=== PATIENT | male | born 1955 | race Caucasian/White ===

== ENCOUNTER 2022-04-24 18:12 | Inpatient (IN) ==
[2022-04-24] MEDS ORDERED: SODIUM CHLORIDE 0.9% 1000ML 500 ML IV ONE (18:25)
--- NOTE | 2022-04-24 18:27 | Emergency Department Note ---
Impression & Plan Fall, Contusion of knee, Rhabdomyolysis, Elevated troponin, Alcohol intoxication ED Provider Note Provider: Antoni Moss MD DATE OF SERVICE: 04/24/2022 CHIEF COMPLAINT: Fall HISTORY OF PRESENT ILLNESS: Patient is a 67-year-old gentleman history of GERD, Hodgkin's disease, IBS, and tremor presenting here today via ambulance from his home. Patient states he had a bit of alcohol including tequila earlier and then lost his balance and fell to the ground landing on his knees and then going to the floor. He was stuck on the floor for about 2 hours by his estimation. Family came home and found him and called 911. States he has some swelling in slight erythema to his knees but denies significant head pain or dizziness. Patient denies chest pain. He denies palpitations or abdominal discomfort. Patient states he felt a little bit unsettled earlier right before he fell but denies feeling short of breath or having palpitations with this. Patient states he feels like he may have been of the effect of the alcohol. Patient denies significant pain with movement of his arms or legs at this time. Patient denies use of anticoagulants or antiplatelet agents. REVIEW OF SYSTEMS: A total of 10 review of systems was obtained and negative except as stated above in the HPI. PAST MEDICAL HISTORY: As noted above MEDICATIONS: No medications SOCIAL HISTORY: Lives at home with family PHYSICAL EXAM: GENERAL: alert and oriented in no acute distress on stretcher Head: normocephalic and atraumatic EYES: No injection, discharge or icterus. PERRL, EOMI. NECK: Trachea midline. Supple without posterior midline tenderness ENT: Mucous membranes pink and moist. LUNGS: Airway patent. No retractions. Breath sounds clear HEART: Regular rate and rhythm. No chest wall tenderness ABDOMEN: Soft and non-tender, without guarding or rebound. SKIN: Acyanotic, warm, dry, without rashes EXTREMITIES: Without swelling, tenderness or deformity except for some bilateral contusion and erythema just below the knees with some slight ablation below the right knee. Able to range the upper and lower extremities well without significant focal bony tenderness. NEUROLOGICAL: No focal deficits with resting tremor of the hands bilaterally. No aphasia. No facial droop or slurred speech. Normal strength and tone in the extremities. Sensation to gross touch normal. EK bpm normal sinus rhythm. No PVC or PAC. No acute ST segment elevation or depression. QTc 459 CONTINUOUS CARDIAC MONITORING: was ordered and showed a heart rate of 70s-90s bpm in sinus rhythm GCS 15. Patient's laboratory studies and imaging reviewed. Differential includes Fracture, dislocation, contusion, intra-abdominal, pneumothorax, intrathoracic, intracranial, neurologic, compartment syndrome, rhabdomyolysis, as well as other pathologies. IMPRESSION/MEDICAL DECISION MAKING: Given the fact he was on the floor for several hours basic labs were checked including CK. CT of the head obtained but not having significant new neurological symptoms or his report. Nexus negative and doubt cervical spine injury. X-ray of the knees obtained but able to range them well and doubt a significant fracture here. Some contusion and slight abrasion to the right greater than left knee but no lacerations and no concern for dislocation or open joint. Given some IVF. Mild rhabdo elevation. Imaging reports per radiology without significant traumatic injury noted. Mild troponin elevation. Doubt this represents true ACS. Still with a bit of alcohol on board. Given his time in the floor with the CK elevation feel that continued IV fluid and monitoring here in the hospital is indicated. Patient sister later arrives and is in agreement. DIAGNOSIS: Fall, bilateral knee contusions, rhabdomyolysis, mild troponin elevation alcohol intoxication DISPOSITION: Hospitalist will evaluate Patient was agreeable with this plan. Past Med/Surg History Medical History Anxiety and depression GERD (gastroesophageal reflux disease) History of kidney stones Hodgkins disease (05/10/10) "Classic Hodgkin's disease, nodular sclerosing type II Status post bronchoscopy and mediastinal endoscopy with biopsy status post completion of 4 cycles of ABVD Status post completion of radiation therapy 07/05/2010 received 3600 cGy " IBS (irritable bowel syndrome) OCD (obsessive compulsive disorder) Osteoarthritis Tardive dyskinesia Surgical History History of cholecystectomy History of colonoscopy History of hernia repair History of left knee surgery History of vascular access device hx port for chemo. has been removed History of wisdom tooth extraction Social History Smoking Status: Never smoker Second Hand Exposure: No; Hx Alcohol Use: No Hx Substance Use: No Preferred Language: Thai Communication Ability: Effective Air Hammer Stripper Required: No Beliefs That Will Affect Care: None Current Living Situation: Family Feels Safe at Home: Yes Assistive Devices: Denture - Upper and Denture - Lower Allergies Allergies Allergy/AdvReac Type Severity Reaction Status Date / Time oxycodone AdvReac Intermediate cold Verified 04/24/22 20:31 sweats,nausea sertraline AdvReac Unknown NAUSEA, Verified 04/24/22 20:31 HEAD S/S Home Meds Home Medications Medication Instructions Recorded Confirmed aripiprazole 30 mg tablet (Abilify) 30 mg PO QAM 07/01/21 04/24/22 buspirone 30 mg tablet 30 mg PO BID 07/01/21 04/24/22 carbidopa 25 mg-levodopa 100 mg 2 tab PO TID 07/01/21 04/24/22 tablet fluoxetine 40 mg capsule (Prozac) 80 mg PO PM 07/01/21 04/24/22 hydroxyzine HCl 50 mg tablet 50 mg PO BID 07/01/21 04/24/22 fluoxetine 20 mg capsule 20 mg PO QPM 04/24/22 04/24/22 fluticasone propionate 50 2 spray intranasal DAILY 04/24/22 04/24/22 mcg/actuation nasal spray,suspension ipratropium bromide 21 mcg (0.03 2 spray intranasal DAILY PRN Nasal 04/24/22 04/24/22 %) nasal spray Congestion trazodone 100 mg tablet 300 mg PO HS 04/24/22 04/24/22 Results & Data (ED) Vital Signs Vital Signs - 24 hr 04/24/22 18:21 04/24/22 18:21 04/24/22 18:53 Temperature 36.5 C 36.8 C Temperature Source Oral Oral Pulse Rate 94 H 94 H Pulse Rate [Apical] 94 H Pulse Rhythm Regular Pulse Rhythm [Apical] Pulse Strength [Apical] Respiratory Rate 18 18 18 Respiratory Effort / Characteristics Respiratory Depth Respiratory Pattern Blood Pressure 99/59 L Blood Pressure [Left Arm] 99/59 L Blood Pressure Mean 72 Blood Pressure Mean [Left Arm] 72 Blood Pressure Position [Left Arm] Pulse Oximetry 96 100 99 Oxygen Delivery Method Room Air Room Air Room Air Sepsis Recent Fever Within 48 Hours No Sepsis New/Unexplained Change in Mental Status No Sepsis Action Taken by Nursing No Action Required 04/24/22 20:06 04/24/22 22:27 Temperature 36.9 C Temperature Source Oral Pulse Rate Pulse Rate [Apical] 74 99 H Pulse Rhythm Pulse Rhythm [Apical] Regular Pulse Strength [Apical] Normal Respiratory Rate 18 20 Respiratory Effort / Characteristics Non-Labored Spontaneous Respiratory Depth Normal Respiratory Pattern Regular Blood Pressure Blood Pressure [Left Arm] 113/67 120/67 Blood Pressure Mean Blood Pressure Mean [Left Arm] 82 84 Blood Pressure Position [Left Arm] Lying Pulse Oximetry 99 94 Oxygen Delivery Method Room Air Room Air Sepsis Recent Fever Within 48 Hours Sepsis New/Unexplained Change in Mental Status Sepsis Action Taken by Nursing Laboratory Data Result diagrams: 04/24/22 18:46 04/24/22 18:46 Lab Results 04/24/22 04/24/22 04/24/22 Range/Units 18:46 18:46 18:46 WBC 14.03 H (4.8-10.8) K/ul RBC 5.00 (4.63-6.08) M/uL Hgb 14.4 (14.0-18.0) g/dl Hct 42.2 (40.1-51.0) % MCV 84.4 (80.0-100.0) fL MCH 28.8 (25.0-34.0) pg MCHC 34.1 (32.0-36.0) g/dL RDW Std Deviation 45.3 (36.4-46.3) fL RDW Coeff of Elizabeth 14.8 H (11.5-14.5) % Plt Count 194 (130-400) K/uL MPV 11.3 (9.4-12.4) fL Immature Gran % (Auto) 1.0 % Neut % (Auto) 87.7 % Lymph % (Auto) 4.3 % [place] % (Auto) 6.7 % Eos % (Auto) 0.1 % Baso % (Auto) 0.2 % Neut # (Auto) 12.30 H (1.4-6.5) K/uL Lymph # (Auto) 0.60 L (1.2-3.4) K/uL [place] # (Auto) 0.94 H (0.24-0.82) K/uL Eos # (Auto) 0.02 (0-0.50) K/uL Baso # (Auto) 0.03 (0-0.2) K/uL Immature Gran # (Auto) 0.14 H (0.00-0.02) K/uL Sodium 140 (136-145) mmol/L Potassium 3.8 (3.5-5.1) mmol/L Chloride 109 H (98-107) mmol/L Carbon Dioxide 13 L (21-32) mmol/L Anion Gap 18 H (3-11) BUN 14 (6-23) mg/dl Creatinine 1.38 (0.6-1.4) mg/dl Est Cr Clr Drug Dosing 58.8 ml/min Est GFR ( Amer) 60.9 ml/min Est GFR (Non-Af Amer) 52.5 ml/min BUN/Creatinine Ratio 10.1 (10-20) Glucose 96 (70-99(Fasting)) mg/dl Calcium 9.1 (8.5-10.1) mg/dl Magnesium (1.7-2.4) mg/dl Total Bilirubin 0.8 (0.2-1.0) mg/dl AST 36 (13-39) U/L ALT 24 (7-52) U/L Alkaline Phosphatase 51 (34-104) U/L Total Creatine Kinase 512 H (30-223) U/L Troponin I High Sens 41.1 H (0-20) pg/ml Total Protein 6.9 (6.0-8.3) gm/dl Albumin 4.2 (3.4-5.0) gm/dl Globulin 2.7 (2.5-4.0) gm/dl Albumin/Globulin Ratio 1.6 (0.9-2) Urine Color Urine Appearance (Clear) Urine pH (4.5-7.5) Ur Specific Col[place] (1.000-1.030) Urine Protein (Negative) Urine Glucose (UA) (Negative) Urine Ketones (Negative) Urine Blood (Negative) Urine Nitrite (Negative) Urine Bilirubin (Negative) Urine Urobilinogen (Negative) Ur Leukocyte Esterase (Negative) Urine WBC (Auto) (0-5) /hpf Urine RBC (Auto) (0-4) /hpf U Hyaline Cast (Auto) (0-5) /lpf U Epithel Cells (Auto) (0-5) /lpf Urine Bacteria (Auto) (Negative) Ethyl Alcohol mg/dL 148.4 H (<10.0) mg/dl SARS-CoV-2, RNA, NAAT (NEGATIVE) 04/24/22 04/24/22 04/24/22 Range/Units 18:46 19:45 21:10 WBC (4.8-10.8) K/ul RBC (4.63-6.08) M/uL Hgb (14.0-18.0) g/dl Hct (40.1-51.0) % MCV (80.0-100.0) fL MCH (25.0-34.0) pg MCHC (32.0-36.0) g/dL RDW Std Deviation (36.4-46.3) fL RDW Coeff of Elizabeth (11.5-14.5) % Plt Count (130-400) K/uL MPV (9.4-12.4) fL Immature Gran % (Auto) % Neut % (Auto) % Lymph % (Auto) % [place] % (Auto) % Eos % (Auto) % Baso % (Auto) % Neut # (Auto) (1.4-6.5) K/uL Lymph # (Auto) (1.2-3.4) K/uL [place] # (Auto) (0.24-0.82) K/uL Eos # (Auto) (0-0.50) K/uL Baso # (Auto) (0-0.2) K/uL Immature Gran # (Auto) (0.00-0.02) K/uL Sodium (136-145) mmol/L Potassium (3.5-5.1) mmol/L Chloride (98-107) mmol/L Carbon Dioxide (21-32) mmol/L Anion Gap (3-11) BUN (6-23) mg/dl Creatinine (0.6-1.4) mg/dl Est Cr Clr Drug Dosing ml/min Est GFR ( Amer) ml/min Est GFR (Non-Af Amer) ml/min BUN/Creatinine Ratio (10-20) Glucose (70-99(Fasting)) mg/dl Calcium (8.5-10.1) mg/dl Magnesium 2.1 (1.7-2.4) mg/dl Total Bilirubin (0.2-1.0) mg/dl AST (13-39) U/L ALT (7-52) U/L Alkaline Phosphatase (34-104) U/L Total Creatine Kinase (30-223) U/L Troponin I High Sens (0-20) pg/ml Total Protein (6.0-8.3) gm/dl Albumin (3.4-5.0) gm/dl Globulin (2.5-4.0) gm/dl Albumin/Globulin Ratio (0.9-2) Urine Color Yellow Urine Appearance Clear (Clear) Urine pH 6.5 (4.5-7.5) Ur Specific [place] 1.003 (1.000-1.030) Urine Protein Negative (Negative) Urine Glucose (UA) Negative (Negative) Urine Ketones Negative (Negative) Urine Blood 1+ H (Negative) Urine Nitrite Negative (Negative) Urine Bilirubin Negative (Negative) Urine Urobilinogen Negative (Negative) Ur Leukocyte Esterase Negative (Negative) Urine WBC (Auto) 1-5 (0-5) /hpf Urine RBC (Auto) 0-4 (0-4) /hpf U Hyaline Cast (Auto) 0 (0-5) /lpf U Epithel Cells (Auto) 0-5 (0-5) /lpf Urine Bacteria (Auto) Negative (Negative) Ethyl Alcohol mg/dL (<10.0) mg/dl SARS-CoV-2, RNA, NAAT NEGATIVE (NEGATIVE) Administered Medications Lactated Ringer's (Lr) 1,000 mls @ 80 mls/hr IV .[id number] JEVON Stop: 05/24/22 19:59 Last Admin: 04/24/22 21:07 Dose: 80 mls/hr Documented By: KT Discontinued Medications Buspirone HCl (Buspirone 15 Mg Tab) 30 mg PO NOW STA Stop: 04/24/22 21:09 Last Admin: 04/24/22 22:24 Dose: 30 mg Documented By: VANE Carbidopa/Levodopa (Carbidopa/Levodopa 25/100mg Tab Odt) 2 tab PO NOW STA Stop: 04/24/22 21:09 Last Admin: 04/24/22 22:19 Dose: 2 tab Documented By: VANE Fluoxetine HCl (Fluoxetine Hcl 20 Mg Cap) 100 mg PO NOW STA Stop: 04/24/22 21:07 Last Admin: 04/24/22 22:18 Dose: 100 mg Documented By: VANE Sodium Chloride (Nss 1000ml) 500 mls @ 999 mls/hr IV .Q31M ONE Stop: 04/24/22 18:55 Last Infusion: 04/24/22 19:33 Dose: 0 mls/hr Documented By: Admin: 04/24/22 18:35 Dose: 999 mls/hr Documented By: SAMANTHA Thiamine HCl 100 mg/ Syringe 10 mls @ 2 mls/min IV TODAY@2044 ONE Stop: 04/24/22 20:49 Last Admin: 04/24/22 21:08 Dose: 2 mls/min Documented By: SAMANTHA Trazodone HCl (Trazodone Hcl 100 Mg Tab) 300 mg PO NOW STA Stop: 04/24/22 21:08 Last Admin: 04/24/22 22:18 Dose: 300 mg Documented By: VANE Imaging Data Radiologist's Impression: Chest X-Ray 04/24/22 18:25 SINGLE VIEW CHEST CLINICAL HISTORY: Fall. FINDINGS: 2 AP, portable, upright chest radiographs are compared to chest x-ray and chest CT dated 04/09/2022. The examination is degraded by portable technique and apical lordotic positioning. Prominence of the right mediastinal contour is unchanged and consistent with the known mediastinal mass lesion. The heart is top normal for projection. Findings of chronic interstitial lung disease are similar to previous. There is mild volume loss in the right lung with elevation of the right hemidiaphragm. There are scattered calcified granulomas. No superimposed airspace consolidation or large pleural effusion is identified. No pneumothorax is seen. The skeletal structures are osteopenic. There are chronic right-sided rib fractures. Arthritic change is seen in the shoulders. IMPRESSION: Chronic findings as above with no acute cardiopulmonary abnormality identified. ACT 112: Negative or not required by law. Electronically signed by: Kumar Burt M.D. 04/24/2022 7:[address] 04/24/22 18:25 CT SCAN OF THE BRAIN WITHOUT IV CONTRAST CLINICAL HISTORY: Trauma. Fall with head injury. COMPARISON STUDY: CT of the brain dated 02/08/2020. TECHNIQUE: Unenhanced axial CT scan of the brain is performed from the vertex to the skull base. A dose lowering technique was utilized adhering to the principles of ALARA. CT DOSE: 1048.27 mGy.cm FINDINGS: Brain parenchyma: There is age-related involutional change noting minimal subcortical and periventricular microangiopathic disease. There is no hemorrhage, mass effect, or evidence of acute territorial ischemia by CT criteria. Hong-white matter differentiation is preserved. No extra-axial fluid collection is seen. Ventricles, sulci, cisterns: Prominent secondary to involutional change. Intracranial vasculature: There is atherosclerotic calcification of the cavernous carotid and vertebral arteries. Calvarium: No depressed calvarial fracture is identified. Sinuses and mastoids: The visualized paranasal sinuses are clear. The mastoid air cells are well pneumatized. Cerumen is noted in the left external auditory canal. Orbits: The bony orbits are grossly intact. IMPRESSION: There is no hemorrhage, mass effect, or evidence of acute territorial ischemia by CT criteria. ACT 112: Negative or not required by law. Electronically signed by: Kumar Burt M.D. 04/24/2022 7:03 PM Knee X-Ray 04/24/22 18:25 LEFT KNEE 3 VIEWS CLINICAL HISTORY: Fall with left knee contusion. FINDINGS: AP, crosstable lateral, and sunrise views of the left knee are obtained. No prior studies are available for comparison at the time of dictation. The skeletal structures are osteopenic. No acute fracture is seen. There is chronic posttraumatic deformity of the proximal tibia with [address]. There is advanced degenerative change at the proximal tibiofibular articulation with bony overgrowth. There is moderate to advanced tricompartmental degenerative joint space narrowing of the knee, greatest in the lateral and patellofemoral components. There is degenerative beaking of the tibial spine, large marginal osteophytes, and patellar enthesophytes. There is a large joint effusion. Prepatellar soft tissue swelling is noted. IMPRESSION: 1. Soft tissue swelling and joint effusion with no fracture identified. 3. Osteopenia with chronic postoperative, posttraumatic, and degenerative changes as above. Electronically signed by: Kumar Burt M.D. 04/24/2022 7:32 PM Knee X-Ray 04/24/22 18:25 RIGHT KNEE 3 VIEWS CLINICAL HISTORY: Fall. Right knee injury. FINDINGS: AP, crosstable lateral, and sunrise views of the right knee are obtained. No prior studies are available for comparison at the time of dictation. The skeletal structures are osteopenic. No fracture is seen. The joint spaces of the knee are maintained. There is degenerative peaking of the tibial spine. No joint effusion is identified. There is mild prepatellar soft tissue swelling. IMPRESSION: No acute bony abnormality is identified. Electronically signed by: Kumar Burt M.D. 04/24/2022 7:30 PM Discharge Plan Visit Data Chief Complaint: Fall ED Provider: Antoni Moss Discharge Problem: Fall, Contusion of knee, Rhabdomyolysis, Elevated troponin, Alcohol intoxication Patient Disposition: Being Evaluated by Hospitalist Forms Stand Alone Forms: My [facility] Prescriptions Prescriptions: No Action fluoxetine [Prozac] 40 mg Capsule 80 mg PO PM Rx Instructions: take with 20 mg = 100mg, per patient hydroxyzine HCl 50 mg Tablet 50 mg PO BID Rx Instructions: Takes 1 tab in AM and 1 tab in mid afternoon. buspirone 30 mg Tablet 30 mg PO BID carbidopa-levodopa 25-100 mg Tablet 2 tab PO TID aripiprazole [Abilify] 30 mg Tablet 30 mg PO QAM trazodone 100 mg tablet 300 mg PO HS fluticasone propionate 50 mcg/actuation spray,suspension 2 spray INTRANASAL DAILY ipratropium bromide 21 mcg (0.03 %) spray,non-aerosol 2 spray INTRANASAL DAILY PRN (Reason: Nasal Congestion) fluoxetine 20 mg capsule 20 mg PO QPM Rx Instructions: Per pt , take with 2, 40 mg tabs to = 100mg Referrals Referrals: Nikhil Persaud DO [Primary Care Provider] -
--- NOTE | 2022-04-24 19:06 | CT Scan Report ---
CT SCAN OF THE BRAIN WITHOUT IV CONTRAST CLINICAL HISTORY: Trauma. Fall with head injury. COMPARISON STUDY: CT of the brain dated 02/08/2020. TECHNIQUE: Unenhanced axial CT scan of the brain is performed from the vertex to the skull base. A do se lowering technique was utilized adhering to the principles of ALARA. CT DOSE: 1048.27 mGy.cm FINDINGS: Brain parenchyma: There is age-related involutional change noting minimal subcortical and periventric ular microangiopathic disease. There is no hemorrhage, mass effect, or evidence of acute territorial ischemia by CT criteria. Hong-white matter differentiation is preserved. No extra-axial fluid collect ion is seen. Ventricles, sulci, cisterns: Prominent secondary to involutional change. Intracranial vasculature: There is atherosclerotic calcification of the cavernous carotid and vertebr al arteries. Calvarium: No depressed calvarial fracture is identified. Sinuses and mastoids: The visualized paranasal sinuses are clear. The mastoid air cells are well pneu matized. Cerumen is noted in the left external auditory canal. Orbits: The bony orbits are grossly intact. IMPRESSION: There is no hemorrhage, mass effect, or evidence of acute territorial ischemia by CT tio peterson. ACT 112: Negative or not required by law. Electronically signed by: Kumar Burt M.D. 04/24/2022 7:03 PM
[2022-04-24 19:09] LABS: Basophils # (auto) 0.03 K/uL (0-0.2); Basophils % (auto) 0.2 %; Eosinophils # (auto) 0.02 K/uL (0-0.50); Eosinophils % (auto) 0.1 %; Hematocrit (blood only) 42.2 % (40.1-51.0); Hemoglobin 14.4 g/dl (14.0-18.0); Immature Granulocytes # (auto) 0.14 K/uL (0.00-0.02); Lymphocytes % (auto) 4.3 %; Mean Corpuscular Hemoglobin 28.8 pg (25.0-34.0); Mean Corpuscular Hgb Conc 34.1 g/dL (32.0-36.0); Mean Corpuscular Volume 84.4 fL (80.0-100.0); Mean Platelet Volume 11.3 fL (9.4-12.4); Monocytes # (auto) 0.94 K/uL (0.24-0.82); Monocytes % (auto) 6.7 %; Neutrophils % (auto) 87.7 %; Platelet Count 194 K/uL (130-400); RDW Coefficient of Variation 14.8 % (11.5-14.5); RDW Standard Deviation 45.3 fL (36.4-46.3); White Blood Count 14.03 K/ul (4.8-10.8)
[2022-04-24 19:26] LABS: Albumin Globulin Ratio 1.6 (0.9-2); Albumin Level 4.2 gm/dl (3.4-5.0); BUN Creatinine Ratio 10.1 (10-20); Bilirubin,Total 0.8 mg/dl (0.2-1.0); Calcium 9.1 mg/dl (8.5-10.1); Creatinine Clr Calc Pharmacy 58.8 ml/min; Est GFR (African American) 60.9 ml/min; Est GFR (Non-African American) 52.5 ml/min; Globulin 2.7 gm/dl (2.5-4.0); Potassium 3.8 mmol/L (3.5-5.1); Total Protein 6.9 gm/dl (6.0-8.3)
--- NOTE | 2022-04-24 19:30 | XRay Report ---
SINGLE VIEW CHEST CLINICAL HISTORY: Fall. FINDINGS: 2 AP, portable, upright chest radiographs are compared to chest x-ray and chest CT dated 05/2022. The examination is degraded by portable technique and apical lordotic positioning. Prominenc e of the right mediastinal contour is unchanged and consistent with the known mediastinal mass lesion . The heart is top normal for projection. Findings of chronic interstitial lung disease are similar t o previous. There is mild volume loss in the right lung with elevation of the right hemidiaphragm. Th ere are scattered calcified granulomas. No superimposed airspace consolidation or large pleural effus ion is identified. No pneumothorax is seen. The skeletal structures are osteopenic. There are chronic right-sided rib fractures. Arthritic change is seen in the shoulders. IMPRESSION: Chronic findings as above with no acute cardiopulmonary abnormality identified. ACT 112: Negative or not required by law. Electronically signed by: Kumar Burt M.D. 04/24/2022 7:29 PM
--- NOTE | 2022-04-24 19:31 | XRay Report ---
RIGHT KNEE 3 VIEWS CLINICAL HISTORY: Fall. Right knee injury. FINDINGS: AP, crosstable lateral, and sunrise views of the right knee are obtained. No prior studies are available for comparison at the time of dictation. The skeletal structures are osteopenic. No fra cture is seen. The joint spaces of the knee are maintained. There is degenerative peaking of the tibi al spine. No joint effusion is identified. There is mild prepatellar soft tissue swelling. IMPRESSION: No acute bony abnormality is identified. Electronically signed by: Kumar Burt M.D. 04/24/2022 7:30 PM
[2022-04-24 19:33] LABS: Troponin I High Sensitivity 41.1 pg/ml (0-20)
--- NOTE | 2022-04-24 19:34 | XRay Report ---
LEFT KNEE 3 VIEWS CLINICAL HISTORY: Fall with left knee contusion. FINDINGS: AP, crosstable lateral, and sunrise views of the left knee are obtained. No prior studies a re available for comparison at the time of dictation. The skeletal structures are osteopenic. No acut e fracture is seen. There is chronic posttraumatic deformity of the proximal tibia with 3 cortical la g screws in place. There is advanced degenerative change at the proximal tibiofibular articulation wi th bony overgrowth. There is moderate to advanced tricompartmental degenerative joint space narrowing of the knee, greatest in the lateral and patellofemoral components. There is degenerative beaking of the tibial spine, large marginal osteophytes, and patellar enthesophytes. There is a large joint eff usion. Prepatellar soft tissue swelling is noted. IMPRESSION: 1. Soft tissue swelling and joint effusion with no fracture identified. 3. Osteopenia with chronic postoperative, posttraumatic, and degenerative changes as above. Electronically signed by: Kumar Burt M.D. 04/24/2022 7:32 PM
[2022-04-24 20:42] LABS: Appearance Urine Clear (Clear); Bacteria Urine Automated Negative (Negative); Bilirubin Urine Negative (Negative); Blood Urine 1+ (Negative); Cast Urine Automated 0 /lpf (0-5); Color Urine Yellow; Epithelial Cell Urine Auto 0-5 /lpf (0-5); Glucose Urine UA Negative (Negative); Ketones Urine Negative (Negative); Leukocyte Esterase Urine Negative (Negative); Nitrite Urine Negative (Negative); Protein Urine Negative (Negative); RBC Urine Automated 0-4 /hpf (0-4); Specific Gravity Urine 1.003 (1.000-1.030); Urobilinogen Urine Negative (Negative); pH Urine 6.5 (4.5-7.5)
[2022-04-24] MEDS ORDERED: THIAMINE HCL 100 MG in SYRINGE 9 ML IV ONE (20:45)
--- NOTE | 2022-04-24 20:59 | History & Physical Report ---
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 Lovenox subcu Full code Patient sister requesting updates from providers. Ms. Dejah Magana, contact #[phone]. Text document was generated using [employer] voice recognition software. It may contain grammatical or spelling errors. Kindly contact undersigned for clarification of any documentation item in question. History of Present Illness Chief Complaint: Fall Primary Care Provider: Nikhil Persaud, History obtained from patient, family, and records. Medical history significant for alcohol dependence as per records, Hodgkin's lymphoma status post chemoradiation, Parkinson's disease, OCD, anxiety/mood disorder. Last confinement 2011 at the behavioral health unit under Psychiatry service for anxiety, increased alcohol intake and Klonopin misuse. Patient lost his balance at home today subsequently falling to the ground. Patient sustained wounds on both knees. No head trauma, no syncope, no chest pain, no SOB. Patient had started drinking tequila because of stress over the TV service shima not showing up for his appointment today. Patient was on the ground for about a couple of hours, unable to get up. Patient found by sister and father. Patient sister not aware of patient drinking again but was surprised that the old bottle of Tequila at their home was almost empty. Patient very secretive as per sister. Medical History as above Surgical History : Mediastinostomy, cholecystectomy, inguinal hernia repair, tibia fracture surgery, wrist bone surgery, vascular device placement Family History : Stomach cancer, lymphoma, DM, heart disease, stroke Personal/Social history : Non-smoker, alcohol abuse as per records, partially disabled Allergies Allergy/AdvReac Type Severity Reaction Status Date / Time oxycodone AdvReac Intermediate cold Verified 04/24/22 20:31 sweats,nausea sertraline AdvReac Unknown NAUSEA, Verified 04/24/22 20:31 HEAD S/S Home Medications Medication Instructions Recorded Confirmed Type aripiprazole 30 mg tablet (Abilify) 30 mg PO QAM 07/01/21 04/24/22 History buspirone 30 mg tablet 30 mg PO BID 07/01/21 04/24/22 History carbidopa 25 mg-levodopa 100 mg 2 tab PO TID 07/01/21 04/24/22 History tablet fluoxetine 40 mg capsule (Prozac) 80 mg PO PM 07/01/21 04/24/22 History hydroxyzine HCl 50 mg tablet 50 mg PO BID 07/01/21 04/24/22 History fluoxetine 20 mg capsule 20 mg PO QPM 04/24/22 04/24/22 History fluticasone propionate 50 2 spray intranasal DAILY 04/24/22 04/24/22 History mcg/actuation nasal spray,suspension ipratropium bromide 21 mcg (0.03 2 spray intranasal DAILY PRN Nasal 04/24/22 04/24/22 History %) nasal spray Congestion trazodone 100 mg tablet 300 mg PO HS 04/24/22 04/24/22 History Past Med/Surg History Medical History Anxiety and depression GERD (gastroesophageal reflux disease) History of kidney stones Hodgkins disease (05/10/10) "Classic Hodgkin's disease, nodular sclerosing type II Status post bronchoscopy and mediastinal endoscopy with biopsy status post completion of 4 cycles of ABVD Status post completion of radiation therapy 07/05/2010 received 3600 cGy " IBS (irritable bowel syndrome) OCD (obsessive compulsive disorder) Osteoarthritis Tardive dyskinesia Surgical History History of cholecystectomy History of colonoscopy History of hernia repair History of left knee surgery History of vascular access device hx port for chemo. has been removed History of wisdom tooth extraction Social History Smoking Status: Never smoker Second Hand Exposure: No; Hx Alcohol Use: Yes Alcohol type: hard liquor Hx Substance Use: No Preferred Language: Icelandic Communication Ability: Effective Steam Room Attendant Required: No Beliefs That Will Affect Care: None Current Living Situation: Family Current Living Situation Comment: lives with dad and sister Other Information That Helps Us Care for You: No Feels Safe at Home: Yes Safety Concerns: Feels Safe At This Time Assistive Devices: Denture - Upper and Denture - Lower Review of Systems Review of Systems: As per HPI, all other systems reviewed and negative Physical Exam Physical Exam: GENERAL: Comfortable, obese, tremulous, unkempt, no respiratory distress SKIN: Normal color, warm HEENT: Partial alopecia, [place] palpebral conjunctivae, no ptosis, dry buccal mucosa NECK : Supple, short neck, no tenderness CHEST : CTA, no tenderness HEART : RRR, no obvious murmurs ABDOMEN: Some distention, nontender EXTREMITIES : bilateral contusions swellings on both knees with minimal tenderness, minimal LE swelling NEUROLOGIC : Coherent, no facial asymmetry, rest tremors, gait and stance not assessed Results & Data Results & Data ([facility]) Vital Signs (Past 12 Hours) Vital Signs Temp Pulse Pulse Resp BP BP Pulse Ox 04/24/22 18:53 94 H 18 99 04/24/22 18:21 36.8 C 94 H 18 99/59 L 100 04/24/22 18:21 36.5 C 94 H 18 99/59 L 96 O2 Del Method 04/24/22 18:53 Room Air 04/24/22 18:21 Room Air 04/24/22 18:21 Room Air Laboratory Results Laboratory Results WBC 14.03 K/ul (4.8-10.8) H 04/24/22 18:46 RBC 5.00 M/uL (4.63-6.08) 04/24/22 18:46 Hgb 14.4 g/dl (14.0-18.0) 04/24/22 18:46 Hct 42.2 % (40.1-51.0) 04/24/22 18:46 MCV 84.4 fL (80.0-100.0) 04/24/22 18:46 MCH 28.8 pg (25.0-34.0) 04/24/22 18:46 MCHC 34.1 g/dL (32.0-36.0) 04/24/22 18:46 RDW Std Deviation 45.3 fL (36.4-46.3) 04/24/22 18:46 RDW Coeff of [place] 14.8 % (11.5-14.5) H 04/24/22 18:46 Plt Count 194 K/uL (130-400) 04/24/22 18:46 MPV 11.3 fL (9.4-12.4) 04/24/22 18:46 Immature Gran % (Auto) 1.0 % 04/24/22 18:46 Neut % (Auto) 87.7 % 04/24/22 18:46 Lymph % (Auto) 4.3 % 04/24/22 18:46 [place] % (Auto) 6.7 % 04/24/22 18:46 Eos % (Auto) 0.1 % 04/24/22 18:46 Baso % (Auto) 0.2 % 04/24/22 18:46 Neut # (Auto) 12.30 K/uL (1.4-6.5) H 04/24/22 18:46 Lymph # (Auto) 0.60 K/uL (1.2-3.4) L 04/24/22 18:46 [place] # (Auto) 0.94 K/uL (0.24-0.82) H 04/24/22 18:46 Eos # (Auto) 0.02 K/uL (0-0.50) 04/24/22 18:46 Baso # (Auto) 0.03 K/uL (0-0.2) 04/24/22 18:46 Immature Gran # (Auto) 0.14 K/uL (0.00-0.02) H 04/24/22 18:46 Sodium 140 mmol/L (136-145) 04/24/22 18:46 Potassium 3.8 mmol/L (3.5-5.1) 04/24/22 18:46 Chloride 109 mmol/L (98-107) H 04/24/22 18:46 Carbon Dioxide 13 mmol/L (21-32) L 04/24/22 18:46 Anion Gap 18 (3-11) H 04/24/22 18:46 BUN 14 mg/dl (6-23) 04/24/22 18:46 Creatinine 1.38 mg/dl (0.6-1.4) 04/24/22 18:46 Est Cr Clr Drug Dosing 58.8 ml/min 04/24/22 18:46 Est GFR ( Amer) 60.9 ml/min 04/24/22 18:46 Est GFR (Non-Af Amer) 52.5 ml/min 04/24/22 18:46 BUN/Creatinine Ratio 10.1 (10-20) 04/24/22 18:46 Glucose 96 mg/dl (70-99(Fasting)) 04/24/22 18:46 Calcium 9.1 mg/dl (8.5-10.1) 04/24/22 18:46 Magnesium 2.1 mg/dl (1.7-2.4) 04/24/22 18:46 Total Bilirubin 0.8 mg/dl (0.2-1.0) 04/24/22 18:46 AST 36 U/L (13-39) 04/24/22 18:46 ALT 24 U/L (7-52) 04/24/22 18:46 Alkaline Phosphatase 51 U/L (34-104) 04/24/22 18:46 Total Creatine Kinase 512 U/L (30-223) H 04/24/22 18:46 Troponin I High Sens 41.1 pg/ml (0-20) H 04/24/22 18:46 Total Protein 6.9 gm/dl (6.0-8.3) 04/24/22 18:46 Albumin 4.2 gm/dl (3.4-5.0) 04/24/22 18:46 Globulin 2.7 gm/dl (2.5-4.0) 04/24/22 18:46 Albumin/Globulin Ratio 1.6 (0.9-2) 04/24/22 18:46 Ethyl Alcohol mg/dL 148.4 mg/dl (<10.0) H 04/24/22 18:46 Impressions Chest X-Ray 04/24/22 18:25 SINGLE VIEW CHEST CLINICAL HISTORY: Fall. FINDINGS: 2 AP, portable, upright chest radiographs are compared to chest x-ray and chest CT dated 04/09/2022. The examination is degraded by portable technique and apical lordotic positioning. Prominence of the right mediastinal contour is unchanged and consistent with the known mediastinal mass lesion. The heart is top normal for projection. Findings of chronic interstitial lung disease are similar to previous. There is mild volume loss in the right lung with elevation of the right hemidiaphragm. There are scattered calcified granulomas. No superimposed airspace consolidation or large pleural effusion is identified. No pneumothorax is seen. The skeletal structures are osteopenic. There are chronic right-sided rib fractures. Arthritic change is seen in the shoulders. IMPRESSION: Chronic findings as above with no acute cardiopulmonary abnormality identified. ACT 112: Negative or not required by law. Electronically signed by: Kumar Burt M.D. 04/24/2022 7:[address] 04/24/22 18:25 CT SCAN OF THE BRAIN WITHOUT IV CONTRAST CLINICAL HISTORY: Trauma. Fall with head injury. COMPARISON STUDY: CT of the brain dated 02/08/2020. TECHNIQUE: Unenhanced axial CT scan of the brain is performed from the vertex to the skull base. A dose lowering technique was utilized adhering to the principles of ALARA. CT DOSE: 1048.27 mGy.cm FINDINGS: Brain parenchyma: There is age-related involutional change noting minimal subcortical and periventricular microangiopathic disease. There is no hemorrhage, mass effect, or evidence of acute territorial ischemia by CT criteria. [place]-white matter differentiation is preserved. No extra-axial fluid collection is seen. Ventricles, sulci, cisterns: Prominent secondary to involutional change. Intracranial vasculature: There is atherosclerotic calcification of the cavernous carotid and vertebral arteries. Calvarium: No depressed calvarial fracture is identified. Sinuses and mastoids: The visualized paranasal sinuses are clear. The mastoid air cells are well pneumatized. Cerumen is noted in the left external auditory canal. Orbits: The bony orbits are grossly intact. IMPRESSION: There is no hemorrhage, mass effect, or evidence of acute territorial ischemia by CT criteria. ACT 112: Negative or not required by law. Electronically signed by: Kumar Burt M.D. 04/24/2022 7:03 PM Knee X-Ray 04/24/22 18:25 LEFT KNEE 3 VIEWS CLINICAL HISTORY: Fall with left knee contusion. FINDINGS: AP, crosstable lateral, and sunrise views of the left knee are obtained. No prior studies are available for comparison at the time of dictation. The skeletal structures are osteopenic. No acute fracture is seen. There is chronic posttraumatic deformity of the proximal tibia with [address] There is advanced degenerative change at the proximal tibiofibular articulation with bony overgrowth. There is moderate to advanced tricompartmental degenerative joint space narrowing of the knee, greatest in the lateral and patellofemoral components. There is degenerative beaking of the tibial spine, large marginal osteophytes, and patellar enthesophytes. There is a large joint effusion. Prepatellar soft tissue swelling is noted. IMPRESSION: 1. Soft tissue swelling and joint effusion with no fracture identified. 3. Osteopenia with chronic postoperative, posttraumatic, and degenerative changes as above. Electronically signed by: Kumar Burt M.D. 04/24/2022 7:32 PM Diagnostic Findings EKG as per my interpretation : Rate 90, NSR, normal axis, no ischemia (1) Rhabdomyolysis Encounter type: initial encounter Rhabdomyolysis type: traumatic Qualified Code(s): T79.6XXA - Traumatic ischemia of muscle, initial encounter
[2022-04-24] MEDS ORDERED: FLUoxetine HCL 20 MG CAP PO STA (21:06)
[2022-04-24] MEDS: LACTATED RINGER'S 1,000 ML IV SCH (21:07)
[2022-04-24] MEDS ORDERED: traZODone HCL 100 MG TAB PO STA (21:07)
[2022-04-24] MEDS ORDERED: CARBIDOPA/LEVODOPA 25/100MG TAB ODT PO STA (21:08)
[2022-04-24] MEDS: busPIRone 15 MG TAB PO STA ×2 (22:22→22:24)
[2022-04-24] MEDS ORDERED: ACETAMINOPHEN 325 MG TAB ONE (23:05)
[2022-04-24] MEDS ORDERED: Ativan IV Alcohol Withdrawal--Active Protocol IV PRN (23:07)
[2022-04-24] MEDS ORDERED: LORazepam 3 MG in SYRINGE 1.5 ML IV PRN (23:07)
[2022-04-24] MEDS ORDERED: LORazepam 2 MG in SYRINGE 1 ML IV PRN (23:07)
[2022-04-24] MEDS ORDERED: LORazepam 1 MG in SYRINGE 0.5 ML IV PRN (23:07)
[2022-04-25 01:11] LABS: Base Excess VBG -6.1 mEq/L; HCO3 VBG 17 mmol/L; Oxygen Saturation VBG 93.1 %; PCO2 VBG 28 mmHg (38-50); PO2 VBG 65 mmHg
[2022-04-25 01:36] LABS: BUN Creatinine Ratio 11.8 (10-20); Calcium 8.6 mg/dl (8.5-10.1); Creatinine Clr Calc Pharmacy 73.8 ml/min; Est GFR (African American) 80.1 ml/min; Est GFR (Non-African American) 69.1 ml/min; Potassium 3.7 mmol/L (3.5-5.1)
[2022-04-25] MEDS ORDERED: ACETAMINOPHEN 325 MG TAB PO PRN (01:42)
[2022-04-25] MEDS ORDERED: hydrOXYzine HCl 25 MG TAB PO PRN (01:42)
[2022-04-25] MEDS ORDERED: PROMETHAZINE HCL 12.5 MG in SODIUM CHLORIDE 0.9% 50 ML IV PRN (01:42)
[2022-04-25] MEDS ORDERED: KETOROLAC TROMETHAMINE 15 MG/ML VIAL IV PRN (01:42)
[2022-04-25] MEDS ORDERED: IPRATROPIUM BROMIDE NASAL SPRAY 0.06% 15ML NAE PRN (01:48)
[2022-04-25 02:43] LABS: Troponin I High Sensitivity 147.2 pg/ml (0-20)
[2022-04-25] MEDS ORDERED: DOXYCYCLINE HYCLATE 100 MG in DEXTROSE 5% 100 ML IV STA (02:56)
[2022-04-25] MEDS ORDERED: ACETAMINOPHEN 325 MG TAB PO STA (02:58)
[2022-04-25 05:43] LABS: Basophils # (auto) 0.03 K/uL (0-0.2); Basophils % (auto) 0.3 %; Eosinophils # (auto) 0.06 K/uL (0-0.50); Eosinophils % (auto) 0.6 %; Hematocrit (blood only) 38.5 % (40.1-51.0); Hemoglobin 12.9 g/dl (14.0-18.0); Immature Granulocytes # (auto) 0.05 K/uL (0.00-0.02); Immature Granulocytes % (auto) 0.5 %; Lymphocytes # (auto) 1.48 K/uL (1.2-3.4); Lymphocytes % (auto) 15.6 %; Mean Corpuscular Hemoglobin 28.4 pg (25.0-34.0); Mean Corpuscular Hgb Conc 33.5 g/dL (32.0-36.0); Mean Corpuscular Volume 84.8 fL (80.0-100.0); Mean Platelet Volume 11.4 fL (9.4-12.4); Monocytes % (auto) 11.6 %; Neutrophils # (auto) 6.78 K/uL (1.4-6.5); Neutrophils % (auto) 71.4 %; Platelet Count 170 K/uL (130-400); RDW Coefficient of Variation 15.1 % (11.5-14.5); RDW Standard Deviation 45.8 fL (36.4-46.3); Red Blood Count 4.54 M/uL (4.63-6.08)
[2022-04-25 06:04] LABS: BUN Creatinine Ratio 16.2 (10-20); Calcium 8.2 mg/dl (8.5-10.1); Creatinine Clr Calc Pharmacy 85.4 ml/min; Est GFR (Non-African American) 78.5 ml/min; Potassium 3.8 mmol/L (3.5-5.1)
[2022-04-25 06:09] LABS: Troponin I High Sensitivity 120.1 pg/ml (0-20)
--- NOTE | 2022-04-25 08:12 | Electrocardiogram Report ---
Test Reason : Blood Pressure : / mmHG Vent. Rate : 089 BPM Atrial Rate : 089 BPM P-R Int : 162 ms QRS Dur : 080 ms QT Int : 378 ms P-R-T Axes : 076 046 057 degrees QTc Int : 459 ms Poor data quality, interpretation may be adversely affected Normal sinus rhythm Nondiagnostic lateral Q waves Abnormal ECG When compared with ECG of 17-FEB-2012 18:13, No significant change was found Confirmed by Ld Zimmerman ([id number]) on 04/25/2022 8:12:15 AM Referred By: REFERRED SELF Confirmed By:Ld Zimmerman
[2022-04-25] MEDS: THIAMINE HCL 100 MG TAB PO SCH (08:19)
[2022-04-25] MEDS: MULTIVITAMIN TAB PO SCH (08:19)
[2022-04-25] MEDS: FLUTICASONE PROPIONATE NA SPR 16 GM BTL SCH (08:19)
[2022-04-25] MEDS: FOLIC ACID 1 MG TAB PO SCH (08:19)
[2022-04-25] MEDS: ENOXAPARIN INJ 40 MG/0.4 ML SYR SQ SCH (08:19)
[2022-04-25] MEDS: busPIRone 15 MG TAB PO SCH ×2 (08:20→21:44)
[2022-04-25] MEDS: CARBIDOPA/LEVODOPA 25/100MG TAB PO SCH ×3 (08:20→21:45)
[2022-04-25] MEDS: ARIPiprazole 15 MG TAB PO SCH (08:20)
[2022-04-25] MEDS ORDERED: PNEUMOCOCCAL Polysaccharide Vaccine 25mcg/0.5mL vial/Syr IM ONE (09:00)
--- NOTE | 2022-04-25 11:16 | Electrocardiogram Report ---
Test Reason : Blood Pressure : / mmHG Vent. Rate : 091 BPM Atrial Rate : 091 BPM P-R Int : 160 ms QRS Dur : 090 ms QT Int : 380 ms P-R-T Axes : 068 075 065 degrees QTc Int : 467 ms Normal sinus rhythm Normal ECG When compared with ECG of 24-APR-2022 18:36, No significant change was found Confirmed by Ld Zimmerman ([id number]) on 04/25/2022 11:15:54 AM Referred By: REFERRED SELF Confirmed By:Ld Zimmerman
[2022-04-25] MEDS: LACTATED RINGER'S 1,000 ML IV SCH (11:41)
[2022-04-25] MEDS: SODIUM CHLORIDE 0.45 % 1,000 ML IV SCH (13:18)
--- NOTE | 2022-04-25 13:18 | Hospitalist Progress Note ---
Date of Service April 25, 2022 Assessment & Plan (1) Fall: Plan 67-year-old male with PMH of alcohol dependence per records, Hodgkin's lymphoma status post chemoradiation, Parkinson's disease, OCD, anxiety/mood disorder presented to our ED 04/24 with complaint of fall. Fall Rhabdomyolysis Elevated troponin Concern for alcohol abuse Bilateral knee wounds with secondary infection: Continue with doxycycline 04/25 Patient reported drinking on the day of fall and also reports no dizziness/loss of consciousness/chest pain/palpitation prior to fall. Patient fell on his both knees and belly, does not remember hitting head. Patient was lying on the floor for couple of hours per him. Patient reports drinking 1 glass of wine every couple of weeks but empty bottle of tequila was found at their home on the day of his fall. Patient noted to be very secretive per family member. Admitting CXR/head CT/right knee x-ray with no acute findings. Admitting left knee x-ray with soft tissue swelling and joint effusion with no fracture. On exam, knee minimal tender. CPK at presentation 512, uptrending. Troponin elevated and plateaued, likely secondary to rhabdomyolysis, patient with no chest pain, EKG without acute changes. Continue with IV fluid, trend CPK in a.m., PT/OT, continue with AWSS protocol. Other chronic medical conditions: Hodgkin lymphoma status post chemoradiation/still with mediastinal mass/symptomatic, Parkinson disease, obesity, anxiety/mood disorder --->> continue with home meds as and when able. DVT prophylaxis. Lovenox subcu Full code Patient sister Ms. Dejah Magana, contact #[phone]. Admission and Anticipated Discharge Date Admission Date: April 24, 2022 Subjective Patient seen and examined at bedside as a follow-up of traumatic rhabdomyolysis secondary to fall and troponin elevation likely secondary to aforementioned. Patient was lying in bed, on room air, NAD, denies any new acute events overnight. Patient reports eating okay and also reports not moving bowels in the last 2 days. Patient denies any chest pain but reports mild pain at bilateral lower ribs where he landed when he fell at home. Patient denies any headache or dizziness or sore throat or cough or fever or chills or acute changes in his bowel or bladder habits. Patient reports having a glass of wine once every couple of weeks and denies drinking anything heavier than that. Of note, Last confinement 2011 at the behavioral health unit under Psychiatry service for anxiety, increased alcohol intake and Klonopin misuse. Physical Exam Physical Exam: GENERAL: Alert and oriented x3. NAD, on RA. resting tremors noted. HEENT: No pallor, no icterus. Pupils equal, round and reactive to light. Oral mucosa moist. NECK: No JVD, no neck masses. HEART: S1 and S2 heard. Regular rate and rhythm. No murmur, no gallop. RESPIRATORY SYSTEM: Normal AP diameter. No accessory muscle use. No wheezing, no crackles. ABDOMEN: Soft, bowel sounds present, nontender, no distention. CENTRAL NERVOUS SYSTEM: No facial droop. Speech is clear. Obeys simple commands. Moves extremities. EXTREMITIES: No edema, no erythema seen. b/l knee contusions, minimal tender. Results & Data Results & Data ([facility]) Vital Signs (Past 12 Hours) Vital Signs Temp Pulse Pulse Resp BP BP Pulse Ox 04/25/22 12:26 37.0 C 77 18 132/75 96 04/25/22 08:20 37.3 C 85 20 123/76 94 04/25/22 04:24 94 H 04/25/22 04:00 36.9 C 95 H 18 114/66 95 04/25/22 01:20 37.7 C H 90 18 117/67 93 O2 Del Method 04/25/22 12:26 Room Air 04/25/22 08:20 Room Air 04/25/22 04:24 04/25/22 04:00 Room Air 04/25/22 01:20 Room Air (1) Fall Encounter type: initial encounter Qualified Code(s): W19.XXXA - Unspecified fall, initial encounter
[2022-04-25] MEDS ORDERED: traZODone HCL 100 MG TAB PO SCH (21:00)
[2022-04-25] MEDS ORDERED: FLUoxetine HCL 20 MG CAP PO SCH (21:00)
[2022-04-25] MEDS: DOXYCYCLINE HYCLATE 100 MG CAP PO SCH (21:45)
[2022-04-26] MEDS: SODIUM CHLORIDE 0.45 % 1,000 ML IV SCH ×2 (01:52→13:25)
[2022-04-26 08:23] LABS: Hematocrit (blood only) 38.4 % (40.1-51.0); Mean Corpuscular Hemoglobin 28.6 pg (25.0-34.0); Mean Corpuscular Hgb Conc 33.9 g/dL (32.0-36.0); Mean Corpuscular Volume 84.4 fL (80.0-100.0); Mean Platelet Volume 10.9 fL (9.4-12.4); Platelet Count 143 K/uL (130-400); RDW Coefficient of Variation 14.8 % (11.5-14.5); RDW Standard Deviation 45.8 fL (36.4-46.3); Red Blood Count 4.55 M/uL (4.63-6.08); White Blood Count 6.62 K/ul (4.8-10.8)
[2022-04-26 09:03] LABS: BUN Creatinine Ratio 13.3 (10-20); Calcium 8.4 mg/dl (8.5-10.1); Creatinine Clr Calc Pharmacy 93.8 ml/min; Est GFR (African American) 102.1 ml/min; Est GFR (Non-African American) 88.1 ml/min; Potassium 3.6 mmol/L (3.5-5.1)
[2022-04-26 09:10] LABS: Magnesium 1.8 mg/dl (1.7-2.4)
[2022-04-26] MEDS: FLUTICASONE PROPIONATE NA SPR 16 GM BTL SCH (09:27)
[2022-04-26] MEDS: THIAMINE HCL 100 MG TAB PO SCH (09:27)
[2022-04-26] MEDS: ENOXAPARIN INJ 40 MG/0.4 ML SYR SQ SCH (09:27)
[2022-04-26] MEDS: CARBIDOPA/LEVODOPA 25/100MG TAB PO SCH ×2 (09:27→13:20)
[2022-04-26] MEDS: ARIPiprazole 15 MG TAB PO SCH (09:27)
[2022-04-26] MEDS: MULTIVITAMIN TAB PO SCH (09:27)
[2022-04-26] MEDS: busPIRone 15 MG TAB PO SCH (09:27)
[2022-04-26] MEDS: DOXYCYCLINE HYCLATE 100 MG CAP PO SCH (09:27)
[2022-04-26] MEDS: FOLIC ACID 1 MG TAB PO SCH (09:27)
[2022-04-26] MEDS ORDERED: POLYETHYLENE (MIRALAX) 17 GM PACK PO PRN (10:24)
--- NOTE | 2022-04-26 13:40 | Discharge Summary ---
Date of Service April 26, 2022 Admission HPI Per Admitting Provider History obtained from patient, family, and records. Medical history significant for alcohol dependence as per records, Hodgkin's lymphoma status post chemoradiation, Parkinson's disease, OCD, anxiety/mood disorder. Last confinement 2011 at the behavioral health unit under Psychiatry service for anxiety, increased alcohol intake and Klonopin misuse. Patient lost his balance at home today subsequently falling to the ground. Patient sustained wounds on both knees. No head trauma, no syncope, no chest pain, no SOB. Patient had started drinking tequila because of stress over the TV service shima not showing up for his appointment today. Patient was on the ground for about a couple of hours, unable to get up. Patient found by sister and father. Patient sister not aware of patient drinking again but was surprised that the old bottle of Tequila at their home was almost empty. Patient very secretive as per sister. Medical History as above Surgical History : Mediastinostomy, cholecystectomy, inguinal hernia repair, tibia fracture surgery, wrist bone surgery, vascular device placement Family History : Stomach cancer, lymphoma, DM, heart disease, stroke Personal/Social history : Non-smoker, alcohol abuse as per records, partially disabled Admission Exam Per Admitting Provider GENERAL: Comfortable, obese, tremulous, unkempt, no respiratory distress SKIN: Normal color, warm HEENT: Partial alopecia, Carmet palpebral conjunctivae, no ptosis, dry buccal mucosa NECK : Supple, short neck, no tenderness CHEST : CTA, no tenderness HEART : RRR, no obvious murmurs ABDOMEN: Some distention, nontender EXTREMITIES : bilateral contusions swellings on both knees with minimal tenderness, minimal LE swelling NEUROLOGIC : Coherent, no facial asymmetry, rest tremors, gait and stance not assessed Principal Diagnosis Fall Rhabdomyolysis Elevated troponin Concern for alcohol abuse Bilateral knee wounds with secondary infection Discharge Exam GENERAL: Alert and oriented x3. NAD, on RA. resting tremors noted. HEENT: No pallor, no icterus. Pupils equal, round and reactive to light. Oral mucosa moist. NECK: No JVD, no neck masses. HEART: S1 and S2 heard. Regular rate and rhythm. No murmur, no gallop. RESPIRATORY SYSTEM: Normal AP diameter. No accessory muscle use. No wheezing, no crackles. ABDOMEN: Soft, bowel sounds present, nontender, no distention. CENTRAL NERVOUS SYSTEM: No facial droop. Speech is clear. Obeys simple commands. Moves extremities. EXTREMITIES: No edema, no erythema seen. b/l knee contusions, minimal tender. clean dressing, no soakage. Discharge Data Allergies Allergy/AdvReac Type Severity Reaction Status Date / Time oxycodone AdvReac Intermediate cold Verified 04/24/22 20:31 sweats,nausea sertraline AdvReac Unknown NAUSEA, Verified 04/24/22 20:31 HEAD S/S Consultations 04/24/22 20:06 ED Decision to Admit Stat Ordered Studies 04/24/22 18:25 CT head/brain wo con Stat Hospital Course (1) Fall: Plan 67-year-old male with PMH of alcohol dependence per records, Hodgkin's lymphoma status post chemoradiation, Parkinson's disease, OCD, anxiety/mood disorder presented to our ED 04/24 with complaint of fall. He was managed for the following: Fall Rhabdomyolysis Elevated troponin Concern for alcohol abuse Bilateral knee wounds with secondary infection: Continue with doxycycline 04/25. Daily dressings. Patient reported drinking on the day of fall and also reports no dizziness/loss of consciousness/chest pain/palpitation prior to fall. Patient fell on his both knees and belly, does not remember hitting head. Patient was lying on the floor for couple of hours per him. Patient reports drinking 1 glass of wine every couple of weeks but empty bottle of tequila was found at their home on the day of his fall. Patient noted to be very secretive per family member. Admitting CXR/head CT/right knee x-ray with no acute findings. Admitting left knee x-ray with soft tissue swelling and joint effusion with no fracture. On exam, knee minimal tender. CPK at presentation 512, peaked and started to downtrend. Patient to continue with increased fluid intake upon discharge as advised. Patient to get blood test CBC, CMP and CPK at 5 days upon discharge via his PCP office. Troponin elevated and plateaued, likely secondary to rhabdomyolysis, patient with no chest pain, EKG without acute changes. Continue with IV fluid until 6 PM and then discharge. Other chronic medical conditions: Hodgkin lymphoma status post chemoradiation/still with mediastinal mass/symptomatic, Parkinson disease, obesity, anxiety/mood disorder --->> continue with home meds as and when able. DVT prophylaxis. Lovenox subcu Full code Patient sister Ms. Dejah Magana, contact #[phone]. Following instructions were communicated to patient and also to his father and primary contact [Mr. Coreas, via phone]. Patient being discharged with following instructions at the point of discharge: Follow-up with your primary care physician within a week time. Continue to drink adequate water [3 L/day] for next 3 to 5 days. Then you can go back to standard fluid requirement of 2 L/day. Continue with home health physical therapy to improve your gait/balance issues. You will need to get blood test CBC, CMP and CPK done in 5 days upon discharge. You will have to call PCP office to set up the test. You are being discharged on oral antibiotics for your bilateral skin infection over the knees, complete the course, do dressing changes daily. Take your medications as prescribed. Total Time Total Time Spent Total Time Spent (In Minutes): 35 Discharge Plan Discharge Items Patient Disposition: Home - Home Health Services Reason For Visit: LOW BP, RHABDOMYOLYSIS Discharge Diagnosis: Fall Rhabdomyolysis Elevated troponin Concern for alcohol abuse Bilateral knee wounds with secondary infection Activity: Resume your previous activity Non-emergency contact: Primary Care Provider Call non-emergency contact if: you have any medication questions, your symptoms worsen and your temperature is above 101 Follow-up/Referrals: Nikhil Persaud, [Primary Care Provider] - Diet: Regular Addtl Attending Provider Instructions: Follow-up with your primary care physician within a week time. Continue to drink adequate water [3 L/day] for next 3 to 5 days. Then you can go back to standard fluid requirement of 2 L/day. Continue with home health physical therapy to improve your gait/balance issues. You will need to get blood test CBC, CMP and CPK done in 5 days upon discharge. You will have to call PCP office to set up the test. You are being discharged on oral antibiotics for your bilateral skin infection over the knees, complete the course, do dressing changes daily. Take your medications as prescribed. Pending Studies at Discharge: No Stand-Alone Forms: My [employer], Smoking Cessation Medications and DC Order Prescriptions: New doxycycline hyclate 100 mg Capsule 100 mg PO BID 8 Days Qty: 16 0RF folic acid 1 mg Tablet 1 mg PO QAM 30 Days Qty: 30 0RF multivitamin with folic acid [Daily-Mack (with folic acid)] 400 mcg Tablet 1 tab PO QAM Qty: 30 0RF thiamine HCl (vitamin B1) 100 mg Tablet 100 mg PO QAM 30 Days Qty: 30 0RF Probiotic 3 billion cell capsule 3,000 mmu cells PO DAILY 10 Days Qty: 10 0RF Rx Instructions: administer with a meal Continued fluoxetine [Prozac] 40 mg Capsule 80 mg PO PM Rx Instructions: take with 20 mg = 100mg, per patient hydroxyzine HCl 50 mg Tablet 50 mg PO BID Rx Instructions: Takes 1 tab in AM and 1 tab in mid afternoon. buspirone 30 mg Tablet 30 mg PO BID carbidopa-levodopa 25-100 mg Tablet 2 tab PO TID aripiprazole [Abilify] 30 mg Tablet 30 mg PO QAM trazodone 100 mg tablet 300 mg PO HS fluticasone propionate 50 mcg/actuation spray,suspension 2 spray INTRANASAL DAILY ipratropium bromide 21 mcg (0.03 %) spray,non-aerosol 2 spray INTRANASAL DAILY PRN (Reason: Nasal Congestion) fluoxetine 20 mg capsule 20 mg PO QPM Rx Instructions: Per pt , take with 2, 40 mg tabs to = 100mg Discharge Orders: Discharge Order (Routine); Ordered 04/26/22 Ordered By: Roni Duarte Admission Data Admit Date/Time: 04/24/22 21:12 Attending Provider: Roni Duarte Admit Provider: Reuben Galindo Primary Care Provider: Nikhil Persaud Other Providers: Reuben Galindo ; [facility]
== END 2022-04-26 19:49 | disposition home health service (06) | DRG 565 ==
LOC: ED 18:12 → 2N 21:12

== ENCOUNTER 2022-12-13 17:11 | Inpatient (IN) ==
--- NOTE | 2022-12-13 17:33 | Emergency Department Note ---
Impression & Plan Rhabdomyolysis, Overdose, Dizziness, Abrasion of knee, bilateral ED Provider Note Provider: Antoni Moss MD DATE OF SERVICE: 12/13/2022 CHIEF COMPLAINT: Dizziness weakness, overdose HISTORY OF PRESENT ILLNESS: Patient is a 67-year-old gentleman history of schizophrenia and Parkinson's coming in after according EMS sisters report some cognitive decline over the some time with weakness and multiple falls over the last several weeks. Seen here previously for falls. Evidently reported them as worsening dizziness with ambulation. Patient reports he is taken an extra dose of aripiprazole several times over the past week. To me he says he took an extra dose after lunch taking 2 of his 15mg aripiprazole tablets. Denies taking anything else. Denies dizziness to me. Denies pain complaint beyond some knee pain. Did fall and skinned his knees and has slight bruise on his face at the previous evaluation here. Denies new falls or trauma. Denies wanting to harm himself. PAST MEDICAL HISTORY: As noted above MEDICATIONS: Reviewed home medication list present with him SOCIAL HISTORY: Lives with father and sister according to him PHYSICAL EXAM: GENERAL: alert and oriented in no acute distress on stretcher Head: normocephalic and atraumatic EYES: No injection, discharge or icterus. PERRL NECK: Trachea midline. Supple without midline tenderness ENT: Mucous membranes pink and moist. LUNGS: Airway patent. No retractions. Breath sounds clear with good air entry bilaterally. HEART: Regular rate and rhythm. No chest wall tenderness ABDOMEN: Soft and non-tender, without guarding or rebound. SKIN: Acyanotic, warm, dry, without rashes EXTREMITIES: Without healed left knee surgical scar with some healing abrasions on the bilateral knees. No significant bony tenderness noted. NEUROLOGICAL: No focal deficits. No aphasia. No facial droop or slurred speech. Normal strength and tone in the extremities. Sensation to gross touch normal. No clonus appreciated. EK bpm normal sinus rhythm. No PVC or PAC. No acute ST segment elevation or depression with a QTc of 445. No significant QRS prolongation. CONTINUOUS CARDIAC MONITORING: was ordered and showed a heart rate of 60s bpm in normal sinus rhythm Patient's laboratory studies and imaging reviewed. Differential includes Infection, dehydration, metabolic abnormality, hypo/hyperglycemia, electrolyte disturbance, anemia, hypoxia, cardiac sources, toxicologic, neurologic, as well as other pathologies. IMPRESSION/MEDICAL DECISION MAKING: CT head completed given reports of maybe some dizziness and weakness with falls. No significant tenderness of the knees and appears well-healed and have amatory I doubt a significant fracture in the lower extremities. Basic blood work obtained. EKG obtained given report of possible overdose and his dizziness. Not having significant arrhythmia. Sounds like the overdose may be an extra tablet of his Abilify here there. Did send toxicology labs however. Doubt any significant injury from taking just an extra Abilify here there. The extra sedation may contribute somewhat to his dizziness and falls and fatigue. Reviewed prior medical records and last evaluation here in October after a fall. Documented to have Parkinson's disease at that time with worsening tremors. No infectious symptomatology is reported. Afebrile here. No significant focal deficit doubt meningitis or CVA. Blood work here slight anemia but no leukocytosis. No significant t hrombocytopenia. No severe electrolyte abnormalities. Normal troponin and renal function. CK is elevated. Question of this is from his recurrent falls. Started on some maintenance IV fluids to maintain good hydration with possibly some mild rhabdomyolysis. No Tylenol, ethanol, or salicylate blood work elevations which is reassuring. CT of the head per radiology without acute findings. DIAGNOSIS: Dizziness, overdose, Parkinson disease, knee abrasions, rhabdomyolysis DISPOSITION: Hospitalist will evaluate Patient was agreeable with this plan. Past Med/Surg History Medical History (Updated 12/13/22 @ 19:09 by Antoni Msos M.D.) Anxiety and depression GERD (gastroesophageal reflux disease) History of kidney stones Hodgkins disease (05/10/10) "Classic Hodgkin's disease, nodular sclerosing type II Status post bronchoscopy and mediastinal endoscopy with biopsy status post completion of 4 cycles of ABVD Status post completion of radiation therapy 07/05/2010 received 3600 cGy " IBS (irritable bowel syndrome) Mood disorder OCD (obsessive compulsive disorder) Osteoarthritis Tardive dyskinesia Surgical History History of cholecystectomy History of colonoscopy History of hernia repair History of left knee surgery History of vascular access device hx port for chemo. has been removed History of wisdom tooth extraction Family History Other Cancer Heart disease Stroke Social History Smoking Status: Former smoker Smoking End Date: 1978; Second Hand Exposure: No; Hx Alcohol Use: Yes (in remission) Alcohol type: hard liquor Hx Substance Use: No Preferred Language: Icelandic Communication Ability: Effective Residential Treatment Staff Required: No Beliefs That Will Affect Care: None marital status: Single Current Living Situation: Family Current Living Situation Comment: lives with dad and sister Feels Safe at Home: Yes Assistive Devices: None Allergies Allergies Allergy/AdvReac Type Severity Reaction Status Date / Time pollen extracts Allergy Intermediate SNEEZING/CO Verified 12/13/22 18:06 NGESTION ragweed pollen Allergy Mild Sneezing Verified 12/13/22 18:06 oxycodone AdvReac Intermediate COLD Verified 12/13/22 18:06 SWEATS/NAUSEA/VOMITING sertraline AdvReac Intermediate NAUSEA/VOMI Verified 12/13/22 18:06 TING Home Meds Home Medications Medication Instructions Recorded Confirmed buspirone 30 mg tablet 30 mg PO BID 07/01/21 12/13/22 carbidopa 25 mg-levodopa 100 mg 2 tab PO TID 07/01/21 12/13/22 tablet fluoxetine 40 mg capsule (Prozac) 40 mg PO QAM 07/01/21 12/13/22 fluticasone propionate 50 2 spray intranasal DAILY PRN Nasal 04/24/22 12/13/22 mcg/actuation nasal Congestion spray,suspension ipratropium bromide 21 mcg (0.03 2 spray intranasal DAILY PRN Nasal 04/24/22 12/13/22 %) nasal spray Congestion trazodone 100 mg tablet 300 mg PO HS 04/24/22 12/13/22 clonazepam 1 mg tablet 1 mg PO BID 10/14/22 12/13/22 aripiprazole 15 mg tablet 15 mg PO QAM 12/13/22 12/13/22 benztropine 0.5 mg tablet 0.5 mg PO BID 12/13/22 12/13/22 polyethylene glycol 3350 17 17 g PO DAILY PRN Constipation 12/13/22 12/13/22 gram/dose oral powder (Miralax) Results & Data (ED) Vital Signs Vital Signs - 24 hr 12/13/22 17:22 12/13/22 18:29 Temperature 36.9 C Temperature Source Oral Pulse Rate 66 64 Respiratory Rate 16 Respiratory Effort / Characteristics Non-Labored Spontaneous Respiratory Depth Normal Respiratory Pattern Regular Blood Pressure 128/66 Blood Pressure Mean 86 Pulse Oximetry 97 Oxygen Delivery Method Room Air Sepsis Recent Fever Within 48 Hours No Sepsis New/Unexplained Change in Mental Status N/A Sepsis Action Taken by Nursing No Action Required Laboratory Data 12/13/22 17:19 12/13/22 17:19 Lab Results 12/13/22 12/13/22 12/13/22 Range/Units 17:19 17:19 17:19 WBC 5.45 (4.8-10.8) K/ul RBC 4.57 L (4.70-6.10) M/uL Hgb 13.4 L (14.0-18.0) g/dl Hct 40.1 L (42.0-52.0) % MCV 87.7 (80.0-100.0) fL MCH 29.3 (25.0-34.0) pg MCHC 33.4 (32.0-36.0) g/dL RDW Std Deviation 49.3 H (36.4-46.3) fL RDW Coeff of Elizabeth 15.3 H (11.5-14.5) % Plt Count 183 (130-400) K/uL MPV 10.9 (9.4-12.4) fL Immature Gran % (Auto) 0.4 % Neut % (Auto) 63.3 % Lymph % (Auto) 22.6 % Powell % (Auto) 10.3 % Eos % (Auto) 2.8 % Baso % (Auto) 0.6 % Neut # (Auto) 3.46 (1.40-6.50) K/uL Lymph # (Auto) 1.23 (1.2-3.4) K/uL Powell # (Auto) 0.56 (0.11-0.59) K/uL Eos # (Auto) 0.15 (0-0.50) K/uL Baso # (Auto) 0.03 (0-0.2) K/uL Immature Gran # (Auto) 0.02 (0.01-0.20) K/uL PT 11.4 (9.0-12.0) Seconds INR 1.1 (0.9-1.1) APTT 25.9 (21.0-31.0) Seconds PTT Ratio 0.9 Sodium 137 (136-145) mmol/L Potassium 3.9 (3.5-5.1) mmol/L Chloride 108 H (98-107) mmol/L Carbon Dioxide 22 (21-32) mmol/L Anion Gap 7 (3-11) BUN 21 (6-23) mg/dl Creatinine 1.07 (0.6-1.4) mg/dl Est Cr Clr Drug Dosing 84.0 ml/min Est GFR ( Amer) 82.8 ml/min Est GFR (Non-Af Amer) 71.5 ml/min BUN/Creatinine Ratio 19.6 (10-20) Glucose 91 (70-99(Fasting)) mg/dl Calcium 9.0 (8.6-10.3) mg/dl Total Bilirubin 0.9 (0.2-1.0) mg/dl AST 45 H (13-39) U/L ALT 25 (7-52) U/L Alkaline Phosphatase 97 (34-104) U/L Total Creatine Kinase 1039 H (30-223) U/L Troponin I High Sens 6.8 (0-20) pg/ml Total Protein 7.1 (6.0-8.3) gm/dl Albumin 4.0 (3.4-5.0) gm/dl Globulin 3.1 (2.5-4.0) gm/dl Albumin/Globulin Ratio 1.3 (0.9-2) Salicylates (3.0-30) mg/dl Acetaminophen (10-30) ug/ml Ethyl Alcohol mg/dL (<10.0) mg/dl SARS-CoV-2, RNA, NAAT (NEGATIVE) 12/13/22 12/13/22 12/13/22 Range/Units 17:19 17:19 18:18 WBC (4.8-10.8) K/ul RBC (4.70-6.10) M/uL Hgb (14.0-18.0) g/dl Hct (42.0-52.0) % MCV (80.0-100.0) fL MCH (25.0-34.0) pg MCHC (32.0-36.0) g/dL RDW Std Deviation (36.4-46.3) fL RDW Coeff of Elizabeth (11.5-14.5) % Plt Count (130-400) K/uL MPV (9.4-12.4) fL Immature Gran % (Auto) % Neut % (Auto) % Lymph % (Auto) % Powell % (Auto) % Eos % (Auto) % Baso % (Auto) % Neut # (Auto) (1.40-6.50) K/uL Lymph # (Auto) (1.2-3.4) K/uL Powell # (Auto) (0.11-0.59) K/uL Eos # (Auto) (0-0.50) K/uL Baso # (Auto) (0-0.2) K/uL Immature Gran # (Auto) (0.01-0.20) K/uL PT (9.0-12.0) Seconds INR (0.9-1.1) APTT (21.0-31.0) Seconds PTT Ratio Sodium (136-145) mmol/L Potassium (3.5-5.1) mmol/L Chloride (98-107) mmol/L Carbon Dioxide (21-32) mmol/L Anion Gap (3-11) BUN (6-23) mg/dl Creatinine (0.6-1.4) mg/dl Est Cr Clr Drug Dosing ml/min Est GFR ( Amer) ml/min Est GFR (Non-Af Amer) ml/min BUN/Creatinine Ratio (10-20) Glucose (70-99(Fasting)) mg/dl Calcium (8.6-10.3) mg/dl Total Bilirubin (0.2-1.0) mg/dl AST (13-39) U/L ALT (7-52) U/L Alkaline Phosphatase (34-104) U/L Total Creatine Kinase (30-223) U/L Troponin I High Sens (0-20) pg/ml Total Protein (6.0-8.3) gm/dl Albumin (3.4-5.0) gm/dl Globulin (2.5-4.0) gm/dl Albumin/Globulin Ratio (0.9-2) Salicylates < 3.0 L (3.0-30) mg/dl Acetaminophen < 3 L (10-30) ug/ml Ethyl Alcohol mg/dL < 10.0 (<10.0) mg/dl SARS-CoV-2, RNA, NAAT NEGATIVE (NEGATIVE) Administered Medications Lactated Ringer's (Lr) 1,000 mls @ 125 mls/hr IV .Q8H JEVON Stop: 01/12/23 17:59 Last Admin: 12/13/22 18:15 Dose: 125 mls/hr Documented By: STEVE Imaging Data Radiologist's Impression: Head CT 12/13/22 17:28 CT SCAN OF THE BRAIN WITHOUT IV CONTRAST CLINICAL HISTORY: Generalized weakness. COMPARISON STUDY: CT of the brain dated 04/24/2022. TECHNIQUE: Unenhanced axial CT scan of the brain is performed from the vertex to the skull base. A dose lowering technique was utilized adhering to the princi ples of MYRA. The examination is degraded by motion artifact. The patient was scanned twice in an effort to improve image quality. CT DOSE: 1795.61 mGy.cm FINDINGS: Brain parenchyma: There is age-related involutional change noting mild subcortical and periventricular microangiopathic disease. There is no hemorrhage, mass effect, or evidence of acute territorial ischemia by CT criteria. Hong-white matter differentiation is preserved. No extra-axial fluid collection is seen. Ventricles, sulci, cisterns: Prominent secondary to involutional change. Intracranial vasculature: There is atherosclerotic calcification of the cavernous carotid arteries. Calvarium: Unremarkable. Sinuses and mastoids: There is trace mucosal thickening in the right maxillary antrum and the ethmoid sinuses. The mastoid air cells are well pneumatized. Cerumen is seen within the left external auditory canal. Orbits: The bony orbits are grossly intact. IMPRESSION: There is no hemorrhage, mass effect, or evidence of acute territorial ischemia by CT criteria. ACT 112: Negative or not required by law. Electronically signed by: Kumar Burt M.D. 12/13/2022 6:06 PM Discharge Plan Visit Data Chief Complaint: Dizziness Stated Complaint: DIZZINESS, OVERDOSE, MENTAL STATUS CHANGE ED Provider: Antoni Moss Discharge Problem: Rhabdomyolysis, Overdose, Dizziness, Abrasion of knee, bilateral Patient Disposition: Being Evaluated by Hospitalist Forms Stand Alone Forms: My [facility] Prescriptions Prescriptions: No Action fluoxetine [Prozac] 40 mg Capsule 40 mg PO QAM Rx Instructions: PER GMG--40 MG DAILY, PER PT'S LIST 2 TABS DAILY. buspirone 30 mg Tablet 30 mg PO BID carbidopa-levodopa 25-100 mg Tablet 2 tab PO TID trazodone 100 mg tablet 300 mg PO HS Rx Instructions: PER GMG--300 MG HS, PER PT'S LIST 100-300 MG HS. fluticasone propionate 50 mcg/actuation spray,suspension 2 spray INTRANASAL DAILY PRN (Reason: Nasal Congestion) ipratropium bromide 21 mcg (0.03 %) spray,non-aerosol 2 spray INTRANASAL DAILY PRN (Reason: Nasal Congestion) clonazepam 1 mg tablet 1 mg PO BID benztropine 0.5 mg tablet 0.5 mg PO BID polyethylene glycol 3350 [Miralax] 17 gram/dose Powder 17 g PO DAILY PRN (Reason: Constipation) aripiprazole 15 mg tablet 15 mg PO QAM Referrals Referrals: Nikhil Persaud DO [Primary Care Provider] -
[2022-12-13 17:44] LABS: Bilirubin,Total 0.9 mg/dl (0.2-1.0); Potassium 3.9 mmol/L (3.5-5.1)
[2022-12-13 17:47] LABS: Basophils # (auto) 0.03 K/uL (0-0.2); Basophils % (auto) 0.6 %; Eosinophils # (auto) 0.15 K/uL (0-0.50); Eosinophils % (auto) 2.8 %; Hematocrit (blood only) 40.1 % (42.0-52.0); Hemoglobin 13.4 g/dl (14.0-18.0); Immature Granulocytes # (auto) 0.02 K/uL (0.01-0.20); Immature Granulocytes % (auto) 0.4 %; Lymphocytes # (auto) 1.23 K/uL (1.2-3.4); Lymphocytes % (auto) 22.6 %; Mean Corpuscular Hemoglobin 29.3 pg (25.0-34.0); Mean Corpuscular Hgb Conc 33.4 g/dL (32.0-36.0); Mean Corpuscular Volume 87.7 fL (80.0-100.0); Mean Platelet Volume 10.9 fL (9.4-12.4); Monocytes # (auto) 0.56 K/uL (0.11-0.59); Monocytes % (auto) 10.3 %; Neutrophils # (auto) 3.46 K/uL (1.40-6.50); Neutrophils % (auto) 63.3 %; Platelet Count 183 K/uL (130-400); RDW Coefficient of Variation 15.3 % (11.5-14.5); RDW Standard Deviation 49.3 fL (36.4-46.3); Red Blood Count 4.57 M/uL (4.70-6.10); White Blood Count 5.45 K/ul (4.8-10.8)
[2022-12-13 17:50] LABS: Albumin Globulin Ratio 1.3 (0.9-2); BUN Creatinine Ratio 19.6 (10-20); Est GFR (African American) 82.8 ml/min; Est GFR (Non-African American) 71.5 ml/min; Globulin 3.1 gm/dl (2.5-4.0); Total Protein 7.1 gm/dl (6.0-8.3)
[2022-12-13 17:55] LABS: Troponin I High Sensitivity 6.8 pg/ml (0-20)
[2022-12-13 18:06] LABS: Acetaminophen < 3 ug/ml (10-30); Salicylate < 3.0 mg/dl (3.0-30)
--- NOTE | 2022-12-13 18:08 | CT Scan Report ---
CT SCAN OF THE BRAIN WITHOUT IV CONTRAST CLINICAL HISTORY: Generalized weakness. COMPARISON STUDY: CT of the brain dated 04/24/2022. TECHNIQUE: Unenhanced axial CT scan of the brain is performed from the vertex to the skull base. A do se lowering technique was utilized adhering to the principles of ALARA. The examination is degraded b y motion artifact. The patient was scanned twice in an effort to improve image quality. CT DOSE: 1795.61 mGy.cm FINDINGS: Brain parenchyma: There is age-related involutional change noting mild subcortical and periventricula r microangiopathic disease. There is no hemorrhage, mass effect, or evidence of acute territorial isc hemia by CT criteria. Hong-white matter differentiation is preserved. No extra-axial fluid collection is seen. Ventricles, sulci, cisterns: Prominent secondary to involutional change. Intracranial vasculature: There is atherosclerotic calcification of the cavernous carotid arteries. Calvarium: Unremarkable. Sinuses and mastoids: There is trace mucosal thickening in the right maxillary antrum and the ethmoid sinuses. The mastoid air cells are well pneumatized. Cerumen is seen within the left external audito ry canal. Orbits: The bony orbits are grossly intact. IMPRESSION: There is no hemorrhage, mass effect, or evidence of acute territorial ischemia by CT tio peterson. ACT 112: Negative or not required by law. Electronically signed by: Kumar Burt M.D. 12/13/2022 6:06 PM
[2022-12-13] MEDS: LACTATED RINGER'S 1,000 ML IV SCH (18:15)
[2022-12-13 18:19] LABS: INR 1.1 (0.9-1.1); Partial Thromboplastin Ratio 0.9; Partial Thromboplastin Time 25.9 Seconds (21.0-31.0); Prothrombin Time 11.4 Seconds (9.0-12.0)
--- NOTE | 2022-12-13 18:41 | History & Physical Report ---
Date of Service December 13, 2022 Assessment & Plan (1) Dizziness: (2) Fall: (3) Rhabdomyolysis: (4) Overdose: (5) Mood disorder: Plan This is a 67-year-old male with PMH of mood disorder, Parkinson's disease, history of Hodgkin's lymphoma, alcohol dependence in remission who presents with dizziness and frequent falls at home was found to have unintentional medication overdose and rhabdomyolysis. Frequent falls Dizziness Unintentional medication overdose Complaining of dizziness over the past few weeks, more frequent falls and acute mentation decline over the past few days per discussion with Sister Concern that patient was unintentionally taking double his prescribed Sinemet dose due to having a duplicate bottle Vital signs stable, patient alert and oriented x3 with limited insight on health (baseline, per sister) EKG without QTc prolongation, CT head without acute intracranial abnormality, negative salicylates, acetaminophen and ethyl alcohol levels Discussing medication recommendations with Dr. Christy of psychiatry - hold Sinemet, benztropine, Abilify, Buspar until dizziness improves and can resume, cont. half dose of Klonopin and trazodone until dizziness improves, continue Prozac as is Consider reducing or changing Klonopin to PRN as it can be contributing to dizziness Routine neuro consult Fall precautions, PT/OT evaluations when able Continue discussion with sister about additional help, potential placement for patient Rhabdomyolysis In the setting of frequent falls CK 1,039. HS troponin WNL, renal function at baseline Continue IV fluids, trend CK Mood disorder Follows with Dr. Mayo for psych per sister. See above for med recommendations DVT Ppx: SQ Lovenox Code status: FULL PCP: Hung Dispo: Admitted to med/tele Patient seen in collaboration with Dr. Joy. Please see addendum. Sister requesting update tomorrow if possible. Dejah Magana: [phone] I spent a total of 80 minutes coordinating, documenting, and providing care for this patient excluding time spent in the performance of separately billed services. History of Present Illness Chief Complaint: Fall, dizziness Primary Care Provider: Nikhil Persaud, This is a 67-year-old male with PMH of mood disorder, Parkinson's disease, history of Hodgkin's lymphoma, alcohol dependence in remission who presents with dizziness and frequent falls at home. History primarily obtained from sister over the phone who reports some cognitive decline over the past few weeks with increased weakness and multiple falls. Patient lives with his sister and he is able to mostly care for himself at home -get dressed, walk the dog, etc. Current ly manages his own medications. Sister has never heard a previous diagnosis of schizophrenia and thought it was severe anxiety/depression. Follows with psychiatrist Dr. Mayo but sister does not know many details. Has noticed more frequent falls, worsening confusion, putting his clothing on backwards up until a few days ago and has become more concerned. Per discussion with sister, she reviewed his medication when he started to act strangely over the past few days and noticed he has to bottles of carbidopa levodopa of the same dose and became concerned that he was taking twice as much as prescribed on accident. Patient is alert and oriented to person and place but limited insight as far as medical history. States he was not intentionally overdosing on any medications. Has some discomfort of knees that appear bruised from falls and has felt dizzy with ambulation at home. Denies any fever, chills, dizziness at rest, chest pain, shortness of breath, nausea, vomiting, abdominal pain, dysuria, diarrhea or constipation. Allergies Allergy/AdvReac Type Severity Reaction Status Date / Time pollen extracts Allergy Intermediate SNEEZING/CO Verified 12/13/22 18:06 NGESTION ragweed pollen Allergy Mild Sneezing Verified 12/13/22 18:06 oxycodone AdvReac Intermediate COLD Verified 12/13/22 18:06 SWEATS/NAUSEA/VOMITING sertraline AdvReac Intermediate NAUSEA/VOMI Verified 12/13/22 18:06 TING Home Medications Medication Instructions Recorded Confirmed Type buspirone 30 mg tablet 30 mg PO BID 07/01/21 12/13/22 History carbidopa 25 mg-levodopa 100 mg 2 tab PO TID 07/01/21 12/13/22 History tablet fluoxetine 40 mg capsule (Prozac) 40 mg PO QAM 07/01/21 12/13/22 History fluticasone propionate 50 2 spray intranasal DAILY PRN Nasal 04/24/22 12/13/22 History mcg/actuation nasal Congestion spray,suspension ipratropium bromide 21 mcg (0.03 2 spray intranasal DAILY PRN Nasal 04/24/22 12/13/22 History %) nasal spray Congestion trazodone 100 mg tablet 300 mg PO HS 04/24/22 12/13/22 History clonazepam 1 mg tablet 1 mg PO BID 10/14/22 12/13/22 History aripiprazole 15 mg tablet 15 mg PO QAM 12/13/22 12/13/22 History benztropine 0.5 mg tablet 0.5 mg PO BID 12/13/22 12/13/22 History polyethylene glycol 3350 17 17 g PO DAILY PRN Constipation 12/13/22 12/13/22 History gram/dose oral powder (Miralax) Past Med/Surg History Medical History (Updated 12/16/22 @ 09:24 by Angus Stevens MD) Anxiety and depression Encounter for pre-operative examination GERD (gastroesophageal reflux disease) History of kidney stones Hodgkins disease (05/10/10) "Classic Hodgkin's disease, nodular sclerosing type II Status post bronchoscopy and mediastinal endoscopy with biopsy status post completion of 4 cycles of ABVD Status post completion of radiation therapy 07/05/2010 received 3600 cGy " IBS (irritable bowel syndrome) Mood disorder OCD (obsessive compulsive disorder) Osteoarthritis Parkinson's disease Tardive dyskinesia Surgical History History of cholecystectomy History of colonoscopy History of hernia repair History of left knee surgery History of vascular access device hx port for chemo. has been removed History of wisdom tooth extraction Family History Other Cancer Heart disease Stroke Social History Smoking Status: Never smoker Smoking End Date: 1978; Second Hand Exposure: No; Hx Alcohol Use: Yes Alcohol type: hard liquor Hx Substance Use: No Preferred Language: Lithuanian Communication Ability: Impaired Television Journalist Required: No Beliefs That Will Affect Care: None marital status: Single Current Living Situation: Family Current Living Situation Comment: Lives with sister and father Other Information That Helps Us Care for You: No Feels Safe at Home: Yes Safety Concerns: Feels Safe At This Time Assistive Devices: Glasses and Walker Assistive Devices Comment: Dentures not present Review of Systems Review of Systems: At least ten systems reviewed and negative except as noted in the HPI. Physical Exam Physical Exam: General Appearance: WD/WN, vitals as above, NAD, sitting up in bed, pleasant, parkinsonian tremors Head: normocephalic Eyes: normal inspection, PERRL, conjunctivae normal, anicteric sclerae. + bruising to infraorbital area from fall ENT: external ear and nose normal, oropharynx normal Neck: normal visual inspection, trachea midline, no thyromegaly Respiratory: normal respiratory effort, lungs clear to auscultation, no wheeze, rales, rhonchi. No accessory muscle use Cardiovascular: regular rate, rhythm, no murmur, normal peripheral pulses, no BLE edema. Vessels: no JVD Chest: normal inspection of chest Abdomen/GI: normal bowel sounds, soft, nontender, no hepatosplenomegaly Extremities/Musculoskeletal: no cyanosis or clubbing, extremities motor strength 5/5. +skin tears and bruising over bilateral knees Neurologic: PERRL, EOMI, accommodation nl, no face palsy, no dysarthria, CN's II-XI intact bilaterally and moves all extremities Psychiatric: A+Ox3, euthymic affect Skin: no rashes, normal color, warm/dry Results & Data Results & Data Vital Signs (Past 12 Hours) Vital Signs Temp Pulse Resp BP Pulse Ox O2 Del Method 12/13/22 18:29 64 12/13/22 17:22 36.9 C 66 16 128/66 97 Room Air Laboratory Results Short CBC 12/13/22 Range/Units 17:19 WBC 5.45 (4.8-10.8) K/ul Hgb 13.4 L (14.0-18.0) g/dl Hct 40.1 L (42.0-52.0) % Plt Count 183 (130-400) K/uL BMP 12/13/22 17:19 Sodium 137 Potassium 3.9 Chloride 108 H Carbon Dioxide 22 BUN 21 Creatinine 1.07 Glucose 91 Calcium 9.0 Cardiac Enzymes 12/13/22 Range/Units 17:19 Total Creatine Kinase 1039 H (30-223) U/L Liver Function 12/13/22 Range/Units 17:19 Total Bilirubin 0.9 (0.2-1.0) mg/dl AST 45 H (13-39) U/L ALT 25 (7-52) U/L Alkaline Phosphatase 97 (34-104) U/L Albumin 4.0 (3.4-5.0) gm/dl Diagnostic Findings Head CT 12/13/22 17:28 CT SCAN OF THE BRAIN WITHOUT IV CONTRAST CLINICAL HISTORY: Generalized weakness. COMPARISON STUDY: CT of the brain dated 04/24/2022. TECHNIQUE: Unenhanced axial CT scan of the brain is performed from the vertex to the skull base. A dose lowering technique was utilized adhering to the principles of ALARA. The examination is degraded by motion artifact. The patient was scanned twice in an effort to improve image quality. CT DOSE: 1795.61 mGy.cm FINDINGS: Brain parenchyma: There is age-related involutional change noting mild subcortical and periventricular microangiopathic disease. There is no hemorrhage, mass effect, or evidence of acute territorial ischemia by CT criteria. Hong-white matter differentiation is preserved. No extra-axial fluid collection is seen. Ventricles, sulci, cisterns: Prominent secondary to involutional change. Intracranial vasculature: There is atherosclerotic calcification of the cavernous carotid arteries. Calvarium: Unremarkable. Sinuses and mastoids: There is trace mucosal thickening in the right maxillary antrum and the ethmoid sinuses. The mastoid air cells are well pneumatized. Cerumen is seen within the left external auditory canal. Orbits: The bony orbits are grossly intact. IMPRESSION: There is no hemorrhage, mass effect, or evidence of acute territorial ischemia by CT criteria. ACT 112: Negative or not required by law. Electronically signed by: Kumar Burt M.D. 12/13/2022 6:06 PM ECG Additional Comments: EKG reviewied: NSR at [address] elevation or depression with a QTc of 445. Code Status & VTE Plan VTE Prophylaxis Plan VTE Prophylaxis will be ordered: Yes Supervising Physician Co-Signing Physician Notes Patient was seen and examined independently. Chart reviewed. Case discussed with THEODORE (2) Fall Encounter type: initial encounter Qualified Code(s): W19.XXXA - Unspecified fall, initial encounter (3) Rhabdomyolysis Encounter type: initial encounter Rhabdomyolysis type: traumatic Qualified Code(s): T79.6XXA - Traumatic ischemia of muscle, initial encounter (4) Overdose Encounter type: initial encounter Injury intent: accidental or unintentional Qualified Code(s): T50.901A - Poisoning by unspecified drugs, medicaments and biological substances, accidental (unintentional), initial encounter
[2022-12-13] MEDS ORDERED: ONDANSETRON INJ 2 MG/ML 2 ML VIAL IV PRN (20:56)
[2022-12-13] MEDS ORDERED: FLUTICASONE PROPIONATE NA SPR 16 GM BTL PRN (20:56)
[2022-12-13] MEDS ORDERED: ACETAMINOPHEN 325 MG TAB PO PRN (20:56)
[2022-12-13] MEDS ORDERED: POLYETHYLENE (MIRALAX) 17 GM PACK PO PRN (20:56)
[2022-12-13] MEDS ORDERED: IPRATROPIUM BROMIDE NASAL SPRAY 0.06% 15ML NAE PRN (21:12)
[2022-12-13] MEDS: clonazePAM 0.5 MG TAB PO SCH (22:30)
[2022-12-13] MEDS: traZODone HCL 50 MG TAB PO SCH (22:30)
[2022-12-13] MEDS: ENOXAPARIN INJ 40 MG/0.4 ML SYR SQ SCH (22:30)
[2022-12-14 01:24] LABS: Appearance Urine Clear (Clear); Bilirubin Urine Negative (Negative); Blood Urine Negative (Negative); Color Urine Yellow; Glucose Urine UA Negative (Negative); Ketones Urine 1+ (Negative); Leukocyte Esterase Urine Negative (Negative); Nitrite Urine Negative (Negative); Protein Urine Negative (Negative); Specific Gravity Urine 1.021 (1.000-1.030); Urobilinogen Urine Positive (Negative); pH Urine 6.5 (4.5-7.5)
[2022-12-14 01:43] LABS: Amphetamines+Metham, Urine Neg (Neg); Barbiturates, Urine Neg (Neg); Benzodiazepine, Urine Neg (Neg); Cocaine, Urine Neg (Neg); MDMA (Ecstacy), Urine Pos (Neg); Methadone, Urine Neg (Neg); Opiate, Urine Neg (Neg); Phencyclidine, Urine Neg (Neg)
[2022-12-14] MEDS: LACTATED RINGER'S 1,000 ML IV SCH ×3 (05:30→23:38)
[2022-12-14 06:47] LABS: Hematocrit (blood only) 38.6 % (42.0-52.0); Hemoglobin 12.9 g/dl (14.0-18.0); Mean Corpuscular Hgb Conc 33.4 g/dL (32.0-36.0); Mean Corpuscular Volume 86.7 fL (80.0-100.0); Mean Platelet Volume 11.4 fL (9.4-12.4); Platelet Count 173 K/uL (130-400); RDW Coefficient of Variation 15.1 % (11.5-14.5); RDW Standard Deviation 47.8 fL (36.4-46.3); Red Blood Count 4.45 M/uL (4.70-6.10); White Blood Count 5.25 K/ul (4.8-10.8)
[2022-12-14 07:15] LABS: BUN Creatinine Ratio 18.4 (10-20); Calcium 8.5 mg/dl (8.6-10.3); Creatinine Clr Calc Pharmacy 100.8 ml/min; Est GFR (African American) 103.5 ml/min; Est GFR (Non-African American) 89.3 ml/min; Potassium 3.8 mmol/L (3.5-5.1)
--- NOTE | 2022-12-14 07:15 | Electrocardiogram Report ---
Test Reason : Blood Pressure : / mmHG Vent. Rate : 064 BPM Atrial Rate : 064 BPM P-R Int : 164 ms QRS Dur : 088 ms QT Int : 432 ms P-R-T Axes : 061 052 055 degrees QTc Int : 445 ms Poor data quality, interpretation may be adversely affected Normal sinus rhythm Possible Lateral infarct , age undetermined Abnormal ECG When compared with ECG of 25-APR-2022 05:49, No significant change was found Confirmed by Gold Elias ([id number]) on 12/14/2022 7:15:27 AM Referred By: REFERRED SELF Confirmed By:Dru Elias
--- NOTE | 2022-12-14 07:48 | Hospitalist Progress Note ---
Date of Service December 14, 2022 Assessment & Plan (1) Dizziness: (2) Fall: (3) Rhabdomyolysis: (4) Overdose: (5) Mood disorder: Plan 67 yo male with mood disorder, Parkinson's disease, history of Hodgkin's lymphoma, alcohol dependence in remission who presents with dizziness and frequent falls at home was found to have unintentional medication overdose and rhabdomyolysis. Frequent falls Dizziness Unintentional medication overdose Complaining of dizziness over the past few weeks, more frequent falls and acute mentation decline over the past few days per discussion with Sister Concern that patient was unintentionally taking double his prescribed Sinemet dose due to having a duplicate bottle (or other meds?) Vital signs stable, patient alert and oriented x3 with limited insight on health (baseline, per sister) EKG without QTc prolongation, CT head without acute intracranial abnormality, negative salicylates, acetaminophen and ethyl alcohol levels Admitting team Discussed medication recommendations with Dr. Christy of psychiatry - held Sinemet, benztropine, Abilify, Buspar until dizziness improves and can resume, cont. half dose of Klonopin and trazodone until dizziness improves, continue Prozac as is Consider reducing or changing Klonopin to PRN as it can be contributing to dizziness Neurology consulted - can resume Sinemet - he is on low dose, and should not cause any issue. Concern about psych med overdose. Will further discuss w. psychiatry Fall precautions, PT/OT evaluations when able Continue discussion with sister about additional help, potential placement for patient Fall in the hospital - today 12/14 - head CT negative - also ordered XR thoracic and lumbar spine - pending - Patient denies any pain - Sister at the bedside and updated - pt will need 1:1 sitter to prevent any falls Rhabdomyolysis In the setting of frequent falls CK 1,039. HS troponin WNL, renal function at baseline Continue IV fluids for now CK trended down, cont. to monitor Mood disorder Follows with Dr. Mayo for psych per sister psychiatry consulted DVT Ppx: SQ Lovenox Code status: FULL PCP: dr. Persaud Dispo: Admitted to med/tele Sister - Dejah Magana: [phone] Admission and Anticipated Discharge Date Admission Date: December 13, 2022 Subjective Pt seen in follow up of dizziness, frequent falls, ? unintentional medication overdose, rhabdo hx of Parkinson's and neurology consulted Patient fell today in his room, reports hitting his back and also back of his head. He denies any pain. Says that he knows that he is in the hospital., Has tremor. Patient's sister is now at the bedside, and updated. Patient denies any fevers chills chest pain shortness of breath, denies abdominal pain. Sister says that he has been more confused and falling more often recently. Seen by neurology, Sinemet to be resumed. Psychiatry also consulted for medication management. Review of Systems Review of Systems: All systems reviewed & are unremarkable except as noted in Subjective Physical Exam Physical Exam: General Appearance:WD/WN, in NAD, + parkinsonian tremors Head: normocephalic Eyes:normal inspection, PERRL, conjunctivae normal, anicteric sclerae. + bruising to infraorbital area from fall ENT: external ear and nose normal, oropharynx normal Neck: normal visual inspection Respiratory:normal respiratory effort, lungs clear to auscultation, no wheeze, rales, rhonchi. No accessory muscle use Cardiovascular: regular rate, rhythm, no murmur, normal peripheral pulses, no BLE edema. Vessels: no JVD Chest: normal inspection of chest Back: scratched from fall b/l Abdomen/GI: normal bowel sounds, soft, nontender Extremities/Musculoskeletal: moves extremities. +skin tears and bruising over bilateral knees Neurologic: PERRL, EOMI, no face palsy, moves all extremities Psychiatric:A+Ox3, euthymic affect Skin: no rashes, normal color, warm/dry Results & Data Results & Data Vital Signs (Past 12 Hours) Vital Signs Temp Pulse Pulse Resp BP BP Pulse Ox 12/13/22 22:01 64 12/13/22 20:58 82 12/13/22 20:56 12/13/22 20:56 36.4 C L 69 20 111/66 92 12/13/22 23:54 36.7 C 60 20 132/76 97 12/13/22 20:56 36.4 C L 20 111/66 92 O2 Del Method 12/13/22 22:01 12/13/22 20:58 12/13/22 20:56 Room Air 12/13/22 20:56 Room Air 12/13/22 23:54 Room Air 12/13/22 20:56 Room Air Laboratory Results 12/14/22 12/14/22 12/14/22 Range/Units 06:00 06:00 01:08 WBC 5.25 (4.8-10.8) K/ul RBC 4.45 L (4.70-6.10) M/uL Hgb 12.9 L (14.0-18.0) g/dl Hct 38.6 L (42.0-52.0) % MCV 86.7 (80.0-100.0) fL MCH 29.0 (25.0-34.0) pg MCHC 33.4 (32.0-36.0) g/dL RDW Std Deviation 47.8 H (36.4-46.3) fL RDW Coeff of Elizabeth 15.1 H (11.5-14.5) % Plt Count 173 (130-400) K/uL MPV 11.4 (9.4-12.4) fL Immature Gran % (Auto) % Neut % (Auto) % Lymph % (Auto) % Hendry % (Auto) % Eos % (Auto) % Baso % (Auto) % Neut # (Auto) (1.40-6.50) K/uL Lymph # (Auto) (1.2-3.4) K/uL Hendry # (Auto) (0.11-0.59) K/uL Eos # (Auto) (0-0.50) K/uL Baso # (Auto) (0-0.2) K/uL Immature Gran # (Auto) (0.01-0.20) K/uL PT (9.0-12.0) Seconds INR (0.9-1.1) APTT (21.0-31.0) Seconds PTT Ratio Sodium 138 (136-145) mmol/L Potassium 3.8 (3.5-5.1) mmol/L Chloride 109 H (98-107) mmol/L Carbon Dioxide 23 (21-32) mmol/L Anion Gap 6 (3-11) BUN 16 (6-23) mg/dl Creatinine 0.87 (0.6-1.4) mg/dl Est Cr Clr Drug Dosing 100.8 ml/min Est GFR ( Amer) 103.5 ml/min Est GFR (Non-Af Amer) 89.3 ml/min BUN/Creatinine Ratio 18.4 (10-20) Glucose 118 H (70-99(Fasting)) mg/dl Calcium 8.5 L (8.6-10.3) mg/dl Total Bilirubin (0.2-1.0) mg/dl AST (13-39) U/L ALT (7-52) U/L Alkaline Phosphatase (34-104) U/L Total Creatine Kinase 712 H (30-223) U/L Troponin I High Sens (0-20) pg/ml Total Protein (6.0-8.3) gm/dl Albumin (3.4-5.0) gm/dl Globulin (2.5-4.0) gm/dl Albumin/Globulin Ratio (0.9-2) Urine Color Urine Appearance (Clear) Urine pH (4.5-7.5) Ur Specific [place] (1.000-1.030) Urine Protein (Negative) Urine Glucose (UA) (Negative) Urine Ketones (Negative) Urine Blood (Negative) Urine Nitrite (Negative) Urine Bilirubin (Negative) Urine Urobilinogen (Negative) Ur Leukocyte Esterase (Negative) Salicylates (3.0-30) mg/dl Urine Opiates Screen (Neg) Ur Methadone, Qual (Neg) Acetaminophen (10-30) ug/ml Urine Barbiturates (Neg) Ur Phencyclidine (PCP) (Neg) U Amphetamin/Meth Scrn (Neg) Urine MDEA Pending MDMA (Ecstasy) Screen (Neg) MDMA Pending Urine MDMA Pending U Benzodiazepines Scrn (Neg) Ur Cocaine Metabolite (Neg) U Marijuana (THC) Screen (Neg) Ethyl Alcohol mg/dL (<10.0) mg/dl SARS-CoV-2, RNA, NAAT (NEGATIVE) 12/14/22 12/14/22 12/13/22 Range/Units 01:08 01:08 18:18 WBC (4.8-10.8) K/ul RBC (4.70-6.10) M/uL Hgb (14.0-18.0) g/dl Hct (42.0-52.0) % MCV (80.0-100.0) fL MCH (25.0-34.0) pg MCHC (32.0-36.0) g/dL RDW Std Deviation (36.4-46.3) fL RDW Coeff of Elizabeth (11.5-14.5) % Plt Count (130-400) K/uL MPV (9.4-12.4) fL Immature Gran % (Auto) % Neut % (Auto) % Lymph % (Auto) % Hendry % (Auto) % Eos % (Auto) % Baso % (Auto) % Neut # (Auto) (1.40-6.50) K/uL Lymph # (Auto) (1.2-3.4) K/uL Hendry # (Auto) (0.11-0.59) K/uL Eos # (Auto) (0-0.50) K/uL Baso # (Auto) (0-0.2) K/uL Immature Gran # (Auto) (0.01-0.20) K/uL PT (9.0-12.0) Seconds INR (0.9-1.1) APTT (21.0-31.0) Seconds PTT Ratio Sodium (136-145) mmol/L Potassium (3.5-5.1) mmol/L Chloride (98-107) mmol/L Carbon Dioxide (21-32) mmol/L Anion Gap (3-11) BUN (6-23) mg/dl Creatinine (0.6-1.4) mg/dl Est Cr Clr Drug Dosing ml/min Est GFR ( Amer) ml/min Est GFR (Non-Af Amer) ml/min BUN/Creatinine Ratio (10-20) Glucose (70-99(Fasting)) mg/dl Calcium (8.6-10.3) mg/dl Total Bilirubin (0.2-1.0) mg/dl AST (13-39) U/L ALT (7-52) U/L Alkaline Phosphatase (34-104) U/L Total Creatine Kinase (30-223) U/L Troponin I High Sens (0-20) pg/ml Total Protein (6.0-8.3) gm/dl Albumin (3.4-5.0) gm/dl Globulin (2.5-4.0) gm/dl Albumin/Globulin Ratio (0.9-2) Urine Color Yellow Urine Appearance Clear (Clear) Urine pH 6.5 (4.5-7.5) Ur Specific [place] 1.021 (1.000-1.030) Urine Protein Negative (Negative) Urine Glucose (UA) Negative (Negative) Urine Ketones 1+ H (Negative) Urine Blood Negative (Negative) Urine Nitrite Negative (Negative) Urine Bilirubin Negative (Negative) Urine Urobilinogen Positive H (Negative) Ur Leukocyte Esterase Negative (Negative) Salicylates (3.0-30) mg/dl Urine Opiates Screen Neg (Neg) Ur Methadone, Qual Neg (Neg) Acetaminophen (10-30) ug/ml Urine Barbiturates Neg (Neg) Ur Phencyclidine (PCP) Neg (Neg) U Amphetamin/Meth Scrn Neg (Neg) Urine MDEA MDMA (Ecstasy) Screen Pos H (Neg) MDMA Urine MDMA U Benzodiazepines Scrn Neg (Neg) Ur Cocaine Metabolite Neg (Neg) U Marijuana (THC) Screen Neg (Neg) Ethyl Alcohol mg/dL (<10.0) mg/dl SARS-CoV-2, RNA, NAAT NEGATIVE (NEGATIVE) 12/13/22 12/13/22 12/13/22 Range/Units 17:19 17:19 17:19 WBC (4.8-10.8) K/ul RBC (4.70-6.10) M/uL Hgb (14.0-18.0) g/dl Hct (42.0-52.0) % MCV (80.0-100.0) fL MCH (25.0-34.0) pg MCHC (32.0-36.0) g/dL RDW Std Deviation (36.4-46.3) fL RDW Coeff of Elizabeth (11.5-14.5) % Plt Count (130-400) K/uL MPV (9.4-12.4) fL Immature Gran % (Auto) % Neut % (Auto) % Lymph % (Auto) % Hendry % (Auto) % Eos % (Auto) % Baso % (Auto) % Neut # (Auto) (1.40-6.50) K/uL Lymph # (Auto) (1.2-3.4) K/uL Hendry # (Auto) (0.11-0.59) K/uL Eos # (Auto) (0-0.50) K/uL Baso # (Auto) (0-0.2) K/uL Immature Gran # (Auto) (0.01-0.20) K/uL PT (9.0-12.0) Seconds INR (0.9-1.1) APTT (21.0-31.0) Seconds PTT Ratio Sodium 137 (136-145) mmol/L Potassium 3.9 (3.5-5.1) mmol/L Chloride 108 H (98-107) mmol/L Carbon Dioxide 22 (21-32) mmol/L Anion Gap 7 (3-11) BUN 21 (6-23) mg/dl Creatinine 1.07 (0.6-1.4) mg/dl Est Cr Clr Drug Dosing 84.0 ml/min Est GFR ( Amer) 82.8 ml/min Est GFR (Non-Af Amer) 71.5 ml/min BUN/Creatinine Ratio 19.6 (10-20) Glucose 91 (70-99(Fasting)) mg/dl Calcium 9.0 (8.6-10.3) mg/dl Total Bilirubin 0.9 (0.2-1.0) mg/dl AST 45 H (13-39) U/L ALT 25 (7-52) U/L Alkaline Phosphatase 97 (34-104) U/L Total Creatine Kinase 1039 H (30-223) U/L Troponin I High Sens 6.8 (0-20) pg/ml Total Protein 7.1 (6.0-8.3) gm/dl Albumin 4.0 (3.4-5.0) gm/dl Globulin 3.1 (2.5-4.0) gm/dl Albumin/Globulin Ratio 1.3 (0.9-2) Urine Color Urine Appearance (Clear) Urine pH (4.5-7.5) Ur Specific [place] (1.000-1.030) Urine Protein (Negative) Urine Glucose (UA) (Negative) Urine Ketones (Negative) Urine Blood (Negative) Urine Nitrite (Negative) Urine Bilirubin (Negative) Urine Urobilinogen (Negative) Ur Leukocyte Esterase (Negative) Salicylates < 3.0 L (3.0-30) mg/dl Urine Opiates Screen (Neg) Ur Methadone, Qual (Neg) Acetaminophen < 3 L (10-30) ug/ml Urine Barbiturates (Neg) Ur Phencyclidine (PCP) (Neg) U Amphetamin/Meth Scrn (Neg) Urine MDEA MDMA (Ecstasy) Screen (Neg) MDMA Urine MDMA U Benzodiazepines Scrn (Neg) Ur Cocaine Metabolite (Neg) U Marijuana (THC) Screen (Neg) Ethyl Alcohol mg/dL < 10.0 (<10.0) mg/dl SARS-CoV-2, RNA, NAAT (NEGATIVE) 12/13/22 12/13/22 Range/Units 17:19 17:19 WBC 5.45 (4.8-10.8) K/ul RBC 4.57 L (4.70-6.10) M/uL Hgb 13.4 L (14.0-18.0) g/dl Hct 40.1 L (42.0-52.0) % MCV 87.7 (80.0-100.0) fL MCH 29.3 (25.0-34.0) pg MCHC 33.4 (32.0-36.0) g/dL RDW Std Deviation 49.3 H (36.4-46.3) fL RDW Coeff of Elizabeth 15.3 H (11.5-14.5) % Plt Count 183 (130-400) K/uL MPV 10.9 (9.4-12.4) fL Immature Gran % (Auto) 0.4 % Neut % (Auto) 63.3 % Lymph % (Auto) 22.6 % Hendry % (Auto) 10.3 % Eos % (Auto) 2.8 % Baso % (Auto) 0.6 % Neut # (Auto) 3.46 (1.40-6.50) K/uL Lymph # (Auto) 1.23 (1.2-3.4) K/uL Hendry # (Auto) 0.56 (0.11-0.59) K/uL Eos # (Auto) 0.15 (0-0.50) K/uL Baso # (Auto) 0.03 (0-0.2) K/uL Immature Gran # (Auto) 0.02 (0.01-0.20) K/uL PT 11.4 (9.0-12.0) Seconds INR 1.1 (0.9-1.1) APTT 25.9 (21.0-31.0) Seconds PTT Ratio 0.9 Sodium (136-145) mmol/L Potassium (3.5-5.1) mmol/L Chloride (98-107) mmol/L Carbon Dioxide (21-32) mmol/L Anion Gap (3-11) BUN (6-23) mg/dl Creatinine (0.6-1.4) mg/dl Est Cr Clr Drug Dosing ml/min Est GFR ( Amer) ml/min Est GFR (Non-Af Amer) ml/min BUN/Creatinine Ratio (10-20) Glucose (70-99(Fasting)) mg/dl Calcium (8.6-10.3) mg/dl Total Bilirubin (0.2-1.0) mg/dl AST (13-39) U/L ALT (7-52) U/L Alkaline Phosphatase (34-104) U/L Total Creatine Kinase (30-223) U/L Troponin I High Sens (0-20) pg/ml Total Protein (6.0-8.3) gm/dl Albumin (3.4-5.0) gm/dl Globulin (2.5-4.0) gm/dl Albumin/Globulin Ratio (0.9-2) Urine Color Urine Appearance (Clear) Urine pH (4.5-7.5) Ur Specific [place] (1.000-1.030) Urine Protein (Negative) Urine Glucose (UA) (Negative) Urine Ketones (Negative) Urine Blood (Negative) Urine Nitrite (Negative) Urine Bilirubin (Negative) Urine Urobilinogen (Negative) Ur Leukocyte Esterase (Negative) Salicylates (3.0-30) mg/dl Urine Opiates Screen (Neg) Ur Methadone, Qual (Neg) Acetaminophen (10-30) ug/ml Urine Barbiturates (Neg) Ur Phencyclidine (PCP) (Neg) U Amphetamin/Meth Scrn (Neg) Urine MDEA MDMA (Ecstasy) Screen (Neg) MDMA Urine MDMA U Benzodiazepines Scrn (Neg) Ur Cocaine Metabolite (Neg) U Marijuana (THC) Screen (Neg) Ethyl Alcohol mg/dL (<10.0) mg/dl SARS-CoV-2, RNA, NAAT (NEGATIVE) Medications Administered Current Inpatient Medications Acetaminophen (Acetaminophen 325 Mg Tab) 650 mg PO Q4H PRN PRN Reason: Pain or Fever Stop: 01/12/23 20:55 Clonazepam (Clonazepam 0.5 Mg Tab) 0.5 mg PO BID JEVON Stop: 01/12/23 20:59 Last Admin: 12/13/22 22:30 Dose: 0.5 mg Enoxaparin Sodium (Enoxaparin Inj 40 Mg/0.4 Ml Syr) 40 mg SQ Q24H JEVON Stop: 01/12/23 21:59 Last Admin: 12/13/22 22:30 Dose: 40 mg Fluoxetine HCl (Fluoxetine Hcl 20 Mg Cap) 40 mg PO QAM [facility] Stop: 01/13/23 08:59 Fluticasone Propionate (Fluticasone Propionate Na Spr 16 Gm Btl) 2 sprays NA DAILY PRN PRN Reason: Nasal Congestion Stop: 01/12/23 20:55 Lactated Ringer's (Lr) 1,000 mls @ 125 mls/hr IV .Q8H JEVON Stop: 01/12/23 17:59 Last Admin: 12/14/22 05:30 Dose: 125 mls/hr Ipratropium Mcdermott (Ipratropium Mcdermott Nasal [place] 0.06% 15ml) 1 sprays KADEN DAILY PRN PRN Reason: Nasal Congestion Stop: 01/12/23 21:11 Ondansetron HCl (Ondansetron Inj 2 Mg/Ml 2 Ml Vial) 4 mg IV Q6H PRN PRN Reason: Nausea Stop: 01/12/23 20:55 Polyethylene Glycol (Polyethylene (Miralax) 17 Gm Pack) 17 gm PO DAILY PRN PRN Reason: Constipation Stop: 01/12/23 20:55 Trazodone HCl (Trazodone Hcl 50 Mg Tab) 150 mg PO HS JEVON Stop: 01/12/23 20:59 Last Admin: 12/13/22 22:30 Dose: 150 mg (2) Fall Encounter type: initial encounter Qualified Code(s): W19.XXXA - Unspecified fall, initial encounter (3) Rhabdomyolysis Encounter type: initial encounter Rhabdomyolysis type: traumatic Qualified Code(s): T79.6XXA - Traumatic ischemia of muscle, initial encounter (4) Overdose Encounter type: initial encounter Injury intent: accidental or unintentional Qualified Code(s): T50.901A - Poisoning by unspecified drugs, medicaments and biological substances, accidental (unintentional), initial encounter
[2022-12-14] MEDS: FLUoxetine HCL 20 MG CAP PO SCH (09:48)
[2022-12-14] MEDS: clonazePAM 0.5 MG TAB PO SCH ×2 (09:48→22:27)
--- NOTE | 2022-12-14 11:15 | Neurology Consultation ---
Date of Consultation December 14, 2022 Assessment & Plan (1) Overdose: Plan NEUROLOGY CONSULTATION Assessment & Plan: Impression: pt with likely overdose of his psychiatric meds related side effects along with drug use (Ecstasy) related symptoms. pt denies taking overdsoe of sinemet and I do not feelt sinemet is the issue. he is on low dose and should not cause his current symptoms. Recommendations: -ok to restart his outpt sinemet dose -psychiatry consult to manage his meds and Ecstasy use. not much to add from neurology call again if new question. Dr. Luther Martin MD [facility] Neurology Chief Complaint: dizzy History of Present Illness: pt with polypharmacy and likely overdose of his psychiatric med. hx of parkinson and on sinemet. pt also noted for UDX positive for Ecstasy. this morning pt feeling little better. talking and following command well. not much dizzy. chart reviewed. Admission/Initial HPI documentation: Complaining of dizziness over the past few weeks, more frequent falls and acute mentation decline over the past few days per discussion with Sister Concern that patient was unintentionally taking double his prescribed Sinemet dose due to having a duplicate bottle Vital signs stable, patient alert and oriented x3 with limited insight on health (baseline, per sister) EKG without QTc prolongation, CT head without acute intracranial abnormality, negative salicylates, acetaminophen and ethyl alcohol levels Discussing medication recommendations with Dr. Christy of psychiatry - hold Sinemet, benztropine, Abilify, Buspar until dizziness improves and can resume, cont. half dose of Klonopin and trazodone until dizziness improves, continue Prozac as is Consider reducing or changing Klonopin to PRN as it can be contributing to dizziness Routine neuro consult Fall precautions, PT/OT evaluations when able Continue discussion with sister about additional help, potential placement for patient Past Medical History: See chart Meds: See chart I personally reviewed all of the medications Social & Family History: See chart Review of Systems: Per initial HPI on admission. Physical Exam: GEN: NAD HEENT: Normocephalic Neuro: Mental status:A & O x 3.No dysarthria or aphasia.No neglect. Fluent speech. No apraxia Cranial Nerves:II-XII intact Motor:mild increase tone upper limbs. mild b/l hand resting tremors. 5/5 strength x 4 extremities Coordination:Intact Reflexes:+2 throughout, down going toes humera Sensation: Intact x 4 extremities to touch Chart reviewed I have spent more than 50% educating patient about potential diagnosis and neurological evaluation and coordinating care with patient's treatment team. Total time spent (including chart review and coordination of care): 80 min (this includes chart review). History of Present Illness Attending Physician: Eb Cottrell MD Allergies Allergy/AdvReac Type Severity Reaction Status Date / Time pollen extracts Allergy Intermediate SNEEZING/CO Verified 12/13/22 18:06 NGESTION ragweed pollen Allergy Mild Sneezing Verified 12/13/22 18:06 oxycodone AdvReac Intermediate COLD Verified 12/13/22 18:06 SWEATS/NAUSEA/VOMITING sertraline AdvReac Intermediate NAUSEA/VOMI Verified 12/13/22 18:06 TING Home Medications Medication Instructions Recorded Confirmed Type buspirone 30 mg tablet 30 mg PO BID 07/01/21 12/13/22 History carbidopa 25 mg-levodopa 100 mg 2 tab PO TID 07/01/21 12/13/22 History tablet fluoxetine 40 mg capsule (Prozac) 40 mg PO QAM 07/01/21 12/13/22 History fluticasone propionate 50 2 spray intranasal DAILY PRN Nasal 04/24/22 12/13/22 History mcg/actuation nasal Congestion spray,suspension ipratropium bromide 21 mcg (0.03 2 spray intranasal DAILY PRN Nasal 04/24/22 12/13/22 History %) nasal spray Congestion trazodone 100 mg tablet 300 mg PO HS 04/24/22 12/13/22 History clonazepam 1 mg tablet 1 mg PO BID 10/14/22 12/13/22 History aripiprazole 15 mg tablet 15 mg PO QAM 12/13/22 12/13/22 History benztropine 0.5 mg tablet 0.5 mg PO BID 12/13/22 12/13/22 History polyethylene glycol 3350 17 17 g PO DAILY PRN Constipation 12/13/22 12/13/22 History gram/dose oral powder (Miralax) Patient History Medical History Anxiety and depression GERD (gastroesophageal reflux disease) History of kidney stones Hodgkins disease (05/10/10) "Classic Hodgkin's disease, nodular sclerosing type II Status post bronchoscopy and mediastinal endoscopy with biopsy status post completion of 4 cycles of ABVD Status post completion of radiation therapy 07/05/2010 received 3600 cGy " IBS (irritable bowel syndrome) Mood disorder OCD (obsessive compulsive disorder) Osteoarthritis Tardive dyskinesia Surgical History History of cholecystectomy History of colonoscopy History of hernia repair History of left knee surgery History of vascular access device hx port for chemo. has been removed History of wisdom tooth extraction Family History Other Cancer Heart disease Stroke Social History Smoking Status: Never smoker Smoking End Date: 1978; Second Hand Exposure: No; Hx Alcohol Use: Yes Alcohol type: hard liquor Hx Substance Use: No Preferred Language: Beninese Communication Ability: Effective Supervisor Sewing Room Required: No Beliefs That Will Affect Care: None marital status: Single Current Living Situation: Family Current Living Situation Comment: Lives with sister and father Other Information That Helps Us Care for You: No Feels Safe at Home: Yes Safety Concerns: Feels Safe At This Time Assistive Devices: Denture - Upper, Denture - Lower and Walker Assistive Devices Comment: Dentures not present Results & Data Vital Signs (Past 12 Hours) Vital Signs Temp Pulse Resp BP Pulse Ox O2 Del Method 12/14/22 08:19 36.5 C 82 18 127/74 95 Room Air 12/13/22 23:54 36.7 C 60 20 132/76 97 Room Air (1) Overdose Encounter type: initial encounter Injury intent: accidental or unintentional Qualified Code(s): T50.901A - Poisoning by unspecified drugs, medicaments and biological substances, accidental (unintentional), initial encounter
--- NOTE | 2022-12-14 14:43 | CT Scan Report ---
CT SCAN OF THE BRAIN WITHOUT IV CONTRAST CLINICAL HISTORY: Fall. COMPARISON STUDY: CT of the brain dated 12/13/2022. TECHNIQUE: Unenhanced axial CT scan of the brain is performed from the vertex to the skull base. A do se lowering technique was utilized adhering to the principles of ALARA. The skull base was scanned tw ice due to motion artifact. CT DOSE: 945.97 mGy.cm FINDINGS: Brain parenchyma: There is age-related involutional change noting mild subcortical and periventricula r microangiopathic disease. There is no hemorrhage, mass effect, or evidence of acute territorial isc hemia by CT criteria. Hong-white matter differentiation is preserved. No extra-axial fluid collection is seen. Ventricles, sulci, cisterns: Prominent secondary to involutional change. Intracranial vasculature: There is atherosclerotic calcification of the cavernous carotid arteries. Calvarium: The skeletal structures are osteopenic. No depressed calvarial fracture is seen. Soft tissues: There is a small posterior scalp contusion. Sinuses and mastoids: The visualized paranasal sinuses are clear. The mastoid air cells are well pneu matized. Cerumen is noted in the left external auditory canal. Orbits: The bony orbits are grossly intact. IMPRESSION: There is no hemorrhage, mass effect, or evidence of acute territorial ischemia by CT crit nicholas.. No significant change from yesterday. ACT 112: Negative or not required by law. Electronically signed by: Kumar Burt M.D. 12/14/2022 2:41 PM
[2022-12-14] MEDS: CARBIDOPA/LEVODOPA 25/100MG TAB PO SCH ×2 (14:57→20:06)
--- NOTE | 2022-12-14 17:04 | XRay Report ---
THORACIC SPINE 3 VIEWS CLINICAL HISTORY: Fall. Thoracic back pain. FINDINGS: AP, lateral, and swimmer's views of the thoracic spine are correlated with chest CT dated . The skeletal structures are osteopenic. There is no radiographic evidence of acute fracture or malalignment involving the thoracic spine. Vertebral body height and alignment are maintained. An terior and lateral marginal osteophytes are seen throughout. The transverse processes and pedicles ar e grossly intact as seen on the frontal view. There is mild multilevel degenerative disc space narrow ing. Spondylotic change is noted in the lower cervical spine on the swimmer's view. The lung parenchy ma is clear as visualized. IMPRESSION: No acute bony abnormality is seen involving the thoracic spine. Electronically signed by: Kumar Burt M.D. 12/14/2022 5:03 PM
--- NOTE | 2022-12-14 17:07 | XRay Report ---
LUMBAR SPINE 3 VIEWS CLINICAL HISTORY: Fall. Low back pain. FINDINGS: 3 views of the lumbar spine are correlated with abdominal CT dated 09/06/2010. The skeletal structures are osteopenic. There is no radiographic evidence of fracture or malalignment. Vertebral b ahmet height and alignment are maintained. Anterior and lateral marginal osteophytes are seen throughou t. The transverse and spinous processes are intact. There is moderate multilevel degenerative disc sp devyn narrowing, greatest at L4-L5. Posterior disc osteophyte complexes are seen at most lumbar levels. Facet arthropathy is noted in the lower lumbar region. The visualized bony pelvis appears intact. De generative sclerosis is seen in the sacroiliac joints. There is a nonobstructed abdominal bowel gas p attern. There is mild to moderate colonic fecal retention. Phleboliths are seen in the pelvis. Cholec ystectomy clips are noted in the right upper quadrant. IMPRESSION: 1. There is no radiographic evidence of acute fracture or malalignment involving the lumbar spine. 2. Osteopenia and spondylotic change as above. ACT 112: Negative or not required by law. Electronically signed by: Kumar Burt M.D. 12/14/2022 5:06 PM
[2022-12-14] MEDS: traZODone HCL 50 MG TAB PO SCH (20:06)
[2022-12-14] MEDS ORDERED: LORazepam 2 MG/1 ML VIAL IV STA (22:36)
[2022-12-14] MEDS: ENOXAPARIN INJ 40 MG/0.4 ML SYR SQ SCH (23:37)
[2022-12-15] MEDS: LACTATED RINGER'S 1,000 ML IV SCH ×2 (04:01→16:14)
[2022-12-15] MEDS ORDERED: Nursing to Pharmacy Communication SCH (05:00)
[2022-12-15 06:53] LABS: Hematocrit (blood only) 40.1 % (42.0-52.0); Hemoglobin 13.6 g/dl (14.0-18.0); Mean Corpuscular Hemoglobin 29.4 pg (25.0-34.0); Mean Corpuscular Hgb Conc 33.9 g/dL (32.0-36.0); Mean Corpuscular Volume 86.8 fL (80.0-100.0); Mean Platelet Volume 11.4 fL (9.4-12.4); Platelet Count 173 K/uL (130-400); RDW Coefficient of Variation 14.7 % (11.5-14.5); RDW Standard Deviation 46.6 fL (36.4-46.3); Red Blood Count 4.62 M/uL (4.70-6.10); White Blood Count 6.29 K/ul (4.8-10.8)
--- NOTE | 2022-12-15 08:33 | Hospitalist Progress Note ---
Date of Service December 15, 2022 Assessment & Plan (1) Dizziness: (2) Fall: (3) Rhabdomyolysis: (4) Overdose: (5) Mood disorder: Plan 67 yo male with mood disorder, Parkinson's disease, history of Hodgkin's lymphoma, alcohol dependence in remission who presents with dizziness and frequent falls at home was found to have unintentional medication overdose and rhabdomyolysis. Frequent falls Dizziness Unintentional medication overdose Complaining of dizziness over the past few weeks, more frequent falls and acute mentation decline over the past few days per discussion with Sister Concern that patient was unintentionally taking double his prescribed Sinemet dose due to having a duplicate bottle (or other meds?) Vital signs stable, patient alert and oriented x3 with limited insight on health (baseline, per sister) EKG without QTc prolongation, CT head without acute intracranial abnormality, negative salicylates, acetaminophen and ethyl alcohol levels Admitting team Discussed medication recommendations with Dr. Christy of psychiatry - held Sinemet, benztropine, Abilify, Buspar until dizziness improves and can resume, cont. half dose of Klonopin and trazodone until dizziness improves, continue Prozac as is Consider reducing or changing Klonopin to PRN as it can be contributing to dizziness Neurology consulted - resumed Sinemet - he is on low dose, and should not cause any issue. Concern about psych med overdose. Discussed further w/psychiatry -Psych liaison to get further collateral from his sister -restart prior to admission benztropine 0.5mg BID, will restart abilify at 10mg HS -Continue with half dose of clonazepam 0.5mg BID -Continue trazodone to 150mg HS -Continue fluoxetine 40mg daily -Continue to hold buspirone -Hold Seroquel 50mg HS as recently started and possibly contributed to recently worsening dizziness Fall precautions, PT/OT evaluations Continue discussion with sister about additional help, potential placement for patient Fall in the hospital - yesterday 12/14 - head CT negative - also ordered XR thoracic and lumbar spine - no fractures/ acute findings - Patient denies any pain - Sister at the bedside yesterday and updated - pt will need 1:1 sitter to prevent any falls Rhabdomyolysis In the setting of frequent falls CK 1,039. HS troponin WNL, renal function at baseline Continue IV fluids for now CK trended down, cont. to monitor Mood disorder Follows with Dr. Mayo for psych per sister psychiatry consulted, as above DVT Ppx: SQ Lovenox Code status: FULL PCP: Dr. Persaud Dispo: Admitted to med/tele Sister - Dejah Magana: [phone] Admission and Anticipated Discharge Date Admission Date: December 13, 2022 Subjective Pt seen in follow up of dizziness, frequent falls, ? unintentional medication overdose, rhabdo hx of Parkinson's and neurology consulted Patient fell yesterday in his room Overnight pt was agitated, required restraints This AM sitting up in bed, calm, and cooperative Patient denies any fevers chills chest pain shortness of breath, denies abdominal pain. Seen by neurology, Sinemet was resumed. Psychiatry also consulted for medication management, appreciate their input Review of Systems Review of Systems: All systems reviewed & are unremarkable except as noted in Subjective Physical Exam Physical Exam: General Appearance:WD/WN, in NAD, + parkinsonian tremors Head: normocephalic Eyes:normal inspection, PERRL, conjunctivae normal, anicteric sclerae. + bruising to infraorbital area from fall ENT: external ear and nose normal, oropharynx normal Neck: normal visual inspection Respiratory:normal respiratory effort, lungs clear to auscultation, no wheeze, rales, rhonchi. No accessory muscle use Cardiovascular: regular rate, rhythm, no murmur, normal peripheral pulses, no BLE edema. Vessels: no JVD Chest: normal inspection of chest Back: scratched from fall b/l Abdomen/GI: normal bowel sounds, soft, nontender Extremities/Musculoskeletal: moves extremities. +skin tears and bruising over bilateral knees Neurologic: PERRL, EOMI, no face palsy, moves all extremities Psychiatric:A+Ox3, euthymic affect Skin: no rashes, normal color, warm/dry Results & Data Results & Data Vital Signs (Past 12 Hours) Vital Signs Temp Pulse Pulse Resp BP BP Pulse Ox 12/15/22 07:22 37.0 C 69 20 139/73 97 12/14/22 22:01 58 L 12/14/22 23:46 37.1 C 61 20 129/70 97 O2 Del Method 12/15/22 07:22 Room Air 12/14/22 22:01 12/14/22 23:46 Room Air Laboratory Results 12/15/22 12/15/22 Range/Units 06:07 06:07 WBC 6.29 (4.8-10.8) K/ul RBC 4.62 L (4.70-6.10) M/uL Hgb 13.6 L (14.0-18.0) g/dl Hct 40.1 L (42.0-52.0) % MCV 86.8 (80.0-100.0) fL MCH 29.4 (25.0-34.0) pg MCHC 33.9 (32.0-36.0) g/dL RDW Std Deviation 46.6 H (36.4-46.3) fL RDW Coeff of Elizabeth 14.7 H (11.5-14.5) % Plt Count 173 (130-400) K/uL MPV 11.4 (9.4-12.4) fL Sodium 139 (136-145) mmol/L Potassium 3.8 (3.5-5.1) mmol/L Chloride 110 H (98-107) mmol/L Carbon Dioxide 18 L (21-32) mmol/L Anion Gap 11 (3-11) BUN 12 (6-23) mg/dl Creatinine 0.90 (0.6-1.4) mg/dl Est Cr Clr Drug Dosing 90.0 ml/min Est GFR ( Amer) 102.1 ml/min Est GFR (Non-Af Amer) 88.1 ml/min BUN/Creatinine Ratio 13.3 (10-20) Glucose 93 (70-99(Fasting)) mg/dl Calcium 8.7 (8.6-10.3) mg/dl Phosphorus 2.4 L (2.5-4.9) mg/dl Magnesium 1.7 (1.7-2.4) mg/dl Medications Administered Current Inpatient Medications Acetaminophen (Acetaminophen 325 Mg Tab) 650 mg PO Q4H PRN PRN Reason: Pain or Fever Stop: 01/12/23 20:55 Last Admin: 12/14/22 20:04 Dose: 650 mg Carbidopa/Levodopa (Carbidopa/Levodopa 25/100mg Tab) 2 tab PO TID JEVON Stop: 01/13/23 13:59 Last Admin: 12/14/22 20:06 Dose: 2 tab Clonazepam (Clonazepam 0.5 Mg Tab) 0.5 mg PO BID JEVON Stop: 01/12/23 20:59 Last Admin: 12/14/22 22:27 Dose: 0.5 mg Enoxaparin Sodium (Enoxaparin Inj 40 Mg/0.4 Ml Syr) 40 mg SQ Q24H [facility] Stop: 01/12/23 21:59 Last Admin: 12/14/22 23:37 Dose: 40 mg Fluoxetine HCl (Fluoxetine Hcl 20 Mg Cap) 40 mg PO QAM [facility] Stop: 01/13/23 08:59 Last Admin: 12/14/22 09:48 Dose: 40 mg Fluticasone Propionate (Fluticasone Propionate Na Spr 16 Gm Btl) 2 sprays NA DAILY PRN PRN Reason: Nasal Congestion Stop: 01/12/23 20:55 Lactated Ringer's (Lr) 1,000 mls @ 80 mls/hr IV .[id number] [facility] Stop: 01/12/23 17:59 Last Admin: 12/15/22 04:01 Dose: 125 mls/hr Ipratropium [place] (Ipratropium [place] Nasal [place] 0.06% 15ml) 1 sprays KADEN DAILY PRN PRN Reason: Nasal Congestion Stop: 01/12/23 21:11 Ondansetron HCl (Ondansetron Inj 2 Mg/Ml 2 Ml Vial) 4 mg IV Q6H PRN PRN Reason: Nausea Stop: 01/12/23 20:55 Polyethylene Glycol (Polyethylene (Miralax) 17 Gm Pack) 17 gm PO DAILY PRN PRN Reason: Constipation Stop: 01/12/23 20:55 Trazodone HCl (Trazodone Hcl 50 Mg Tab) 150 mg PO HS [facility] Stop: 01/12/23 20:59 Last Admin: 12/14/22 20:06 Dose: 150 mg (2) Fall Encounter type: initial encounter Qualified Code(s): W19.XXXA - Unspecified fall, initial encounter (3) Rhabdomyolysis Encounter type: initial encounter Rhabdomyolysis type: traumatic Qualified Code(s): T79.6XXA - Traumatic ischemia of muscle, initial encounter (4) Overdose Encounter type: initial encounter Injury intent: accidental or unintentional Qualified Code(s): T50.901A - Poisoning by unspecified drugs, medicaments and biological substances, accidental (unintentional), initial encounter
[2022-12-15] MEDS: FLUoxetine HCL 20 MG CAP PO SCH (09:08)
[2022-12-15] MEDS: clonazePAM 0.5 MG TAB PO SCH ×2 (09:08→20:05)
[2022-12-15] MEDS: CARBIDOPA/LEVODOPA 25/100MG TAB PO SCH ×3 (09:08→20:05)
[2022-12-15 09:47] LABS: Calcium 8.7 mg/dl (8.6-10.3); Magnesium 1.7 mg/dl (1.7-2.4); Potassium 3.8 mmol/L (3.5-5.1)
[2022-12-15 09:52] LABS: BUN Creatinine Ratio 13.3 (10-20); Est GFR (African American) 102.1 ml/min; Est GFR (Non-African American) 88.1 ml/min; Phosphorus 2.4 mg/dl (2.5-4.9)
--- NOTE | 2022-12-15 12:02 | Psychiatric Consultation ---
Date of Consultation December 15, 2022 Impression / Recommendations Impression 67 yo man with history of depression, anxiety, tardive dyskinesia, Parkinson's disease admitted medically for worsening dizziness and falls over the last few weeks. Unclear if his presentation represents progression of his Parkinson's disease with increased gait instability and dizziness versus medication side effect versus possible mistaken use of prescribed medications at home (inadvertently taking double his Sinemet dose) versus recent addition of Seroquel with possible orthostatic hypotension/dizziness side effects. While it is challenging to get a clear sense of any recent substance use he is has no known history of illicit substance use and I feel it is HIGHLY UNLIKELY that he has been using an MDMA product. Rather it is VERY COMMON for many prescribed medications such as trazodone to cause false positive results on initial UDS screening for MDMA, anticipate confirmatory testing will be negative. Overnight events may represent sundowning related to cognitive changes with Parkinson's disease versus delirium. Will start to restart some of his psychiatric medications which may help if paranoia/psychosis (which can be caused from Sinemet use) is at all contributing to this. For now agree with PT involvement for assessment of his gait and certainly would be beneficial to compare his current neurologic findings with his most recent outpatient neurologic assessments through his Parkinson's disease provider including last walk test results. (1) Anxiety: (2) Dizziness: (3) Fall: Encounter type: initial encounter Qualified Code(s): W19.XXXA - Unspecified fall, initial encounter (4) Rhabdomyolysis: Encounter type: initial encounter Rhabdomyolysis type: traumatic Qualified Code(s): T79.6XXA - Traumatic ischemia of muscle, initial encounter (5) Parkinson's disease: Plan -Psych liaison to get further collateral from his sister -Agree with use of 1-on-1 prn at discretion of hospitalist given his impulsivity at times -Agree with PT involvement -Would restart prior to admission benztropine 0.5mg BID, will restart abilify at 10mg HS -Continue with half dose of clonazepam 0.5mg BID -Continue trazodone to 150mg HS -Continue fluoxetine 40mg daily -Continue to hold buspirone -Hold Seroquel 50mg HS as recently started and possibly contributed to recently worsening dizziness -Consider melatonin 3mg qhs -Continue medical workup to rule out and treat any underlying causes contributing to potential delirium, avoid or limit use of deliriogenic medications (benzodiazepines, opioids, anticholinergics) -Continue with delirium prevention measures: raising blinds during the day, closing at night, frequent re-orientation, contact with family/friends, explaining procedures/nursing care measures prior to physical contact, correct any hearing and visual impairments -For behavioral emergency: olanzapine 2.5 mg IM x 1 (DO NOT exceed 10mg per 24 hours, check EKG if IM dose required, NEVER co-administer with IM or IV benzodiazepines). Psych History Identifying Data 67 yo man with a history of depression, anxiety, tardive dyskinesia, Parkinson's disease admitted medically for worsening dizziness and falls over the last few weeks. Psychiatry consulted for medication recommendations. Chief Complaint "Now I think I know you from a magazine article I read". History of Present Illness Junior was brought to the hospital by his sister and father, with whom he lives, for worsening dizziness and falls over the last few weeks. His sister told the admitted providers that she recently discovered he had two prescription bottles of his Sinemet and wondered if he had accidentally been taking double his intended dose. He follows with outpatient [facility] neurology for his Parkinson's disease and with Lian GUILLORY at the [facility] for psychiatric services. I reviewed his case on the night of his admission and gave recommendations for holding some of his psychiatric medications until his dizziness improved. Yesterday he was seen by neurology who questioned whether or not he has been using ecstasy (due to positive MDMA on initial UDS screen) and who felt his presentation was due to psychiatric medication side effects. Neurology assessment did not evaluate his gait nor offered comparison to current neurologic exam findings with recent outpatient evaluations so unclear how his Parkinson's disease has been progressing and whether or not his current presentation could represent an advancement of his PD. He also experienced a fall yesterday morning after admission. Overnight he became very confused and yelled at RN when he was told he couldn't get out of bed and leave the hospital. Presents as very impulsive with significant periods of confusion. Per admitting notes sounds like he does have some baseline confusion/difficulty with insight into his medical condition at baseline per report from his sister. Today he doesn't know where he is (thinks we are in the [facility]) but agrees we could be in a hospital when re-oriented. Knows the city, month and year. Very pleasant but confused throughout the conversation. States he's felt increased dizziness since May. Accurately tells me his dose of Klonopin so appears he's been taking that correctly. Agrees he had a history of benzo and alcohol misuse in the past but doesn't think he's had any alcohol recently telling me "that's hard to answer because do you know about the [employer]". Agrees he fell recently while walking the dog at home and has large healing bruises on both his knees and bruise under his eye his attributes to this fall. States he "might" use a cane or walker at home. Denies any recent side effects from his psychiatric medications or making any recent dose changes. Psychiatric history of [facility] admission to [facility] in 2011 for depression. Outpatient psychiatric records reviewed from [facility] and medication dosages confirmed. Notably Seroquel was recently added to his medications, unclear if timing of this addition coincided with increase in dizziness. Allergies Allergy/AdvReac Type Severity Reaction Status Date / Time pollen extracts Allergy Intermediate SNEEZING/CO Verified 12/13/22 18:06 NGESTION ragweed pollen Allergy Mild Sneezing Verified 12/13/22 18:06 oxycodone AdvReac Intermediate COLD Verified 12/13/22 18:06 SWEATS/NAUSEA/VOMITING sertraline AdvReac Intermediate NAUSEA/VOMI Verified 12/13/22 18:06 TING Home Medications Medication Instructions Recorded Confirmed Type buspirone 30 mg tablet 30 mg PO BID 07/01/21 12/13/22 History carbidopa 25 mg-levodopa 100 mg 2 tab PO TID 07/01/21 12/13/22 History tablet fluoxetine 40 mg capsule (Prozac) 40 mg PO QAM 07/01/21 12/13/22 History fluticasone propionate 50 2 spray intranasal DAILY PRN Nasal 04/24/22 12/13/22 History mcg/actuation nasal Congestion spray,suspension ipratropium bromide 21 mcg (0.03 2 spray intranasal DAILY PRN Nasal 04/24/22 History %) nasal spray Congestion trazodone 100 mg tablet 300 mg PO HS 04/24/22 12/13/22 History clonazepam 1 mg tablet 1 mg PO BID 10/14/22 12/13/22 History aripiprazole 15 mg tablet 15 mg PO QAM 12/13/22 12/13/22 History benztropine 0.5 mg tablet 0.5 mg PO BID 12/13/22 12/13/22 History polyethylene glycol 3350 17 17 g PO DAILY PRN Constipation 12/13/22 12/13/22 History gram/dose oral powder (Miralax) Patient History Medical History Anxiety and depression GERD (gastroesophageal reflux disease) History of kidney stones Hodgkins disease (05/10/10) "Classic Hodgkin's disease, nodular sclerosing type II Status post bronchoscopy and mediastinal endoscopy with biopsy status post completion of 4 cycles of ABVD Status post completion of radiation therapy 07/05/2010 received 3600 cGy " IBS (irritable bowel syndrome) Mood disorder OCD (obsessive compulsive disorder) Osteoarthritis Tardive dyskinesia Surgical History History of cholecystectomy History of colonoscopy History of hernia repair History of left knee surgery History of vascular access device hx port for chemo. has been removed History of wisdom tooth extraction Family History Other Cancer Heart disease Stroke Social History Smoking Status: Never smoker Smoking End Date: 1978; Second Hand Exposure: No; Hx Alcohol Use: Yes Alcohol type: hard liquor Hx Substance Use: No Preferred Language: Thai Communication Ability: Impaired Transportation Consultant Required: No Beliefs That Will Affect Care: None marital status: Single Current Living Situation: Family Current Living Situation Comment: Lives with sister and father Other Information That Helps Us Care for You: No Feels Safe at Home: Yes Safety Concerns: Feels Safe At This Time Assistive Devices: Glasses and Walker Assistive Devices Comment: Dentures not present Physical Exam Psychiatric: Orientation: alert, oriented to person, oriented to time and cooperative; + not oriented to place Apperance: appropriately dressed and + disheveled Eye Contact: good eye contact Motor Behavior: + EPS and + tremor Speech: normal rate/rhythm/volume of speech Affect: + labile affect Mood: no depressed mood and no anxious mood Thought Process: + looseness of associations Thought Content: reality based without delusions Suicidal Thoughts: denies suicidal thoughts Homicidal Thoughts: denies homicidal thoughts Hallucinations: no auditory hallucinations and no visual hallucinations Cognition: language grossly intact; + recent memory not intact and + attention not intact Insight: + severely impaired insight Judgment: + severely impaired judgement Vital Signs (Past 24 Hours): Last Vital Signs Temp 37.0 C 12/15/22 11:27 Pulse 57 L 12/15/22 11:27 Resp 20 12/15/22 11:27 BP 131/69 12/15/22 11:27 Pulse Ox 96 12/15/22 11:27 O2 Del Method Room Air 12/15/22 11:27 Review of Systems Unobtainable due to cognitive status Results & Data (PSY) Medications Administered Acetaminophen (Acetaminophen 325 Mg Tab) 650 mg PO Q4H PRN PRN Reason: Pain or Fever Stop: 01/12/23 20:55 Last Admin: 12/14/22 20:04 Dose: 650 mg Documented By: DIANA Carbidopa/Levodopa (Carbidopa/Levodopa 25/100mg Tab) 2 tab PO TID JEVON Stop: 01/13/23 13:59 Last Admin: 12/15/22 09:08 Dose: 2 tab Documented By: Admin: 12/14/22 20:06 Dose: 2 tab Documented By: Admin: 12/14/22 14:57 Dose: 2 tab Documented By: EDIN Clonazepam (Clonazepam 0.5 Mg Tab) 0.5 mg PO BID JEVON Stop: 01/12/23 20:59 Last Admin: 12/15/22 09:08 Dose: 0.5 mg Documented By: Admin: 12/14/22 22:27 Dose: 0.5 mg Documented By: Admin: 12/14/22 09:48 Dose: 0.5 mg Documented By: Admin: 12/13/22 22:30 Dose: 0.5 mg Documented By: PATRIC Enoxaparin Sodium (Enoxaparin Inj 40 Mg/0.4 Ml Syr) 40 mg SQ Q24H JEVON Stop: 01/12/23 21:59 Last Admin: 12/14/22 23:37 Dose: 40 mg Documented By: Admin: 12/13/22 22:30 Dose: 40 mg Documented By: PATRIC Fluoxetine HCl (Fluoxetine Hcl 20 Mg Cap) 40 mg PO QAM JEVON Stop: 01/13/23 08:59 Last Admin: 12/15/22 09:08 Dose: 40 mg Documented By: Admin: 12/14/22 09:48 Dose: 40 mg Documented By: EDIN Lactated Ringer's (Lr) 1,000 mls @ 80 mls/hr IV .[id number] JEVON Stop: 01/12/23 17:59 Last Admin: 12/15/22 04:01 Dose: 125 mls/hr Documented By: Infusion: 12/15/22 04:01 Dose: 125 mls/hr Documented By: Admin: 12/14/22 23:38 Dose: 125 mls/hr Documented By: Infusion: 12/14/22 22:55 Dose: 80 mls/hr Documented By: Admin: 12/14/22 14:55 Dose: 125 mls/hr Documented By: Infusion: 12/14/22 13:30 Dose: 125 mls/hr Documented By: Admin: 12/14/22 05:30 Dose: 125 mls/hr Documented By: Infusion: 12/14/22 02:15 Dose: 125 mls/hr Documented By: Admin: 12/13/22 18:15 Dose: 125 mls/hr Documented By: STEVE Trazodone HCl (Trazodone Hcl 50 Mg Tab) 150 mg PO HS [facility] Stop: 01/12/23 20:59 Last Admin: 12/14/22 20:06 Dose: 150 mg Documented By: [facility] Admin: 12/13/22 22:30 Dose: 150 mg Documented By: PATRIC Coding Level of Care Code 21341 IN/OBS CONSULT LVL 4,60M Diagnoses Anxiety F41.9 Dizziness R42 Fall W19.XXXA Encounter type: initial encounter Rhabdomyolysis T79.6XXA Encounter type: initial encounter Rhabdomyolysis type: traumatic Parkinson's disease G20 Time Spent (min) 70
[2022-12-15] MEDS: MAGNESIUM OXIDE 400 MG TAB PO SCH (12:11)
[2022-12-15] MEDS: traZODone HCL 50 MG TAB PO SCH (20:05)
[2022-12-15] MEDS: BENZTROPINE MESYLATE 0.5 MG TAB PO SCH (20:06)
[2022-12-15] MEDS: ARIPiprazole 10 MG TAB PO SCH (20:06)
[2022-12-15] MEDS: ENOXAPARIN INJ 40 MG/0.4 ML SYR SQ SCH (21:14)
[2022-12-15] MEDS ORDERED: PANTOPRAZOLE BOLUS/DRIP 1 EACH IV STA (23:35)
[2022-12-15] MEDS ORDERED: PANTOprazole 80 MG in DEXTROSE 5% 100 ML IV ONE (23:45)
[2022-12-16] MEDS: PANTOprazole 40 MG in DEXTROSE 5% 100 ML IV SCH ×5 (00:03→20:47)
[2022-12-16 00:07] LABS: Hematocrit (blood only) 38.5 % (42.0-52.0); Hemoglobin 13.2 g/dl (14.0-18.0)
[2022-12-16] MEDS: LACTATED RINGER'S 1,000 ML IV SCH ×3 (03:22→21:54)
[2022-12-16 06:09] LABS: Gastric Occult Blood Positive (Negative); pH Gastric Fluid 4
[2022-12-16 06:16] LABS: Hematocrit (blood only) 36.6 % (42.0-52.0); Hemoglobin 12.4 g/dl (14.0-18.0); Mean Corpuscular Hemoglobin 29.5 pg (25.0-34.0); Mean Corpuscular Hgb Conc 33.9 g/dL (32.0-36.0); Mean Corpuscular Volume 86.9 fL (80.0-100.0); Mean Platelet Volume 11.1 fL (9.4-12.4); Platelet Count 181 K/uL (130-400); RDW Standard Deviation 47.5 fL (36.4-46.3); Red Blood Count 4.21 M/uL (4.70-6.10); White Blood Count 12.65 K/ul (4.8-10.8)
[2022-12-16 06:38] LABS: BUN Creatinine Ratio 17.2 (10-20); Calcium 8.1 mg/dl (8.6-10.3); Creatinine Clr Calc Pharmacy 93.1 ml/min; Est GFR (African American) 103.5 ml/min; Est GFR (Non-African American) 89.3 ml/min; Magnesium 1.6 mg/dl (1.7-2.4); Phosphorus 2.1 mg/dl (2.5-4.9); Potassium 3.6 mmol/L (3.5-5.1)
[2022-12-16] MEDS ORDERED: ERYTHROMYCIN 250 MG in SODIUM CHLORIDE 0.9% 250 ML IV ONE (07:00)
--- NOTE | 2022-12-16 07:42 | XRay Report ---
XR KUB/Abdomen 1 view CLINICAL HISTORY: NG TUBE PLACEMENT TECHNIQUE: 1 view of the abdomen was obtained. Comparison: Comparison is made to chest and abdomen radiographs 11/03/2009 FINDINGS: Enteric tube tip and side-port lie below the diaphragm. Degenerative changes are seen in the visualiz ed skeleton. The bowel gas pattern is nonobstructive. Prominent gas and stool noted in the colon. IMPRESSION: Satisfactory position of enteric tube. ACT 112: Negative or not required by law. Electronically signed by: Chris Velasco M.D. 12/16/2022 7:41 AM
--- NOTE | 2022-12-16 08:22 | Anesthesiology Consultation ---
Date of Service December 16, 2022 Assessment & Plan (1) Encounter for pre-operative examination: Chart Review Chart Review: Acceptable Risk for Surgery and Patient NOT seen in Pre Admission Testing Consults Requested none History Surgery Operation Date: 12/16/22 09:30 Proposed Procedures p Esophagogastroduodenoscopy - Wenceslao De Leon MD Height/Weight Height: 6 ft 1 in Weight: 94.8 kg Allergies Allergy/AdvReac Type Severity Reaction Status Date / Time pollen extracts Allergy Intermediate SNEEZING/CO Verified 12/13/22 18:06 NGESTION ragweed pollen Allergy Mild Sneezing Verified 12/13/22 18:06 oxycodone AdvReac Intermediate COLD Verified 12/13/22 18:06 SWEATS/NAUSEA/VOMITING sertraline AdvReac Intermediate NAUSEA/VOMI Verified 12/13/22 18:06 TING Medications Home Medications Medication Instructions Recorded Confirmed Last Taken buspirone 30 mg tablet 30 mg PO BID 07/01/21 12/13/22 07/05/21 08:00 carbidopa 25 mg-levodopa 100 mg 2 tab PO TID 07/01/21 12/13/22 07/05/21 08:00 tablet fluoxetine 40 mg capsule (Prozac) 40 mg PO QAM 07/01/21 12/13/22 07/04/21 22:00 fluticasone propionate 50 2 spray intranasal DAILY PRN Nasal 04/24/22 12/13/22 Unknown mcg/actuation nasal Congestion spray,suspension ipratropium bromide 21 mcg (0.03 2 spray intranasal DAILY PRN Nasal 04/24/22 12/13/22 Unknown %) nasal spray Congestion trazodone 100 mg tablet 300 mg PO HS 04/24/22 12/13/22 Unknown clonazepam 1 mg tablet 1 mg PO BID 10/14/22 12/13/22 Unknown aripiprazole 15 mg tablet 15 mg PO QAM 12/13/22 12/13/22 Unknown benztropine 0.5 mg tablet 0.5 mg PO BID 12/13/22 12/13/22 Unknown polyethylene glycol 3350 17 17 g PO DAILY PRN Constipation 12/13/22 12/13/22 Unknown gram/dose oral powder (Miralax) Active Medications Generic Name Dose Route Start Last Admin Trade Name Freq PRN Reason Stop Dose Admin Acetaminophen 650 mg 12/13/22 20:56 12/14/22 20:04 Acetaminophen 325 Mg Tab PO 01/12/23 20:55 650 mg Q4H PRN Administration Pain or Fever Aripiprazole 10 mg 12/15/22 21:00 12/15/22 20:06 Aripiprazole 10 Mg Tab PO 01/14/23 20:59 10 mg HS JEVON Administration Benztropine Mesylate 0.5 mg 12/15/22 21:00 12/15/22 20:06 Benztropine Mesylate 0.5 Mg Tab PO 01/14/23 20:59 0.5 mg BID JEVON Administration Carbidopa/Levodopa 2 tab 12/14/22 14:00 12/15/22 20:05 Carbidopa/Levodopa 25/100mg Tab PO 01/13/23 13:59 2 tab TID JEVON Administration Clonazepam 0.5 mg 12/13/22 21:00 12/15/22 20:05 Clonazepam 0.5 Mg Tab PO 01/12/23 20:59 0.5 mg BID JEVON Administration Fluoxetine HCl 40 mg 12/14/22 09:00 12/15/22 09:08 Fluoxetine Hcl 20 Mg Cap PO 01/13/23 08:59 40 mg QAM JEVON Administration Lactated Ringer's 1,000 mls @ 125 mls/hr 12/13/22 18:00 12/16/22 06:25 Lr IV 01/12/23 17:59 125 mls/hr .Q8H JEVON Infusion Pantoprazole Sodium 40 mg/ 100 mls @ 20 mls/hr 12/16/22 00:15 12/16/22 05:04 Dextrose IV 01/15/23 00:14 8 mg/hr Q5H JEVON 20 mls/hr Administration 8 MG/HR Magnesium Oxide 400 mg 12/15/22 10:30 12/15/22 12:11 Magnesium Oxide 400 Mg Tab PO 01/14/23 10:29 400 mg QAM JEVON Administration Ondansetron HCl 4 mg 12/13/22 20:56 12/15/22 23:20 Ondansetron Inj 2 Mg/Ml 2 Ml Vial IV 01/12/23 20:55 4 mg Q6H PRN Administration Nausea Trazodone HCl 150 mg 12/13/22 21:00 12/15/22 20:05 Trazodone Hcl 50 Mg Tab PO 01/12/23 20:59 150 mg HS JEVON Administration Past Medical History Medical History (Updated 12/16/22 @ 09:24 by Angus Stevens MD) Anxiety and depression Encounter for pre-operative examination GERD (gastroesophageal reflux disease) History of kidney stones Hodgkins disease (05/10/10) "Classic Hodgkin's disease, nodular sclerosing type II Status post bronchoscopy and mediastinal endoscopy with biopsy status post completion of 4 cycles of ABVD Status post completion of radiation therapy 07/05/2010 received 3600 cGy " IBS (irritable bowel syndrome) Mood disorder OCD (obsessive compulsive disorder) Osteoarthritis Parkinson's disease Tardive dyskinesia Exercise / Class Metabolic Activity II 4-5 Yardwork/Stairs/Walk up hill Past Family History Family History Other Cancer Heart disease Stroke Past Surgical History Surgical History History of cholecystectomy History of colonoscopy History of hernia repair History of left knee surgery History of vascular access device hx port for chemo. has been removed History of wisdom tooth extraction Past Anesthesia History No Hx of Anesthesia Complications and No Family Hx of Anesthesia Complications Social History Smoking Status: Never smoker Smoking End Date: 1978 Hx Alcohol Use: Yes Alcohol type: hard liquor alcohol intake frequency: holidays/special occasions only Alcohol Intake Frequency Comment: Pt states he quit 1978 Hx Substance Use: No substance use type: does not use Physical Exam Vital Signs Last Vital Signs Temp 37.5 C 12/16/22 08:52 Pulse 87 12/16/22 08:52 Resp 18 12/16/22 08:52 BP 127/57 L 12/16/22 08:52 Pulse Ox 95 12/16/22 08:52 O2 Del Method Room Air 12/16/22 08:52 Testing Laboratory Results 12/16/22 06:00 12/16/22 06:00 PT 11.4 Seconds (9.0-12.0) 12/13/22 17:19 INR 1.1 (0.9-1.1) 12/13/22 17:19 APTT 25.9 Seconds (21.0-31.0) 12/13/22 17:19 Urine Color Yellow 12/14/22 01:08 Urine Appearance Clear (Clear) 12/14/22 01:08 Urine pH 6.5 (4.5-7.5) 12/14/22 01:08 Ur Specific [place] 1.021 (1.000-1.030) 12/14/22 01:08 Urine Protein Negative (Negative) 12/14/22 01:08 Urine Glucose (UA) Negative (Negative) 12/14/22 01:08 Urine Ketones 1+ (Negative) H 12/14/22 01:08 Urine Nitrite Negative (Negative) 12/14/22 01:08 Ur Leukocyte Esterase Negative (Negative) 12/14/22 01:08 12/16/22 05:59 POC Glucose 106 H Electrocardiogram Date: 12/13/22 DICTATED BY:Gold Elias MD Test Reason : Blood Pressure : / mmHG Vent. Rate : 064 BPM Atrial Rate : 064 BPM P-R Int : 164 ms QRS Dur : 088 ms QT Int : 432 ms P-R-T Axes : 061 052 055 degrees QTc Int : 445 ms Poor data quality, interpretation may be adversely affected Normal sinus rhythm Possible Lateral infarct , age undetermined Abnormal ECG When compared with ECG of 25-APR-2022 05:49, No significant change was found Confirmed by Gold Elias ([id number]) on 12/14/2022 7:15:27 AM Chest X-Ray Date: 12/16/22 XR KUB/Abdomen 1 view CLINICAL HISTORY: NG TUBE PLACEMENT TECHNIQUE: 1 view of the abdomen was obtained. Comparison: Comparison is made to chest and abdomen radiographs 11/03/2009 FINDINGS: Enteric tube tip and side-port lie below the diaphragm. Degenerative changes are seen in the visualized skeleton. The bowel gas pattern is nonobstructive. Prominent gas and stool noted in the colon. IMPRESSION: Satisfactory position of enteric tube.
--- NOTE | 2022-12-16 08:28 | Gastrointestinal Consultation ---
Date of Consultation December 16, 2022 Assessment & Plan (1) Hematemesis: Pt is a 67 yo male seen for hematemesis which occurred early this morning. He is hemodynamically stable w mild decrease in his blood ct, normal renal function specifically normal BUN. Benign abd exam - soft, non tender, BS present. - NPO - PPI gtt - NGT to LIS - EGD in OR by Dr. De Leon this morning. Pt received Erythromycin - GI to give further recs after EGD completed - Monitor blood ct and transfuse prn Supervising Physician Co-Signing Physician Notes Attending attestation I have seen, examined this patient, and agree with the findings and above by our mid-level provider KAHLIL Pastor, with the following additions: Patient with coffee-ground bloody emesis this morning. Hemodynamically stable. Patient with an NG tube now with no blood in the tubing or canister. Plan for EGD, called sister as well as father who is next of kin and obtained consent History of Present Illness Reason for Consultation: Hematemesis Requesting Physician: Dr. Eb Cottrell Attending Physician: Dr. Wenceslao De Leon History of Present Illness Pt is a 67 yo male w PMHx as noted below admitted after a fall and suspect medication overdose, rhabdomyolosis. GI consulted as early this AM he had hematemesis. NGT placed on suction. Currently no output noted on canister, but visible blood on tubing. VS stable. Blood ct showed Hgb dropped 1g from yesterday at 13 -> 12. BUN normal. Pt denies abd pain, n/v currently. Hx of hernia repair and cholecystectomy. Denies ETOH, tobacco, + MDMA on admission. Takes Aleve at home. Allergies Allergy/AdvReac Type Severity Reaction Status Date / Time pollen extracts Allergy Intermediate SNEEZING/CO Verified 12/13/22 18:06 NGESTION ragweed pollen Allergy Mild Sneezing Verified 12/13/22 18:06 oxycodone AdvReac Intermediate COLD Verified 12/13/22 18:06 SWEATS/NAUSEA/VOMITING sertraline AdvReac Intermediate NAUSEA/VOMI Verified 12/13/22 18:06 TING Home Medications Medication Instructions Recorded Confirmed Type buspirone 30 mg tablet 30 mg PO BID 07/01/21 12/13/22 History carbidopa 25 mg-levodopa 100 mg 2 tab PO TID 07/01/21 12/13/22 History tablet fluoxetine 40 mg capsule (Prozac) 40 mg PO QAM 07/01/21 12/13/22 History fluticasone propionate 50 2 spray intranasal DAILY PRN Nasal 04/24/22 12/13/22 History mcg/actuation nasal Congestion spray,suspension ipratropium bromide 21 mcg (0.03 2 spray intranasal DAILY PRN Nasal 04/24/22 12/13/22 History %) nasal spray Congestion trazodone 100 mg tablet 300 mg PO HS 04/24/22 12/13/22 History clonazepam 1 mg tablet 1 mg PO BID 10/14/22 12/13/22 History aripiprazole 15 mg tablet 15 mg PO QAM 12/13/22 12/13/22 History benztropine 0.5 mg tablet 0.5 mg PO BID 12/13/22 12/13/22 History polyethylene glycol 3350 17 17 g PO DAILY PRN Constipation 12/13/22 12/13/22 History gram/dose oral powder (Miralax) Patient History Medical History (Updated 12/16/22 @ 08:28 by KAHLIL Farrell) Anxiety and depression Encounter for pre-operative examination GERD (gastroesophageal reflux disease) History of kidney stones Hodgkins disease (05/10/10) "Classic Hodgkin's disease, nodular sclerosing type II Status post bronchoscopy and mediastinal endoscopy with biopsy status post completion of 4 cycles of ABVD Status post completion of radiation therapy 07/05/2010 received 3600 cGy " IBS (irritable bowel syndrome) Mood disorder OCD (obsessive compulsive disorder) Osteoarthritis Tardive dyskinesia Surgical History History of cholecystectomy History of colonoscopy History of hernia repair History of left knee surgery History of vascular access device hx port for chemo. has been removed History of wisdom tooth extraction Family History Other Cancer Heart disease Stroke Social History Smoking Status: Never smoker Smoking End Date: 1978; Second Hand Exposure: No; Hx Alcohol Use: Yes Alcohol type: hard liquor Hx Substance Use: No Preferred Language: Syriac Communication Ability: Impaired Permanent Mold Supervisor Required: No Beliefs That Will Affect Care: None marital status: Single Current Living Situation: Family Current Living Situation Comment: Lives with sister and father Other Information That Helps Us Care for You: No Feels Safe at Home: Yes Safety Concerns: Feels Safe At This Time Assistive Devices: Glasses and Walker Assistive Devices Comment: Dentures not present Review of Systems Review of Systems: All systems reviewed & are unremarkable except as noted in HPI & below Physical Exam Constitutional: WD/WN, vitals as above well groomed, cooperative and comfortable Eyes: PERRL, conjunctivae normal, anicteric sclerae ENMT: external ear and nose normal, oropharynx normal Respiratory: normal respiratory effort, lungs clear to auscultation Cardiovascular: RRR, no murmur, no edema Gastrointestinal (Abdomen): normal bowel sounds, soft, nontender, no hepatosplenomegaly Skin: no rashes, warm and dry no jaundice Psychiatric: A+Ox3, euthymic affect Lymphatic: no lymphedema Results & Data Vital Signs (Past 12 Hours) Vital Signs Temp Pulse Pulse Resp BP BP Pulse Ox 12/16/22 08:16 36.8 C 85 20 123/73 92 12/16/22 07:55 37.7 C H 87 16 114/63 93 12/16/22 06:22 37.2 C 83 20 107/72 92 12/16/22 03:00 36.7 C 81 16 122/63 90 12/16/22 00:26 36.9 C 77 18 140/72 95 12/15/22 23:54 59 L O2 Del Method 12/16/22 08:16 Room Air 12/16/22 07:55 Room Air 12/16/22 06:22 Room Air 12/16/22 03:00 Room Air 12/16/22 00:26 Room Air 12/15/22 23:54
[2022-12-16] MEDS ORDERED: KETAMINE 50 MG/5 ML SYRINGE ONE (09:17)
[2022-12-16] MEDS ORDERED: PROPOFOL IV EMULSION 10 MG/ML 20 ML VIAL IV ONE (09:17)
[2022-12-16] MEDS ORDERED: LIDOCAINE 2% MPF LOCAL 5 ML VIAL ONE (09:17)
[2022-12-16] MEDS ORDERED: ROCURONIUM BROMIDE 10 MG/ML 5 ML VIAL IV ONE (09:17)
[2022-12-16] MEDS ORDERED: SUGAMMADEX SODIUM 200 MG/2 ML VIAL IV ONE (09:18)
--- NOTE | 2022-12-16 09:20 | Hospitalist Progress Note ---
Date of Service December 16, 2022 Assessment & Plan (1) Dizziness: (2) Fall: (3) Rhabdomyolysis: (4) Overdose: (5) Mood disorder: Plan 67 yo male with mood disorder, Parkinson's disease, history of Hodgkin's lymphoma, alcohol dependence in remission who presents with dizziness and frequent falls at home was found to have unintentional medication overdose and rhabdomyolysis. Frequent falls Dizziness Unintentional medication overdose Complaining of dizziness over the past few weeks, more frequent falls and acute mentation decline over the past few days per discussion with Sister Concern that patient was unintentionally taking double his prescribed Sinemet dose due to having a duplicate bottle (or other meds?) Vital signs stable, patient alert and oriented x3 with limited insight on health (baseline, per sister) EKG without QTc prolongation, CT head without acute intracranial abnormality, negative salicylates, acetaminophen and ethyl alcohol levels Admitting team Discussed medication recommendations with Dr. Christy of psychiatry - held Sinemet, benztropine, Abilify, Buspar until dizziness improves and can resume, cont. half dose of Klonopin and trazodone until dizziness improves, continue Prozac as is Consider reducing or changing Klonopin to PRN as it can be contributing to dizziness Neurology consulted - resumed Sinemet - he is on low dose, and should not cause any issue. Concern about psych med overdose. Discussed further w/psychiatry -Psych liaison to get further collateral from his sister -restart prior to admission benztropine 0.5mg BID, will restart abilify at 10mg HS -Continue with half dose of clonazepam 0.5mg BID -Continue trazodone to 150mg HS -Continue fluoxetine 40mg daily -Continue to hold buspirone -Hold Seroquel 50mg HS as recently started and possibly contributed to recently worsening dizziness Fall precautions, PT/OT evaluations Continue discussion with sister about additional help, potential placement for patient Fall in the hospital - on 12/14 - head CT negative - also ordered XR thoracic and lumbar spine - no fractures/ acute findings - Patient denies any pain - pt will need 1:1 sitter to prevent any falls Hematemesis -Episode of hematemesis overnight/zipper cutter (12/15-12/16) -NG tube placed, and currently patient feels comfortable -GI consulted, plan for endoscopy and transfer to ICU -IV PPI ordered and antibiotic ordered (as per deep sea diver's discussion with GI) -current Hgb 12.4, prior Hgb ~12-13 - cont. to closely monitor H&H Rhabdomyolysis In the setting of frequent falls CK 1,039. HS troponin WNL, renal function at baseline Continue IV fluids for now CK trended down, cont. to monitor Mood disorder Follows with Dr. Mayo for psych per sister psychiatry consulted, as above DVT Ppx: SCDs, hold lovenox d/t hematemesis Code status: FULL PCP: Dr. Persaud Dispo: Admitted to med/tele Sister - Dejah Magana: [phone] Admission and Anticipated Discharge Date Admission Date: December 13, 2022 Subjective Pt seen in follow up of dizziness, frequent falls, ? unintentional medication overdose, rhabdo Overnight/ early AM patient had episodes of hematemesis NG tube was placed This morning he is lying in bed, in no acute distress, plan is to transfer patient to ICU Supervisor Machine Workers contacted GI, plan for endoscopy Patient is overall feeling comfortable, denies any chest pain shortness of breath He is cooperative, calm and answering questions appropriately Has some abdominal discomfort, but denies any significant pain Discussed with RN at the bedside. Patient has been having good appetite, no GI issues since admission. Earlier this admission seen by neurology, Sinemet was resumed. Psychiatry also consulted for medication management, appreciate their input Review of Systems Review of Systems: All systems reviewed & are unremarkable except as noted in Subjective Physical Exam Physical Exam: General Appearance:WD/WN, in NAD, + parkinsonian tremors, NGT placed Head: normocephalic Eyes:normal inspection, PERRL, conjunctivae normal, anicteric sclerae. + bruising to infraorbital area from fall ENT: external ear and nose normal, oropharynx normal Neck: normal visual inspection Respiratory:normal respiratory effort, lungs clear to auscultation, no wheeze, rales, rhonchi. No accessory muscle use Cardiovascular: regular rate, rhythm, no murmur, normal peripheral pulses, no BLE edema. Vessels: no JVD Chest: normal inspection of chest Back: scratched from fall b/l Abdomen/GI: normal bowel sounds, soft, minimally tender to palp. Extremities/Musculoskeletal: moves extremities. +skin tears and bruising over bilateral knees Neurologic: PERRL, EOMI, no face palsy, moves all extremities Psychiatric:A+Ox3, euthymic affect Skin: no rashes, normal color, warm/dry Results & Data Results & Data Vital Signs (Past 12 Hours) Vital Signs Temp Pulse Pulse Resp BP BP BP 12/16/22 08:49 86 21 127/57 L 12/16/22 08:52 37.5 C 87 18 127/57 L 12/16/22 08:16 36.8 C 85 20 123/73 12/16/22 07:55 37.7 C H 87 16 114/63 12/16/22 06:22 37.2 C 83 20 107/72 12/16/22 03:00 36.7 C 81 16 122/63 12/16/22 00:26 36.9 C 77 18 140/72 12/15/22 23:54 59 L Pulse Ox O2 Del Method 12/16/22 08:49 93 Room Air 12/16/22 08:52 95 Room Air 12/16/22 08:16 92 Room Air 12/16/22 07:55 93 Room Air 12/16/22 06:22 92 Room Air 12/16/22 03:00 90 Room Air 12/16/22 00:26 95 Room Air 12/15/22 23:54 Laboratory Results 12/16/22 12/16/22 12/16/22 Range/Units 06:00 06:00 06:00 WBC (4.8-10.8) K/ul RBC (4.70-6.10) M/uL Hgb Cancelled (14.0-18.0) g/dl Hct Cancelled (42.0-52.0) % MCV (80.0-100.0) fL MCH (25.0-34.0) pg MCHC (32.0-36.0) g/dL RDW Std Deviation (36.4-46.3) fL RDW Coeff of Elizabeth (11.5-14.5) % Plt Count (130-400) K/uL MPV (9.4-12.4) fL Sodium 137 (136-145) mmol/L Potassium 3.6 (3.5-5.1) mmol/L Chloride 107 (98-107) mmol/L Carbon Dioxide 23 (21-32) mmol/L Anion Gap 7 (3-11) BUN 15 (6-23) mg/dl Creatinine 0.87 (0.6-1.4) mg/dl Est Cr Clr Drug Dosing 93.1 ml/min Est GFR ( Amer) 103.5 ml/min Est GFR (Non-Af Amer) 89.3 ml/min BUN/Creatinine Ratio 17.2 (10-20) Glucose 125 H (70-99(Fasting)) mg/dl POC Glucose (70-99) mg/dl Calcium 8.1 L (8.6-10.3) mg/dl Phosphorus 2.1 L (2.5-4.9) mg/dl Magnesium 1.6 L (1.7-2.4) mg/dl Gastric Fluid pH 4 Gastric Occult Blood Positive A (Negative) 12/16/22 12/16/22 12/15/22 Range/Units 06:00 05:59 23:31 WBC 12.65 H (4.8-10.8) K/ul RBC 4.21 L (4.70-6.10) M/uL Hgb 12.4 L 13.2 L (14.0-18.0) g/dl Hct 36.6 L 38.5 L (42.0-52.0) % MCV 86.9 (80.0-100.0) fL MCH 29.5 (25.0-34.0) pg MCHC 33.9 (32.0-36.0) g/dL RDW Std Deviation 47.5 H (36.4-46.3) fL RDW Coeff of Elizabeth 15.0 H (11.5-14.5) % Plt Count 181 (130-400) K/uL MPV 11.1 (9.4-12.4) fL Sodium (136-145) mmol/L Potassium (3.5-5.1) mmol/L Chloride (98-107) mmol/L Carbon Dioxide (21-32) mmol/L Anion Gap (3-11) BUN (6-23) mg/dl Creatinine (0.6-1.4) mg/dl Est Cr Clr Drug Dosing ml/min Est GFR ( Amer) ml/min Est GFR (Non-Af Amer) ml/min BUN/Creatinine Ratio (10-20) Glucose (70-99(Fasting)) mg/dl POC Glucose 106 H (70-99) mg/dl Calcium (8.6-10.3) mg/dl Phosphorus (2.5-4.9) mg/dl Magnesium (1.7-2.4) mg/dl Gastric Fluid pH Gastric Occult Blood (Negative) 12/15/22 Range/Units 06:07 WBC (4.8-10.8) K/ul RBC (4.70-6.10) M/uL Hgb (14.0-18.0) g/dl Hct (42.0-52.0) % MCV (80.0-100.0) fL MCH (25.0-34.0) pg MCHC (32.0-36.0) g/dL RDW Std Deviation (36.4-46.3) fL RDW Coeff of Elizabeth (11.5-14.5) % Plt Count (130-400) K/uL MPV (9.4-12.4) fL Sodium 139 (136-145) mmol/L Potassium 3.8 (3.5-5.1) mmol/L Chloride 110 H (98-107) mmol/L Carbon Dioxide 18 L (21-32) mmol/L Anion Gap 11 (3-11) BUN 12 (6-23) mg/dl Creatinine 0.90 (0.6-1.4) mg/dl Est Cr Clr Drug Dosing 90.0 ml/min Est GFR ( Amer) 102.1 ml/min Est GFR (Non-Af Amer) 88.1 ml/min BUN/Creatinine Ratio 13.3 (10-20) Glucose 93 (70-99(Fasting)) mg/dl POC Glucose (70-99) mg/dl Calcium 8.7 (8.6-10.3) mg/dl Phosphorus 2.4 L (2.5-4.9) mg/dl Magnesium 1.7 (1.7-2.4) mg/dl Gastric Fluid pH Gastric Occult Blood (Negative) Medications Administered Current Inpatient Medications Acetaminophen (Acetaminophen 325 Mg Tab) 650 mg PO Q4H PRN PRN Reason: Pain or Fever Stop: 01/12/23 20:55 Last Admin: 12/14/22 20:04 Dose: 650 mg Aripiprazole (Aripiprazole 10 Mg Tab) 10 mg PO HS JEVON Stop: 01/14/23 20:59 Last Admin: 12/15/22 20:06 Dose: 10 mg Benztropine Mesylate (Benztropine Mesylate 0.5 Mg Tab) 0.5 mg PO BID [facility] Stop: 01/14/23 20:59 Last Admin: 12/15/22 20:06 Dose: 0.5 mg Carbidopa/Levodopa (Carbidopa/Levodopa 25/100mg Tab) 2 tab PO TID JEVON Stop: 01/13/23 13:59 Last Admin: 12/15/22 20:05 Dose: 2 tab Clonazepam (Clonazepam 0.5 Mg Tab) 0.5 mg PO BID JEVON Stop: 01/12/23 20:59 Last Admin: 12/15/22 20:05 Dose: 0.5 mg Fluoxetine HCl (Fluoxetine Hcl 20 Mg Cap) 40 mg PO QAM [facility] Stop: 01/13/23 08:59 Last Admin: 12/15/22 09:08 Dose: 40 mg Fluticasone Propionate (Fluticasone Propionate Na Spr 16 Gm Btl) 2 sprays NA DAILY PRN PRN Reason: Nasal Congestion Stop: 01/12/23 20:55 Lactated Ringer's (Lr) 1,000 mls @ 125 mls/hr IV .Q8H [facility] Stop: 01/12/23 17:59 Last Infusion: 12/16/22 06:25 Dose: 125 mls/hr Pantoprazole Sodium 40 mg/ (Dextrose) 100 mls @ 20 mls/hr IV Q5H [facility] Stop: 01/15/23 00:14 Last Admin: 12/16/22 05:04 Dose: 8 mg/hr, 20 mls/hr Ipratropium [place] (Ipratropium [place] Nasal [place] 0.06% 15ml) 1 sprays KADEN DAILY PRN PRN Reason: Nasal Congestion Stop: 01/12/23 21:11 Magnesium Oxide (Magnesium Oxide 400 Mg Tab) 400 mg PO QAM [facility] Stop: 01/14/23 10:29 Last Admin: 12/15/22 12:11 Dose: 400 mg Ondansetron HCl (Ondansetron Inj 2 Mg/Ml 2 Ml Vial) 4 mg IV Q6H PRN PRN Reason: Nausea Stop: 01/12/23 20:55 Last Admin: 12/15/22 23:20 Dose: 4 mg Polyethylene Glycol (Polyethylene (Miralax) 17 Gm Pack) 17 gm PO DAILY PRN PRN Reason: Constipation Stop: 01/12/23 20:55 Trazodone HCl (Trazodone Hcl 50 Mg Tab) 150 mg PO HS JEVON Stop: 01/12/23 20:59 Last Admin: 12/15/22 20:05 Dose: 150 mg (2) Fall Encounter type: initial encounter Qualified Code(s): W19.XXXA - Unspecified fall, initial encounter (3) Rhabdomyolysis Encounter type: initial encounter Rhabdomyolysis type: traumatic Qualified Code(s): T79.6XXA - Traumatic ischemia of muscle, initial encounter (4) Overdose Encounter type: initial encounter Injury intent: accidental or unintentional Qualified Code(s): T50.901A - Poisoning by unspecified drugs, medicaments and biological substances, accidental (unintentional), initial encounter
[2022-12-16] MEDS ORDERED: fentaNYL citrate PF 100 MCG/2 ML VIAL IV PRN (09:29)
[2022-12-16] MEDS ORDERED: ePHEDrine sulfate 50 MG/ML AMP IV PRN (09:29)
[2022-12-16] MEDS ORDERED: ATROPINE SULFATE 0.1 MG/ML 10ML SYR IV PRN (09:29)
[2022-12-16] MEDS ORDERED: ONDANSETRON INJ 2 MG/ML 2 ML VIAL IV PRN (09:29)
[2022-12-16] MEDS ORDERED: ONDANSETRON INJ 2 MG/ML 2 ML VIAL ONE (10:00)
--- NOTE | 2022-12-16 10:02 | Post Operative Brief Note ---
Immediate Post Op Note v1 Date of Surgery December 16, 2022 Pre & Post Diagnosis Operation Date: 12/16/22 09:30 <No data on this case meets the specified criteria> I identified the patient and participated in the time-out.: Yes Procedure Operation Date: 12/16/22 09:30 <No data on this case meets the specified criteria> Surgeon Wenceslao De Leon MD Safety Investigator na Estimated Blood Loss 0 Findings Consistent with Post-Op Diagnosis Severe esophagitis with a large rent in esophagus with clot and friability but not targeted lesion to treat.
--- NOTE | 2022-12-16 10:18 | Communication Note ---
Date of Service: December 16, 2022 LAst night patient had a large coffee ground emesis. All the vomitus was on floor could not sent for gastric occult. Checked h and h was stable at 13.2. H eld Lovenox, started on ppi drip. paper novelty maker code purple was called as patient vomited large amount of blood with some clots in it. Patient was alert and oriented . Denied any chest pain or sob or abdominal pain.Hemodynamics stable. Gave fluids increased maintenance fluids to 125ml/hr. Rechecked labs. Hb came back at 12.4. Platelets and inr ok.Blood consent obtained. Notified Gi. GI recommended iv erythromycin one dose, transfer to ICU and was ok with NG tube. Transferred to ICU.
--- NOTE | 2022-12-16 10:42 | GI REPORT ---
Patient Name: Stanley Sneed Procedure Date: 12/16/2022 8:41 AM Date of : 1955 Admit Type: Inpatient Age: 67 Gender: Male Attending MD: Wenceslao De Leon MD, Procedure: Upper GI endoscopy Providers: Wenceslao De Leon MD Referring MD: Eb Cottrell Md Indications: Hematemesis Medicines: General Anesthesia Complications: No immediate complications. Estimated blood loss: None. Estimated Blood Loss: Estimated blood loss: none. Procedure: Pre-Anesthesia Assessment: - Prior to the procedure, a History and Physical was performed, and patient medications and allergies were reviewed. The patient is unable to give consent secondary to the patient being legally incompetent to consent. The risks and benefits of the procedure and the sedation options and risks were discussed with the patient's father. All questions were answered and informed consent was obtained. Patient identification and proposed procedure were verified by the physician and the nurse in the pre-procedure area. Mental Status Examination: alert and oriented. Airway Examination: normal oropharyngeal airway and neck mobility. Respiratory Examination: clear to auscultation. CV Examination: normal. Prophylactic Antibiotics: The patient does not require prophylactic antibiotics. Prior Anticoagulants: The patient has taken no anticoagulant or antiplatelet agents. ASA Grade Assessment: III - A patient with severe systemic disease. After reviewing the risks and benefits, the patient was deemed in satisfactory condition to undergo the procedure. The anesthesia plan was to use general anesthesia. Immediately prior to administration of medications, the patient was re-assessed for adequacy to receive sedatives. The heart rate, respiratory rate, oxygen saturations, blood pressure, adequacy of pulmonary ventilation, and response to care were monitored throughout the procedure. The physical status of the patient was re-assessed after the procedure. After obtaining informed consent, the endoscope was passed under direct vision. Throughout the procedure, the patient's blood pressure, pulse, and oxygen saturations were monitored continuously. The Endoscope was introduced through the mouth, and advanced to the second part of duodenum. The upper GI endoscopy was accomplished without difficulty. The patient tolerated the procedure well. Findings: LA Grade D (one or more mucosal breaks involving at least 75% of esophageal circumference) esophagitis with contact bleeding was found. A gastric tube was found in the entire esophagus. There was a large rent in the esophagus identified either from previous wretching or from prior NGT placement in the mid esophagus. There was clot overlying this area with a concern of a deeper circular portion of the rent. No active bleeding but diffusely friable. Consideration of hemospray but did not as did not want to contaminate mediastium with if had perforation. No significant bleeding was noted although and patient remained hemodynamically stable prior and during the examination. A medium amount of food (residue) was found in the gastric fundus. The examined duodenum was normal. Impression: - LA Grade D reflux esophagitis with bleeding. - A gastric tube was found in the esophagus. - A medium amount of food (residue) in the stomach. - Normal examined duodenum. - No specimens collected. Recommendation: - Return patient to hospital [facility] for ongoing care. - Stat CT of chest to exclude esophageal disruption present prior to EGD. - If no signs of perforation, continue IV PPI GTT. Add Carafate QID Supportive care, ok for liquids later today - If no signs of esophageal disruption, then will need f/u EGD in 4 weeks Wenceslao De Leon MD 12/16/2022 10:42:01 AM This report has been signed electronically. Note Initiated On: 12/16/2022 8:41 AM Number of Addenda: 0 I attest to the content of the Intraoperative Record and orders documented therein, exceptions below {[id number]}
--- NOTE | 2022-12-16 11:32 | CT Scan Report ---
CT OF THE CHEST WITHOUT IV CONTRAST CLINICAL HISTORY: Severe esophagitis. COMPARISON STUDY: Chest CT November 03, 2009 and April 09, 2022. Chest radiograph October 14, 2022. CT DOSE: 580.10 mGycm TECHNIQUE: Axial images of the chest were obtained without IV contrast. Images were reviewed in the axial, sagittal, and coronal planes. IV contrast was not administered for this examination. Automat ed exposure control was utilized for the study. A dose lowering technique was utilized adhering to t he principles of ALARA. FINDINGS: A 3.4 x 3.1 cm right anterior mediastinal soft tissue mass contains a central calcificatio n. This is similar to chest CT of April 09, 2022. Cardiomegaly is noted. There is circumferential es ophageal wall thickening with mild stranding within the mediastinum. There is no pneumomediastinum. N o mediastinal fluid collection is present. There is no pericardial effusion. No pneumothorax is prese nt. A small right pleural effusion is present. Alveolar opacities within the left lower lobe are note d. There are mild airspace opacities within the lingula. Subpleural reticulation within the right theodora g is noted. This is similar to prior exam and may reflect post radiation change. There are several he aling bilateral rib fractures. Several thoracic spine compressions are likely old. The gallbladder is surgically absent. Visualized portions of the upper abdomen are unremarkable on this unenhanced exam ination. IMPRESSION: 1. Circumferential esophageal wall thickening with mild mediastinal stranding. The findings are consi stent with the history of severe esophagitis. No pneumomediastinum. No mediastinal fluid collection. 2. Alveolar opacities within the left lung, as described above. The findings favor an infectious proc ess. Aspiration pneumonitis could appear similar. 3. No significant change in a 3.4 x 3.1 cm right anterior mediastinal soft tissue mass since CT of Au 2021. 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 Imelda r, continued imaging follow-up is recommended to exclude the possibility of residual viable tumor. 4. Small right pleural effusion. ACT 112: Negative or not required by law. Electronically signed by: Nasir Clifton M.D. 12/16/2022 11:30 AM
--- NOTE | 2022-12-16 11:44 | Communication Note ---
Date of Service: December 16, 2022 CT reviewed No signs of free air Patient re-examined and doing well no signs of bleeding NPO for 4 hrs, then can start clears and add carafate BID PPI IV 40 mg Pepcid 20 mg QHS Call with questions
[2022-12-16] MEDS: SUCRALFATE 1 GM/10 ML UDC PO SCH ×3 (12:19→20:19)
[2022-12-16 13:35] LABS: Hematocrit (blood only) 32.3 % (42.0-52.0); Hemoglobin 11.1 g/dl (14.0-18.0)
--- NOTE | 2022-12-16 14:40 | Anesthesiology Progress Note ---
Date of Service December 16, 2022 Anesthesia Post Procedure Vital Signs Vital Signs: Temp Pulse Pulse Resp BP BP BP 12/16/22 14:00 87 16 137/66 12/16/22 13:00 84 17 124/67 12/16/22 12:16 129/62 12/16/22 12:09 97 H 20 12/16/22 12:02 96 H 22 12/16/22 12:02 126/75 12/16/22 12:00 87 15 12/16/22 11:47 86 17 12/16/22 11:47 124/74 12/16/22 11:45 86 12 12/16/22 11:30 81 15 12/16/22 11:30 115/69 12/16/22 11:15 85 16 12/16/22 11:15 110/60 12/16/22 11:13 87 20 12/16/22 11:13 108/69 12/16/22 11:00 90 23 12/16/22 10:59 89 16 12/16/22 10:39 88 25 H 12/16/22 10:39 128/63 12/16/22 10:35 80/66 L 12/16/22 10:35 88 14 12/16/22 10:31 122/74 12/16/22 10:31 92 H 16 12/16/22 10:30 90 17 12/16/22 10:21 96 H 18 120/75 12/16/22 10:31 37.6 C H 12/16/22 09:02 94 H 25 H 120/67 12/16/22 08:49 86 21 127/57 L 12/16/22 08:52 37.5 C 87 18 127/57 L 12/16/22 08:16 36.8 C 85 20 123/73 12/16/22 07:55 37.7 C H 87 16 114/63 12/16/22 06:22 37.2 C 83 20 107/72 12/16/22 03:00 36.7 C 81 16 122/63 12/16/22 00:26 36.9 C 77 18 140/72 12/15/22 23:54 59 L 12/15/22 19:18 37.2 C 68 20 132/68 12/15/22 15:44 37.0 C 63 18 164/76 H Pulse Ox O2 Del Method 12/16/22 14:00 93 Room Air 12/16/22 13:00 94 Room Air 12/16/22 12:16 12/16/22 12:09 12/16/22 12:02 92 12/16/22 12:02 12/16/22 12:00 91 12/16/22 11:47 93 12/16/22 11:47 12/16/22 11:45 93 12/16/22 11:30 92 12/16/22 11:30 12/16/22 11:15 92 12/16/22 11:15 12/16/22 11:13 94 12/16/22 11:13 12/16/22 11:00 94 12/16/22 10:59 95 12/16/22 10:39 91 12/16/22 10:39 12/16/22 10:35 12/16/22 10:35 80 L 12/16/22 10:31 12/16/22 10:31 92 12/16/22 10:30 91 12/16/22 10:21 92 Room Air 12/16/22 10:31 12/16/22 09:02 94 Room Air 12/16/22 08:49 93 Room Air 12/16/22 08:52 95 Room Air 12/16/22 08:16 92 Room Air 12/16/22 07:55 93 Room Air 12/16/22 06:22 92 Room Air 12/16/22 03:00 90 Room Air 12/16/22 00:26 95 Room Air 12/15/22 23:54 12/15/22 19:18 95 Room Air 12/15/22 15:44 97 Room Air Transfer of Care Handoff Completed per policy Notes Mental Status: alert / awake / arousable and participated in evaluation Patient Amnestic to Procedure: Yes Nausea / Vomiting: adequately controlled Pain: adequately controlled Airway Patency, RR, SpO2: stable & adequate BP & HR: stable & adequate Hydration State: stable & adequate Anesthetic Complications: no major complications apparent and Pt Satisfied with anesthetic care
[2022-12-16] MEDS ORDERED: MAGNESIUM SULFATE / D5W 1 GM/100 ML BAG IV ONE (18:12)
--- NOTE | 2022-12-16 18:46 | Critical Care Consultation ---
Date of Consultation December 16, 2022 Assessment & Plan (1) Hematemesis: (2) Dizziness: (3) Fall: (4) Rhabdomyolysis: (5) Mood disorder: (6) Parkinson's disease: Plan Reason Critically Ill: Transferred to ICU following 2 episodes of hematemesis. Had NGT placed, GI urgently took to OR this morning for EGD. See their note for procedural results and recommendations. He has remained hemodynamically stable as well as no drift in his HGB to coincide with hemorrhage or ongoing bleeding. Neuro - Parkinson's disease, mood disorder, Delirium CAM ICU: Positive - Chart review reveals impulsiveness and delirium through his stay - Appreciate psych eval and assistance - Continue current Benztropine, Abilify, clonazepam, trazodone, fluoxetine - Continue carbidopa/levadopa - Olanzapine if needed for behavior outbursts - For his dizziness and balance issues- no acute needs neurology is following and defer to primary hospitalist team as their workup and plans have already occurred. Cardiac - No acute needs - Patient has remained with adequate MAPS, SBP, and without tachycardia through out his hematemisis - Follow and continue supportive care Respiratory - No acute needs GI - Hematemesis, gastritis - Appreciate GI evaluation - NGT removed following EGD - Continue with PPI infusion, Carafate 1GM QID- already on chart - Diet liquid RENAL/LYTES - No acute events - replete elctrolytes PRN - No acute needs ENDO - No acute needs - follow BG goal <180mg/DL HEME - as above- follow HGB levels ID - No acute needs - No concern for infectious etiology at this time LINES/IV ACCESS - PIV Continue use of these lines DVT PROPHYLAXIS - SCDS - teto add bach chemoprophylaxis in morning DISPO- ICU overnight - but currently stable with no active hemorrhage identified- downgrade back to medical floor in morning or overnight if ICU bed needed I have personally spent 35 minutes of critical care time in the direct management of this patient. This is a life/limb threatening event. This includes time spent evaluating patient, direct bedside care, chart review, placing orders, interpretation of diagnostic studies, discussion with consultants, patient, and family members, as well as other required patient management activities. This time is exclusive of all separately billable procedures, and teaching time and separate from and in addition to any other critical care service time. Thank you for allowing us to participate in the care of this patient. Please refer to my attending physician's documentation for any further recommendations. History of Present Illness Attending Physician: Eb Cottrell MD History of Present Illness 67 YOM transferred to ICU [facility] this morning at request of specialist for worsening hematemesis. He was originally admitted on 12/13/22 for falls and rhabdo as well as concern for accidental medication overdose, Parkinson's disease. Following his hematemisis, he had NGT placed, his HGB was stable as well as his hemodynamics. He had CT scan obtained which did not reveal any free air or active hemorrhage, he was taken to the OR for endoscopy by GI. Findings noted for severe gastritis with easily friable tissue. There was no bleeding noted. Recommendations were to add Carafate and PPI infusion. He is currently on these and will continue through the evening. Patient likely able to be downgraded from ICU if he continues to maintain stability. CODE: FULL Consultations: - GI - Psych Allergies Allergy/AdvReac Type Severity Reaction Status Date / Time pollen extracts Allergy Intermediate SNEEZING/CO Verified 12/13/22 18:06 NGESTION ragweed pollen Allergy Mild Sneezing Verified 12/13/22 18:06 oxycodone AdvReac Intermediate COLD Verified 12/13/22 18:06 SWEATS/NAUSEA/VOMITING sertraline AdvReac Intermediate NAUSEA/VOMI Verified 12/13/22 18:06 TING Home Medications Medication Instructions Recorded Confirmed Type buspirone 30 mg tablet 30 mg PO BID 07/01/21 12/13/22 History carbidopa 25 mg-levodopa 100 mg 2 tab PO TID 07/01/21 12/13/22 History tablet fluoxetine 40 mg capsule (Prozac) 40 mg PO QAM 07/01/21 12/13/22 History fluticasone propionate 50 2 spray intranasal DAILY PRN Nasal 04/24/22 12/13/22 History mcg/actuation nasal Congestion spray,suspension ipratropium bromide 21 mcg (0.03 2 spray intranasal DAILY PRN Nasal 04/24/22 12/13/22 History %) nasal spray Congestion trazodone 100 mg tablet 300 mg PO HS 04/24/22 12/13/22 History clonazepam 1 mg tablet 1 mg PO BID 10/14/22 12/13/22 History aripiprazole 15 mg tablet 15 mg PO QAM 12/13/22 12/13/22 History benztropine 0.5 mg tablet 0.5 mg PO BID 12/13/22 12/13/22 History polyethylene glycol 3350 17 17 g PO DAILY PRN Constipation 12/13/22 12/13/22 History gram/dose oral powder (Miralax) Patient History Medical History (Updated 12/16/22 @ 18:44 by KAHLIL Bobby) Anxiety and depression Encounter for pre-operative examination GERD (gastroesophageal reflux disease) History of kidney stones Hodgkins disease (05/10/10) "Classic Hodgkin's disease, nodular sclerosing type II Status post bronchoscopy and mediastinal endoscopy with biopsy status post completion of 4 cycles of ABVD Status post completion of radiation therapy 07/05/2010 received 3600 cGy " IBS (irritable bowel syndrome) Mood disorder OCD (obsessive compulsive disorder) Osteoarthritis Parkinson's disease Tardive dyskinesia Surgical History History of cholecystectomy History of colonoscopy History of hernia repair History of left knee surgery History of vascular access device hx port for chemo. has been removed History of wisdom tooth extraction Family History Other Cancer Heart disease Stroke Social History Smoking Status: Never smoker Smoking End Date: 1978; Second Hand Exposure: No; Hx Alcohol Use: Yes Alcohol type: hard liquor Hx Substance Use: No Preferred Language: Italian Communication Ability: Impaired On Site Soil Evaluator Required: No Beliefs That Will Affect Care: None marital status: Single Current Living Situation: Family Current Living Situation Comment: Lives with sister and father Other Information That Helps Us Care for You: No Feels Safe at Home: Yes Safety Concerns: Feels Safe At This Time Assistive Devices: Glasses and Walker Assistive Devices Comment: Dentures not present Review of Systems Review of Systems: REVIEW OF SYSTEMS: Unable to complete secondary to patient poor historian and ability to recall events Physical Exam Physical Exam: PHYSICAL EXAM: General: awake, alert, pleasantly delirious/confused ENT: PERRL, EOMI, bruise under left eye, mucous membranes dry Neuro: AAO x 3, speech clear and confused, strength intact bilaterally 5/5, sensation intact and equal all extremities and dermatomes, no pronator drift Chest: equal rise and fall of the chest, no accessory muscle use, no heaves or thrills, Clear to auscultation, on room air, Cardiac: Regular rate and rhythm, telemetry reviewed, skin warm dry, cap refill <3 seconds, peripheral pulses +2 no JVD, no murmur, GI: NABS x 4 quadrants, soft, nontender to palpation, no rebound, guarding or tenderness : Spontaneously voiding, no pain, no CVA tenderness, Results & Data Results & Data Vital Signs (Past 12 Hours) Vital Signs Temp Pulse Pulse Resp BP BP BP 12/16/22 18:00 77 17 154/75 H 12/16/22 17:00 84 19 140/69 12/16/22 16:00 78 17 145/68 H 12/16/22 16:00 37.4 C 12/16/22 15:00 85 20 133/68 12/16/22 14:00 87 16 137/66 12/16/22 13:00 84 17 124/67 12/16/22 12:16 129/62 12/16/22 12:09 97 H 20 12/16/22 12:02 96 H 22 12/16/22 12:02 126/75 12/16/22 12:00 87 15 12/16/22 11:47 86 17 12/16/22 11:47 124/74 12/16/22 11:45 86 12 12/16/22 11:30 81 15 12/16/22 11:30 115/69 12/16/22 11:15 85 16 12/16/22 11:15 110/60 12/16/22 11:13 87 20 12/16/22 11:13 108/69 12/16/22 11:00 90 23 12/16/22 10:59 89 16 12/16/22 10:39 88 25 H 12/16/22 10:39 128/63 12/16/22 10:35 80/66 L 12/16/22 10:35 88 14 12/16/22 10:31 122/74 12/16/22 10:31 92 H 16 12/16/22 10:30 90 17 12/16/22 10:21 96 H 18 120/75 12/16/22 10:31 37.6 C H 12/16/22 09:02 94 H 25 H 120/67 12/16/22 08:49 86 21 127/57 L 12/16/22 08:52 37.5 C 87 18 127/57 L 12/16/22 08:16 36.8 C 85 20 123/73 12/16/22 07:55 37.7 C H 87 16 114/63 Pulse Ox O2 Del Method 12/16/22 18:00 94 Room Air 12/16/22 17:00 95 Room Air 12/16/22 16:00 94 Room Air 12/16/22 16:00 12/16/22 15:00 94 Room Air 12/16/22 14:00 93 Room Air 12/16/22 13:00 94 Room Air 12/16/22 12:16 12/16/22 12:09 12/16/22 12:02 92 12/16/22 12:02 12/16/22 12:00 91 12/16/22 11:47 93 12/16/22 11:47 12/16/22 11:45 93 12/16/22 11:30 92 12/16/22 11:30 12/16/22 11:15 92 12/16/22 11:15 12/16/22 11:13 94 12/16/22 11:13 12/16/22 11:00 94 12/16/22 10:59 95 12/16/22 10:39 91 12/16/22 10:39 12/16/22 10:35 12/16/22 10:35 80 L 12/16/22 10:31 12/16/22 10:31 92 12/16/22 10:30 91 12/16/22 10:21 92 Room Air 12/16/22 10:31 12/16/22 09:02 94 Room Air 12/16/22 08:49 93 Room Air 12/16/22 08:52 95 Room Air 12/16/22 08:16 92 Room Air 12/16/22 07:55 93 Room Air Laboratory Results Abnormal lab results 12/15/22 12/16/22 12/16/22 Range/Units 23:31 05:59 06:00 WBC 12.65 H (4.8-10.8) K/ul RBC 4.21 L (4.70-6.10) M/uL Hgb 13.2 L 12.4 L (14.0-18.0) g/dl Hct 38.5 L 36.6 L (42.0-52.0) % RDW Std Deviation 47.5 H (36.4-46.3) fL RDW Coeff of Elizabeth 15.0 H (11.5-14.5) % Glucose (70-99(Fasting)) mg/dl POC Glucose 106 H (70-99) mg/dl Calcium (8.6-10.3) mg/dl Phosphorus (2.5-4.9) mg/dl Magnesium (1.7-2.4) mg/dl Gastric Occult Blood (Negative) 12/16/22 12/16/22 12/16/22 Range/Units 06:00 06:00 13:09 WBC (4.8-10.8) K/ul RBC (4.70-6.10) M/uL Hgb 11.1 L (14.0-18.0) g/dl Hct 32.3 L (42.0-52.0) % RDW Std Deviation (36.4-46.3) fL RDW Coeff of Elizabeth (11.5-14.5) % Glucose 125 H (70-99(Fasting)) mg/dl POC Glucose (70-99) mg/dl Calcium 8.1 L (8.6-10.3) mg/dl Phosphorus 2.1 L (2.5-4.9) mg/dl Magnesium 1.6 L (1.7-2.4) mg/dl Gastric Occult Blood Positive A (Negative) Diagnostic Findings Abnormal lab results 12/15/22 12/16/22 12/16/22 Range/Units 23:31 05:59 06:00 WBC 12.65 H (4.8-10.8) K/ul RBC 4.21 L (4.70-6.10) M/uL Hgb 13.2 L 12.4 L (14.0-18.0) g/dl Hct 38.5 L 36.6 L (42.0-52.0) % RDW Std Deviation 47.5 H (36.4-46.3) fL RDW Coeff of Elizabeth 15.0 H (11.5-14.5) % Glucose (70-99(Fasting)) mg/dl POC Glucose 106 H (70-99) mg/dl Calcium (8.6-10.3) mg/dl Phosphorus (2.5-4.9) mg/dl Magnesium (1.7-2.4) mg/dl Gastric Occult Blood (Negative) 12/16/22 12/16/22 12/16/22 Range/Units 06:00 06:00 13:09 WBC (4.8-10.8) K/ul RBC (4.70-6.10) M/uL Hgb 11.1 L (14.0-18.0) g/dl Hct 32.3 L (42.0-52.0) % RDW Std Deviation (36.4-46.3) fL RDW Coeff of Elizabeth (11.5-14.5) % Glucose 125 H (70-99(Fasting)) mg/dl POC Glucose (70-99) mg/dl Calcium 8.1 L (8.6-10.3) mg/dl Phosphorus 2.1 L (2.5-4.9) mg/dl Magnesium 1.6 L (1.7-2.4) mg/dl Gastric Occult Blood Positive A (Negative) Medications Administered Home Medications buspirone 30 mg tablet 30 mg PO BID 07/01/21 [History Confirmed 12/13/22] carbidopa 25 mg-levodopa 100 mg tablet 2 tab PO TID 07/01/21 [History Confirmed 12/13/22] fluoxetine 40 mg capsule (Prozac) 40 mg PO QAM 07/01/21 [History Confirmed 12/13/22] fluticasone propionate 50 mcg/actuation nasal spray,suspension 2 spray intranasal DAILY PRN Nasal Congestion 04/24/22 [History Confirmed 12/13/22] ipratropium bromide 21 mcg (0.03 %) nasal spray 2 spray intranasal DAILY PRN Nasal Congestion 04/24/22 [History Confirmed 12/13/22] trazodone 100 mg tablet 300 mg PO HS 04/24/22 [History Confirmed 12/13/22] clonazepam 1 mg tablet 1 mg PO BID 10/14/22 [History Confirmed 12/13/22] aripiprazole 15 mg tablet 15 mg PO QAM 12/13/22 [History Confirmed 12/13/22] benztropine 0.5 mg tablet 0.5 mg PO BID 12/13/22 [History Confirmed 12/13/22] polyethylene glycol 3350 17 gram/dose oral powder (Miralax) 17 g PO DAILY PRN Constipation 12/13/22 [History Confirmed 12/13/22] Active Medications Acetaminophen (Acetaminophen 325 Mg Tab) 650 mg PO Q4H PRN PRN Reason: Pain or Fever Stop: 01/12/23 20:55 Last Admin: 12/14/22 20:04 Dose: 650 mg Aripiprazole (Aripiprazole 10 Mg Tab) 10 mg PO HS JEVON Stop: 01/14/23 20:59 Last Admin: 12/15/22 20:06 Dose: 10 mg Benztropine Mesylate (Benztropine Mesylate 0.5 Mg Tab) 0.5 mg PO BID JEVON Stop: 01/14/23 20:59 Last Admin: 12/15/22 20:06 Dose: 0.5 mg Carbidopa/Levodopa (Carbidopa/Levodopa 25/100mg Tab) 2 tab PO TID JEVON Stop: 01/13/23 13:59 Last Admin: 12/15/22 20:05 Dose: 2 tab Clonazepam (Clonazepam 0.5 Mg Tab) 0.5 mg PO BID JEVON Stop: 01/12/23 20:59 Last Admin: 12/15/22 20:05 Dose: 0.5 mg Fluoxetine HCl (Fluoxetine Hcl 20 Mg Cap) 40 mg PO QAM JEVON Stop: 01/13/23 08:59 Last Admin: 12/15/22 09:08 Dose: 40 mg Fluticasone Propionate (Fluticasone Propionate Na Spr 16 Gm Btl) 2 sprays NA DAILY PRN PRN Reason: Nasal Congestion Stop: 01/12/23 20:55 Lactated Ringer's (Lr) 1,000 mls @ 80 mls/hr IV .[id number] JEVON Stop: 01/12/23 17:59 Last Infusion: 12/16/22 18:17 Dose: 80 mls/hr Pantoprazole Sodium 40 mg/ (Dextrose) 100 mls @ 20 mls/hr IV Q5H JEVON Stop: 01/15/23 00:14 Last Admin: 12/16/22 16:49 Dose: 8 mg/hr, 20 mls/hr Magnesium Sulfate/Dextrose (Magnesium Sulfate / D5w) 1 gm in 100 mls @ 50 mls/hr IV ONE ONE Stop: 12/16/22 20:11 Last Admin: 12/16/22 18:21 Dose: 50 mls/hr Ipratropium [place] (Ipratropium [place] Nasal [place] 0.06% 15ml) 1 sprays KADEN DAILY PRN PRN Reason: Nasal Congestion Stop: 01/12/23 21:11 Magnesium Oxide (Magnesium Oxide 400 Mg Tab) 400 mg PO QAM [facility] Stop: 01/14/23 10:29 Last Admin: 12/15/22 12:11 Dose: 400 mg Ondansetron HCl (Ondansetron Inj 2 Mg/Ml 2 Ml Vial) 4 mg IV Q6H PRN PRN Reason: Nausea Stop: 01/12/23 20:55 Last Admin: 12/15/22 23:20 Dose: 4 mg Polyethylene Glycol (Polyethylene (Miralax) 17 Gm Pack) 17 gm PO DAILY PRN PRN Reason: Constipation Stop: 01/12/23 20:55 Sucralfate (Sucralfate 1 Gm/10 Ml Udc) 1 gm PO QID [facility] Stop: 01/15/23 12:59 Last Admin: 12/16/22 16:49 Dose: 1 gm Trazodone HCl (Trazodone Hcl 50 Mg Tab) 150 mg PO HS [facility] Stop: 01/12/23 20:59 Last Admin: 12/15/22 20:05 Dose: 150 mg Coding Level of Care Code 83892 CRITICAL CARE 1ST 30-74M Diagnoses Hematemesis K92.0 Dizziness R42 Fall W19.XXXA Encounter type: initial encounter Rhabdomyolysis T79.6XXA Encounter type: initial encounter Rhabdomyolysis type: traumatic Mood disorder F39 Parkinson's disease G20 (3) Fall Encounter type: initial encounter Qualified Code(s): W19.XXXA - Unspecified fall, initial encounter (4) Rhabdomyolysis Encounter type: initial encounter Rhabdomyolysis type: traumatic Qualified Code(s): T79.6XXA - Traumatic ischemia of muscle, initial encounter
[2022-12-16] MEDS: MAGNESIUM SULFATE / D5W 1 GM/100 ML BAG IV SCH ×2 (20:18→21:53)
[2022-12-16 20:33] LABS: Hematocrit (blood only) 31.1 % (42.0-52.0); Hemoglobin 10.4 g/dl (14.0-18.0)
[2022-12-17] MEDS: PANTOprazole 40 MG in DEXTROSE 5% 100 ML IV SCH (03:32)
[2022-12-17 05:34] LABS: Hematocrit (blood only) 30.6 % (42.0-52.0); Hemoglobin 10.3 g/dl (14.0-18.0); Mean Corpuscular Hemoglobin 29.3 pg (25.0-34.0); Mean Corpuscular Hgb Conc 33.7 g/dL (32.0-36.0); Mean Corpuscular Volume 86.9 fL (80.0-100.0); Mean Platelet Volume 11.5 fL (9.4-12.4); Platelet Count 149 K/uL (130-400); RDW Coefficient of Variation 14.9 % (11.5-14.5); RDW Standard Deviation 47.8 fL (36.4-46.3); Red Blood Count 3.52 M/uL (4.70-6.10); White Blood Count 8.26 K/ul (4.8-10.8)
[2022-12-17 05:52] LABS: BUN Creatinine Ratio 14.1 (10-20); Creatinine Clr Calc Pharmacy 103.9 ml/min; Est GFR (African American) 108.3 ml/min; Est GFR (Non-African American) 93.4 ml/min; Magnesium 2.1 mg/dl (1.7-2.4); Phosphorus 2.1 mg/dl (2.5-4.9); Potassium 3.8 mmol/L (3.5-5.1)
[2022-12-17] MEDS: SUCRALFATE 1 GM/10 ML UDC PO SCH ×4 (08:29→21:29)
[2022-12-17] MEDS: PANTOprazole 40 MG in SYRINGE 0 ML IV SCH ×2 (08:29→21:28)
--- NOTE | 2022-12-17 08:59 | Critical Care Progress Note ---
Date of Service December 17, 2022 Assessment & Plan (1) Hematemesis: (2) Dizziness: (3) Fall: (4) Rhabdomyolysis: (5) Mood disorder: (6) Parkinson's disease: Plan Reason Critically Ill: Transferred to ICU following 2 episodes of hematemesis. Had NGT placed, GI urgently took to OR this morning for EGD. See their note for procedural results and recommendations. He has remained hemodynamically stable as well as no drift in his HGB to coincide with hemorrhage or ongoing bleeding. Neuro - Parkinson's disease, mood disorder, Delirium CAM ICU: Positive - Chart review reveals impulsiveness and delirium through his stay - Appreciate psych eval and assistance - Continue current Benztropine, Abilify, clonazepam, trazodone, fluoxetine - Continue carbidopa/levadopa - Olanzapine if needed for behavior outbursts - For his dizziness and balance issues- no acute needs neurology is following and defer to primary hospitalist team as their workup and plans have already occurred. Cardiac - No acute needs Respiratory - No acute needs GI - Hematemesis, esophagitis - Continue with PPI infusion, Carafate 1GM QID- already on chart - Diet liquid: Defer to GI regarding advancement RENAL/LYTES - No acute events - replete elctrolytes PRN - No acute needs ENDO - No acute needs - follow BG goal <180mg/DL HEME - as above- follow HGB levels ID - No acute needs - No concern for infectious etiology at this time LINES/IV ACCESS - PIV Continue use of these lines DVT PROPHYLAXIS - SCDS -No contraindication to chemoprophylaxis at this time DISPO- ICU overnight -stable for downgrade out of ICU Admission and Anticipated Discharge Date Admission Date: December 13, 2022 Subjective No overnight events Physical Exam Physical Exam: General: Alert. nontoxic. Skin: Warm, dry, Head: Atraumatic Ears, nose, mouth and throat: airway patent Cardiovascular: Normal peripheral perfusion Respiratory: no respiratory distress Gastrointestinal: Non distended Musculoskeletal: No deformity Results & Data Results & Data Vital Signs (Past 12 Hours) Vital Signs Temp Pulse Resp BP Pulse Ox O2 Del Method 12/17/22 07:00 69 23 134/68 96 Room Air 12/17/22 07:55 36.8 C 12/17/22 06:30 87 20 92 12/17/22 06:00 79 18 88 L 12/17/22 05:42 140/68 12/17/22 05:42 78 26 H 95 12/17/22 05:30 69 26 H 90 12/17/22 05:00 70 12 91 12/17/22 04:30 71 16 96 12/17/22 04:00 72 13 95 12/17/22 04:00 130/65 12/17/22 03:30 77 19 96 12/17/22 03:00 71 24 86 L 12/17/22 03:00 116/61 12/17/22 02:30 78 9 L 91 12/17/22 03:45 37.1 C 12/17/22 02:01 86 20 93 12/17/22 02:01 138/57 L 12/17/22 02:00 80 29 H 93 12/17/22 01:30 104 H 21 77 L 12/17/22 01:00 72 25 H 88 L 12/17/22 00:30 82 22 94 12/17/22 00:00 71 24 90 12/17/22 00:00 109/59 L 12/16/22 23:30 73 23 89 L 12/17/22 00:00 85 12/16/22 23:01 78 25 H 89 L 12/16/22 23:01 111/75 12/16/22 23:00 78 23 82 L 12/16/22 22:30 92 H 23 12/16/22 22:00 87 19 93 12/16/22 22:00 134/68 12/16/22 21:30 96 H 13 93 12/16/22 21:00 80 18 92 12/16/22 21:00 141/63 H Critical Care Results & Data Vital Signs (Past 12 Hours) Vital Signs Temp Pulse Resp BP Pulse Ox O2 Del Method 12/17/22 07:00 69 23 134/68 96 Room Air 12/17/22 07:55 36.8 C 12/17/22 06:30 87 20 92 12/17/22 06:00 79 18 88 L 12/17/22 05:42 140/68 12/17/22 05:42 78 26 H 95 12/17/22 05:30 69 26 H 90 12/17/22 05:00 70 12 91 12/17/22 04:30 71 16 96 04/19/23 04:00 72 13 95 12/17/22 04:00 130/65 12/17/22 03:30 77 19 96 12/17/22 03:00 71 24 86 L 12/17/22 03:00 116/61 12/17/22 02:30 78 9 L 91 12/17/22 03:45 37.1 C 12/17/22 02:01 86 20 93 12/17/22 02:01 138/57 L 12/17/22 02:00 80 29 H 93 12/17/22 01:30 104 H 21 77 L 12/17/22 01:00 72 25 H 88 L 12/17/22 00:30 82 22 94 12/17/22 00:00 71 24 90 12/17/22 00:00 109/59 L 12/16/22 23:30 73 23 89 L 12/17/22 00:00 85 12/16/22 23:01 78 25 H 89 L 12/16/22 23:01 111/75 12/16/22 23:00 78 23 82 L 12/16/22 22:30 92 H 23 12/16/22 22:00 87 19 93 12/16/22 22:00 134/68 12/16/22 21:30 96 H 13 93 12/16/22 21:00 80 18 92 12/16/22 21:00 141/63 H Lab & Micro Results (Past 24 Hours) RBC 3.52 M/uL (4.70-6.10) L 12/17/22 WBC 8.26 K/ul (4.8-10.8) 12/17/22 Hgb 10.3 g/dl (14.0-18.0) L 12/17/22 Hct 30.6 % (42.0-52.0) L 12/17/22 MCV 86.9 fL (80.0-100.0) 12/17/22 MCH 29.3 pg (25.0-34.0) 12/17/22 MCHC 33.7 g/dL (32.0-36.0) 12/17/22 RDW Standard Deviation 47.8 fL (36.4-46.3) H 12/17/22 RDW Coefficient of Variation 14.9 % (11.5-14.5) H 12/17/22 Plt Count 149 K/uL (130-400) 12/17/22 MPV 11.5 fL (9.4-12.4) 12/17/22 Na 139 mmol/L (136-145) 12/17/22 K 3.8 mmol/L (3.5-5.1) 12/17/22 Cl 109 mmol/L (98-107) H 12/17/22 CO2 25 mmol/L (21-32) 12/17/22 Anion Gap 5 (3-11) 12/17/22 BUN 11 mg/dl (6-23) 12/17/22 Creatinine 0.78 mg/dl (0.6-1.4) 12/17/22 Estimated GFR ( Amer) 108.3 ml/min 12/17/22 Estimated GFR (Non-Af Amer) 93.4 ml/min 12/17/22 BUN/Creatinine Ratio 14.1 (10-20) 12/17/22 Glu 96 mg/dl (70-99(Fasting)) 12/17/22 Ca 8.0 mg/dl (8.6-10.3) L 12/17/22 Phosphorus Level 2.1 mg/dl (2.5-4.9) L 12/17/22 Mg 2.1 mg/dl (1.7-2.4) 12/17/22 04:50 Calcium Level 8.0 mg/dl (8.6-10.3) L 12/17/22 04:50 Diagnostic Findings (Past 24 Hours) Chest CT 12/16/22 10:07 CT OF THE CHEST WITHOUT IV CONTRAST CLINICAL HISTORY: Severe esophagitis. COMPARISON STUDY: Chest CT November 03, 2009 and April 09, 2022. Chest radiograph October 14, 2022. CT DOSE: 580.10 mGycm TECHNIQUE: Axial images of the chest were obtained without IV contrast. Images were reviewed in the axial, sagittal, and coronal planes. IV contrast was not administered for this examination. Automated exposure control was utilized for the study. A dose lowering technique was utilized adhering to the principles of ALARA. FINDINGS: A 3.4 x 3.1 cm right anterior mediastinal soft tissue mass contains a central calcification. This is similar to chest CT of April 09, 2022. Cardiomegaly is noted. There is circumferential esophageal wall thickening with mild stranding within the mediastinum. There is no pneumomediastinum. No mediastinal fluid collection is present. There is no pericardial effusion. No pneumothorax is present. A small right pleural effusion is present. Alveolar opacities within the left lower lobe are noted. There are mild airspace opacities within the lingula. Subpleural reticulation within the right lung is noted. This is similar to prior exam and may reflect post radiation change. There are several healing bilateral rib fractures. Several thoracic spine comp ressions are likely old. The gallbladder is surgically absent. Visualized portions of the upper abdomen are unremarkable on this unenhanced examination. IMPRESSION: 1. Circumferential esophageal wall thickening with mild mediastinal stranding. The findings are consistent with the history of severe esophagitis. No pneumomediastinum. No mediastinal fluid collection. 2. Alveolar opacities within the left lung, as described above. The findings favor an infectious process. Aspiration pneumonitis could appear similar. 3. No significant change in a 3.4 x 3.1 cm right anterior mediastinal soft tissue mass since CT of April 09, 2022. 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 However, continued imaging follow-up is recommended to exclude the possibility of residual viable tumor. 4. Small right pleural effusion. ACT 112: Negative or not required by law. Electronically signed by: Nasir Clifton M.D. 12/16/2022 11:30 AM I & O Totals 24 Hours 12/16/22 12/17/22 12/18/22 06:59 06:59 06:59 Intake Total 2964.667 / 2964.667 3071.250 / 3071.250 100 / 100 Output Total 651 / 651 1301 / 1301 200 / 200 Balance 2313.667 / 2313.667 1770.250 / 1770.250 -100 / -100 Cumulative 12/13/22 17:00 thru 12/17/22 08:49 Intake Total 81075.834 Output Total 3777 Balance 7636.834 RT Ventilator Mngmt (Last Documented) Ventilator Ordered Settings Respiratory Rate 23 12/17/22 07:00 Ventilator - PT Measurements Respiratory Rate 23 Coding Level of Care Code 01786 SUB INP/OBS CARE 1/25MIN Diagnoses Hematemesis K92.0 Dizziness R42 Fall W19.XXXA Encounter type: initial encounter Rhabdomyolysis T79.6XXA Encounter type: initial encounter Rhabdomyolysis type: traumatic Mood disorder F39 Parkinson's disease G20 (3) Fall Encounter type: initial encounter Qualified Code(s): W19.XXXA - Unspecified fall, initial encounter (4) Rhabdomyolysis Encounter type: initial encounter Rhabdomyolysis type: traumatic Qualified Code(s): T79.6XXA - Traumatic ischemia of muscle, initial encounter
[2022-12-17] MEDS ORDERED: ENOXAPARIN INJ 40 MG/0.4 ML SYR SQ SCH (09:00)
[2022-12-17] MEDS: LACTATED RINGER'S 1,000 ML IV SCH ×2 (09:40→21:30)
--- NOTE | 2022-12-17 10:05 | Gastroenterology Progress Note ---
Date of Service December 17, 2022 Assessment & Plan (1) Hematemesis: Plan: Pt is a 67 yo male seen for hematemesis which occurred early this morning. He is hemodynamically stable w mild decrease in his blood ct, normal renal function specifically normal BUN. Benign abd exam - soft, non tender, BS present. EGD on 12/16 w finding of LA Grade D reflux esophagitis. CT chest with circumferential esophageal wall thickening and mild mediastinal stranding, but no pneumomed iastinum or fluid collection. No further s/s of GI bleeding overnight and blood ct, VS stable. - FL diet, advance to soft as tolerated - PPI IV BID + Pepcid 20mg PO QHS; Carafate 1g QID - Repeat EGD in 4 week's time to eval esophagitis - GI to sign off; pls recall prn Admission and Anticipated Discharge Date Admission Date: December 13, 2022 Supervising Physician Co-Signing Physician Notes Attending attestation I have seen, examined this patient, and agree with the findings and above by our mid-level provider KAHLIL Pastor, with the following additions: No signs of bleeding Advance diet to soft diet BID PPI for 8 weeks Repeat EGD in 4 wks as outpatient Subjective Pt doing well, denies abd pain, n/v. Tolerating CL diet well. Soft brown stool this morning. Review of Systems Review of Systems: All systems reviewed & are unremarkable except as noted in HPI & below Physical Exam Constitutional: WD/WN, vitals as above well groomed, cooperative and comfortable Eyes: PERRL, conjunctivae normal, anicteric sclerae ENMT: external ear and nose normal, oropharynx normal Respiratory: normal respiratory effort, lungs clear to auscultation Cardiovascular: RRR, no murmur, no edema Gastrointestinal (Abdomen): normal bowel sounds, soft, nontender, no hep atosplenomegaly Skin: no rashes, warm and dry no jaundice Psychiatric: A+Ox3, euthymic affect Lymphatic: no lymphedema Results & Data Vital Signs (Past 12 Hours) Vital Signs Temp Pulse Resp BP Pulse Ox O2 Del Method 12/17/22 10:00 66 16 127/80 12/17/22 09:00 70 20 143/63 H 96 Room Air 12/17/22 07:00 69 23 134/68 96 Room Air 12/17/22 07:55 36.8 C 04/19/23 06:30 87 20 92 12/17/22 06:00 79 18 88 L 12/17/22 05:42 140/68 12/17/22 05:42 78 26 H 95 12/17/22 05:30 69 26 H 90 12/17/22 05:00 70 12 91 12/17/22 04:30 71 16 96 12/17/22 04:00 72 13 95 12/17/22 04:00 130/65 12/17/22 03:30 77 19 96 12/17/22 03:00 71 24 86 L 12/17/22 03:00 116/61 12/17/22 02:30 78 9 L 91 12/17/22 03:45 37.1 C 12/17/22 02:01 86 20 93 12/17/22 02:01 138/57 L 12/17/22 02:00 80 29 H 93 12/17/22 01:30 104 H 21 77 L 12/17/22 01:00 72 25 H 88 L 12/17/22 00:30 82 22 94 12/17/22 00:00 71 24 90 12/17/22 00:00 109/59 L 12/16/22 23:30 73 23 89 L 12/17/22 00:00 85 12/16/22 23:01 78 25 H 89 L 12/16/22 23:01 111/75 12/16/22 23:00 78 23 82 L 12/16/22 22:30 92 H 23
--- NOTE | 2022-12-17 11:52 | Hospitalist Progress Note ---
Date of Service December 17, 2022 Assessment & Plan (1) Dizziness: (2) Fall: (3) Rhabdomyolysis: (4) Overdose: (5) Mood disorder: Plan 67 yo male with mood disorder, Parkinson's disease, history of Hodgkin's lymphoma, alcohol dependence in remission who presents with dizziness and frequent falls at home was found to have unintentional medication overdose and rhabdomyolysis. Frequent falls Dizziness Unintentional medication overdose Complaining of dizziness over the past few weeks, more frequent falls and acute mentation decline over the past few days per discussion with Sister Concern that patient was unintentionally taking double his prescribed Sinemet dose due to having a duplicate bottle (or other meds?) Vital signs stable, patient alert and oriented x3 with limited insight on health (baseline, per sister) EKG without QTc prolongation, CT head without acute intracranial abnormality, negative salicylates, acetaminophen and ethyl alcohol levels Admitting team Discussed medication recommendations with Dr. Christy of psychiatry - held Sinemet, benztropine, Abilify, Buspar until dizziness improves and can resume, cont. half dose of Klonopin and trazodone until dizziness improves, continue Prozac as is Consider reducing or changing Klonopin to PRN as it can be contributing to dizziness Neurology consulted - resumed Sinemet - he is on low dose, and should not cause any issue. Concern about psych med overdose. Discussed further w/psychiatry -Psych liaison to get further collateral from his sister -restart prior to admission benztropine 0.5mg BID, will restart abilify at 10mg HS -Continue with half dose of clonazepam 0.5mg BID -Continue trazodone to 150mg HS -Continue fluoxetine 40mg daily -Continue to hold buspirone -Hold Seroquel 50mg HS as recently started and possibly contributed to recently worsening dizziness Fall precautions, PT/OT evaluations Continue discussion with sister about additional help, potential placement for patient Fall in the hospital - on 12/14 - head CT negative - also ordered XR thoracic and lumbar spine - no fractures/ acute findings - Patient denies any pain - pt will need 1:1 sitter to prevent any falls Hematemesis, esophagitis -Episode of hematemesis overnight/linen keeper (12/15-12/16) -GI consulted, and underwent endoscopy (12/16/22) Impression: - LA Grade D reflux esophagitis with bleeding. - A gastric tube was found in the esophagus. - A medium amount of food (residue) in the stomach. - Normal examined duodenum. - No specimens collected. Recommendation: - Return patient to hospital rider for ongoing care. - Stat CT of chest to exclude esophageal disruption present prior to EGD. - If no signs of perforation, continue IV PPI GTT. Add Carafate QID Supportive care, ok for liquids later today - If no signs of esophageal disruption, then will need f/u EGD in 4 weeks -IV PPI ordered and antibiotic ordered (as per media technician's discussion with GI) - cont. carafate and pepcid as well - Hgb 12.4 (12/16), prior Hgb ~12-13 -current Hgb down 10.3- acute blood loss anemia (d/t hematemesis and partially dilutional from IVF) - Hgb stable from last night - cont. to closely monitor H&H, H&H for this evening and tmrw AM ordered Rhabdomyolysis In the setting of frequent falls CK 1,039. HS troponin WNL, renal function at baseline Continue IV fluids for now CK trended down, cont. to monitor Mood disorder Follows with Dr. Mayo for psych per sister psychiatry consulted, as above DVT Ppx: SCDs, hold lovenox d/t hematemesis Code status: FULL PCP: Dr. Persaud Dispo: Admitted to med/tele Sister - Dejah Magana: [phone] Admission and Anticipated Discharge Date Admission Date: December 13, 2022 Subjective Pt seen in follow up of dizziness, frequent falls, ? unintentional medication overdose, rhabdo Pt had episodes of hematemesis in the hospital He is s/p endoscopy and doing well, H&H stable Patient is overall feeling comfortable, denies any chest pain shortness of breath He is cooperative, calm and answering questions appropriately Has some abdominal discomfort, but denies any significant pain Earlier this admission seen by neurology, Sinemet was resumed. Psychiatry also consulted for medication management, appreciate their input Review of Systems Review of Systems: All systems reviewed & are unremarkable except as noted in Subjective Physical Exam Physical Exam: General Appearance:WD/WN, in NAD, + parkinsonian tremors Head: normocephalic Eyes:normal inspection, PERRL, conjunctivae normal, anicteric sclerae. + bruising to infraorbital area from fall ENT: external ear and nose normal, oropharynx normal Neck: normal visual inspection Respiratory:normal respiratory effort, lungs clear to auscultation, no wheeze, rales, rhonchi. No accessory muscle use Cardiovascular: regular rate, rhythm, no murmur, normal peripheral pulses, no BLE edema. Vessels: no JVD Chest: normal inspection of chest Back: scratched from fall b/l Abdomen/GI: normal bowel sounds, soft, minimally tender to palp. Extremities/Musculoskeletal: moves extremities. +skin tears and bruising over bilateral knees Neurologic: PERRL, EOMI, no face palsy, moves all extremities Psychiatric:A+Ox3, euthymic affect Skin: no rashes, normal color, warm/dry Results & Data Results & Data Vital Signs (Past 12 Hours) Vital Signs Temp Pulse Resp BP Pulse Ox O2 Del Method 12/17/22 11:00 61 19 148/80 H 97 12/17/22 11:12 37.1 C 12/17/22 10:00 66 16 127/80 12/17/22 09:00 70 20 143/63 H 96 Room Air 12/17/22 07:00 69 23 134/68 96 Room Air 12/17/22 07:55 36.8 C 12/17/22 06:30 87 20 92 12/17/22 06:00 79 18 88 L 12/17/22 05:42 140/68 12/17/22 05:42 78 26 H 95 12/17/22 05:30 69 26 H 90 12/17/22 05:00 70 12 91 12/17/22 04:30 71 16 96 12/17/22 04:00 72 13 95 12/17/22 04:00 130/65 12/17/22 03:30 77 19 96 12/17/22 03:00 71 24 86 L 12/17/22 03:00 116/61 12/17/22 02:30 78 9 L 91 12/17/22 03:45 37.1 C 12/17/22 02:01 86 20 93 12/17/22 02:01 138/57 L 12/17/22 02:00 80 29 H 93 12/17/22 01:30 104 H 21 77 L 12/17/22 01:00 72 25 H 88 L 12/17/22 00:30 82 22 94 12/17/22 00:00 71 24 90 12/17/22 00:00 109/59 L 12/17/22 00:00 85 Laboratory Results 12/17/22 12/17/22 12/17/22 Range/Units 04:50 04:50 03:27 WBC 8.26 (4.8-10.8) K/ul RBC 3.52 L (4.70-6.10) M/uL Hgb 10.3 L (14.0-18.0) g/dl Hct 30.6 L (42.0-52.0) % MCV 86.9 (80.0-100.0) fL MCH 29.3 (25.0-34.0) pg MCHC 33.7 (32.0-36.0) g/dL RDW Std Deviation 47.8 H (36.4-46.3) fL RDW Coeff of Elizabeth 14.9 H (11.5-14.5) % Plt Count 149 (130-400) K/uL MPV 11.5 (9.4-12.4) fL Sodium 139 (136-145) mmol/L Potassium 3.8 (3.5-5.1) mmol/L Chloride 109 H (98-107) mmol/L Carbon Dioxide 25 (21-32) mmol/L Anion Gap 5 (3-11) BUN 11 (6-23) mg/dl Creatinine 0.78 (0.6-1.4) mg/dl Est Cr Clr Drug Dosing 103.9 ml/min Est GFR ( Amer) 108.3 ml/min Est GFR (Non-Af Amer) 93.4 ml/min BUN/Creatinine Ratio 14.1 (10-20) Glucose 96 (70-99(Fasting)) mg/dl POC Glucose 97 (70-99) mg/dl Calcium 8.0 L (8.6-10.3) mg/dl Phosphorus 2.1 L (2.5-4.9) mg/dl Magnesium 2.1 (1.7-2.4) mg/dl 12/16/22 12/16/22 Range/Units 20:17 13:09 WBC (4.8-10.8) K/ul RBC (4.70-6.10) M/uL Hgb 10.4 L 11.1 L (14.0-18.0) g/dl Hct 31.1 L 32.3 L (42.0-52.0) % MCV (80.0-100.0) fL MCH (25.0-34.0) pg MCHC (32.0-36.0) g/dL RDW Std Deviation (36.4-46.3) fL RDW Coeff of Elizabeth (11.5-14.5) % Plt Count (130-400) K/uL MPV (9.4-12.4) fL Sodium (136-145) mmol/L Potassium (3.5-5.1) mmol/L Chloride (98-107) mmol/L Carbon Dioxide (21-32) mmol/L Anion Gap (3-11) BUN (6-23) mg/dl Creatinine (0.6-1.4) mg/dl Est Cr Clr Drug Dosing ml/min Est GFR ( Amer) ml/min Est GFR (Non-Af Amer) ml/min BUN/Creatinine Ratio (10-20) Glucose (70-99(Fasting)) mg/dl POC Glucose (70-99) mg/dl Calcium (8.6-10.3) mg/dl Phosphorus (2.5-4.9) mg/dl Magnesium (1.7-2.4) mg/dl Medications Administered Current Inpatient Medications Acetaminophen (Acetaminophen 325 Mg Tab) 650 mg PO Q4H PRN PRN Reason: Pain or Fever Stop: 01/12/23 20:55 Last Admin: 12/14/22 20:04 Dose: 650 mg Aripiprazole (Aripiprazole 10 Mg Tab) 10 mg PO HS JEVON Stop: 01/14/23 20:59 Last Admin: 12/15/22 20:06 Dose: 10 mg Benztropine Mesylate (Benztropine Mesylate 0.5 Mg Tab) 0.5 mg PO BID JEVON Stop: 01/14/23 20:59 Last Admin: 12/15/22 20:06 Dose: 0.5 mg Carbidopa/Levodopa (Carbidopa/Levodopa 25/100mg Tab) 2 tab PO TID JEVON Stop: 01/13/23 13:59 Last Admin: 12/15/22 20:05 Dose: 2 tab Clonazepam (Clonazepam 0.5 Mg Tab) 0.5 mg PO BID JEVON Stop: 01/12/23 20:59 Last Admin: 12/15/22 20:05 Dose: 0.5 mg Enoxaparin Sodium (Enoxaparin Inj 40 Mg/0.4 Ml Syr) 40 mg SQ QAM [facility] Stop: 01/16/23 08:59 Last Admin: 12/17/22 09:48 Dose: 40 mg Famotidine (Famotidine 20 Mg Tab) 20 mg PO HS [facility] Stop: 01/16/23 20:59 Fluoxetine HCl (Fluoxetine Hcl 20 Mg Cap) 40 mg PO QAM [facility] Stop: 01/13/23 08:59 Last Admin: 12/15/22 09:08 Dose: 40 mg Fluticasone Propionate (Fluticasone Propionate Na Spr 16 Gm Btl) 2 sprays NA DAILY PRN PRN Reason: Nasal Congestion Stop: 01/12/23 20:55 Lactated Ringer's (Lr) 1,000 mls @ 80 mls/hr IV .[id number] [facility] Stop: 01/12/23 17:59 Last Admin: 12/17/22 09:40 Dose: 80 mls/hr Pantoprazole Sodium 40 mg/ (Syringe) 10 mls @ 5 mls/min IV BID [facility] Stop: 01/16/23 08:59 Last Admin: 12/17/22 08:29 Dose: 5 mls/min Ipratropium [place] (Ipratropium [place] Nasal [place] 0.06% 15ml) 1 sprays KADEN DAILY PRN PRN Reason: Nasal Congestion Stop: 01/12/23 21:11 Magnesium Oxide (Magnesium Oxide 400 Mg Tab) [facility] [place] Stop: 01/14/23 10:29 Last Admin: 12/15/22 12:11 Dose: 400 mg Ondansetron HCl (Ondansetron Inj 2 Mg/Ml 2 Ml Vial) 4 mg IV Q6H PRN PRN Reason: Nausea Stop: 01/12/23 20:55 Last Admin: 12/15/22 23:20 Dose: 4 mg Polyethylene Glycol (Polyethylene (Miralax) 17 Gm Pack) 17 gm PO DAILY PRN PRN Reason: Constipation Stop: 01/12/23 20:55 Sucralfate (Sucralfate 1 Gm/10 Ml Udc) 1 gm PO QID [facility] Stop: 01/15/23 12:59 Last Admin: 12/17/22 08:29 Dose: 1 gm Trazodone HCl (Trazodone Hcl 50 Mg Tab) 150 mg PO HS JEVON Stop: 01/12/23 20:59 Last Admin: 12/15/22 20:05 Dose: 150 mg (2) Fall Encounter type: initial encounter Qualified Code(s): W19.XXXA - Unspecified fall, initial encounter (3) Rhabdomyolysis Encounter type: initial encounter Rhabdomyolysis type: traumatic Qualified Code(s): T79.6XXA - Traumatic ischemia of muscle, initial encounter (4) Overdose Encounter type: initial encounter Injury intent: accidental or unintentional Qualified Code(s): T50.901A - Poisoning by unspecified drugs, medicaments and biological substances, accidental (unintentional), initial encounter
[2022-12-17] MEDS: CARBIDOPA/LEVODOPA 25/100MG TAB PO SCH ×2 (13:13→21:29)
[2022-12-17 19:57] LABS: Hemoglobin 10.3 g/dl (14.0-18.0)
[2022-12-17] MEDS: traZODone HCL 50 MG TAB PO SCH (21:28)
[2022-12-17] MEDS: clonazePAM 0.5 MG TAB PO SCH (21:28)
[2022-12-17] MEDS: BENZTROPINE MESYLATE 0.5 MG TAB PO SCH (21:29)
[2022-12-17] MEDS: FAMOTIDINE 20 MG TAB PO SCH (21:29)
[2022-12-17] MEDS: ARIPiprazole 10 MG TAB PO SCH (21:29)
[2022-12-18] MEDS ORDERED: LORazepam 2 MG/1 ML VIAL IV STA (02:22)
[2022-12-18 05:46] LABS: Hematocrit (blood only) 30.1 % (42.0-52.0); Mean Corpuscular Hemoglobin 29.2 pg (25.0-34.0); Mean Corpuscular Hgb Conc 33.2 g/dL (32.0-36.0); Mean Platelet Volume 12.1 fL (9.4-12.4); Platelet Count 166 K/uL (130-400); RDW Coefficient of Variation 14.9 % (11.5-14.5); RDW Standard Deviation 48.5 fL (36.4-46.3); Red Blood Count 3.42 M/uL (4.70-6.10); White Blood Count 4.89 K/ul (4.8-10.8)
[2022-12-18 06:04] LABS: Calcium 8.1 mg/dl (8.6-10.3); Magnesium 1.8 mg/dl (1.7-2.4); Potassium 3.7 mmol/L (3.5-5.1)
[2022-12-18 06:09] LABS: BUN Creatinine Ratio 10.1 (10-20); Creatinine Clr Calc Pharmacy 110.9 ml/min; Est GFR (African American) 107.7 ml/min; Est GFR (Non-African American) 92.9 ml/min; Phosphorus 2.7 mg/dl (2.5-4.9)
[2022-12-18] MEDS: BENZTROPINE MESYLATE 0.5 MG TAB PO SCH ×2 (08:17→20:45)
[2022-12-18] MEDS: FLUoxetine HCL 20 MG CAP PO SCH (08:17)
[2022-12-18] MEDS: CARBIDOPA/LEVODOPA 25/100MG TAB PO SCH ×3 (08:17→20:45)
[2022-12-18] MEDS: SUCRALFATE 1 GM/10 ML UDC PO SCH ×4 (08:19→20:46)
[2022-12-18] MEDS: clonazePAM 0.5 MG TAB PO SCH ×2 (08:22→20:46)
[2022-12-18] MEDS: MAGNESIUM OXIDE 400 MG TAB PO SCH (08:22)
[2022-12-18] MEDS: PANTOprazole 40 MG in SYRINGE 0 ML IV SCH ×2 (08:22→20:45)
[2022-12-18] MEDS: LACTATED RINGER'S 1,000 ML IV SCH (10:15)
--- NOTE | 2022-12-18 14:31 | Psychiatric Progress Note ---
Date of Service December 18, 2022 Impression / Recommendations Impression 67 yo man with history of depression, anxiety, tardive dyskinesia, Parkinson's disease admitted medically for worsening dizziness and falls over the last few weeks. Unclear if his presentation represents progression of his Parkinson's disease with increased gait instability and dizziness versus medication side effect versus possible mistaken use of prescribed medications at home (inadvertently taking double his Sinemet dose) versus recent addition of Seroquel with possible orthostatic hypotension/dizziness side effects. While it is challenging to get a clear sense of any recent substance use he is has no known history of illicit substance use and I feel it is HIGHLY UNLIKELY that he has been using an MDMA product. Rather it is VERY COMMON for many prescribed medications such as trazodone to cause false positive results on initial UDS screening for MDMA, anticipate confirmatory testing will be negative. Overnight events may represent sundowning related to cognitive changes with Parkinson's disease versus delirium. 12/18/2022: Ongoing periods of confusion and agitation. Unclear if due to hospital acquired delirium versus worsening of underlying baseline cognitive changes. Would recommend restarting prior to admission seroquel 25mg HS. For now ok to continue prior to admission abilify but may ultimately be better suited by BID seroquel dosing and discontinuation of abilify to reduce antipsychotic side effects. (1) Anxiety: (2) Dizziness: (3) Fall: (4) Rhabdomyolysis: (5) Parkinson's disease: Plan -Psych liaison to get further collateral from his sister -Agree with use of 1-on-1 prn at discretion of hospitalist given his impulsivity at times -Agree with PT involvement -Would restart prior to admission benztropine 0.5mg BID, will restart abilify at 10mg HS -Continue with half dose of clonazepam 0.5mg BID -Continue trazodone to 150mg HS -Continue fluoxetine 40mg daily -Continue to hold buspirone -Start Seroquel 25mg HS, monitor for any changes in dizziness -Consider melatonin 3mg qhs -Continue medical workup to rule out and treat any underlying causes contributing to potential delirium, avoid or limit use of deliriogenic medications (benzodiazepines, opioids, anticholinergics) -Continue with delirium prevention measures: raising blinds during the day, closing at night, frequent re-orientation, contact with family/friends, explaining procedures/nursing care measures prior to physical contact, correct any hearing and visual impairments -For behavioral emergency: olanzapine 2.5 mg IM x 1 (DO NOT exceed 10mg per 24 hours, check EKG if IM dose required, NEVER co-administer with IM or IV benzodiazepines). Interval History Identifying Information 67 yo man with a history of depression, anxiety, tardive dyskinesia, Parkinson's disease admitted medically for worsening dizziness and falls over the last few weeks. Psychiatry consulted for medication recommendations. Chief Complaint "I'm well". Review of Systems Notes decreased sleep at night Subjective Subjective Patient was seen & assessed and interval progress reviewed. Confused with agitation in the middle of the night. Mid-day is very pleasant but confused about place, date, city. Teels me his mood is "raw" due to feeling that his "mother, father and sister have been killed". Helped re-orient and reassured that his father and sister are living at home where he typically resides when not at the hospital. Unclear how his dizziness is, he states he thinks this is better. States he may have been overusing his Klonopin prior to admission but unclear how reality-based this is. Later in the evening more agitated again. Procedures Performed Operation Date: 12/16/22 09:30 Actual Procedures p Esophagogastroduodenoscopy - Wenceslao De Leon MD Physical Exam Psychiatric Orientation: alert, oriented to person, oriented to time and cooperative; + not oriented to place Apperance: appropriately dressed and + disheveled Eye Contact: good eye contact Motor Behavior: + tremor Speech: normal rate/rhythm/volume of speech Affect: euthymic affect Mood: no depressed mood and no anxious mood Thought Process: + looseness of associations Thought Content: reality based without delusions Suicidal Thoughts: denies suicidal thoughts Homicidal Thoughts: denies homicidal thoughts Hallucinations: no auditory hallucinations and no visual hallucinations Cognition: language grossly intact; + recent memory not intact and + attention not intact Insight: + severely impaired insight Judgment: + severely impaired judgement Vital Signs (Past 24 Hours) Last Vital Signs Temp 37.2 C 12/18/22 11:56 Pulse 65 12/18/22 11:56 Resp 18 12/18/22 11:56 BP 132/70 12/18/22 11:56 Pulse Ox 97 12/18/22 11:56 O2 Del Method Room Air 12/18/22 11:56 Results & Data ([facility]) Laboratory Results Laboratory Results - last 24 hr 12/17/22 12/18/22 12/18/22 19:43 04:51 04:51 WBC 4.89 RBC 3.42 L Hgb 10.3 L 10.0 L Hct 30.0 L 30.1 L MCV 88.0 MCH 29.2 MCHC 33.2 RDW Std Deviation 48.5 H RDW Coeff of Elizabeth 14.9 H Plt Count 166 MPV 12.1 Sodium 138 Potassium 3.7 Chloride 111 H Carbon Dioxide 23 Anion Gap 4 BUN 8 Creatinine 0.79 Est Cr Clr Drug Dosing 110.9 Est GFR ( Amer) 107.7 Est GFR (Non-Af Amer) 92.9 BUN/Creatinine Ratio 10.1 Glucose 89 Calcium 8.1 L Phosphorus 2.7 Magnesium 1.8 Current Inpatient Medications Current Inpatient Medications: Current Inpatient Medications Acetaminophen (Acetaminophen 325 Mg Tab) 650 mg PO Q4H PRN PRN Reason: Pain or Fever Stop: 01/12/23 20:55 Last Admin: 12/14/22 20:04 Dose: 650 mg Aripiprazole (Aripiprazole 10 Mg Tab) 10 mg PO [facility] Stop: 01/14/23 20:59 Last Admin: 12/17/22 21:29 Dose: 10 mg Benztropine Mesylate (Benztropine Mesylate 0.5 Mg Tab) 0.5 mg PO BID [facility] Stop: 01/14/23 20:59 Last Admin: 12/18/22 08:17 Dose: 0.5 mg Carbidopa/Levodopa (Carbidopa/Levodopa 25/100mg Tab) 2 tab PO TID JEVON Stop: 01/13/23 13:59 Last Admin: 12/18/22 14:19 Dose: 2 tab Clonazepam (Clonazepam 0.5 Mg Tab) 0.5 mg PO BID JEVON Stop: 01/12/23 20:59 Last Admin: 12/18/22 08:22 Dose: 0.5 mg Famotidine (Famotidine 20 Mg Tab) 20 mg PO HS [facility] Stop: 01/16/23 20:59 Last Admin: 12/17/22 21:29 Dose: 20 mg Fluoxetine HCl (Fluoxetine Hcl 20 Mg Cap) 40 mg PO QAM JEVON Stop: 01/13/23 08:59 Last Admin: 12/18/22 08:17 Dose: 40 mg Fluticasone Propionate (Fluticasone Propionate Na Spr 16 Gm Btl) 2 sprays NA DAILY PRN PRN Reason: Nasal Congestion Stop: 01/12/23 20:55 Lactated Ringer's (Lr) 1,000 mls @ 80 mls/hr IV .[id number] [facility] Stop: 01/12/23 17:59 Last Admin: 12/18/22 10:15 Dose: 80 mls/hr Pantoprazole Sodium 40 mg/ (Syringe) 10 mls @ 5 mls/min IV BID [facility] Stop: 01/16/23 08:59 Last Admin: 12/18/22 08:22 Dose: 5 mls/min Ipratropium [place] (Ipratropium [place] Nasal [place] 0.06% 15ml) 1 sprays KADEN DAILY PRN PRN Reason: Nasal Congestion Stop: 01/12/23 21:11 Lorazepam (Lorazepam 2 Mg/1 Ml Vial) 0.5 mg IV Q3H PRN PRN Reason: Anxiety/Agitation Stop: 01/17/23 02:21 Magnesium Oxide (Magnesium Oxide 400 Mg Tab) 400 mg PO QAM [facility] Stop: 01/14/23 10:29 Last Admin: 12/18/22 08:22 Dose: 400 mg Ondansetron HCl (Ondansetron Inj 2 Mg/Ml 2 Ml Vial) 4 mg IV Q6H PRN PRN Reason: Nausea Stop: 01/12/23 20:55 Last Admin: 12/15/22 23:20 Dose: 4 mg Polyethylene Glycol (Polyethylene (Miralax) 17 Gm Pack) 17 gm PO DAILY PRN PRN Reason: Constipation Stop: 01/12/23 20:55 Sucralfate (Sucralfate 1 Gm/10 Ml Udc) 1 gm PO QID [facility] Stop: 01/15/23 12:59 Last Admin: 12/18/22 12:28 Dose: 1 gm Trazodone HCl (Trazodone Hcl 50 Mg Tab) 150 mg PO HS [facility] Stop: 01/12/23 20:59 Last Admin: 12/17/22 21:28 Dose: 150 mg (3) Fall Encounter type: initial encounter Qualified Code(s): W19.XXXA - Unspecified fall, initial encounter (4) Rhabdomyolysis Encounter type: initial encounter Rhabdomyolysis type: traumatic Qualified Code(s): T79.6XXA - Traumatic ischemia of muscle, initial encounter
[2022-12-18] MEDS: LORazepam 2 MG/1 ML VIAL IV PRN ×2 (16:18→20:44)
[2022-12-18] MEDS ORDERED: HALOPERIDOL LACTATE 5 MG/ML 1 ML VIAL IM STA (16:54)
[2022-12-18] MEDS ORDERED: HALOPERIDOL LACTATE 5 MG/ML 1 ML VIAL ONE (16:54)
[2022-12-18] MEDS: valACYclovir HCL 500 MG TABLET PO SCH (18:28)
[2022-12-18] MEDS ORDERED: OLANZapine 10 MG/2.1 ML SDV IM PRN (19:18)
--- NOTE | 2022-12-18 19:22 | Hospitalist Progress Note ---
Date of Service December 18, 2022 Assessment & Plan (1) Dizziness: (2) Fall: (3) Rhabdomyolysis: (4) Overdose: (5) Mood disorder: (6) Hematemesis: (7) Parkinson's disease: (8) Rash and nonspecific skin eruption: (9) Delirium: Plan 67 yo male with a PMHx significant for mood disorder, Parkinson's disease, history of Hodgkin's lymphoma, alcohol dependence in remission who presented with dizziness and frequent falls at home. Had unintentional medication overdose, rhabdomyolysis and was downgraded from the ICU after episodes of hematemesis. Frequent falls Dizziness Unintentional medication overdose EKG without QTc prolongation, CT head without acute intracranial abnormality, negative salicylates, acetaminophen and ethyl alcohol levels Per Neurology, continue sinemet. medications adjusted by psychiatry and has since been placed back on his Kl onipin, trazodone, abilify, prozac and Seroquel restarted at 25mg HS. Hematemesis -currently resolved -h/h stable at 10 -s/p EGD, noted esophagitis and gastric tube in esophagus -continue carafate and pepcid -appreciate GI recs Rhabdomyolysis Due to frequent falls CK 1,039 -->712 kidney function/Cr currently wnl Continue IV fluids as tolerated Mood disorder/Agitation/Delirium Follows with psychiatry as an outpt. While hospitalized, has been agitated especially at night, . Received Haldol dose today, with PRN Ativan Per psychiatry for continued episodes of agitation, use olanzapine 2.5mg q6h prn. Seroquel re-started at night at lower dose, 25mg. 1:1 sitter Appreciate psychiatry recs. Rash -rash unilateral on right back. Pt states nontender, not itchy. No visible vesicles. -Based on distribution suggestive of shingles. -Started on valacyclovir with contact precautions. Fall precautions, PT/OT evaluations Continue discussion with sister about additional help, potential placement for patient DVT Ppx: SCDs, hold lovenox d/t hematemesis Code status: FULL PCP: Dr. Persaud Dispo: Admitted to med/tele Sister - Dejah Magana: [phone] Admission and Anticipated Discharge Date Admission Date: December 13, 2022 Subjective Pt seen this AM. Was alert but not oriented. Was downgraded from the ICU with episodes of agitation during the day, [place]. Nursing also concerned about a rash on his back. Unsure how long it has been present. Review of Systems Review of Systems: Unobtainable due to mental health condition Physical Exam Physical Exam: General: Alert, not oriented. Skin: maculopapular eruption on right side of back Psych: agitated at times Neuro: unsteady at times on his feet HEENT: NC/AT CV: RRR, Normal s1, s2. No murmurs appreciated Resp: Breath sounds clear bilaterally, no increased effort of breathing. No crackles/rhonchi/rales. Abdomen: Soft, nontender, nondistended. No guarding. Extremities: No edema in lower extremities bilaterally. Results & Data Results & Data Vital Signs (Past 12 Hours) Vital Signs Temp Pulse Pulse Resp BP BP Pulse Ox 12/18/22 16:00 98 H 12/18/22 15:54 37.8 C H 60 18 129/67 95 12/18/22 11:56 37.2 C 65 18 132/70 97 12/18/22 10:00 74 18 12/18/22 08:30 84 23 12/18/22 08:30 127/69 12/18/22 08:00 98 H 18 12/18/22 08:00 67 O2 Del Method 12/18/22 16:00 12/18/22 15:54 Room Air 12/18/22 11:56 Room Air 12/18/22 10:00 12/18/22 08:30 12/18/22 08:30 12/18/22 08:00 12/18/22 08:00 (2) Fall Encounter type: initial encounter Qualified Code(s): W19.XXXA - Unspecified fall, initial encounter (3) Rhabdomyolysis Encounter type: initial encounter Rhabdomyolysis type: traumatic Qualified Code(s): T79.6XXA - Traumatic ischemia of muscle, initial encounter (4) Overdose Encounter type: initial encounter Injury intent: accidental or unintentional Qualified Code(s): T50.901A - Poisoning by unspecified drugs, medicaments and biological substances, accidental (unintentional), initial encounter
[2022-12-18] MEDS: traZODone HCL 50 MG TAB PO SCH (20:45)
[2022-12-18] MEDS: ARIPiprazole 10 MG TAB PO SCH (20:45)
[2022-12-18] MEDS: FAMOTIDINE 20 MG TAB PO SCH (20:45)
[2022-12-18] MEDS ORDERED: QUEtiapine FUMARATE 25 MG TABLET PO SCH (21:00)
[2022-12-19] MEDS: LACTATED RINGER'S 1,000 ML IV SCH ×2 (02:15→15:56)
[2022-12-19] MEDS: valACYclovir HCL 500 MG TABLET PO SCH ×3 (02:16→16:48)
[2022-12-19] MEDS: CARBIDOPA/LEVODOPA 25/100MG TAB PO SCH ×3 (09:49→20:40)
[2022-12-19] MEDS: PANTOprazole 40 MG in SYRINGE 0 ML IV SCH ×2 (09:49→20:19)
[2022-12-19] MEDS: SUCRALFATE 1 GM/10 ML UDC PO SCH ×4 (09:50→20:40)
[2022-12-19] MEDS: BENZTROPINE MESYLATE 0.5 MG TAB PO SCH ×2 (09:50→20:40)
[2022-12-19] MEDS: FLUoxetine HCL 20 MG CAP PO SCH (09:50)
[2022-12-19] MEDS: clonazePAM 0.5 MG TAB PO SCH ×2 (10:03→20:41)
[2022-12-19 10:38] LABS: Basophils # (auto) 0.04 K/uL (0-0.2); Basophils % (auto) 0.9 %; Eosinophils # (auto) 0.34 K/uL (0-0.50); Hematocrit (blood only) 32.4 % (42.0-52.0); Hemoglobin 10.6 g/dl (14.0-18.0); Immature Granulocytes # (auto) 0.02 K/uL (0.01-0.20); Immature Granulocytes % (auto) 0.5 %; Lymphocytes # (auto) 0.89 K/uL (1.2-3.4); Lymphocytes % (auto) 20.9 %; Mean Corpuscular Hgb Conc 32.7 g/dL (32.0-36.0); Mean Corpuscular Volume 88.8 fL (80.0-100.0); Mean Platelet Volume 11.7 fL (9.4-12.4); Monocytes # (auto) 0.43 K/uL (0.11-0.59); Monocytes % (auto) 10.1 %; Neutrophils # (auto) 2.53 K/uL (1.40-6.50); Neutrophils % (auto) 59.6 %; Platelet Count 203 K/uL (130-400); RDW Coefficient of Variation 15.1 % (11.5-14.5); RDW Standard Deviation 48.9 fL (36.4-46.3); Red Blood Count 3.65 M/uL (4.70-6.10); White Blood Count 4.25 K/ul (4.8-10.8)
[2022-12-19 11:01] LABS: BUN Creatinine Ratio 10.7 (10-20); Calcium 8.6 mg/dl (8.6-10.3); Creatinine Clr Calc Pharmacy 96.4 ml/min; Est GFR (Non-African American) 90.6 ml/min; Potassium 4.2 mmol/L (3.5-5.1)
[2022-12-19] MEDS: MAGNESIUM OXIDE 400 MG TAB PO SCH (12:06)
--- NOTE | 2022-12-19 15:30 | Communication Note ---
Date of Service: December 19, 2022 Base don chart review Stanley slept a little more last night after addition of Seroquel. Remains intermittently confused, likely delirium component as well as possible cognitive disorder component. A/P: -Discontinue abilify -Increase Seroquel to 25mg qAM and 50mg HS.
--- NOTE | 2022-12-19 15:59 | Hospitalist Progress Note ---
Date of Service December 19, 2022 Assessment & Plan (1) Dizziness: (2) Fall: (3) Rhabdomyolysis: (4) Overdose: (5) Mood disorder: (6) Hematemesis: (7) Parkinson's disease: (8) Rash and nonspecific skin eruption: (9) Delirium: Plan 67 yo male with a PMHx significant for mood disorder, Parkinson's disease, history of Hodgkin's lymphoma, alcohol dependence in remission who presented with dizziness and frequent falls at home. Had unintentional medication overdose, rhabdomyolysis and was downgraded from the ICU after episodes of hematemesis. Frequent falls Dizziness Unintentional medication overdose EKG without QTc prolongation, CT head without acute intracranial abnormality, negative salicylates, acetaminophen and ethyl alcohol levels Suspected that symptoms were related to pt taking his home medications incorrectly- especially sinemet. Per Neurology, continue sinemet. medications adjusted by psychiatry and has since been placed back on his Klonipin, trazodone, abilify, prozac and Seroquel. Psych recommending today 12/19 to discontinue abilify and increase nightly seroquel to 50mg. Also advised to start seroquel 25mg in the AM. Hematemesis -currently resolved -h/h stable at 10 -s/p EGD, noted esophagitis and gastric tube in esophagus -continue carafate and pepcid -appreciate GI recs Rhabdomyolysis Due to frequent falls CK 1,039 -->712 kidney function/Cr currently wnl Was on IV fluids but pt refused while agitated. Consider restarting if needed. Mood disorder/Agitation/Delirium Follows with psychiatry as an outpt. While hospitalized, has been agitated especially at night, . Per psychiatry for continued episodes of agitation, use olanzapine 2.5mg q6h prn. Seroquel at night at 50mg. 1:1 sitter Appreciate psychiatry recs. Rash -rash unilateral on right back. Pt states nontender, not itchy. No visible vesicles. -Based on distribution suggestive of shingles. -Started on valacyclovir with contact precautions. Fall precautions, PT/OT evaluations Continue discussion with sister about additional help, potential placement for patient DVT Ppx: SCDs, hold lovenox d/t hematemesis Code status: FULL PCP: Dr. Persaud Dispo: Admitted to med/tele Sister - Dejah Catck: [phone] Admission and Anticipated Discharge Date Admission Date: December 13, 2022 Subjective Pt seen today. Resting comfortably in bed today. Did not have episodes of agitation overnight. States he is feeling better. Sister called and given an update. Review of Systems Review of Systems: Unobtainable due to cognitive status Physical Exam Physical Exam: General: Alert, resting comfortably in bed. No acute distress Skin: No noted rashes or bruises Psych: Appropriate mood and affect Neuro: No gross deficits HEENT: NC/AT CV: RRR, Normal s1, s2. No murmurs appreciated Resp: Breath sounds clear bilaterally, no increased effort of breathing. No crackles/rhonchi/rales. Abdomen: Soft, nontender, nondistended. No guarding. No organomegaly appreciated. Extremities: No edema in lower extremities bilaterally. Results & Data Results & Data Vital Signs (Past 12 Hours) Vital Signs Temp Pulse Resp BP Pulse Ox O2 Del Method 12/19/22 14:48 36.8 C 70 18 129/67 98 Room Air 12/19/22 11:33 36.8 C 78 18 145/65 H 98 Room Air 12/19/22 08:09 36.9 C 110 H 18 125/58 L 92 Room Air 12/19/22 04:25 36.8 C 64 12 115/67 96 Room Air (2) Fall Encounter type: initial encounter Qualified Code(s): W19.XXXA - Unspecified fall, initial encounter (3) Rhabdomyolysis Encounter type: initial encounter Rhabdomyolysis type: traumatic Qualified Code(s): T79.6XXA - Traumatic ischemia of muscle, initial encounter (4) Overdose Encounter type: initial encounter Injury intent: accidental or unintentional Qualified Code(s): T50.901A - Poisoning by unspecified drugs, medicaments and biological substances, accidental (unintentional), initial encounter
[2022-12-19] MEDS: QUEtiapine FUMARATE 25 MG TABLET PO SCH (20:19)
[2022-12-19] MEDS: traZODone HCL 50 MG TAB PO SCH (20:40)
[2022-12-19] MEDS: FAMOTIDINE 20 MG TAB PO SCH (20:40)
[2022-12-20] MEDS: valACYclovir HCL 500 MG TABLET PO SCH ×3 (01:54→18:02)
[2022-12-20 06:44] LABS: Basophils # (auto) 0.03 K/uL (0-0.2); Basophils % (auto) 0.6 %; Eosinophils # (auto) 0.43 K/uL (0-0.50); Eosinophils % (auto) 8.8 %; Hematocrit (blood only) 32.9 % (42.0-52.0); Hemoglobin 11.1 g/dl (14.0-18.0); Immature Granulocytes # (auto) 0.04 K/uL (0.01-0.20); Immature Granulocytes % (auto) 0.8 %; Lymphocytes # (auto) 1.21 K/uL (1.2-3.4); Lymphocytes % (auto) 24.7 %; Mean Corpuscular Hemoglobin 29.6 pg (25.0-34.0); Mean Corpuscular Hgb Conc 33.7 g/dL (32.0-36.0); Mean Corpuscular Volume 87.7 fL (80.0-100.0); Mean Platelet Volume 11.5 fL (9.4-12.4); Monocytes # (auto) 0.49 K/uL (0.11-0.59); Neutrophils % (auto) 55.1 %; Platelet Count 218 K/uL (130-400); RDW Coefficient of Variation 14.9 % (11.5-14.5); RDW Standard Deviation 47.7 fL (36.4-46.3); Red Blood Count 3.75 M/uL (4.70-6.10)
[2022-12-20 06:50] LABS: BUN Creatinine Ratio 14.6 (10-20); Calcium 8.4 mg/dl (8.6-10.3); Est GFR (African American) 102.5 ml/min; Est GFR (Non-African American) 88.5 ml/min; Potassium 3.7 mmol/L (3.5-5.1)
[2022-12-20] MEDS: clonazePAM 0.5 MG TAB PO SCH ×2 (08:45→20:13)
[2022-12-20] MEDS: PANTOprazole 40 MG in SYRINGE 0 ML IV SCH ×2 (08:45→20:14)
[2022-12-20] MEDS: QUEtiapine FUMARATE 25 MG TABLET PO SCH ×2 (08:46→20:13)
[2022-12-20] MEDS: POLYETHYLENE (MIRALAX) 17 GM PACK PO PRN (10:21)
[2022-12-20] MEDS: CARBIDOPA/LEVODOPA 25/100MG TAB PO SCH ×3 (10:21→20:15)
[2022-12-20] MEDS: FLUoxetine HCL 20 MG CAP PO SCH (10:22)
[2022-12-20] MEDS: SUCRALFATE 1 GM/10 ML UDC PO SCH ×4 (10:22→20:15)
[2022-12-20] MEDS: MAGNESIUM OXIDE 400 MG TAB PO SCH (10:23)
[2022-12-20] MEDS: BENZTROPINE MESYLATE 0.5 MG TAB PO SCH ×2 (10:23→20:14)
[2022-12-20 14:03] LABS: MDA negative; MDEA negative; MDMA (Ecstasy) Urine, Confirm negative
--- NOTE | 2022-12-20 17:49 | Hospitalist Progress Note ---
Date of Service December 20, 2022 Assessment & Plan (1) Parkinson's disease: Plan: 67 yo male with a PMHx significant for mood disorder, Parkinson's disease, history of Hodgkin's lymphoma, alcohol dependence in remission who presented with dizziness and frequent falls at home. Had unintentional medication overdose, rhabdomyolysis and had two episodes of hematemesis was transferred to ICU. Currently in tele. after episodes of hematemesis. Frequent falls Dizziness Unintentional medication overdose EKG without QTc prolongation, CT head without acute intracranial abnormality, negative salicylates, acetaminophen and ethyl alcohol levels on presentation Suspected that symptoms were related to pt taking his home medications incorrectly- especially sinemet. Per Neurology, to continue sinemet. medications adjusted by psychiatry and has since been placed back on his Klonipin, trazodone, abilify, prozac and Seroquel. Psych recommending today 12/19 to discontinue abilify and increase nightly seroquel to 50mg. Also advised to start seroquel 25mg in the AM. Says sleeping beter will monitor pt/ot Hematemesis currently resolved h/h stable at 10 -s/p EGD, noted esophagitis to continue carafate and pepcid appreciate GI recs f/u egd Rhabdomyolysis Due to frequent falls CK 1,039 -->712 kidney function/Cr currently wnl Was on IV fluids but pt refused while agitated. will f/u cpk levels in am Mood disorder/Agitation/Delirium Follows with psychiatry as an outpt. While hospitalized, has been agitated especially at night, . Per psychiatry for continued episodes of agitation, use olanzapine 2.5mg q6h prn. on Seroquel on Ativan and Zyprexa prn Rash rash unilateral on right back. Pt states nontender, not itchy. No visible ve sicles. Possible shingles. Started on valacyclovir with contact precautions. Fall precautions, PT/OT evaluations Continue discussion with sister about additional help, potential placement for patient DVT Ppx: SCDs, hold lovenox d/t hematemesis Code status: FULL PCP: Dr. Persaud Dispo: Admitted to med/tele Sister Jose D Magana: [phone] (2) Hematemesis: (3) Overdose: (4) Mood disorder: Admission and Anticipated Discharge Date Admission Date: December 13, 2022 Subjective finished dinner sister in room says tremors are better afebrile bowels and bladder moving ok denies any blood in stools no headache no chest pain or sob no abdominal pain Review of Systems Review of Systems: As above Physical Exam Constitutional: WD/WN, vitals as above Eyes: EOMI Neck: trachea midline, no thyromegaly Respiratory: normal respiratory effort, lungs clear to auscultation Cardiovascular: RRR, no murmur, no edema Gastrointestinal (Abdomen): normal bowel sounds, soft, nontender, no hepatosplenomegaly Neurologic: alert and oriented speech normal no facial droop obeys simple commands moves extremities Results & Data Results & Data Vital Signs (Past 12 Hours) Vital Signs Temp Pulse Resp BP Pulse Ox O2 Del Method 12/20/22 17:24 37.0 C 86 18 152/78 H 97 Room Air 12/20/22 10:50 36.8 C 91 H 18 108/65 95 Room Air 12/20/22 07:12 37.0 C 72 18 116/67 98 Room Air (3) Overdose Encounter type: initial encounter Injury intent: accidental or unintentional Qualified Code(s): T50.901A - Poisoning by unspecified drugs, medicaments and biological substances, accidental (unintentional), initial encounter
[2022-12-20] MEDS: FAMOTIDINE 20 MG TAB PO SCH (20:14)
[2022-12-20] MEDS: traZODone HCL 50 MG TAB PO SCH (20:14)
[2022-12-21] MEDS: valACYclovir HCL 500 MG TABLET PO SCH ×2 (01:41→09:21)
[2022-12-21 06:03] LABS: Basophils # (auto) 0.04 K/uL (0-0.2); Basophils % (auto) 0.8 %; Eosinophils % (auto) 8.1 %; Hemoglobin 10.8 g/dl (14.0-18.0); Immature Granulocytes # (auto) 0.04 K/uL (0.01-0.20); Immature Granulocytes % (auto) 0.8 %; Lymphocytes % (auto) 24.2 %; Mean Corpuscular Hemoglobin 29.7 pg (25.0-34.0); Mean Corpuscular Hgb Conc 33.8 g/dL (32.0-36.0); Mean Corpuscular Volume 87.9 fL (80.0-100.0); Monocytes # (auto) 0.57 K/uL (0.11-0.59); Monocytes % (auto) 11.5 %; Neutrophils % (auto) 54.6 %; Platelet Count 222 K/uL (130-400); RDW Coefficient of Variation 14.9 % (11.5-14.5); RDW Standard Deviation 47.8 fL (36.4-46.3); Red Blood Count 3.64 M/uL (4.70-6.10); White Blood Count 4.95 K/ul (4.8-10.8)
[2022-12-21 06:19] LABS: BUN Creatinine Ratio 11.9 (10-20); Calcium 8.3 mg/dl (8.6-10.3); Creatinine Clr Calc Pharmacy 96.4 ml/min; Est GFR (Non-African American) 90.6 ml/min; Potassium 3.7 mmol/L (3.5-5.1)
[2022-12-21] MEDS: CARBIDOPA/LEVODOPA 25/100MG TAB PO SCH ×2 (09:20→13:17)
[2022-12-21] MEDS: BENZTROPINE MESYLATE 0.5 MG TAB PO SCH (09:21)
[2022-12-21] MEDS: SUCRALFATE 1 GM/10 ML UDC PO SCH ×2 (09:21→13:16)
[2022-12-21] MEDS: PANTOprazole 40 MG in SYRINGE 0 ML IV SCH (09:22)
[2022-12-21] MEDS: QUEtiapine FUMARATE 25 MG TABLET PO SCH (09:22)
[2022-12-21] MEDS: FLUoxetine HCL 20 MG CAP PO SCH (09:23)
[2022-12-21] MEDS: MAGNESIUM OXIDE 400 MG TAB PO SCH (09:23)
[2022-12-21] MEDS: POLYETHYLENE (MIRALAX) 17 GM PACK PO PRN (09:25)
[2022-12-21] MEDS: clonazePAM 0.5 MG TAB PO SCH (09:28)
--- NOTE | 2022-12-21 15:48 | Hospitalist Progress Note ---
Date of Service December 21, 2022 Assessment & Plan (1) Dizziness: Plan: Parkinson's disease: 67 yo male with a PMHx significant for mood disorder, Parkinson's disease, history of Hodgkin's lymphoma, alcohol dependence in remission who presented with dizziness and frequent falls at home. Had unintentional medication overdose, rhabdomyolysis. Hospital stay complicated by two episodes of hematemesis and was transferred to ICU. Currently in tele. after episodes of hematemesis. Frequent falls Dizziness Unintentional medication overdose EKG without QTc prolongation, CT head without acute intracranial abnormality, negative salicylates, acetaminophen and ethyl alcohol levels on presentation Suspected that symptoms were related to pt taking his home medications incorrectly- especially sinemet. Per Neurology, to continue sinemet. medications adjusted by psychiatry and has since been placed back on his Klonipin, trazodone, abilify, prozac and Seroquel. Psych recommending today 12/19 to discontinue abilify and increase nightly seroquel to 50mg. Also advised to start seroquel 25mg in the AM. Says sleeping better pt/ot Plan for rehab today. Hematemesis currently resolved h/h stable at 10.8 -s/p EGD, noted esophagitis to continue carafate and pepcid and PPI appreciate GI plan for repeat egd in 4 weeks Followup Lab: cbc in 3-4 days. Rhabdomyolysis Due to frequent falls CK 1,039 -->712 kidney function/Cr currently wnl Was on IV fluids but pt refused while agitated. resolved cpk 120 today Mood disorder/Agitation/Delirium Follows with psychiatry as an outpt. While hospitalized, has been agitated especially at night, . Per psychiatry for continued episodes of agitation, use olanzapine 2.5mg q6h prn. on Seroquel on Ativan and Zyprexa prn seems stable Rash rash unilateral on right back. Pt states nontender, not itchy. No visible vesicles. Possible shingles. Started on valacyclovir with contact precautions., needs followup. Plan for [facility] today Needs followup with PCP, Psychiatry, Neurology and followup with GI for repeat EGD in 4 weeks DVT Ppx: SCDs, hold lovenox d/t hematemesis Code status: FULL Admission and Anticipated Discharge Date Admission Date: December 13, 2022 Subjective Resting comfortably says was constipated today denies blood in stool says stool are dark brown afebrile no chest pain or sob no abdominal pain no cough Review of Systems Review of Systems: as above Physical Exam Constitutional: WD/WN, vitals as above Eyes: EOMI Neck: trachea midline, no thyromegaly Respiratory: normal respiratory effort, lungs clear to auscultation Cardiovascular: RRR, no murmur, no edema Gastrointestinal (Abdomen): normal bowel sounds, soft, nontender, no hepatosplenomegaly Skin: erythematous rash in right back .no vesicles seen. Neurologic: alert and oriented speech clear no facial droop obeys commands moves extremities Results & Data Results & Data Vital Signs (Past 12 Hours) Vital Signs Temp Pulse Resp BP Pulse Ox O2 Del Method 12/21/22 11:33 36.8 C 87 18 128/69 95 Room Air 12/21/22 08:26 36.7 C 68 18 112/66 97 Room Air
--- NOTE | 2022-12-21 16:12 | Discharge Summary ---
Date of Service December 21, 2022 Admission HPI Per Admitting Provider This is a 67-year-old male with PMH of mood disorder, Parkinson's disease, history of Hodgkin's lymphoma, alcohol dependence in remission who presents with dizziness and frequent falls at home. History primarily obtained from sister over the phone who reports some cognitive decline over the past few weeks with increased weakness and multiple falls. Patient lives with his sister and he is able to mostly care for himself at home -get dressed, walk the dog, etc. Currently manages his own medications. Sister has never heard a previous diagnosis of schizophrenia and thought it was severe anxiety/depression. Follows with psychiatrist Dr. Mayo but sister does not know many details. Has noticed more frequent falls, worsening confusion, putting his clothing on backwards up until a few days ago and has become more concerned. Per discussion with sister, she reviewed his medication when he started to act strangely over the past few days and noticed he has to bottles of carbidopa levodopa of the same dose and became concerned that he was taking twice as much as prescribed on accident. Patient is alert and oriented to person and place but limited insight as far as medical history. States he was not intentionally overdosing on any medications. Has some discomfort of knees that appear bruised from falls and has felt dizzy with ambulation at home. Denies any fever, chills, dizziness at rest, chest pain, shortness of breath, nausea, vomiting, abdominal pain, dysuria, diarrhea or constipation. Admission Exam Per Admitting Provider General Appearance:WD/WN, vitals as above, NAD, sitting up in bed, pleasant, parkinsonian tremors Head: normocephalic Eyes:normal inspection, PERRL, conjunctivae normal, anicteric sclerae. + bruising to infraorbital area from fall ENT: external ear and nose normal, oropharynx normal Neck: normal visual inspection, trachea midline, no thyromegaly Respiratory:normal respiratory effort, lungs clear to auscultation, no wheeze, rales, rhonchi. No accessory muscle use Cardiovascular: regular rate, rhythm, no murmur, normal peripheral pulses, no BLE edema. Vessels: no JVD Chest: normal inspection of chest Abdomen/GI: normal bowel sounds, soft, nontender, no hepatosplenomegaly Extremities/Musculoskeletal: no cyanosis or clubbing, extremities motor strength 5/5. +skin tears and bruising over bilateral knees Neurologic: PERRL, EOMI, accommodation nl, no face palsy, no dysarthria, CN's II-XI intact bilaterally and moves all extremities Psychiatric:A+Ox3, euthymic affect Skin: no rashes, normal color, warm/dry Principal Diagnosis Dizziness falls hematemesis Discharge Data Allergies Allergy/AdvReac Type Severity Reaction Status Date / Time pollen extracts Allergy Intermediate SNEEZING/CO Verified 12/13/22 18:06 NGESTION ragweed pollen Allergy Mild Sneezing Verified 12/13/22 18:06 oxycodone AdvReac Intermediate COLD Verified 12/13/22 18:06 SWEATS/NAUSEA/VOMITING sertraline AdvReac Intermediate NAUSEA/VOMI Verified 12/13/22 18:06 TING Consultations 12/13/22 18:29 ED Decision to Admit Stat 12/13/22 20:23 Consult Neurology Routine 12/14/22 12:18 Consult Psychiatry Routine 12/16/22 06:08 Consult Gastroenterology Routine 12/16/22 08:56 Consult [employer] Routine Procedures Performed Operation Date: 12/16/22 09:30 Actual Procedures p Esophagogastroduodenoscopy - Wenceslao De Leon MD Ordered Studies 12/13/22 17:28 CT head/brain wo con Stat 12/14/22 14:15 CT head/brain wo con Urgent 12/16/22 10:07 CT chest diagnostic wo con Routine Hospital Course (1) Dizziness: 1) Dizziness: Plan: Parkinson's disease: 67 yo male with a PMHx significant for mood disorder, Parkinson's disease, history of Hodgkin's lymphoma, alcohol dependence in remission who presented with dizziness and frequent falls at home. Had unintentional medication overdose, rhabdomyolysis. Hospital stay complicated by two episodes of hematemesis and was transferred to ICU. Currently in tele. after episodes of hematemesis. Frequent falls Dizziness Unintentional medication overdose EKG without QTc prolongation, CT head without acute intracranial abnormality, ne gative salicylates, acetaminophen and ethyl alcohol levels on presentation Suspected that symptoms were related to pt taking his home medications incorrectly- especially sinemet. Per Neurology, to continue sinemet. medications adjusted by psychiatry and has since been placed back on his Klonipin, trazodone, abilify, prozac and Seroquel. Psych recommending today 12/19 to discontinue abilify and increase nightly seroquel to 50mg. Also advised to start seroquel 25mg in the AM. Says sleeping better pt/ot Plan for rehab today. Hematemesis currently resolved h/h stable at 10.8 -s/p EGD, noted esophagitis to continue carafate and pepcid and PPI appreciate GI plan for repeat egd in 4 weeks Followup Lab: cbc in 3-4 days. Rhabdomyolysis Due to frequent falls CK 1,039 -->712 kidney function/Cr currently wnl Was on IV fluids but pt refused while agitated. resolved cpk 120 today Mood disorder/Agitation/Delirium Follows with psychiatry as an outpt. While hospitalized, has been agitated especially at night, . Per psychiatry for continued episodes of agitation, use olanzapine 2.5mg q6h prn. on Seroquel on Ativan and Zyprexa prn seems stable Rash rash unilateral on right back. Pt states nontender, not itchy. No visible vesicles. Possible shingles. Started on valacyclovir with contact precautions., needs followup. Plan for [facility] today Needs followup with PCP, Psychiatry, Neurology and followup with GI for repeat EGD in 4 weeks Total Time Total Time Spent Total Time Spent (In Minutes): 40 minutes Discharge Plan Discharge Items Patient Disposition: Transfer Inpatient Rehab Fac Reason For Visit: FALLS, RHABDOMYOLYSIS, OVERDOSE ON MEDICATION Discharge Diagnosis: FALLS, Overmedication? Rhabdomyolysis, Hematemesis Activity: Resume your previous activity Non-emergency contact: Primary Care Provider Call non-emergency contact if: you have any medication questions Follow-up/Referrals: Nikhil Persaud DO [Primary Care Provider] - Diet: Regular Addtl Attending Provider Instructions: Follow lab: cbc in 3-4 days. Followup with PCP in one week Followup with Neurology in 1-2 weeks Followup with Psychiatry in 1 - 2 weeks Followup with GI for repeat EGD in 4 weeks. Pending Studies at Discharge: No Stand-Alone Forms: My [facility] [place] [facility]olidar Skilled Items Patient informed of condition?: Yes DNR: No Discharge Level of Care: Acute rehab Communicable Disease: No Discharge Prognosis: Stable Lines: None Urinary Catheter: No Medications and DC Order Prescriptions: New valacyclovir 500 mg Tablet 1,000 mg PO Q8H 7 Days Qty: 42 0RF pantoprazole [Protonix] 40 mg tablet,delayed release (DR/EC) 40 mg PO QAM 42 Days Qty: 42 0RF sucralfate 100 mg/mL Suspension 1 g PO QID Qty: 0 0RF quetiapine 25 mg Tablet 50 mg PO HS Qty: 0 0RF quetiapine 25 mg Tablet 25 mg PO QAM Qty: 0 0RF famotidine 20 mg Tablet 20 mg PO HS Qty: 0 0RF Continued fluoxetine [Prozac] 40 mg Capsule 40 mg PO QAM Rx Instructions: PER GMG--40 MG DAILY, PER PT'S LIST 2 TABS DAILY. carbidopa-levodopa 25-100 mg Tablet 2 tab PO TID fluticasone propionate 50 mcg/actuation spray,suspension 2 spray INTRANASAL DAILY PRN (Reason: Nasal Congestion) ipratropium bromide 21 mcg (0.03 %) spray,non-aerosol 2 spray INTRANASAL DAILY PRN (Reason: Nasal Congestion) benztropine 0.5 mg tablet 0.5 mg PO BID polyethylene glycol 3350 [Miralax] 17 gram/dose Powder 17 g PO DAILY PRN (Reason: Constipation) Changed trazodone 100 mg tablet 150 mg PO HS Qty: 10 0RF Rx Instructions: PER GMG--300 MG HS, PER PT'S LIST 100-300 MG HS. clonazepam 1 mg tablet 0.5 mg PO BID Qty: 10 0RF Discontinued buspirone 30 mg Tablet 30 mg PO BID aripiprazole 15 mg tablet 15 mg PO QAM Discharge Orders: Discharge Order (Routine); Ordered 12/21/22 Ordered By: Narendra Saucedo Admission Data Admit Date/Time: 12/13/22 18:40 Attending Provider: Narendra Saucedo Admit Provider: Mercedes Joy Primary Care Provider: Nikhil Persaud Other Providers: Mercedes Joy ; Luther Martin ; Nano Christy ; Denise Pan ; Kane Harris ; Biju Brandt ; Valentin Grimaldo ; Vaughn Montes ; Eb Cottrell
== END 2022-12-21 16:54 | DRG 917 ==
LOC: ED 17:11 → 2N 18:40 → SUATTDRO 18:40 → 2N 20:28 → 1E 12-16 07:30 → 4W 12-18 11:47

== ENCOUNTER 2023-05-04 01:14 | Inpatient (IN) ==
[2023-05-04 01:53] LABS: Basophils # (auto) 0.02 K/uL (0.00-0.20); Basophils % (auto) 0.2 %; Eosinophils # (auto) 0.17 K/uL (0.00-0.50); Eosinophils % (auto) 1.3 %; Hematocrit (blood only) 30.6 % (42.0-52.0); Hemoglobin 10.5 g/dl (14.0-18.0); Immature Granulocytes # (auto) 0.05 K/uL (0.01-0.20); Immature Granulocytes % (auto) 0.4 %; Lymphocytes # (auto) 0.85 K/uL (1.20-3.40); Lymphocytes % (auto) 6.7 %; Mean Corpuscular Hemoglobin 28.7 pg (25.0-34.0); Mean Corpuscular Hgb Conc 34.3 g/dL (32.0-36.0); Mean Corpuscular Volume 83.6 fL (80.0-100.0); Mean Platelet Volume 11.1 fL (9.4-12.4); Monocytes # (auto) 1.01 K/uL (0.11-0.59); Monocytes % (auto) 7.9 %; Neutrophils # (auto) 10.63 K/uL (1.40-6.50); Neutrophils % (auto) 83.5 %; Platelet Count 185 K/uL (130-400); RDW Coefficient of Variation 14.7 % (11.5-14.5); Red Blood Count 3.66 M/uL (4.70-6.10); White Blood Count 12.73 K/ul (4.8-10.8)
[2023-05-04] MEDS ORDERED: SODIUM CHLORIDE 0.9% 1,000 ML IV ONE (02:04)
[2023-05-04] MEDS ORDERED: ACETAMINOPHEN 500 MG TAB PO STA (02:04)
--- NOTE | 2023-05-04 02:07 | Emergency Department Note ---
Impression & Plan COVID-19, Syncope, Closed head injury, Acute hyponatremia, Acute dehydration, Acute hypotension ED Provider Note Name: GLYNN JOY Age: 68 Sex: M Arrives Via: Ambulance Informant: Patient ED Provider: Jeff Guadarrama MD Chief Complaint: Syncope Impression: As per impressions above Medical Decision Makin-year-old gentleman with a history of Parkinson's, anxiety, mood disorder, GERD arrives for evaluation following a syncopal event. Patient has been on the hypotensive side he looks dehydrated and he has some crackles throughout the right lobe. Chest x-ray shows questionable right lower lobe infiltrate. He was worked up as septic with blood cultures and lactic acid obtained. He was given 2 L normal saline bolus with vast improvement in his blood pressure. He empirically was given IV Zosyn for pneumonia. Laboratory work-up reveals he is somewhat hyponatremic which is new for him. Blood pressure is stable after fluid hydration. And he looks quite well. He states he has no further symptoms. Patient did have a syncopal episode and hit his head the CT head was obtained which is fortunately negative. EKG reassuring and there is no chest pain at this time and I feel this is consistent with ACS. Laboratory work-up did eventually returned positive for COVID-19. Given his sats a bit on the low side he was given some IV Decadron. Hospitalist consulted for further management given these multitude of risk factors and findings. Prior Medical Record and Triage/Nursing Notes reviewed by Me External chart reviewed by me including pre-hospitalization records Differentials: Vasovagal event, dehydration, infection, hypoglycemia, electrolyte abnormalities, cardiac sources, intracerebral event, pulmonary emb olism, seizure, toxicologic, neurologic, as well as other pathologies. Vital Signs: reviewed and remarkable for hypertensive low-grade fever Interventions: Normal saline bolus 2 L IV, Tylenol p.o., Zosyn IV, Decadron 10 mg IV Labs:Reviewed and remarkable for positive COVID, new hyponatremia, all other labs reviewed by me Imaging:Chest x-ray as per my interpretation. Moderate increase in infiltrate in the right lower lobe compared to previous chest x-ray. No significant effusion or pneumothorax appreciated. EKG:As per my interpretation. Indication syncope. Normal sinus rhythm at 77 bpm QTc of 470. There is no ectopy nor ischemia. When compared to EKG of March 30, 2023 there is no significant change. Cardiac/Tele Monitoring: Cardiac Monitoring: An Order was placed for continuous cardiac monitoring. The monitor shows a rate of 70 with a normal sinus rhythm. Consults:Dr Lewis Hull hospitalist Plan: Disposition:Hospitalization. Condition: Good History of Present Illness:68-year-old male arrives for evaluation of near sy ncope. Patient states that he was going to the bathroom and got lightheaded headed and almost passed out. He fell to his knees and hit his head. Denies loss of consciousness. States he feels very tired and fatigued. Denies any nausea, headache, neck pain, chest pain, shortness of breath but does state that he is had a cough for quite some time now. Denies any abdominal pain or back pain. Has not had any measured fevers at home. No leg swelling or rashes. No medications prior to arrival. He does take ibuprofen at least 3 times a day for chronic pains. Past History:Parkinson's with delirium, anxiety, mood disorder, previous rhabdo, GERD Home Medications:See Below Allergies:Oxycodone, sertraline Vitals:Blood Pressure: 92/64, Pulse 92, RR 20, T 37.8C, O2 95% on RA Physical Exam: GENERAL: Patient is tired appearing and in minimal distress. HEAD: Hematoma with abrasion anterior frontal scalp NECK: No masses appreciated, nomeningismus, trachea is midline. RESPIRATORY: Diffuse crackles throughout the right lung field very faint expiratory wheeze noted CARDIOVASCULAR: Regular rate and rhythm.No murmurs, rubs, gallops appreciated. GASTROINTESTINAL: Abdomen soft, non-tender, no peritonitis.Bowel sounds positive.No masses appreciated. EXTREMITIES: Normal motion all extremities, no cyanosis, no edema. NEUROLOGIC: Alert and oriented, no focal deficit appreciate SKIN: No rash, no jaundice, no diaphoresis. PSYCH: Appropriate GCS: 15 ED Course: Times/Reassessments: Patient is feeling much better after some IV fluids he denies any current complaints and is agreeable to hospitalization Jeff Guadarrama MD Past Med/Surg History Medical History Anxiety and depression Encounter for pre-operative examination GERD (gastroesophageal reflux disease) History of kidney stones Hodgkins disease (05/10/10) "Classic Hodgkin's disease, nodular sclerosing type II Status post bronchoscopy and mediastinal endoscopy with biopsy status post completion of 4 cycles of ABVD Status post completion of radiation therapy 07/05/2010 received 3600 cGy " IBS (irritable bowel syndrome) Mood disorder OCD (obsessive compulsive disorder) Osteoarthritis Parkinson's disease Tardive dyskinesia Surgical History History of cholecystectomy History of colonoscopy History of hernia repair History of left knee surgery History of vascular access device hx port for chemo. has been removed History of wisdom tooth extraction Family History Other Cancer Heart disease Stroke Social History Smoking Status: Former smoker Second Hand Exposure: No; Do You Dip or Chew Tobacco: No; Hx Alcohol Use: Yes Alcohol type: hard liquor Hx Substance Use: No Preferred Language: Malian Communication Ability: Impaired Smt Machine Operator Required: No Beliefs That Will Affect Care: None marital status: Single Current Living Situation: Family Current Living Situation Comment: Lives with sister and father Feels Safe at Home: Yes Assistive Devices: Glasses and Walker Allergies Allergies Allergy/AdvReac Type Severity Reaction Status Date / Time pollen extracts Allergy Intermediate SNEEZING/CO Verified 03/30/23 15:43 NGESTION ragweed pollen Allergy Mild Sneezing Verified 12/13/22 18:06 oxycodone AdvReac Intermediate COLD Verified 03/30/23 15:43 SWEATS/NAUSEA/VOMITING sertraline AdvReac Intermediate NAUSEA/VOMI Verified 03/30/23 15:43 TING Home Meds Home Medications Medication Instructions Recorded Confirmed carbidopa 25 mg-levodopa 100 mg 2 tab PO TID 07/01/21 03/30/23 tablet ipratropium bromide 21 mcg (0.03 2 spray intranasal QID PRN 04/24/22 03/30/23 %) nasal spray rhinitis/runny nose benztropine 0.5 mg tablet 0.5 mg PO AMHS 12/13/22 03/30/23 polyethylene glycol 3350 17 17 g PO .1-2 TIMES DAILY PRN 12/13/22 03/30/23 gram/dose oral powder (Miralax) Constipation clonazepam 0.5 mg tablet See Rx Instructions .Route .COMPLEX 03/30/23 03/30/23 fluoxetine 20 mg capsule 40 mg PO QAM 03/30/23 03/30/23 ibuprofen 800 mg tablet 800 mg PO TID 03/30/23 03/30/23 pantoprazole 40 mg tablet,delayed 40 mg PO QAM 03/30/23 03/30/23 release quetiapine 100 mg tablet 150 mg PO HS 03/30/23 03/30/23 trazodone 100 mg tablet 100 mg PO HS 03/30/23 03/30/23 Results & Data (ED) Vital Signs Vital Signs - 24 hr 05/04/23 01:26 05/04/23 01:35 05/04/23 02:43 Temperature 37.8 C H Temperature Source Oral Pulse Rate 92 H Pulse Rate [Finger] 72 Pulse Rhythm Regular Pulse Rhythm [Finger] Regular Pulse Strength Normal Pulse Strength [Finger] Normal Respiratory Rate 20 20 Respiratory Effort / Characteristics Non-Labored Spontaneous Non-Labored Spontaneous Respiratory Depth Normal Normal Blood Pressure 92/64 L Blood Pressure [Right Arm] 109/65 Blood Pressure Mean 73 Blood Pressure Mean [Right Arm] 79 Blood Pressure Position Sitting Blood Pressure Position [Right Arm] Pulse Oximetry 95 95 95 Oxygen Delivery Method Room Air Room Air Room Air Sepsis Recent Fever Within 48 Hours Yes Sepsis New/Unexplained Change in Mental Status N/A Sepsis Action Taken by Nursing No Action Required 05/04/23 03:36 Temperature 36.8 C Temperature Source Oral Pulse Rate Pulse Rate [Finger] 73 Pulse Rhythm Pulse Rhythm [Finger] Pulse Strength Pulse Strength [Finger] Respiratory Rate 16 Respiratory Effort / Characteristics Non-Labored Spontaneous Respiratory Depth Normal Blood Pressure Blood Pressure [Right Arm] 104/61 Blood Pressure Mean Blood Pressure Mean [Right Arm] 75 Blood Pressure Position Blood Pressure Position [Right Arm] Lying Pulse Oximetry 94 Oxygen Delivery Method Room Air Sepsis Recent Fever Within 48 Hours Sepsis New/Unexplained Change in Mental Status Sepsis Action Taken by Nursing Laboratory Data 05/04/23 01:25 05/04/23 01:25 Lab Results 05/04/23 05/04/23 05/04/23 Range/Units 01:25 01:25 01:25 WBC 12.73 H (4.8-10.8) K/ul RBC 3.66 L (4.70-6.10) M/uL Hgb 10.5 L (14.0-18.0) g/dl Hct 30.6 L (42.0-52.0) % MCV 83.6 (80.0-100.0) fL MCH 28.7 (25.0-34.0) pg MCHC 34.3 (32.0-36.0) g/dL RDW Std Deviation 45.0 (36.4-46.3) fL RDW Coeff of Elizabeth 14.7 H (11.5-14.5) % Plt Count 185 (130-400) K/uL MPV 11.1 (9.4-12.4) fL Immature Gran % (Auto) 0.4 % Neut % (Auto) 83.5 % Lymph % (Auto) 6.7 % [place] % (Auto) 7.9 % Eos % (Auto) 1.3 % Baso % (Auto) 0.2 % Neut # (Auto) 10.63 H (1.40-6.50) K/uL Lymph # (Auto) 0.85 L (1.20-3.40) K/uL [place] # (Auto) 1.01 H (0.11-0.59) K/uL Eos # (Auto) 0.17 (0.00-0.50) K/uL Baso # (Auto) 0.02 (0.00-0.20) K/uL Immature Gran # (Auto) 0.05 (0.01-0.20) K/uL PT Cancelled INR Cancelled APTT Cancelled PTT Ratio Cancelled Sodium 126 L (136-145) mmol/L Potassium 3.9 (3.5-5.1) mmol/L Chloride 99 (98-107) mmol/L Carbon Dioxide 19 L (21-32) mmol/L Anion Gap 8 (3-11) BUN 18 (6-23) mg/dl Creatinine 0.92 (0.6-1.4) mg/dl Est Cr Clr Drug Dosing 86.3 ml/min Est GFR ( Amer) 98.7 ml/min Est GFR (Non-Af Amer) 85.2 ml/min BUN/Creatinine Ratio 19.6 (10-20) Glucose 110 H (70-99(Fasting)) mg/dl Lactate (0.4-2.0) mmol/L Calcium 8.1 L (8.6-10.3) mg/dl Total Bilirubin 0.8 (0.2-1.0) mg/dl AST 21 (13-39) U/L ALT 5 L (7-52) U/L Alkaline Phosphatase 72 (34-104) U/L Total Creatine Kinase 131 (30-223) U/L Troponin I High Sens 5.8 (0-20) pg/ml Total Protein 5.9 L (6.0-8.3) gm/dl Albumin 3.6 (3.4-5.0) gm/dl Globulin 2.3 L (2.5-4.0) gm/dl Albumin/Globulin Ratio 1.6 (0.9-2) Procalcitonin Urine Color Urine Appearance (Clear) Urine pH (4.5-7.5) Ur Specific Roberts (1.000-1.030) Urine Protein (Negative) Urine Glucose (UA) (Negative) Urine Ketones (Negative) Urine Blood (Negative) Urine Nitrite (Negative) Urine Bilirubin (Negative) Urine Urobilinogen (Negative) Ur Leukocyte Esterase (Negative) SARS-CoV-2 (PCR) (Negative) Influenza Type A (PCR) (Neg) Influenza Type B (PCR) (Neg) RSV (RT-PCR) (Neg) 05/04/23 05/04/23 05/04/23 Range/Units 01:25 02:15 02:18 WBC (4.8-10.8) K/ul RBC (4.70-6.10) M/uL Hgb (14.0-18.0) g/dl Hct (42.0-52.0) % MCV (80.0-100.0) fL MCH (25.0-34.0) pg MCHC (32.0-36.0) g/dL RDW Std Deviation (36.4-46.3) fL RDW Coeff of Elizabeth (11.5-14.5) % Plt Count (130-400) K/uL MPV (9.4-12.4) fL Immature Gran % (Auto) % Neut % (Auto) % Lymph % (Auto) % [place] % (Auto) % Eos % (Auto) % Baso % (Auto) % Neut # (Auto) (1.40-6.50) K/uL Lymph # (Auto) (1.20-3.40) K/uL [place] # (Auto) (0.11-0.59) K/uL Eos # (Auto) (0.00-0.50) K/uL Baso # (Auto) (0.00-0.20) K/uL Immature Gran # (Auto) (0.01-0.20) K/uL PT INR APTT PTT Ratio Sodium (136-145) mmol/L Potassium (3.5-5.1) mmol/L Chloride (98-107) mmol/L Carbon Dioxide (21-32) mmol/L Anion Gap (3-11) BUN (6-23) mg/dl Creatinine (0.6-1.4) mg/dl Est Cr Clr Drug Dosing ml/min Est GFR ( Amer) ml/min Est GFR (Non-Af Amer) ml/min BUN/Creatinine Ratio (10-20) Glucose (70-99(Fasting)) mg/dl Lactate 0.7 (0.4-2.0) mmol/L Calcium (8.6-10.3) mg/dl Total Bilirubin (0.2-1.0) mg/dl AST (13-39) U/L ALT (7-52) U/L Alkaline Phosphatase (34-104) U/L Total Creatine Kinase (30-223) U/L Troponin I High Sens (0-20) pg/ml Total Protein (6.0-8.3) gm/dl Albumin (3.4-5.0) gm/dl Globulin (2.5-4.0) gm/dl Albumin/Globulin Ratio (0.9-2) Procalcitonin Cancelled Urine Color Urine Appearance (Clear) Urine pH (4.5-7.5) Ur Specific Roberts (1.000-1.030) Urine Protein (Negative) Urine Glucose (UA) (Negative) Urine Ketones (Negative) Urine Blood (Negative) Urine Nitrite (Negative) Urine Bilirubin (Negative) Urine Urobilinogen (Negative) Ur Leukocyte Esterase (Negative) SARS-CoV-2 (PCR) POSITIVE A* (Negative) Influenza Type A (PCR) Negative (Neg) Influenza Type B (PCR) Negative (Neg) RSV (RT-PCR) Negative (Neg) 05/04/23 05/04/23 05/04/23 Range/Units 02:46 02:46 03:00 WBC (4.8-10.8) K/ul RBC (4.70-6.10) M/uL Hgb (14.0-18.0) g/dl Hct (42.0-52.0) % MCV (80.0-100.0) fL MCH (25.0-34.0) pg MCHC (32.0-36.0) g/dL RDW Std Deviation (36.4-46.3) fL RDW Coeff of Elizabeth (11.5-14.5) % Plt Count (130-400) K/uL MPV (9.4-12.4) fL Immature Gran % (Auto) % Neut % (Auto) % Lymph % (Auto) % [place] % (Auto) % Eos % (Auto) % Baso % (Auto) % Neut # (Auto) (1.40-6.50) K/uL Lymph # (Auto) (1.20-3.40) K/uL [place] # (Auto) (0.11-0.59) K/uL Eos # (Auto) (0.00-0.50) K/uL Baso # (Auto) (0.00-0.20) K/uL Immature Gran # (Auto) (0.01-0.20) K/uL PT 11.9 INR 1.1 APTT 28.3 PTT Ratio 1.0 Sodium (136-145) mmol/L Potassium (3.5-5.1) mmol/L Chloride (98-107) mmol/L Carbon Dioxide (21-32) mmol/L Anion Gap (3-11) BUN (6-23) mg/dl Creatinine (0.6-1.4) mg/dl Est Cr Clr Drug Dosing ml/min Est GFR ( Amer) ml/min Est GFR (Non-Af Amer) ml/min BUN/Creatinine Ratio (10-20) Glucose (70-99(Fasting)) mg/dl Lactate (0.4-2.0) mmol/L Calcium (8.6-10.3) mg/dl Total Bilirubin (0.2-1.0) mg/dl AST (13-39) U/L ALT (7-52) U/L Alkaline Phosphatase (34-104) U/L Total Creatine Kinase (30-223) U/L Troponin I High Sens (0-20) pg/ml Total Protein (6.0-8.3) gm/dl Albumin (3.4-5.0) gm/dl Globulin (2.5-4.0) gm/dl Albumin/Globulin Ratio (0.9-2) Procalcitonin 0.12 Urine Color Yellow Urine Appearance Clear (Clear) Urine pH 6.0 (4.5-7.5) Ur Specific Roberts 1.008 (1.000-1.030) Urine Protein Negative (Negative) Urine Glucose (UA) Negative (Negative) Urine Ketones Negative (Negative) Urine Blood Negative (Negative) Urine Nitrite Negative (Negative) Urine Bilirubin Negative (Negative) Urine Urobilinogen Negative (Negative) Ur Leukocyte Esterase Negative (Negative) SARS-CoV-2 (PCR) (Negative) Influenza Type A (PCR) (Neg) Influenza Type B (PCR) (Neg) RSV (RT-PCR) (Neg) Administered Medications Discontinued Medications Acetaminophen (Acetaminophen 500 Mg Tab) 1,000 mg PO NOW STA Stop: 05/04/23 02:05 Last Admin: 05/04/23 02:42 Dose: 1,000 mg Documented By: SONG Dexamethasone Sodium Phosphate (DexamethasonePf 10 Mg/Ml Vial) 10 mg IV NOW ONE Stop: 05/04/23 04:00 Last Admin: 05/04/23 04:14 Dose: 10 mg Documented By: DAKOTA Sodium Chloride (Nss 1000ml) 1,000 mls @ 999 mls/hr IV .Q1H1M ONE Stop: 05/04/23 03:04 Last Infusion: 05/04/23 03:36 Dose: 0 mls/hr Documented By: Admin: 05/04/23 02:42 Dose: 999 mls/hr Documented By: SONG Piperacillin Sod/Tazobactam Sod (Zosyn) 4.5 gm in 120 mls @ 240 mls/hr IV NOW ONE Stop: 05/04/23 03:42 Last Infusion: 05/04/23 04:04 Dose: 0 mls/hr Documented By: Admin: 05/04/23 03:33 Dose: 240 mls/hr Documented By: DAKOTA Imaging Data Radiologist's Impression: Cervical Spine CT 05/04/23 02:07 Exam(s): CT C SPINE EXAM: CT Cervical Spine Without Intravenous Contrast CLINICAL HISTORY: Trauma. TECHNIQUE: Axial computed tomography images of the cervical spine without intravenous contrast. Automated exposure control was utilized for the study. A dose lowering technique was utilized adhering to the principles of ALARA. COMPARISON: CT C-spine 03/30/2023 FINDINGS: Vertebrae: Unremarkable. No fracture or malalignment. Discs/spinal canal/neural foramina: There are degenerative changes of the spine. No spinal canal stenosis. Soft tissues: Unremarkable. No prevertebral soft tissue swelling. IMPRESSION: No acute finding of the cervical spine. Electronically signed by: Delmy Polk MD 05/04/23 03:[address] 05/04/23 02:07 Exam(s): CT HEAD Without Contrast EXAM: CT Head Without Intravenous Contrast CLINICAL HISTORY: Injury. TECHNIQUE: Axial computed tomography images of the head/brain without intravenous contrast. Automated exposure control was utilized for the study. A dose lowering technique was utilized adhering to the principles of ALARA. COMPARISON: CT head 03/30/2023 FINDINGS: Brain: No intracranial hemorrhage, mass-effect or midline shift. No abnormal extra axial fluid. No evidence of acute infarct. Mild periventricular white matter hypodensities are most consistent with chronic microangiopathy. Ventricles: Unremarkable. No ventriculomegaly. Bones/joints: Unremarkable. No acute fracture. Soft tissues: Unremarkable. Sinuses: Unremarkable as visualized. No acute sinusitis. Mastoid air cells: Unremarkable as visualized. No mastoid effusion. IMPRESSION: No acute intracranial finding. Electronically signed by: Delmy Polk MD 05/04/23 03:53 AM Discharge Plan Visit Data Chief Complaint: Syncope (Near Syncope) Stated Complaint: NEAR SYNCOPAL EPISODE/LEG INJURIES ED Provider: Jeff Guadarrama Discharge Problem: COVID-19, Syncope, Closed head injury, Acute hyponatremia, Acute dehydration, Acute hypotension Forms Stand Alone Forms: [employer] Prescriptions Prescriptions: No Action carbidopa-levodopa 25-100 mg Tablet 2 tab PO TID Rx Instructions: morning,noon and bedtime ipratropium bromide 21 mcg (0.03 %) spray,non-aerosol 2 spray INTRANASAL QID PRN (Reason: rhinitis/runny nose) benztropine 0.5 mg tablet 0.5 mg PO AMHS polyethylene glycol 3350 [Miralax] 17 gram/dose Powder 17 g PO .1-2 TIMES DAILY PRN (Reason: Constipation) ibuprofen 800 mg tablet 800 mg PO TID Rx Instructions: take morning,noon and before bedtime until gone trazodone 100 mg tablet 100 mg PO HS fluoxetine 20 mg capsule 40 mg PO QAM clonazepam 0.5 mg tablet See Rx Instructions .ROUTE .COMPLEX Rx Instructions: take 1/2 tablet in the morning and 1 tablet orally every evening quetiapine 100 mg tablet 150 mg PO HS pantoprazole 40 mg tablet,delayed release (DR/EC) 40 mg PO QAM Referrals Referrals: Nikhil Persaud DO [Primary Care Provider] -
[2023-05-04 02:14] LABS: Albumin Globulin Ratio 1.6 (0.9-2); Albumin Level 3.6 gm/dl (3.4-5.0); BUN Creatinine Ratio 19.6 (10-20); Bilirubin,Total 0.8 mg/dl (0.2-1.0); Calcium 8.1 mg/dl (8.6-10.3); Creatinine Clr Calc Pharmacy 86.3 ml/min; Est GFR (African American) 98.7 ml/min; Est GFR (Non-African American) 85.2 ml/min; Globulin 2.3 gm/dl (2.5-4.0); Potassium 3.9 mmol/L (3.5-5.1); Total Protein 5.9 gm/dl (6.0-8.3)
[2023-05-04 02:20] LABS: Troponin I High Sensitivity 5.8 pg/ml (0-20)
[2023-05-04] MEDS ORDERED: PIPERACILLIN/TAZOBACTAM 4.5 GM/120 ML BAG IV ONE (03:13)
[2023-05-04 03:27] LABS: Appearance Urine Clear (Clear); Bilirubin Urine Negative (Negative); Blood Urine Negative (Negative); Color Urine Yellow; Glucose Urine UA Negative (Negative); Ketones Urine Negative (Negative); Leukocyte Esterase Urine Negative (Negative); Nitrite Urine Negative (Negative); Protein Urine Negative (Negative); Specific Gravity Urine 1.008 (1.000-1.030); Urobilinogen Urine Negative (Negative)
[2023-05-04 03:41] LABS: INR 1.1 (0.9-1.1); Partial Thromboplastin Time 28.3 Seconds (21.0-31.0); Prothrombin Time 11.9 Seconds (9.0-12.0)
[2023-05-04 03:47] LABS: Influenza A virus by PCR Negative (Neg); Influenza B virus by PCR Negative (Neg); RSV by PCR Negative (Neg)
--- NOTE | 2023-05-04 03:54 | CT Scan Report ---
Exam(s): CT HEAD Without Contrast EXAM: CT Head Without Intravenous Contrast CLINICAL HISTORY: Injury. TECHNIQUE: Axial computed tomography images of the head/brain without intravenous contrast. Automated exposure control was utilized for the study. A dose lowering technique was utilized adhering to the principles of ALARA. COMPARISON: CT head 03/30/2023 FINDINGS: Brain: No intracranial hemorrhage, mass-effect or midline shift. No abnormal extra axial fluid. No evidence of acute infarct. Mild periventricular white matter hypodensities are most consistent with chronic microangiopathy. Ventricles: Unremarkable. No ventriculomegaly. Bones/joints: Unremarkable. No acute fracture. Soft tissues: Unremarkable. Sinuses: Unremarkable as visualized. No acute sinusitis. Mastoid air cells: Unremarkable as visualized. No mastoid effusion. IMPRESSION: No acute intracranial finding. Electronically signed by: Delmy Polk MD 05/04/23 03:53 AM
--- NOTE | 2023-05-04 03:55 | CT Scan Report ---
Exam(s): CT C SPINE EXAM: CT Cervical Spine Without Intravenous Contrast CLINICAL HISTORY: Trauma. TECHNIQUE: Axial computed tomography images of the cervical spine without intravenous contrast. Automated exposure control was utilized for the study. A dose lowering technique was utilized adhering to the principles of ALARA. COMPARISON: CT C-spine 03/30/2023 FINDINGS: Vertebrae: Unremarkable. No fracture or malalignment. Discs/spinal canal/neural foramina: There are degenerative changes of the spine. No spinal canal stenosis. Soft tissues: Unremarkable. No prevertebral soft tissue swelling. IMPRESSION: No acute finding of the cervical spine. Electronically signed by: Delmy Polk MD 05/04/23 03:55 AM
[2023-05-04 03:58] LABS: SARS CoV2 RNA(COVID-19) Ceph POSITIVE (Negative)
[2023-05-04] MEDS ORDERED: dexAMETHasone**PF** 10 MG/ML VIAL IV ONE (03:59)
--- NOTE | 2023-05-04 06:12 | History & Physical Report ---
Date of Service May 04, 2023 Assessment & Plan (1) Acute hyponatremia: Plan: 67-year-old male with PMH of mood disorder, Parkinson's disease, history of Hodgkin's lymphoma, alcohol dependence in remission who presents with fall and found to have hyponatremia and pneumonia. Hyponatremia Sodium 126 Recently had MELANIE Got fluids in the ER Placed on gentle fluids Monitor BMP every 6 hours Follow urine osmolality, serum osmolality and urine sodium levels Nephrology consulted Pneumonia Right lower lobe on chest x-ray Recently had MELANIE Received Zosyn in the ER We will continue Zosyn and Doxy for now Hypotension Blood pressure low on presentation improved with fluids Getting fluids we will monitor COVID His COVID was positive at home on April 12 S/p molnupiravir. Says vaccinated and boosted 3 times Saturating okay on room air COVID precautions Falls Most likely secondary to weakness from recent COVID Hypotension We will check orthostatics Telemetry monitoring Echo for possible near syncope history of falls PT OT when stable Parkinson's Continue home medications History of mood disorder/agitation/delirium Continue home medications Follows with psychiatry DVT prophylaxis Lovenox Disposition telemetry floor PT OT for discharge Full code History of Present Illness Chief Complaint: Fall Primary Care Provider: Nikhil Persaud DO 67-year-old male with PMH of mood disorder, Parkinson's disease, history of Hodgkin's lymphoma, alcohol dependence in remission who presents with fall. Patient has history of falls in the past. Patient lives with his sister and father. Says he was walking on the sidewalk when he felt weak and fell down and hit his head. Does not know whether he lost consciousness or not. Did not feel dizzy before falling down. Denies any chest pain or palpitations. Patient was diagnosed with COVID on April 12 at that time he had lot of cough. Cough is much improved now. As per epic he was treated with molnupiravir. Denies any headache. No runny nose. No chest pain or shortness of breath currently. No nausea. No abdominal pain. Normal bowel and bladder movements. Patient currently does not have dentures. Speech is somewhat difficult to understand currently. Initially when he came into the ER as he was hypotensive. With fluids blood pressure improved. Saturating okay on room air. Currently resting comfortably and hemodynamic stable. Past medical history as mentioned above Past surgical history bronchoscopy, colonoscopy, EGD, mediastinotomy, a port, removal of a port, laparoscopic cholecystectomy, repair of inguinal hernia, repair of wrist bone fracture, repair of tibial shaft fracture, Social history quit smoking 1978. Currently no alcohol. No drug use. Family history Sister had non-Hodgkin's lymphoma. Maternal grandmother had stomach cancer. Maternal grandmother diabetes. Maternal grandmother had stroke. Paternal grandfather had heart disorder and stroke Allergies Allergy/AdvReac Type Severity Reaction Status Date / Time pollen extracts Allergy Intermediate SNEEZING/CO Verified 03/30/23 15:43 NGESTION ragweed pollen Allergy Mild Sneezing Verified 12/13/22 18:06 oxycodone AdvReac Intermediate COLD Verified 03/30/23 15:43 SWEATS/NAUSEA/VOMITING sertraline AdvReac Intermediate NAUSEA/VOMI Verified 03/30/23 15:43 TING Home Medications Medication Instructions Recorded Confirmed Type benztropine 0.5 mg tablet 0.5 mg PO BID 05/04/23 05/04/23 History carbidopa 25 mg-levodopa 100 mg 2 tab PO UD 05/04/23 05/04/23 History tablet clonazepam 0.5 mg tablet 0.25 mg PO BID 05/04/23 05/04/23 History fluoxetine 40 mg capsule 40 mg PO DAILY 05/04/23 05/04/23 History quetiapine 100 mg tablet 150 mg PO HS 05/04/23 05/04/23 History trazodone 100 mg tablet 150 mg PO HS 05/04/23 05/04/23 History Past Med/Surg History Medical History Anxiety and depression Encounter for pre-operative examination GERD (gastroesophageal reflux disease) History of kidney stones Hodgkins disease (05/10/10) "Classic Hodgkin's disease, nodular sclerosing type II Status post bronchoscopy and mediastinal endoscopy with biopsy status post completion of 4 cycles of ABVD Status post completion of radiation therapy 07/05/2010 received 3600 cGy " IBS (irritable bowel syndrome) Mood disorder OCD (obsessive compulsive disorder) Osteoarthritis Parkinson's disease Tardive dyskinesia Surgical History History of cholecystectomy History of colonoscopy History of hernia repair History of left knee surgery History of vascular access device hx port for chemo. has been removed History of wisdom tooth extraction Family History Other Cancer Heart disease Stroke Social History Smoking Status: Never smoker Second Hand Exposure: No; Do You Dip or Chew Tobacco: No; Hx Alcohol Use: Yes Alcohol type: hard liquor Hx Substance Use: No Preferred Language: Palauan Communication Ability: Effective Master Lay Out Specialist Required: No Beliefs That Will Affect Care: None marital status: Single Current Living Situation: Family Current Living Situation Comment: Lives with sister and father Feels Safe at Home: Yes Safety Concerns: Feels Safe At This Time Assistive Devices: Denture - Upper, Denture - Lower and Walker Review of Systems Review of Systems: All systems reviewed & are unremarkable except as noted in HPI & below Physical Exam Physical Exam: General- Not in distress Head- bruise seen on right frontal region. Eyes- PERRL ENT- oropharynx clear Neck- supple, no JVD, Lungs- clear to auscultation no wheezing or crackles. Heart- regular rhythm; no murmur, no gallop. Abdomen- normal bowel sounds, soft, nontender, no distension. Extremities- no pretibial edema, no erythema seen. Neuro- alert, oriented x 3; PERRL, no facial palsy; no dysarthria;obeys commands, moves extremities. Skin- warm & dry Results & Data Results & Data Vital Signs (Past 12 Hours) Vital Signs Temp Pulse Pulse Resp BP BP Pulse Ox 05/04/23 05:01 68 05/04/23 05:14 68 16 103/59 L 94 05/04/23 01:20 75 05/04/23 03:36 36.8 C 73 16 104/61 94 05/04/23 02:43 72 20 109/65 95 05/04/23 01:35 95 05/04/23 01:26 37.8 C H 92 H 20 92/64 L 95 O2 Del Method 05/04/23 05:01 05/04/23 05:14 Room Air 05/04/23 01:20 05/04/23 03:36 Room Air 05/04/23 02:43 Room Air 05/04/23 01:35 Room Air 05/04/23 01:26 Room Air Diagnostic Findings Laboratory Results WBC 12.73 K/ul (4.8-10.8) H 05/04/23 01:25 RBC 3.66 M/uL (4.70-6.10) L 05/04/23 01:25 Hgb 10.5 g/dl (14.0-18.0) L 05/04/23 01:25 Hct 30.6 % (42.0-52.0) L 05/04/23 01:25 MCV 83.6 fL (80.0-100.0) 05/04/23 01:25 MCH 28.7 pg (25.0-34.0) 05/04/23 01:25 MCHC 34.3 g/dL (32.0-36.0) 05/04/23 01:25 RDW Std Deviation 45.0 fL (36.4-46.3) 05/04/23 01:25 RDW Coeff of Elizabeth 14.7 % (11.5-14.5) H 05/04/23 01:25 Plt Count 185 K/uL (130-400) 05/04/23 01:25 MPV 11.1 fL (9.4-12.4) 05/04/23 01:25 Immature Gran % (Auto) 0.4 % 05/04/23 01:25 Neut % (Auto) 83.5 % 05/04/23 01:25 Lymph % (Auto) 6.7 % 05/04/23 01:25 [place] % (Auto) 7.9 % 05/04/23 01:25 Eos % (Auto) 1.3 % 05/04/23 01:25 Baso % (Auto) 0.2 % 05/04/23 01:25 Neut # (Auto) 10.63 K/uL (1.40-6.50) H 05/04/23 01:25 Lymph # (Auto) 0.85 K/uL (1.20-3.40) L 05/04/23 01:25 [place] # (Auto) 1.01 K/uL (0.11-0.59) H 05/04/23 01:25 Eos # (Auto) 0.17 K/uL (0.00-0.50) 05/04/23 01:25 Baso # (Auto) 0.02 K/uL (0.00-0.20) 05/04/23 01:25 Immature Gran # (Auto) 0.05 K/uL (0.01-0.20) 05/04/23 01:25 PT 11.9 Seconds (9.0-12.0) 05/04/23 02:46 INR 1.1 (0.9-1.1) 05/04/23 02:46 APTT 28.3 Seconds (21.0-31.0) 05/04/23 02:46 PTT Ratio 1.0 05/04/23 02:46 Sodium 126 mmol/L (136-145) L 05/04/23 01:25 Potassium 3.9 mmol/L (3.5-5.1) 05/04/23 01:25 Chloride 99 mmol/L (98-107) 05/04/23 01:25 Carbon Dioxide 19 mmol/L (21-32) L 05/04/23 01:25 Anion Gap 8 (3-11) 05/04/23 01:25 BUN 18 mg/dl (6-23) 05/04/23 01:25 Creatinine 0.92 mg/dl (0.6-1.4) 05/04/23 01:25 Est Cr Clr Drug Dosing 86.3 ml/min 05/04/23 01:25 Est GFR ( Amer) 98.7 ml/min 05/04/23 01:25 Est GFR (Non-Af Amer) 85.2 ml/min 05/04/23 01:25 BUN/Creatinine Ratio 19.6 (10-20) 05/04/23 01:25 Glucose 110 mg/dl (70-99(Fasting)) H 05/04/23 01:25 Lactate 0.7 mmol/L (0.4-2.0) 05/04/23 02:18 Calcium 8.1 mg/dl (8.6-10.3) L 05/04/23 01:25 Total Bilirubin 0.8 mg/dl (0.2-1.0) 05/04/23 01:25 AST 21 U/L (13-39) 05/04/23 01:25 ALT 5 U/L (7-52) L 05/04/23 01:25 Alkaline Phosphatase 72 U/L (34-104) 05/04/23 01:25 Total Creatine Kinase 131 U/L (30-223) 05/04/23 01:25 Troponin I High Sens 5.8 pg/ml (0-20) 05/04/23 01:25 Total Protein 5.9 gm/dl (6.0-8.3) L 05/04/23 01:25 Albumin 3.6 gm/dl (3.4-5.0) 05/04/23 01:25 Globulin 2.3 gm/dl (2.5-4.0) L 05/04/23 01:25 Albumin/Globulin Ratio 1.6 (0.9-2) 05/04/23 01:25 Procalcitonin 0.12 ng/ml (0-0.5) 05/04/23 02:46 Urine Color Yellow 05/04/23 03:00 Urine Appearance Clear (Clear) 05/04/23 03:00 Urine pH 6.0 (4.5-7.5) 05/04/23 03:00 Ur Specific [place] 1.008 (1.000-1.030) 05/04/23 03:00 Urine Protein Negative (Negative) 05/04/23 03:00 Urine Glucose (UA) Negative (Negative) 05/04/23 03:00 Urine Ketones Negative (Negative) 05/04/23 03:00 Urine Blood Negative (Negative) 05/04/23 03:00 Urine Nitrite Negative (Negative) 05/04/23 03:00 Urine Bilirubin Negative (Negative) 05/04/23 03:00 Urine Urobilinogen Negative (Negative) 05/04/23 03:00 Ur Leukocyte Esterase Negative (Negative) 05/04/23 03:00 SARS-CoV-2 (PCR) POSITIVE (Negative) A* 05/04/23 02:15 Influenza Type A (PCR) Negative (Neg) 05/04/23 02:15 Influenza Type B (PCR) Negative (Neg) 05/04/23 02:15 RSV (RT-PCR) Negative (Neg) 05/04/23 02:[address] 05/04/23 02:07 Exam(s): CT C SPINE EXAM: CT Cervical Spine Without Intravenous Contrast CLINICAL HISTORY: Trauma. TECHNIQUE: Axial computed tomography images of the cervical spine without intravenous contrast. Automated exposure control was utilized for the study. A dose lowering technique was utilized adhering to the principles of ALARA. COMPARISON: CT C-spine 03/30/2023 FINDINGS: Vertebrae: Unremarkable. No fracture or malalignment. Discs/spinal canal/neural foramina: There are degenerative changes of the spine. No spinal canal stenosis. Soft tissues: Unremarkable. No prevertebral soft tissue swelling. IMPRESSION: No acute finding of the cervical spine. Electronically signed by: Delmy Polk MD 05/04/23 03:[address] 05/04/23 02:07 Exam(s): CT HEAD Without Contrast EXAM: CT Head Without Intravenous Contrast CLINICAL HISTORY: Injury. TECHNIQUE: Axial computed tomography images of the head/brain without intravenous contrast. Automated exposure control was utilized for the study. A dose lowering technique was utilized adhering to the principles of ALARA. COMPARISON: CT head 03/30/2023 FINDINGS: Brain: No intracranial hemorrhage, mass-effect or midline shift. No abnormal extra axial fluid. No evidence of acute infarct. Mild periventricular white matter hypodensities are most consistent with chronic microangiopathy. Ventricles: Unremarkable. No ventriculomegaly. Bones/joints: Unremarkable. No acute fracture. Soft tissues: Unremarkable. Sinuses: Unremarkable as visualized. No acute sinusitis. Mastoid air cells: Unremarkable as visualized. No mastoid effusion. IMPRESSION: No acute intracranial finding. Electronically signed by: Delmy Polk MD 05/04/23 03:53 AM Code Status & VTE Plan VTE Prophylaxis Plan VTE Prophylaxis will be ordered: Yes
[2023-05-04] MEDS ORDERED: POLYETHYLENE (MIRALAX) 17 GM PACK PO PRN (07:17)
[2023-05-04] MEDS ORDERED: SODIUM CHLORIDE 0.9% 1,000 ML IV SCH (07:17)
[2023-05-04] MEDS ORDERED: NITROGLYCERIN SL 0.4 MG/TAB TAB SL PRN (07:17)
--- NOTE | 2023-05-04 07:48 | XRay Report ---
XR chest 1V not portable HISTORY: Chest pain, nonspecific COMPARISON: Chest 03/30/2023. FINDINGS: No pneumothorax. No pleural effusions. The heart remains borderline enlarged. Volume loss w ith chronic interstitial thickening again noted within the right lung. Mild interstitial thickening w ithin the left lung base, unchanged. Small patchy density at the right midlung zone has slightly prog ressed. Prominence along the right mediastinal border corresponds the patient's known calcified anter ior mediastinal mass. No evidence for pulmonary edema. Degenerative changes within the left shoulder again noted. IMPRESSION: Chronic changes again noted within the right hemithorax with slight progression of a right midlung zo ne patchy density. This could represent a developing pneumonitis. ACT 112: Negative or not required by law. Electronically signed by: Steve Gutierrez M.D. 05/04/2023 7:47 AM
[2023-05-04 08:16] LABS: Hematocrit (blood only) 32.8 % (42.0-52.0); Hemoglobin 11.3 g/dl (14.0-18.0); Mean Corpuscular Hemoglobin 28.8 pg (25.0-34.0); Mean Corpuscular Hgb Conc 34.5 g/dL (32.0-36.0); Mean Corpuscular Volume 83.5 fL (80.0-100.0); Mean Platelet Volume 10.8 fL (9.4-12.4); Platelet Count 164 K/uL (130-400); RDW Coefficient of Variation 14.9 % (11.5-14.5); Red Blood Count 3.93 M/uL (4.70-6.10); White Blood Count 9.54 K/ul (4.8-10.8)
[2023-05-04 08:28] LABS: BUN Creatinine Ratio 15.3 (10-20); Calcium 8.6 mg/dl (8.6-10.3); Creatinine Clr Calc Pharmacy 93.5 ml/min; Est GFR (African American) 103.8 ml/min; Est GFR (Non-African American) 89.5 ml/min; Magnesium 2.1 mg/dl (1.7-2.4); Potassium 4.3 mmol/L (3.5-5.1)
[2023-05-04 08:34] LABS: Troponin I High Sensitivity 4.9 pg/ml (0-20)
[2023-05-04] MEDS: CARBIDOPA/LEVODOPA 25/100MG TAB PO SCH ×4 (08:40→20:22)
[2023-05-04] MEDS: ENOXAPARIN INJ 40 MG/0.4 ML SYR SQ SCH (08:41)
[2023-05-04] MEDS: DOXYCYCLINE HYCLATE 100 MG in DEXTROSE 5% 100 ML IV SCH ×2 (08:42→20:20)
[2023-05-04] MEDS: BENZTROPINE MESYLATE 0.5 MG TAB PO SCH ×2 (08:42→20:22)
[2023-05-04] MEDS: FLUoxetine HCL 20 MG CAP PO SCH (08:43)
[2023-05-04 08:57] LABS: Basophils # (auto) 0.01 K/uL (0.00-0.20); Basophils % (auto) 0.1 %; Eosinophils # (auto) 0.06 K/uL (0.00-0.50); Eosinophils % (auto) 0.6 %; Immature Granulocytes # (auto) 0.05 K/uL (0.01-0.20); Immature Granulocytes % (auto) 0.5 %; Lymphocytes # (auto) 0.44 K/uL (1.20-3.40); Lymphocytes % (auto) 4.6 %; Monocytes # (auto) 0.29 K/uL (0.11-0.59); Neutrophils # (auto) 8.69 K/uL (1.40-6.50); Neutrophils % (auto) 91.2 %; RBC Morphology Unremarkable
[2023-05-04] MEDS ORDERED: clonazePAM 0.25 MG TAB PO SCH (09:00)
[2023-05-04] MEDS: clonazePAM 0.5 MG TAB PO SCH ×2 (09:15→20:29)
[2023-05-04] MEDS: PIPERACILLIN/TAZOBACTAM 4.5 GM in DEXTROSE 5% 100 ML IV SCH ×2 (11:28→17:56)
--- NOTE | 2023-05-04 12:56 | Nephrology Consultation ---
Date of Consultation May 04, 2023 Assessment & Plan (1) Hyponatremia: correcting too quickly w/ 1L NS; certainly fluoxetine and seroquel can be a/w hyponatremia. and seroquel w/ falling/poor balance. admission labs most c/w polydipsia/low solute >correcting a bit faster than optimal > goal would be no more than 132 by tomorrow AM >ok w/ no FR for now >recheck bmp ordered 1600 > may need D5W -maintain eukalemia -agree w/ continuing seroquel and fluoxetine History of Present Illness Reason for Consultation: hyponatremia Requesting Physician: Dr Saucedo Attending Physician: Daisy García MD History of Present Illness 68 y/o M whom I'm asked to see for hyponatremia was admitted overnight for same (admission sodium 126 at 0130 today) and pneumonia after presenting with a fall. PMH includes mood disorder, Parkinson's disease, past Hodgkin's lymphoma, alcohol dependence in remission, frequent falls. Also w/ recent COVID 04/12 presenting primarily w/ cough, s/p molnupiravir and now resolved. no prior hx of hyponatremia in either [facility] or [facility] records which I reviewed. walking outside on paved surface when he abruptly fell w/o prior dizziness or chest pain/palpitations; pt states he knew he was about to fall and was awake immediately after trying to get up but was unable. he hit his R brown and his R forehead. He received a L of NS (in part d/t sbp 90s briefly). He was started on doxycycline and zosyn. his psych meds and sinemet were continued. Sodium at 0800 131 overall he feels improved slightly. No TALAMANTES or acute vision changes. no CP or sob; no n/v/d/c/abd pain. no new/worrisome oviding concerns. not thirsty now and denies decreased po intake recently but endorses 3L daily fluid intake routinely. Allergies Allergy/AdvReac Type Severity Reaction Status Date / Time pollen extracts Allergy Intermediate SNEEZING/CO Verified 03/30/23 15:43 NGESTION ragweed pollen Allergy Mild Sneezing Verified 12/13/22 18:06 oxycodone AdvReac Intermediate COLD Verified 03/30/23 15:43 SWEATS/NAUSEA/VOMITING sertraline AdvReac Intermediate NAUSEA/VOMI Verified 03/30/23 15:43 TING Home Medications Medication Instructions Recorded Confirmed Type benztropine 0.5 mg tablet 0.5 mg PO BID 05/04/23 05/04/23 History carbidopa 25 mg-levodopa 100 mg 2 tab PO UD 05/04/23 05/04/23 History tablet clonazepam 0.5 mg tablet 0.25 mg PO BID 05/04/23 05/04/23 History fluoxetine 40 mg capsule 40 mg PO DAILY 05/04/23 05/04/23 History quetiapine 100 mg tablet 150 mg PO HS 05/04/23 05/04/23 History trazodone 100 mg tablet 150 mg PO HS 05/04/23 05/04/23 History Patient History Medical History Anxiety and depression Encounter for pre-operative examination GERD (gastroesophageal reflux disease) History of kidney stones Hodgkins disease (05/10/10) "Classic Hodgkin's disease, nodular sclerosing type II Status post bronchoscopy and mediastinal endoscopy with biopsy status post completion of 4 cycles of ABVD Status post completion of radiation therapy 07/05/2010 received 3600 cGy " IBS (irritable bowel syndrome) Mood disorder OCD (obsessive compulsive disorder) Osteoarthritis Parkinson's disease Tardive dyskinesia Surgical History History of cholecystectomy History of colonoscopy History of hernia repair History of left knee surgery History of vascular access device hx port for chemo. has been removed History of wisdom tooth extraction Family History Other Cancer Heart disease Stroke Social History Smoking Status: Never smoker Second Hand Exposure: No; Do You Dip or Chew Tobacco: No; Hx Alcohol Use: Yes Alcohol type: hard liquor Hx Substance Use: No Preferred Language: Vietnamese Communication Ability: Effective Computer Science Intern Required: No Beliefs That Will Affect Care: None marital status: Single Current Living Situation: Family Current Living Situation Comment: Lives with sister and father Feels Safe at Home: Yes Safety Concerns: Feels Safe At This Time Assistive Devices: Denture - Upper, Denture - Lower and Walker Review of Systems Review of Systems: All systems reviewed & are unremarkable except as noted in HPI & below Physical Exam Constitutional: well developed, well nourished, + physical limitations, + frail appearing and cooperative; no acute distress Eyes: EOM intact bilaterally ENMT: Ears: no external ear abnormality Nose: no external nose abnormality Mouth: + dry oral mucous membranes Neck: no nuchal rigidity Respiratory: normal respiratory effort Auscultation: + diminished lung sounds (leonela R side) Cardiovascular: RRR, no murmur, no edema Gastrointestinal (Abdomen): Inspection/Auscultation: normal bowel sounds Pe rcussion/Palpation: abdomen soft; abdomen nontender Musculoskeletal: Extremities: strength 5/5 throughout Skin: no rashes, warm and dry Neurologic: [place], fluent speech, significant resting tremor in BL upper extremities and jaw; + tongue rolling Psychiatric: Orientation: alert and oriented x 3 Results & Data Vital Signs (Past 12 Hours) Vital Signs Temp Pulse Pulse Resp BP BP Pulse Ox 05/04/23 12:11 84 18 123/69 97 05/04/23 11:19 05/04/23 11:19 75 21 92/61 L 98 05/04/23 07:41 36.8 C 61 21 113/59 L 94 05/04/23 06:17 62 16 117/73 94 05/04/23 05:01 68 05/04/23 05:14 68 16 103/59 L 94 05/04/23 01:20 75 05/04/23 03:36 36.8 C 73 16 104/61 94 05/04/23 02:43 72 20 109/65 95 05/04/23 01:35 95 05/04/23 01:26 37.8 C H 92 H 20 92/64 L 95 Pulse Ox O2 Del Method O2 Del Method 05/04/23 12:11 Room Air 05/04/23 11:19 95 Room Air 05/04/23 11:19 Room Air 05/04/23 07:41 Room Air 05/04/23 06:17 Room Air 05/04/23 05:01 05/04/23 05:14 Room Air 05/04/23 01:20 05/04/23 03:36 Room Air 05/04/23 02:43 Room Air 05/04/23 01:35 Room Air 09/04/23 01:26 Room Air Laboratory Results 05/04/23 07:53 05/04/23 07:53 osm serum 282 u osm 162; Todd 20 UA bland; sg 1008 Diagnostic Findings head and c spine CT non con w/o acute ff CXR FINDINGS: No pneumothorax. No pleural effusions. The heart remains borderline enlarged. Volume loss with chronic interstitial thickening again noted within the right lung. Mild interstitial thickening within the left lung base, unchanged. Small patchy density at the right midlung zone has slightly progressed. Prominence along the right mediastinal border corresponds the patient's known calcified anterior mediastinal mass. No evidence for pulmonary edema. Degenerative changes within the left shoulder again noted. IMPRESSION: Chronic changes again noted within the right hemithorax with slight progression of a right midlung zone patchy density. This could represent a developing pneumonitis.
[2023-05-04 16:48] LABS: BUN Creatinine Ratio 15.8 (10-20); Creatinine Clr Calc Pharmacy 83.6 ml/min; Est GFR (African American) 94.9 ml/min; Est GFR (Non-African American) 81.9 ml/min; Potassium 4.4 mmol/L (3.5-5.1)
[2023-05-04] MEDS: QUEtiapine FUMARATE 100 MG TABLET PO SCH (20:22)
[2023-05-04] MEDS: traZODone HCL 50 MG TAB PO SCH (20:24)
--- NOTE | 2023-05-04 23:35 | Electrocardiogram Report ---
Test Reason : Blood Pressure : / mmHG Vent. Rate : 077 BPM Atrial Rate : 077 BPM P-R Int : 168 ms QRS Dur : 094 ms QT Int : 416 ms P-R-T Axes : 047 048 058 degrees QTc Int : 470 ms Normal sinus rhythm Possible Lateral infarct (cited on or before 13-DEC-2022) Abnormal ECG When compared with ECG of 30-MAR-2023 13:46, No significant change Confirmed by Etienne Panda ([id number]) on 05/04/2023 11:34:41 PM Referred By: Nikhil Persaud Confirmed By:Etienne Panda
[2023-05-05] MEDS: PIPERACILLIN/TAZOBACTAM 4.5 GM in DEXTROSE 5% 100 ML IV SCH ×3 (03:40→17:38)
[2023-05-05] MEDS: ENOXAPARIN INJ 40 MG/0.4 ML SYR SQ SCH (07:18)
[2023-05-05] MEDS: DOXYCYCLINE HYCLATE 100 MG in DEXTROSE 5% 100 ML IV SCH ×2 (07:19→20:40)
[2023-05-05] MEDS: CARBIDOPA/LEVODOPA 25/100MG TAB PO SCH ×3 (07:19→20:45)
[2023-05-05 07:48] LABS: Hematocrit (blood only) 33.7 % (42.0-52.0); Hemoglobin 11.1 g/dl (14.0-18.0); Mean Corpuscular Hemoglobin 28.8 pg (25.0-34.0); Mean Corpuscular Hgb Conc 32.9 g/dL (32.0-36.0); Mean Corpuscular Volume 87.3 fL (80.0-100.0); Mean Platelet Volume 10.6 fL (9.4-12.4); Platelet Count 189 K/uL (130-400); RDW Coefficient of Variation 15.4 % (11.5-14.5); RDW Standard Deviation 48.7 fL (36.4-46.3); Red Blood Count 3.86 M/uL (4.70-6.10); White Blood Count 10.38 K/ul (4.8-10.8)
[2023-05-05 08:14] LABS: BUN Creatinine Ratio 15.2 (10-20); Creatinine Clr Calc Pharmacy 86.3 ml/min; Est GFR (African American) 98.7 ml/min; Est GFR (Non-African American) 85.2 ml/min; Potassium 4.3 mmol/L (3.5-5.1)
[2023-05-05] MEDS: BENZTROPINE MESYLATE 0.5 MG TAB PO SCH ×2 (08:47→20:44)
[2023-05-05] MEDS: FLUoxetine HCL 20 MG CAP PO SCH (08:47)
[2023-05-05] MEDS: clonazePAM 0.5 MG TAB PO SCH ×2 (08:56→20:42)
[2023-05-05] MEDS: ACETAMINOPHEN 325 MG TAB PO PRN ×2 (08:56→18:39)
[2023-05-05] MEDS: DEXTROSE 5% 1,000 ML IV SCH ×3 (09:30→17:38)
--- NOTE | 2023-05-05 11:24 | Nephrology Progress Note ---
Date of Service May 05, 2023 Assessment & Plan (1) Hyponatremia: Plan: correcting too quickly w/ 1L NS; certainly fluoxetine and seroquel can be a/w hyponatremia. and seroquel w/ falling/poor balance. admission labs most c/w polydipsia/low solute >correcting faster than optimal and we may not be able to reverse this at this point >> started D5W at 250 mL /hr, continue w/o FR >goal would be sNa 135 or so by late afternoon >> t >recheck bmp ordered 1600 >>Na 132, K 3.5 >> gave 40 mEq IV K and stopped D5W; goal is sNa no more than 139 in AM and 137 better; started FR 1.5L -maintain eukalemia -agree w/ continuing seroquel and fluoxetine Care coordinated w/ Dr García. Admission and Anticipated Discharge Date Admission Date: May 04, 2023 Subjective seen on late AM rounds; no sob, no cough; feels ab it improved; some R knee pain; no TALAMANTES or vision changes; no n/v Review of Systems Review of Systems: All systems reviewed & are unremarkable except as noted in Subjective Physical Exam Constitutional: well developed, well nourished, + physical limitations, + frail appearing and cooperative; no acute distress Eyes: EOM intact bilaterally ENMT: Ears: no external ear abnormality Nose: no external nose abnormality Mouth: + dry oral mucous membranes Neck: no nuchal rigidity Respiratory: normal respiratory effort Auscultation: + diminished lung sounds Cardiovascular: RRR, no murmur, no edema Gastrointestinal (Abdomen): Inspection/Auscultation: normal bowel sounds Percussion/Palpation: abdomen soft; abdomen nontender Musculoskeletal: Extremities: strength 5/5 throughout Skin: no rashes, warm and dry Neurologic: marked resting tremors Psychiatric: Orientation: alert and oriented x 3 Results & Data Vital Signs (Past 12 Hours) Vital Signs Temp Pulse Pulse Resp BP Pulse Ox O2 Del Method 05/05/23 11:03 37.5 C 63 18 125/73 97 Room Air 05/05/23 10:44 Room Air 05/05/23 08:00 65 05/05/23 07:25 36.8 C 75 20 112/64 96 Room Air 05/05/23 03:06 37 C 80 18 122/56 L 94 Room Air Laboratory Results 05/05/23 07:07 05/05/23 07:07
[2023-05-05 16:12] LABS: BUN Creatinine Ratio 16.1 (10-20); Calcium 8.5 mg/dl (8.6-10.3); Creatinine Clr Calc Pharmacy 91.3 ml/min; Est GFR (African American) 102.8 ml/min; Est GFR (Non-African American) 88.7 ml/min; Potassium 3.5 mmol/L (3.5-5.1)
[2023-05-05] MEDS: POTASSIUM CHLORIDE / WTR 10 MEQ/100 ML PLCT IV SCH ×4 (18:38→21:42)
[2023-05-05] MEDS: QUEtiapine FUMARATE 100 MG TABLET PO SCH (20:43)
[2023-05-05] MEDS: traZODone HCL 50 MG TAB PO SCH (20:50)
--- NOTE | 2023-05-05 22:37 | Hospitalist Progress Note ---
Date of Service May 05, 2023 Assessment & Plan (1) Acute hyponatremia: Plan: 67-year-old male with PMH of mood disorder, Parkinson's disease, history of Hodgkin's lymphoma, alcohol dependence in remission who presents with fall and found to have hyponatremia and pneumonia. #Acute Hyponatremia Sodium 126-->139, delta 13; started on D5W with correction to initial 24 hour goal of 132 Nephrology on consult FR 1.5L Monitor K levels Can continue seroquel and home fluoxetine #Pneumonia, ?superimposed bacterial on COVID #c/f Silent Aspiration Right lower lobe on chest x-ray c/w aspiration, v possible bacterial No sputum at this time, COVID +, all other negative Continued on Zosyn/Doxy Given clinic stability, procal 0.12, after 48 hours of blood culture negativity, consider transition to PO #Hypotension Blood pressure low on presentation improved with fluids #COVID pneumonia His COVID was positive at home on April 12 S/p molnupiravir. Vaccinated COVID precautions, Montior pulse ox #Mechanical Falls -Most likely secondary to weakness from recent COVID, poor PO intake Echo negative for cardiogenic concern for fall -PT/OT -Monitor on telemetry #Parkinson's Continue home medications #History of mood disorder/agitation/delirium Continue home medications Follows with psychiatry DVT prophylaxis Lovenox Disposition telemetry floor PT OT for discharge Full code Admission and Anticipated Discharge Date Admission Date: May 04, 2023 Subjective NAEO Patient states that he wishes to be discharged soon as he does not enjoy being on isolation. He states he understands, but feels frustrated. Patient endorses subjective improvement and denies any acute concerns. Notably sodium over correct this am--when asked, patient denies any neurologic concerns, to include vision changes, weakness, slurred speech, headache. Review of Systems Review of Systems: All systems reviewed & are unremarkable except as noted in Subjective Physical Exam Constitutional: WD/WN, vitals as above ENMT: partially edentulous Respiratory: decreased bibasilar breath sounds Cardiovascular: RRR, no murmur, no edema Musculoskeletal: moves all extremities equally Skin: no rashes, warm and dry Results & Data Results & Data Vital Signs (Past 12 Hours) Vital Signs Temp Pulse Pulse Resp BP Pulse Ox O2 Del Method 05/05/23 19:00 37.1 C 59 L 16 152/84 H 98 Room Air 05/05/23 16:00 66 05/05/23 14:56 37.1 C 74 19 147/72 H 97 Room Air 05/05/23 11:03 37.5 C 63 18 125/73 97 Room Air 05/05/23 10:44 Room Air Laboratory Results Short CBC 05/05/23 Range/Units 07:07 WBC 10.38 (4.8-10.8) K/ul Hgb 11.1 L (14.0-18.0) g/dl Hct 33.7 L (42.0-52.0) % Plt Count 189 (130-400) K/uL BMP 05/05/23 05/05/23 07:07 15:33 Sodium 139 132 L Potassium 4.3 3.5 Chloride 110 H 104 Carbon Dioxide 24 23 BUN 14 14 Creatinine 0.92 0.87 Glucose 104 H 97 Calcium 9.0 8.5 L Diagnostic Findings No new data Medications Administered Home Medications Medication Instructions Recorded Confirmed Last Taken benztropine 0.5 mg tablet 0.5 mg PO BID 05/04/23 05/04/23 Unknown carbidopa 25 mg-levodopa 100 mg 2 tab PO UD 05/04/23 05/04/23 Unknown tablet clonazepam 0.5 mg tablet 0.25 mg PO BID 05/04/23 05/04/23 Unknown fluoxetine 40 mg capsule 40 mg PO DAILY 05/04/23 05/04/23 Unknown quetiapine 100 mg tablet 150 mg PO HS 05/04/23 05/04/23 Unknown trazodone 100 mg tablet 150 mg PO HS 05/04/23 05/04/23 Unknown Active Medications Generic Name Dose Route Start Last Admin Trade Name Clayton PRN Reason Stop Dose Admin Acetaminophen 650 mg 05/04/23 07:17 05/05/23 18:39 Acetaminophen 325 Mg Tab PO 06/03/23 07:16 650 mg Q4H PRN Administration Pain or Fever Benztropine Mesylate 0.5 mg 05/04/23 09:00 05/05/23 20:44 Benztropine Mesylate 0.5 Mg Tab PO 06/03/23 08:59 0.5 mg BID JEVON Administration Carbidopa/Levodopa 2 tab 05/04/23 07:17 05/05/23 20:45 Carbidopa/Levodopa 25/100mg Tab PO 06/03/23 07:16 2 tab TID@0800,1200,2100 JEVON Administration Clonazepam 0.25 mg 05/04/23 09:00 05/05/23 20:42 Clonazepam 0.5 Mg Tab PO 06/03/23 08:59 0.25 mg BID JEVON Administration Enoxaparin Sodium 40 mg 05/04/23 07:17 05/05/23 07:18 Enoxaparin Inj 40 Mg/0.4 Ml Syr SQ 06/03/23 07:16 40 mg Q24H JEVON Administration Fluoxetine HCl 40 mg 05/04/23 09:00 05/05/23 08:47 Fluoxetine Hcl 20 Mg Cap PO 06/03/23 08:59 40 mg DAILY JEVON Administration Doxycycline Hyclate 100 mg/ 110 mls @ 50 mls/hr 05/04/23 08:00 05/05/23 20:40 Dextrose IV 05/11/23 07:59 50 mls/hr Q12H JEVON Administration Piperacillin Sod/Tazobactam 120 mls @ 30 mls/hr 05/04/23 10:00 05/05/23 21:20 Sod 4.5 gm/ Dextrose IV 05/11/23 09:59 Infused Q8H JEVON Infusion Protocol Quetiapine Fumarate 150 mg 05/04/23 21:00 05/05/23 20:43 Quetiapine Fumarate 100 Mg Tablet PO 06/03/23 20:59 150 mg HS JEVON Administration Trazodone HCl 150 mg 05/04/23 21:00 05/05/23 20:50 Trazodone Hcl 50 Mg Tab PO 06/03/23 20:59 150 mg HS JEVON Administration
[2023-05-06] MEDS: PIPERACILLIN/TAZOBACTAM 4.5 GM in DEXTROSE 5% 100 ML IV SCH ×2 (02:49→10:52)
[2023-05-06] MEDS: ENOXAPARIN INJ 40 MG/0.4 ML SYR SQ SCH (06:21)
[2023-05-06 08:07] LABS: Hemoglobin 11.5 g/dl (14.0-18.0); Mean Corpuscular Hemoglobin 28.7 pg (25.0-34.0); Mean Corpuscular Hgb Conc 32.9 g/dL (32.0-36.0); Mean Corpuscular Volume 87.3 fL (80.0-100.0); Mean Platelet Volume 10.5 fL (9.4-12.4); Platelet Count 198 K/uL (130-400); RDW Coefficient of Variation 15.4 % (11.5-14.5); RDW Standard Deviation 49.1 fL (36.4-46.3); Red Blood Count 4.01 M/uL (4.70-6.10); White Blood Count 5.88 K/ul (4.8-10.8)
[2023-05-06 08:28] LABS: BUN Creatinine Ratio 12.5 (10-20); Calcium 9.1 mg/dl (8.6-10.3); Creatinine Clr Calc Pharmacy 82.8 ml/min; Est GFR (African American) 93.8 ml/min; Est GFR (Non-African American) 80.9 ml/min; Magnesium 1.9 mg/dl (1.7-2.4); Phosphorus 4.5 mg/dl (2.5-4.9); Potassium 4.9 mmol/L (3.5-5.1)
[2023-05-06] MEDS: CARBIDOPA/LEVODOPA 25/100MG TAB PO SCH ×2 (08:49→11:39)
[2023-05-06] MEDS: FLUoxetine HCL 20 MG CAP PO SCH (08:49)
[2023-05-06] MEDS: BENZTROPINE MESYLATE 0.5 MG TAB PO SCH (08:49)
[2023-05-06] MEDS: DOXYCYCLINE HYCLATE 100 MG in DEXTROSE 5% 100 ML IV SCH (08:49)
[2023-05-06] MEDS: clonazePAM 0.5 MG TAB PO SCH (08:50)
--- NOTE | 2023-05-06 09:02 | Nephrology Progress Note ---
Date of Service May 06, 2023 Assessment & Plan (1) Hyponatremia: Plan: corrected too quickly though he did respond to /slow correction w/ D5W; certainly fluoxetine and seroquel can be a/w hyponatremia. and seroquel w/ falling/poor balance. admission labs most c/w polydipsia/low solute >correcting faster than optimal >> we effectively reversed this 2X; again today he has rebounded likely faster than optimal but would not correct again will sign off NEPHRO D/C RECOMMENDATIONS -FR 1.5 L to continue now and at d/c -defer to primary service/ OP teams to assess the risks/benefits of fluoxetine, seroquel for this pt -daily bmp while in house; after d/c recommend pcp check bmp at hospital d/c appt; if FR lifted at that point, monitor bmp weekly x 3 and monthly x 3 if all is well; else neph referral -OP f/u w/ nephro prn Admission and Anticipated Discharge Date Admission Date: May 04, 2023 Subjective Food tastes bad to him but he eats because he has to. No nausea vomiting. Denies shortness of breath or edema; on bed alarm Review of Systems Review of Systems: All systems reviewed & are unremarkable except as noted in Subjective Physical Exam Constitutional: well developed, well nourished, + physical limitations, + frail appearing and cooperative; no acute distress Eyes: EOM intact bilaterally ENMT: Ears: no external ear abnormality Nose: no external nose abnormality Mouth: + dry oral mucous membranes Neck: no nuchal rigidity Respiratory: normal respiratory effort Auscultation: + diminished lung sounds Cardiovascular: RRR, no murmur, no edema Gastrointestinal (Abdomen): Inspection/Auscultation: normal bowel sounds Percussion/Palpation: abdomen soft; abdomen nontender Musculoskeletal: Extremities: strength 5/5 throughout Skin: no rashes, warm and dry Psychiatric: Orientation: alert and oriented x 3 Results & Data Vital Signs (Past 12 Hours) Vital Signs Temp Pulse Pulse Resp BP Pulse Ox O2 Del Method 05/06/23 07:56 36.5 C 53 L 18 108/63 95 Room Air 05/06/23 07:19 56 L 05/06/23 02:48 36.3 C L 64 20 120/78 96 Room Air 05/05/23 23:31 76 09/05/23 22:31 36.5 C 80 22 125/67 96 Room Air Laboratory Results 05/06/23 07:17 05/06/23 07:17
[2023-05-06] MEDS ORDERED: ADVANCED PROBIOTIC 1250 MG CAPSULE PO SCH (10:45)
[2023-05-06] MEDS ORDERED: AMOXICILLIN/CLAVULANATE 875 MG TAB PO SCH (11:00)
[2023-05-06] MEDS: ACETAMINOPHEN 325 MG TAB PO PRN (11:45)
--- NOTE | 2023-05-06 12:02 | Fluoroscopy Report ---
FL video swallow CLINICAL HISTORY: 68 years-old Male with r/o aspiration. Dysphagia TECHNIQUE: Video fluoroscopic evaluation of swallowing was performed in the AP and lateral projection s by the speech pathology staff. The patient is fed varying consistencies of barium. FLUOROSCOPY TIME: 1.05 minutes. 8.85 mGy COMPARISON STUDY: Chest CT 12/16/2022 FINDINGS: Silent aspiration with thin liquid barium. Pooling of contrast noted within the vallecula. Laryngeal penetration and trace silent aspiration with nectar consistency. IMPRESSION: 1. Multiple consistency aspiration as above. 2. Please see the speech pathologist report for detailed findings and recommendations. ACT 112: Negative or not required by law. Electronically signed by: Armen Olson M.D. 05/06/2023 12:01 PM
--- NOTE | 2023-05-06 13:23 | Electrocardiogram Report ---
Test Reason : Blood Pressure : / mmHG Vent. Rate : 089 BPM Atrial Rate : 089 BPM P-R Int : 170 ms QRS Dur : 094 ms QT Int : 406 ms P-R-T Axes : 046 057 058 degrees QTc Int : 493 ms Poor data quality, interpretation may be adversely affected Normal sinus rhythm When compared with ECG of 04-MAY-2023 01:21, No significant change was found Confirmed by Gold Elias ([id number]) on 05/06/2023 1:22:55 PM Referred By: Nikhil Persaud Confirmed By:Dru Elias
--- NOTE | 2023-05-06 13:45 | Hospitalist Progress Note ---
Date of Service May 06, 2023 Assessment & Plan (1) Acute hyponatremia: Plan: Patient is a 67 yr male with H/O Mood disorder, Parkinson's disease, Hodgkin's lymphoma, Alcohol dependence in remission who presents with fall and found to have hyponatremia and pneumonia. 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 Vaccinated --CXR:Chronic changes again noted within the right hemithorax with slight progression of a right midlung zone patchy density. This could represent a developing pneumonitis. --Video Swallow:Silent aspiration with thin liquid barium. Pooling of contrast noted within the vallecula. Laryngeal penetration and trace silent aspiration with nectar consistency. -- Serology+ COVID, negative influenza, RSV --Blood cultures negative to date Continued on Zosyn/Doxy >> transition to Augmentin, doxycycline Saturating well on room air Antitussives as needed Continue aspiration precautions at all times. No straws. Pured diet with thin liquid for now, can advance to minced and moist once his dentures are realigned Hypotension Blood pressure improved with fluids Mechanical Falls Most likely secondary to weakness from recent COVID, poor PO intake PT/OT:Recommends return Home Parkinson's disease Continue home medications H/O mood disorder/agitation/delirium Continue home medications Follows with psychiatry DVT Px: Lovenox SQ Code Status Full code Disposition Home Admission and Anticipated Discharge Date Admission Date: May 04, 2023 Subjective Patient is seen and examined at bedside Cough much improved per patient Had loose bowel movement today Discussed with nephrology today Sodium levels normalized Denies any chest pain, dyspnea, dizziness, nausea, vomiting, abdominal pain Saturating well on room air Plan to be discharged home today Review of Systems Review of Systems: All systems reviewed & are unremarkable except as noted in Subjective Physical Exam Physical Exam: Physical Exam: Vitals signs as noted above General Appearance:Moderately built and nourished, no apparent distress, Frail Head: normocephalic, Atraumatic Eyes: normal inspection, EOMI Neck: supple, Trachea midline Respiratory/Chest: Decreased breath sounds, CTA, No accessory muscle use Cardiovascular: S1, S2, No murmur Abdomen/GI:Soft, Non tender, Bowel sounds present Extremities/Musculoskeletal:normal inspection, no edema Neurologic/Psych:AAOX3, grossly no focal neurological deficits Skin: normal color, warm Results & Data Results & Data Vital Signs (Past 12 Hours) Vital Signs Temp Pulse Pulse Resp BP Pulse Ox O2 Del Method 05/06/23 11:41 36.9 C 72 19 122/75 97 Room Air 05/06/23 08:36 Room Air 05/06/23 07:56 36.5 C 53 L 18 108/63 95 Room Air 05/06/23 07:19 56 L 05/06/23 02:48 36.3 C L 64 20 120/78 96 Room Air Laboratory Results Short CBC 05/06/23 Range/Units 07:17 WBC 5.88 (4.8-10.8) K/ul Hgb 11.5 L (14.0-18.0) g/dl Hct 35.0 L (42.0-52.0) % Plt Count 198 (130-400) K/uL BMP 05/05/23 05/06/23 15:33 07:17 Sodium 132 L 140 Potassium 3.5 4.9 D Chloride 104 109 H Carbon Dioxide 23 27 BUN 14 12 Creatinine 0.87 0.96 Glucose 97 93 Calcium 8.5 L 9.1
--- NOTE | 2023-05-06 14:00 | Discharge Summary ---
Date of Service May 06, 2023 Admission HPI Per Admitting Provider 67-year-old male with PMH of mood disorder, Parkinson's disease, history of Hodgkin's lymphoma, alcohol dependence in remission who presents with fall. Patient has history of falls in the past. Patient lives with his sister and father. Says he was walking on the sidewalk when he felt weak and fell down and hit his head. Does not know whether he lost consciousness or not. Did not feel dizzy before falling down. Denies any chest pain or palpitations. Patient was diagnosed with COVID on April 12 at that time he had lot of cough. Cough is much improved now. As per epic he was treated with molnupiravir. Denies any headache. No runny nose. No chest pain or shortness of breath currently. No nausea. No abdominal pain. Normal bowel and bladder movements. Patient currently does not have dentures. Speech is somewhat difficult to understand currently. Initially when he came into the ER as he was hypotensive. With fluids blood pressure improved. Saturating okay on room air. Currently resti ng comfortably and hemodynamic stable. Past medical history as mentioned above Past surgical history bronchoscopy, colonoscopy, EGD, mediastinotomy, a port, removal of a port, laparoscopic cholecystectomy, repair of inguinal hernia, repair of wrist bone fracture, repair of tibial shaft fracture, Social history quit smoking 1978. Currently no alcohol. No drug use. Family history Sister had non-Hodgkin's lymphoma. Maternal grandmother had stomach cancer. Maternal grandmother diabetes. Maternal grandmother had stroke. Paternal grandfather had heart disorder and stroke Admission Exam Per Admitting Provider General- Not in distress Head- bruise seen on right frontal region. Eyes- PERRL ENT- oropharynx clear Neck- supple, no JVD, Lungs- clear to auscultation no wheezing or crackles. Heart- regular rhythm; no murmur, no gallop. Abdomen- normal bowel sounds, soft, nontender, no distension. Extremities- no pretibial edema, no erythema seen. Neuro- alert, oriented x 3; PERRL, no facial palsy; no dysarthria;obeys commands, moves extremities. Skin- warm & dry Principal Diagnosis Acute Hyponatremia COVID Pneumonia Discharge Data Allergies Allergy/AdvReac Type Severity Reaction Status Date / Time pollen extracts Allergy Intermediate SNEEZING/CO Verified 03/30/23 15:43 NGESTION ragweed pollen Allergy Mild Sneezing Verified 12/13/22 18:06 oxycodone AdvReac Intermediate COLD Verified 03/30/23 15:43 SWEATS/NAUSEA/VOMITING sertraline AdvReac Intermediate NAUSEA/VOMI Verified 03/30/23 15:43 TING Consultations 05/04/23 04:11 ED Decision to Admit Stat 05/04/23 08:00 Consult Nephrology Routine Procedures Performed Laboratory Results WBC 5.88 K/ul (4.8-10.8) 05/06/23 07:17 RBC 4.01 M/uL (4.70-6.10) L 05/06/23 07:17 Hgb 11.5 g/dl (14.0-18.0) L 05/06/23 07:17 Hct 35.0 % (42.0-52.0) L 05/06/23 07:17 MCV 87.3 fL (80.0-100.0) 05/06/23 07:17 MCH 28.7 pg (25.0-34.0) 05/06/23 07:17 MCHC 32.9 g/dL (32.0-36.0) 05/06/23 07:17 RDW Std Deviation 49.1 fL (36.4-46.3) H 05/06/23 07:17 RDW Coeff of Elizabeth 15.4 % (11.5-14.5) H 05/06/23 07:17 Plt Count 198 K/uL (130-400) 05/06/23 07:17 MPV 10.5 fL (9.4-12.4) 05/06/23 07:17 Immature Gran % (Auto) 0.5 % 05/04/23 07:53 Neut % (Auto) 91.2 % 05/04/23 07:53 Lymph % (Auto) 4.6 % 05/04/23 07:53 Benzie % (Auto) 3.0 % 05/04/23 07:53 Eos % (Auto) 0.6 % 05/04/23 07:53 Baso % (Auto) 0.1 % 05/04/23 07:53 Neut # (Auto) 8.69 K/uL (1.40-6.50) H 05/04/23 07:53 Lymph # (Auto) 0.44 K/uL (1.20-3.40) L 05/04/23 07:53 Benzie # (Auto) 0.29 K/uL (0.11-0.59) 05/04/23 07:53 Eos # (Auto) 0.06 K/uL (0.00-0.50) 05/04/23 07:53 Baso # (Auto) 0.01 K/uL (0.00-0.20) 05/04/23 07:53 Immature Gran # (Auto) 0.05 K/uL (0.01-0.20) 05/04/23 07:53 RBC Morphology Unremarkable 05/04/23 07:53 PT 11.9 Seconds (9.0-12.0) 05/04/23 02:46 INR 1.1 (0.9-1.1) 05/04/23 02:46 APTT 28.3 Seconds (21.0-31.0) 05/04/23 02:46 PTT Ratio 1.0 05/04/23 02:46 Sodium 140 mmol/L (136-145) 05/06/23 07:17 Potassium 4.9 mmol/L (3.5-5.1) D 05/06/23 07:17 Chloride 109 mmol/L (98-107) H 05/06/23 07:17 Carbon Dioxide 27 mmol/L (21-32) 05/06/23 07:17 Anion Gap 4 (3-11) 05/06/23 07:17 BUN 12 mg/dl (6-23) 05/06/23 07:17 Creatinine 0.96 mg/dl (0.6-1.4) 05/06/23 07:17 Est Cr Clr Drug Dosing 82.8 ml/min 05/06/23 07:17 Est GFR ( Amer) 93.8 ml/min 05/06/23 07:17 Est GFR (Non-Af Amer) 80.9 ml/min 05/06/23 07:17 BUN/Creatinine Ratio 12.5 (10-20) 05/06/23 07:17 Glucose 93 mg/dl (70-99(Fasting)) 05/06/23 07:17 Osmolality 282 mOsm/kg (280-300) 05/04/23 07:53 Lactate 0.7 mmol/L (0.4-2.0) 05/04/23 02:18 Calcium 9.1 mg/dl (8.6-10.3) 05/06/23 07:17 Phosphorus 4.5 mg/dl (2.5-4.9) 05/06/23 07:17 Magnesium 1.9 mg/dl (1.7-2.4) 05/06/23 07:17 Total Bilirubin 0.8 mg/dl (0.2-1.0) 05/04/23 01:25 AST 21 U/L (13-39) 05/04/23 01:25 ALT 5 U/L (7-52) L 05/04/23 01:25 Alkaline Phosphatase 72 U/L (34-104) 05/04/23 01:25 Total Creatine Kinase 131 U/L (30-223) 05/04/23 01:25 Troponin I High Sens 3.8 pg/ml (0-20) 05/04/23 13:05 Total Protein 5.9 gm/dl (6.0-8.3) L 05/04/23 01:25 Albumin 3.6 gm/dl (3.4-5.0) 05/04/23 01:25 Globulin 2.3 gm/dl (2.5-4.0) L 05/04/23 01:25 Albumin/Globulin Ratio 1.6 (0.9-2) 05/04/23 01:25 Procalcitonin 0.12 ng/ml (0-0.5) 05/04/23 02:46 Urine Color Yellow 05/04/23 03:00 Urine Appearance Clear (Clear) 05/04/23 03:00 Urine pH 6.0 (4.5-7.5) 05/04/23 03:00 Ur Specific Hostetter 1.008 (1.000-1.030) 05/04/23 03:00 Urine Protein Negative (Negative) 05/04/23 03:00 Urine Glucose (UA) Negative (Negative) 05/04/23 03:00 Urine Ketones Negative (Negative) 05/04/23 03:00 Urine Blood Negative (Negative) 05/04/23 03:00 Urine Nitrite Negative (Negative) 05/04/23 03:00 Urine Bilirubin Negative (Negative) 05/04/23 03:00 Urine Urobilinogen Negative (Negative) 05/04/23 03:00 Ur Leukocyte Esterase Negative (Negative) 05/04/23 03:00 Urine Osmolality 162 mOsm/kg (500-800) L 05/04/23 11:22 Ur Random Sodium 20 mmol/L 05/04/23 11:19 SARS-CoV-2 (PCR) POSITIVE (Negative) A* 05/04/23 02:15 Influenza Type A (PCR) Negative (Neg) 05/04/23 02:15 Influenza Type B (PCR) Negative (Neg) 05/04/23 02:15 RSV (RT-PCR) Negative (Neg) 05/04/23 02:15 Impressions Chest X-Ray 05/04/23 01:34 XR chest 1V not portable HISTORY: Chest pain, nonspecific COMPARISON: Chest 03/30/2023. FINDINGS: No pneumothorax. No pleural effusions. The heart remains borderline enlarged. Volume loss with chronic interstitial thickening again noted within the right lung. Mild interstitial thickening within the left lung base, unchanged. Small patchy density at the right midlung zone has slightly progressed. Prominence along the right mediastinal border corresponds the patient's known calcified anterior mediastinal mass. No evidence for pulmonary edema. Degenerative changes within the left shoulder again noted. IMPRESSION: Chronic changes again noted within the right hemithorax with slight progression of a right midlung zone patchy density. This could represent a developing p neumonitis. ACT 112: Negative or not required by law. Electronically signed by: Steve Gutierrez M.D. 05/04/2023 7:[address] 05/04/23 02:07 Exam(s): CT C SPINE EXAM: CT Cervical Spine Without Intravenous Contrast CLINICAL HISTORY: Trauma. TECHNIQUE: Axial computed tomography images of the cervical spine without intravenous contrast. Automated exposure control was utilized for the study. A dose lowering technique was utilized adhering to the principles of ALARA. COMPARISON: CT C-spine 03/30/2023 FINDINGS: Vertebrae: Unremarkable. No fracture or malalignment. Discs/spinal canal/neural foramina: There are degenerative changes of the spine. No spinal canal stenosis. Soft tissues: Unremarkable. No prevertebral soft tissue swelling. IMPRESSION: No acute finding of the cervical spine. Electronically signed by: Delmy Polk MD 05/04/23 03:[address] 05/04/23 02:07 Exam(s): CT HEAD Without Contrast EXAM: CT Head Without Intravenous Contrast CLINICAL HISTORY: Injury. TECHNIQUE: Axial computed tomography images of the head/brain without intravenous contrast. Automated exposure control was utilized for the study. A dose lowering technique was utilized adhering to the principles of ALARA. COMPARISON: CT head 03/30/2023 FINDINGS: Brain: No intracranial hemorrhage, mass-effect or midline shift. No abnormal extra axial fluid. No evidence of acute infarct. Mild periventricular white matter hypodensities are most consistent with chronic microangiopathy. Ventricles: Unremarkable. No ventriculomegaly. Bones/joints: Unremarkable. No acute fracture. Soft tissues: Unremarkable. Sinuses: Unremarkable as visualized. No acute sinusitis. Mastoid air cells: Unremarkable as visualized. No mastoid effusion. IMPRESSION: No acute intracranial finding. Electronically signed by: Delmy Polk MD 05/04/23 03:53 AM Videofluoroscopic Swallow 05/06/23 10:30 FL video swallow CLINICAL HISTORY: 68 years-old Male with r/o aspiration. Dysphagia TECHNIQUE: Video fluoroscopic evaluation of swallowing was performed in the AP and lateral projections by the speech pathology staff. The patient is fed varying consistencies of barium. FLUOROSCOPY TIME: 1.05 minutes. 8.85 mGy COMPARISON STUDY: Chest CT 12/16/2022 FINDINGS: Silent aspiration with thin liquid barium. Pooling of contrast noted within the vallecula. Laryngeal penetration and trace silent aspiration with nectar consistency. IMPRESSION: 1. Multiple consistency aspiration as above. 2. Please see the speech pathologist report for detailed findings and recommendations. ACT 112: Negative or not required by law. Electronically signed by: Armen Olson M.D. 05/06/2023 12:01 PM Ordered Studies 05/04/23 02:07 CT cervical spine wo con Stat CT head/brain wo con Stat 05/06/23 10:30 Fluoro video [FL video swallow] Routine Hospital Course (1) Acute hyponatremia: Patient is a 67 yr male with H/O Mood disorder, Parkinson's disease, Hodgkin's lymphoma, Alcohol dependence in remission who presents with fall and found to have hyponatremia and pneumonia. 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 Vaccinated --CXR:Chronic changes again noted within the right hemithorax with slight progression of a right midlung zone patchy density. This could represent a developing pneumonitis. --Video Swallow:Silent aspiration with thin liquid barium. Pooling of contrast noted within the vallecula. Laryngeal penetration and trace silent aspiration with nectar consistency. -- Serology+ COVID, negative influenza, RSV --Blood cultures negative to date Continued on Zosyn/Doxy >> transition to Augmentin, doxycycline Saturating well on room air Antitussives as needed Continue aspiration precautions at all times. No straws. Pured diet with thin liquid for now, can advance to minced and moist once his dentures are realigned Hypotension Blood pressure improved with fluids Mechanical Falls Most likely secondary to weakness from recent COVID, poor PO intake PT/OT:Recommends return Home Parkinson's disease Continue home medications H/O mood disorder/agitation/delirium Continue home medications Follows with psychiatry DVT Px: Lovenox SQ Code Status Full code Disposition Home Total Time Total Time Spent Total Time Spent (In Minutes): 54 minutes Discharge Plan Discharge Items Patient Disposition: Home - Self-Care Reason For Visit: FALL, HYPOTENSION, HYPONATREMIA Discharge Diagnosis: Acute Hyponatremia COVID Pneumonia Activity: Per Instructions section Exercise/Sports: Gradually increase as tolerated Non-emergency contact: Primary Care Provider and Election Assistant Call non-emergency contact if: you have any medication questions, your symptoms worsen, your pain is concerning for you and you have a fever Follow-up/Referrals: Nikhil Persaud DO [Primary Care Provider] - (Date & Time 05/12/2023 2:20 PM Provider Nikhil Persaud DO Department [facility] ) Diet: Heart Healthy Fluids: 1500ml (6 cups) Diet Texture: Pureed (blended smooth) Addtl Attending Provider Instructions: Follow-up with your primary care physician Dr. Nikhil Persaud on 05/12/2023 2:20 PM Consider following with your drawer fitter Dr. Hines in 1 week with repeat blood test (basic metabolic panel) --- Complete antibiotic course Augmentin, doxycycline as prescribed. --Your final blood cultures are pending at the time of discharge. Follow-up with your physician for results. --- Continue on diet as recommended by your speech therapist. (Aspiration precautions at all times, no straws. Pured diet for now until your dentures are realigned. Thin liquids.) -- Continue fluid restriction 1.5 Liters/day as recommended by your drawer fitter. Seek immediate medical attention if your symptoms reoccur or worsen Please take all medications as instructed on discharge list below. Please call if you have any questions or problems. You can reach a [facility] hospitalist on duty at [facility] 24 hours a day by calling [phone] Pending Studies at Discharge: Yes Studies:: Final Blood Cultures Stand-Alone Forms: My [facility], Smoking Cessation Medications and DC Order Prescriptions: New doxycycline hyclate 100 mg Capsule 100 mg PO BID Qty: 11 0RF amoxicillin-pot clavulanate 875-125 mg Tablet 1 tab PO BIDM Qty: 11 0RF Advanced Probiotic 625 mg (10 billion cell) Capsule 2 cap PO DAILY Qty: 30 0RF Continued fluoxetine 40 mg capsule 40 mg PO DAILY benztropine 0.5 mg tablet 0.5 mg PO BID clonazepam 0.5 mg tablet 0.25 mg PO BID quetiapine 100 mg tablet 150 mg PO HS trazodone 100 mg tablet 150 mg PO HS carbidopa-levodopa 25-100 mg tablet 2 tab PO UD Rx Instructions: 2 tab in morning, 2 tab at noon and 2 tab before bedtime. Discharge Orders: Discharge Order (Routine); Ordered 05/06/23 Ordered By: Freddy Dickerson Admission Data Admit Date/Time: 05/04/23 06:01 Attending Provider: Freddy Dickerson Admit Provider: Narendra Saucedo Primary Care Provider: Nikhil Persaud Other Providers: Narendra Saucedo ; Amanda Middleton
[2023-05-06] MEDS ORDERED: DOXYCYCLINE HYCLATE 100 MG CAP PO SCH (21:00)
--- NOTE | 2023-05-07 17:59 | Electrocardiogram Report ---
Test Reason : Blood Pressure : / mmHG Vent. Rate : 050 BPM Atrial Rate : 050 BPM P-R Int : 170 ms QRS Dur : 090 ms QT Int : 460 ms P-R-T Axes : 056 060 065 degrees QTc Int : 419 ms Sinus bradycardia with sinus arrhythmia Abnormal ECG When compared with ECG of 05-MAY-2023 05:16, (unconfirmed) Vent. rate has decreased BY 39 BPM QT has shortened Confirmed by Gold Elias ([id number]) on 05/07/2023 5:59:13 PM Referred By: Nikhil Persaud Confirmed By:Dru Elias
== END 2023-05-06 18:26 | disposition home or self-care (01) | DRG 177 ==
LOC: ED 01:14 → SUATTDRO 06:01 → EDINP 06:01 → 2S 07:44

== ENCOUNTER 2024-08-23 07:26 | Inpatient (IN) ==
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
--- NOTE | 2024-08-23 07:39 | Emergency Department Note ---
Impression & Plan Acute respiratory failure with hypoxia, Multilobar lung infiltrate, Leukocytosis ED Provider Note NAME: GLYNN JOY AGE: 69 SEX: M : 1955 ARRIVES VIA: Ambulance INFORMANT: Patient ED PROVIDER(S): Cornelius Green DO CHIEF COMPLAINT: Shortness of breath and chest pain HPI: Patient is a 69-year-old male with a past medical history of Parkinson's disease, rhabdo, hypertension, hyponatremia and BPH who presents to the ER for shortness of breath. Patient notes that symptoms started last night with congestion. Denies any cough. Shortness of breath has significantly worsened. Denies any blood thinners. Does admit to a chest tightness since last night. No belly pain, nausea, vomiting, or diarrhea. No dysuria, urgency, or frequency. No other exacerbating or remitting factors. ADDITIONAL HISTORY OBTAINED: Per HPI Chronic Medical/Social Conditions Affecting Care: Per HPI PAST MEDICAL HISTORY:See Below PAST SURGICAL HISTORY:See Below FAMILY HISTORY:See Below SOCIAL HISTORY:See Below HOME MEDICATIONS:See Below ALLERGIES:See Below VITALS:See Below PHYSICAL EXAMINATION: GENERAL: Sitting up in bed, alert, ill-appearing, mild distress EYE EXAM: normal conjunctiva. PERRL and EOM's grossly intact. OROPHARYNX: no exudate, no erythema, lips, buccal mucosa, and tongue normal and mucous membranes are moist NECK: supple, no nuchal rigidity, no adenopathy, non-tender LUNGS: Clear to auscultation. Normal chest wall mechanics HEART: no murmurs, S1 normal and S2 normal ABDOMEN: abdomen soft, non-tender, normo-active bowel sounds, no masses, no rebound or guarding. UPPER EXTREMITIES: upper extremities are grossly normal. LOWER EXTREMITIES: No pitting edema. NEURO EXAM: Normal sensorium, cranial nerves II-XII grossly intact, normal speech, no gross weakness of arms, no gross weakness of legs. MEDICAL DECISION MAKING: Patient is a 69-year-old male who presents to the ER for the above-stated complaint. IV was established and blood work was obtained. He was found to be hypoxic and placed on 5 L nasal cannula. Respiratory rate improved. He was given IV fluids. He was given IV antibiotics upon presentation. Labs showed a mild leukocytosis of 12,000. No significant anemia. VBG with a pH of 7.32 and a CO2 of 42. BMP along with LFTs and bilirubin is unremarkable. Troponin was elevated at 49. Lipase was normal. Pro-Low elevated. Viral panel was negative. Patient was given a neb treatment with minimal improvement. He was updated bedside discussed case with the hospitalist admitted for further workup of his hypoxic respiratory failure which based on CT would suggest was pneumonia. Consults/Care Managements Discussions: Per MDM Triage Nursing notes reviewed. Limited review of prior medical records performed Vital Signs: reviewed and remarkable for no significant abnormalities Differential diagnosis: Differential diagnoses includes but is not limited to pneumonia, bronchitis, COPD/Asthma exacerbation, pneumothorax, pulmonary embolism, congestive heart failure, acute coronary syndrome ER treatment provided: See below Diagnostics interpreted by me include EKG and cardiac monitoring as listed below: -Cardiac Monitoring: An order was placed for continuous cardiac monitoring. The monitor shows a rate of 120 with sinus rhythm. -ECG: Sinus tachycardia rate of 123 Normal axis No PVCs QTc 489 -Laboratory studies:Interpreted by me as stated above in MDM and shown below. Imaging studies: Xrays: As interpreted by me: Portable AP upright 1 view of the chest shows multifocal pneumonia CTs show: CT of the chest shows bilateral pneumonia Procedures:none Critical Care: I have personally spent 35 minutes of critical care time in the direct management of this patient. This includes bedside care, interpretation of diagnostic studies, and testing, discussion with consultants, patient, and family members, and other required patient management activities. This 35 minutes is in excess of all separately billable procedures. Past Med/Surg History Problem List (Updated 08/23/24 @ 13:01 by Cornelius Green DO) Leukocytosis (Acute) Acute respiratory failure with hypoxia (Acute) Multilobar lung infiltrate (Acute) Bronchiectasis BPH (benign prostatic hyperplasia) Parkinson's disease Anxiety Medical History (Updated 08/23/24 @ 13:01 by Cornelius Green DO) Schizoaffective disorder COVID-19 Osteoarthritis History of kidney stones IBS (irritable bowel syndrome) GERD (gastroesophageal reflux disease) OCD (obsessive compulsive disorder) Anxiety and depression Tardive dyskinesia Hodgkins disease (05/10/10) "Classic Hodgkin's disease, nodular sclerosing type II Status post bronchoscopy and mediastinal endoscopy with biopsy status post completion of 4 cycles of ABVD Status post completion of radiation therapy 07/05/2010 received 3600 cGy " Surgical History History of wisdom tooth extraction History of vascular access device hx port for chemo. has been removed History of cholecystectomy History of hernia repair History of left knee surgery History of colonoscopy Family History Other Cancer Heart disease Stroke Social History Smoking Status: Former smoker Tobacco Type: Cigarettes Second Hand Exposure: No; Do You Dip or Chew Tobacco: No; Hx Alcohol Use: Yes Alcohol type: wine Hx Substance Use: No Preferred Language: Armenian Communication Ability: Effective Tyre Retreader Required: No Beliefs That Will Affect Care: None marital status: Single Current Living Situation: Family Current Living Situation Comment: Lives with sister and father Feels Safe at Home: Yes Assistive Devices: Walker Allergies Allergies Allergy/AdvReac Type Severity Reaction Status Date / Time pollen extracts Allergy Intermediate SNEEZING/CO Verified 05/03/24 14:08 NGESTION ragweed pollen Allergy Mild Sneezing Verified 05/03/24 14:08 oxycodone AdvReac Intermediate COLD Verified 05/03/24 14:08 SWEATS/NAUSEA/VOMITING sertraline AdvReac Intermediate NAUSEA/VOMI Verified 05/03/24 14:08 TING Home Meds Home Medications Medication Instructions Recorded Confirmed fluoxetine 40 mg capsule 40 mg PO DAILY 05/04/23 08/23/24 quetiapine 50 mg tablet 50 mg PO BID 08/23/24 08/23/24 Previous Rx's Medication Instructions Recorded vibegron 75 mg tablet 75 mg PO DAILY #90 tabs 05/03/24 Results & Data (ED) Vital Signs Vital Signs - 24 hr 08/23/24 07:31 08/23/24 07:31 08/23/24 07:34 Temperature 37.4 C Temperature Source Oral Pulse Rate 123 H 112 H Pulse Rate from SpO2 Sensor Respiratory Rate 35 H 35 H Respiratory Effort / Characteristics Spontaneous Labored Short of Breath SOB on Exertion Spontaneous Labored Short of Breath SOB on Exertion Respiratory Depth Shallow Shallow Respiratory Pattern Rapid/Shallow Rapid/Shallow Blood Pressure 128/80 Blood Pressure Mean 96 Blood Pressure Position Lying Pulse Oximetry 76 L 92 Oxygen Delivery Method Room Air Nasal Cannula Nasal Cannula Oxygen Flow Rate 6 6 Sepsis Recent Fever Within 48 Hours No Sepsis New/Unexplained Change in Mental Status N/A Sepsis Action Taken by Nursing Physician Notified Oxygen Flow Rate - Titration Pulse Oximetry Post Tiitration 08/23/24 07:43 08/23/24 07:51 08/23/24 07:52 Temperature Temperature Source Pulse Rate 107 H 109 H Pulse Rate from SpO2 Sensor 108 H Respiratory Rate 31 H Respiratory Effort / Characteristics Respiratory Depth Respiratory Pattern Blood Pressure Blood Pressure Mean Blood Pressure Position Pulse Oximetry 76 L 92 Oxygen Delivery Method Room Air Nasal Cannula Oxygen Flow Rate 6 Sepsis Recent Fever Within 48 Hours Sepsis New/Unexplained Change in Mental Status Sepsis Action Taken by Nursing Oxygen Flow Rate - Titration 6 Pulse Oximetry Post Tiitration 92 08/23/24 08:00 08/23/24 08:15 08/23/24 08:16 Temperature Temperature Source Pulse Rate 110 H 106 H Pulse Rate from SpO2 Sensor 111 H 106 H Respiratory Rate 28 H 30 H Respiratory Effort / Characteristics Respiratory Depth Respiratory Pattern Blood Pressure Blood Pressure Mean Blood Pressure Position Pulse Oximetry 96 95 95 Oxygen Delivery Method Nasal Cannula Nasal Cannula Nasal Cannula Oxygen Flow Rate 6 6 6 Sepsis Recent Fever Within 48 Hours Sepsis New/Unexplained Change in Mental Status Sepsis Action Taken by Nursing Oxygen Flow Rate - Titration Pulse Oximetry Post Tiitration 08/23/24 08:18 08/23/24 08:21 08/23/24 09:00 Temperature Temperature Source Pulse Rate 104 H Pulse Rate from SpO2 Sensor 104 H Respiratory Rate 27 H Respiratory Effort / Characteristics Respiratory Depth Respiratory Pattern Blood Pressure 121/74 141/101 H Blood Pressure Mean 96 116 Blood Pressure Position Pulse Oximetry 94 Oxygen Delivery Method Nasal Cannula Nasal Cannula Oxygen Flow Rate 6 6 Sepsis Recent Fever Within 48 Hours Sepsis New/Unexplained Change in Mental Status Sepsis Action Taken by Nursing Oxygen Flow Rate - Titration Pulse Oximetry Post Tiitration 08/23/24 09:15 08/23/24 09:24 08/23/24 09:31 Temperature Temperature Source Pulse Rate 99 H 90 Pulse Rate from SpO2 Sensor 97 H 92 H Respiratory Rate 37 H 25 H Respiratory Effort / Characteristics Respiratory Depth Respiratory Pattern Blood Pressure 135/77 Blood Pressure Mean 95 Blood Pressure Position Pulse Oximetry 95 95 Oxygen Delivery Method Nasal Cannula Nasal Cannula Nasal Cannula Oxygen Flow Rate 6 6 6 Sepsis Recent Fever Within 48 Hours Sepsis New/Unexplained Change in Mental Status Sepsis Action Taken by Nursing Oxygen Flow Rate - Titration Pulse Oximetry Post Tiitration 08/23/24 09:33 Temperature Temperature Source Pulse Rate 93 H Pulse Rate from SpO2 Sensor 92 H Respiratory Rate 29 H Respiratory Effort / Characteristics Respiratory Depth Respiratory Pattern Blood Pressure Blood Pressure Mean Blood Pressure Position Pulse Oximetry 95 Oxygen Delivery Method Nasal Cannula Oxygen Flow Rate 6 Sepsis Recent Fever Within 48 Hours Sepsis New/Unexplained Change in Mental Status Sepsis Action Taken by Nursing Oxygen Flow Rate - Titration Pulse Oximetry Post Tiitration Laboratory Data 08/23/24 07:35 08/23/24 07:35 Lab Results 08/23/24 08/23/24 08/23/24 Range/Units 07:35 07:44 07:45 WBC 12.84 H (4.8-10.8) K/ul RBC 4.32 L (4.70-6.10) M/uL Hgb 12.4 L (14.0-18.0) g/dl POC Hgb 12.9 L (14.0-18.0) g/dl Hct 39.1 L (42.0-52.0) % POC Hct 38 L (42-52) % MCV 90.5 (80.0-100.0) fL MCH 28.7 (25.0-34.0) pg MCHC 31.7 L (32.0-36.0) g/dL RDW Std Deviation 53.1 H (36.4-46.3) fL RDW Coeff of Elizabeth 15.9 H (11.5-14.5) % Plt Count 150 (130-400) K/uL MPV 11.1 (9.4-12.4) fL Immature Gran % (Auto) 0.7 % Neut % (Auto) 89.5 % Lymph % (Auto) 4.0 % [place] % (Auto) 5.6 % Eos % (Auto) 0.0 % Baso % (Auto) 0.2 % Neut # (Auto) 11.50 H (1.40-6.50) K/uL Lymph # (Auto) 0.51 L (1.20-3.40) K/uL [place] # (Auto) 0.72 H (0.11-0.59) K/uL Eos # (Auto) 0.00 (0.00-0.50) K/uL Baso # (Auto) 0.02 (0.00-0.20) K/uL Immature Gran # (Auto) 0.09 (0.01-0.20) K/uL VBG pH (7.36-7.41) VBG pCO2 (38-50) mmHg VBG pO2 mmHg VBG HCO3 mmol/L VBG O2 Saturation % VBG Base Excess mEq/L POC Sodium 144 (135-144) mmol/L Sodium 143 (136-145) mmol/L POC Potassium 3.9 (3.3-5.0) mmol/L Potassium 4.0 (3.5-5.1) mmol/L POC Chloride 112 (101-112) mmol/L Chloride 113 H (98-107) mmol/L Carbon Dioxide 21 (21-32) mmol/L POC Total CO2 18 L (24-31) mmol/L Anion Gap 9 (3-11) POC Anion Gap 18.0 (16-25) mmol/L POC BUN 20 H (7-18) mg/dl BUN 20 (6-23) mg/dl Creatinine 1.33 (0.6-1.4) mg/dl POC Creatinine 1.4 H (0.6-1.3) mg/dl Est Cr Clr Drug Dosing 64.2 ml/min eGFR 57.86 BUN/Creatinine Ratio 15.0 (10-20) Glucose 216 H (70-99(Fasting)) mg/dl POC Glucose (other) 210 H (70-99) mg/dl Calcium 8.9 (8.6-10.3) mg/dl POC Ioniz Calcium Leon 1.20 (1.12-1.32) mmol/l Total Bilirubin 0.3 (0.2-1.0) mg/dl AST 25 (13-39) U/L ALT 13 (7-52) U/L Alkaline Phosphatase 67 (34-104) U/L Troponin I High Sens 43.7 H (0-20) pg/ml B-Natriuretic Peptide 108 H (0-100) pg/ml Total Protein 6.8 (6.0-8.3) gm/dl Albumin 3.9 (3.4-5.0) gm/dl Globulin 2.9 (2.5-4.0) gm/dl Albumin/Globulin Ratio 1.3 (0.9-2) Lipase 45 (11-82) U/L Procalcitonin 2.00 H (0-0.5) ng/ml Adenovirus (PCR) Not Detected (NotDetected) B. pertussis DNA (PCR) Not Detected (NotDetected) B.parapertussis DNA PCR Not Detected (NotDetected) C. pneumoniae DNA (PCR) Not Detected (NotDetected) Coronavirus OC43 (PCR) Not Detected (NotDetected) Coronavirus HKU1 (PCR) Not Detected (NotDetected) Coronavirus 229E (PCR) Not Detected (NotDetected) SARS-CoV-2 (PCR) Not Detected (NotDetected) Coronavirus NL63 (PCR) Not Detected (NotDetected) Human Metapneumovir PCR Not Detected (NotDetected) Influenza Type A (PCR) Not Detected (NotDetected) Influenza Type B (PCR) Not Detected (NotDetected) M. pneumoniae (PCR) Not Detected (NotDetected) Parainfluenza 1 (PCR) Not Detected (NotDetected) Parainfluenza 2 (PCR) Not Detected (NotDetected) Parainfluenza 3 (PCR) Not Detected (NotDetected) Parainfluenza 4 (PCR) Not Detected (NotDetected) RSV (PCR) Not Detected (NotDetected) Entero/Rhino (PCR) Not Detected (NotDetected) 08/23/24 08/23/24 Range/Units 08:15 09:40 WBC (4.8-10.8) K/ul RBC (4.70-6.10) M/uL Hgb (14.0-18.0) g/dl POC Hgb (14.0-18.0) g/dl Hct (42.0-52.0) % POC Hct (42-52) % MCV (80.0-100.0) fL MCH (25.0-34.0) pg MCHC (32.0-36.0) g/dL RDW Std Deviation (36.4-46.3) fL RDW Coeff of Elizabeth (11.5-14.5) % Plt Count (130-400) K/uL MPV (9.4-12.4) fL Immature Gran % (Auto) % Neut % (Auto) % Lymph % (Auto) % [place] % (Auto) % Eos % (Auto) % Baso % (Auto) % Neut # (Auto) (1.40-6.50) K/uL Lymph # (Auto) (1.20-3.40) K/uL [place] # (Auto) (0.11-0.59) K/uL Eos # (Auto) (0.00-0.50) K/uL Baso # (Auto) (0.00-0.20) K/uL Immature Gran # (Auto) (0.01-0.20) K/uL VBG pH 7.32 L (7.36-7.41) VBG pCO2 42 (38-50) mmHg VBG pO2 25 mmHg VBG HCO3 22 mmol/L VBG O2 Saturation < 60.0 % VBG Base Excess -4.3 mEq/L POC Sodium (135-144) mmol/L Sodium (136-145) mmol/L POC Potassium (3.3-5.0) mmol/L Potassium (3.5-5.1) mmol/L POC Chloride (101-112) mmol/L Chloride (98-107) mmol/L Carbon Dioxide (21-32) mmol/L POC Total CO2 (24-31) mmol/L Anion Gap (3-11) POC Anion Gap (16-25) mmol/L POC BUN (7-18) mg/dl BUN (6-23) mg/dl Creatinine (0.6-1.4) mg/dl POC Creatinine (0.6-1.3) mg/dl Est Cr Clr Drug Dosing ml/min eGFR BUN/Creatinine Ratio (10-20) Glucose (70-99(Fasting)) mg/dl POC Glucose (other) (70-99) mg/dl Calcium (8.6-10.3) mg/dl POC Ioniz Calcium Leon (1.12-1.32) mmol/l Total Bilirubin (0.2-1.0) mg/dl AST (13-39) U/L ALT (7-52) U/L Alkaline Phosphatase (34-104) U/L Troponin I High Sens 48.6 H (0-20) pg/ml B-Natriuretic Peptide (0-100) pg/ml Total Protein (6.0-8.3) gm/dl Albumin (3.4-5.0) gm/dl Globulin (2.5-4.0) gm/dl Albumin/Globulin Ratio (0.9-2) Lipase (11-82) U/L Procalcitonin (0-0.5) ng/ml Adenovirus (PCR) (NotDetected) B. pertussis DNA (PCR) (NotDetected) B.parapertussis DNA PCR (NotDetected) C. pneumoniae DNA (PCR) (NotDetected) Coronavirus OC43 (PCR) (NotDetected) Coronavirus HKU1 (PCR) (NotDetected) Coronavirus 229E (PCR) (NotDetected) SARS-CoV-2 (PCR) (NotDetected) Coronavirus NL63 (PCR) (NotDetected) Human Metapneumovir PCR (NotDetected) Influenza Type A (PCR) (NotDetected) Influenza Type B (PCR) (NotDetected) M. pneumoniae (PCR) (NotDetected) Parainfluenza 1 (PCR) (NotDetected) Parainfluenza 2 (PCR) (NotDetected) Parainfluenza 3 (PCR) (NotDetected) Parainfluenza 4 (PCR) (NotDetected) RSV (PCR) (NotDetected) Entero/Rhino (PCR) (NotDetected) Administered Medications Discontinued Medications Albuterol (Albut/Ipratrop 3mg/0.5mg Neb 3 Ml Vial) 3 ml NEB NOW STA; Protocol Stop: 08/23/24 07:41 Last Admin: 08/23/24 07:50 Dose: 3 ml Documented By: TNK Albuterol (Albuterol 0.083% Nebu Soln 3 Ml Vial) 2.5 mg NEB NOW STA; Protocol Stop: 08/23/24 10:56 Last Admin: 08/23/24 11:00 Dose: 2.5 mg Documented By: MMF Azithromycin (Azithromycin 250 Mg Tab) 500 mg PO NOW ONE Stop: 08/23/24 09:20 Last Admin: 08/23/24 09:25 Dose: 500 mg Documented By: TNK Furosemide (Furosemide 40 Mg/4 Ml Vial) 40 mg IV ONE ONE Stop: 08/23/24 10:29 Last Admin: 08/23/24 11:00 Dose: 40 mg Documented By: MMF Ceftriaxone Sodium (Rocephin) 2,000 mg in 50 mls @ 100 mls/hr IV NOW STA Stop: 08/23/24 08:08 Last Infusion: 08/23/24 08:18 Dose: Infused Documented By: Admin: 08/23/24 07:50 Dose: 100 mls/hr Documented By: SHELLEY Ioversol (Optiray 320 125ml) 82 ml IV ONCE ONE Stop: 08/23/24 08:40 Last Admin: 08/23/24 08:40 Dose: 82 ml Documented By: FABRIZIO Imaging Data Radiologist's Impression: Chest X-Ray 08/23/24 07:34 EXAM: XR chest 1V portable CLINICAL HISTORY: DYSPNEA, CHEST PAIN JMT. TECHNIQUE: An X-ray image of the chest is obtained in AP projection. COMPARISON: 06/09/2024 FINDINGS: Pulmonary Parenchyma: Bilateral asymmetrical parahilar/mid and lower zones confluent opacities. Mild pleural reaction obscuring the right CP angle. Heart and Mediastinum: Cardiac silhouette is enlarged with bilateral hilar congestion. No mediastinal widening seen. No mediastinal/hilar lymphadenopathy seen. Bony Thorax: Bony thorax appears intact without fractures or deformities. Soft Tissues: Soft tissues overlying the chest wall are unremarkable. IMPRESSION: 1. Bilateral asymmetrical parahilar/mid and lower zone confluent opacities. Pulmonary edema versus postinflammatory. 2. Mild right pleural effusion. 3. Comparing the previous x-ray dated 06/09/2024 there is interval worsening in disease process. Follow-up x-ray is advised. If clinically warranted HRCT lung is advised. Electronically signed by Cirilo Michelle 08-23-2024 08:43 AM Chest CTA 08/23/24 08:06 CT angio chest PE protocol CLINICAL HISTORY: PE TECHNIQUE: Multidetector row helical CT of the chest was performed with angiographic protocol. Coronal and sagittal reformations were obtained. Coronal and sagittal MIPS were obtained from the axial data set and were submitted for review. Automated dose lowering techniques and/or adjustment according to patient size were utilized for this exam. CT DOSE: 1054.76 mGy.cm Comparison: Comparison is made to CT chest 12/16/2022 FINDINGS: Lungs and pleura: Groundglass and consolidative opacities are seen throughout. Bronchiectasis and scarring are seen. Heart and pericardium: Heart size is normal. No pericardial effusion. Vessels: No evidence of pulmonary embolism. Moderate atherosclerosis is seen. Mediastinum and luzma: Subcentimeter lymph nodes are seen. A 36 x 33 mm mass in the right anterior mediastinum is seen with a fiducial marker. Chest wall and lower neck: Unremarkable. Abdomen: Unremarkable. Bones: Degenerative changes in the thoracic spine. IMPRESSION: 1. No pulmonary embolus. 2. Multifocal pneumonia. 3. No significant change in right anterior mediastinal lesion compatible with treated lymphoma. Adjacent scarring may represent post radiation changes. ACT 112: Negative or not required by law. Electronically signed by: Chris Velasco M.D. 08/23/2024 9:08 AM Discharge Plan Visit Data Chief Complaint: Shortness of Breath/Dyspnea Stated Complaint: SOB ED Provider: Cornelius Green Discharge Problem: Acute respiratory failure with hypoxia, Multilobar lung infiltrate, Leukocytosis Patient Disposition: Admitted As Inpatient Discharge Instructions Interventions: ED Discharge Assessment Last Done: 08/23/24 11:28 Discharge Problem: Leukocytosis Qualifiers: Leukocytosis type: unspecified Qualified Code(s): D72.829 - Elevated white blood cell count, unspecified
[2024-08-23] MEDS: ALBUT/IPRATROP 3MG/0.5MG NEB 3 ML VIAL NEB STA (07:50)
[2024-08-23] MEDS: cefTRIAXone SODIUM 2,000 MG/50 ML BAG IV STA (07:50)
[2024-08-23 07:56] LABS: iSTAT Creatinine 1.4 mg/dl (0.6-1.3); iSTAT Hemoglobin 12.9 g/dl (14.0-18.0); iSTAT Ionized Calcium 1.2 mmol/l (1.12-1.32); iSTAT Potassium 3.9 mmol/L (3.3-5.0)
[2024-08-23 08:21] LABS: Albumin Globulin Ratio 1.3 (0.9-2); Albumin Level 3.9 gm/dl (3.4-5.0); Bilirubin,Total 0.3 mg/dl (0.2-1.0); Calcium 8.9 mg/dl (8.6-10.3); Creatinine Clr Calc Pharmacy 64.2 ml/min; Globulin 2.9 gm/dl (2.5-4.0); Total Protein 6.8 gm/dl (6.0-8.3)
[2024-08-23 08:22] LABS: Basophils # (auto) 0.02 K/uL (0.00-0.20); Basophils % (auto) 0.2 %; Hematocrit (blood only) 39.1 % (42.0-52.0); Hemoglobin 12.4 g/dl (14.0-18.0); Immature Granulocytes # (auto) 0.09 K/uL (0.01-0.20); Immature Granulocytes % (auto) 0.7 %; Lymphocytes # (auto) 0.51 K/uL (1.20-3.40); Mean Corpuscular Hemoglobin 28.7 pg (25.0-34.0); Mean Corpuscular Hgb Conc 31.7 g/dL (32.0-36.0); Mean Corpuscular Volume 90.5 fL (80.0-100.0); Mean Platelet Volume 11.1 fL (9.4-12.4); Monocytes # (auto) 0.72 K/uL (0.11-0.59); Monocytes % (auto) 5.6 %; Neutrophils % (auto) 89.5 %; Platelet Count 150 K/uL (130-400); RDW Coefficient of Variation 15.9 % (11.5-14.5); RDW Standard Deviation 53.1 fL (36.4-46.3); Red Blood Count 4.32 M/uL (4.70-6.10); White Blood Count 12.84 K/ul (4.8-10.8)
[2024-08-23 08:25] LABS: Base Excess VBG -4.3 mEq/L; HCO3 VBG 22 mmol/L; Oxygen Saturation VBG < 60.0 %; PCO2 VBG 42 mmHg (38-50); PO2 VBG 25 mmHg; pH VBG 7.32 (7.36-7.41)
[2024-08-23 08:27] LABS: Troponin I High Sensitivity 43.7 pg/ml (0-20)
[2024-08-23] MEDS: OPTIRAY 320 125ml IV ONE (08:40)
--- NOTE | 2024-08-23 08:43 | XRay Report ---
EXAM: XR chest 1V portable CLINICAL HISTORY: DYSPNEA, CHEST PAIN JMT. TECHNIQUE: An X-ray image of the chest is obtained in AP projection. COMPARISON: 06/09/2024 FINDINGS: Pulmonary Parenchyma: Bilateral asymmetrical parahilar/mid and lower zones confluent opacities. Mild pleural reaction obscuring the right CP angle. Heart and Mediastinum: Cardiac silhouette is enlarged with bilateral hilar congestion. No mediastinal widening seen. No mediastinal/hilar lymphadenopathy seen. Bony Thorax: Bony thorax appears intact without fractures or deformities. Soft Tissues: Soft tissues overlying the chest wall are unremarkable. IMPRESSION: 1. Bilateral asymmetrical parahilar/mid and lower zone confluent opacities. Pulmonary edema versus postinflammatory. 2. Mild right pleural effusion. 3. Comparing the previous x-ray dated 06/09/2024 there is interval worsening in disease process. Follow-up x-ray is advised. If clinically warranted HRCT lung is advised. Electronically signed by Cirilo Michelle 08-23-2024 08:43 AM
[2024-08-23 08:46] LABS: Adenovirus PCR Not Detected (NotDetected); Bordetella parapertussis PCR Not Detected (NotDetected); Bordetella pertussis PCR Not Detected (NotDetected); Chlamydia pneumoniae PCR Not Detected (NotDetected); Coronavirus 229E PCR Not Detected (NotDetected); Coronavirus CoV-2 (COVID19)PCR Not Detected (NotDetected); Coronavirus HKU1 PCR Not Detected (NotDetected); Coronavirus NL63 PCR Not Detected (NotDetected); Coronavirus OC43PCR Not Detected (NotDetected); Human Metapneumovirus PCR Not Detected (NotDetected); Influenza A PCR Not Detected (NotDetected); Influenza B PCR Not Detected (NotDetected); Mycoplasma pneumoniae PCR Not Detected (NotDetected); Parainfluenza Virus 1 PCR Not Detected (NotDetected); Parainfluenza Virus 2 PCR Not Detected (NotDetected); Parainfluenza Virus 3 PCR Not Detected (NotDetected); Parainfluenza Virus 4 PCR Not Detected (NotDetected); Respiratory Syncytial VirusPCR Not Detected (NotDetected); Rhinovirus/Enterovirus PCR Not Detected (NotDetected)
--- NOTE | 2024-08-23 09:09 | CT Scan Report ---
CT angio chest PE protocol CLINICAL HISTORY: PE TECHNIQUE: Multidetector row helical CT of the chest was performed with angiographic protocol. Pardo l and sagittal reformations were obtained. Coronal and sagittal MIPS were obtained from the axial christopher a set and were submitted for review. Automated dose lowering techniques and/or adjustment according to patient size were utilized for this exam. CT DOSE: 1054.76 mGy.cm Comparison: Comparison is made to CT chest 12/16/2022 FINDINGS: Lungs and pleura: Groundglass and consolidative opacities are seen throughout. Bronchiectasis and sca rring are seen. Heart and pericardium: Heart size is normal. No pericardial effusion. Vessels: No evidence of pulmonary embolism. Moderate atherosclerosis is seen. Mediastinum and luzma: Subcentimeter lymph nodes are seen. A 36 x 33 mm mass in the right anterior med iastinum is seen with a fiducial marker. Chest wall and lower neck: Unremarkable. Abdomen: Unremarkable. Bones: Degenerative changes in the thoracic spine. IMPRESSION: 1. No pulmonary embolus. 2. Multifocal pneumonia. 3. No significant change in right anterior mediastinal lesion compatible with treated lymphoma. Chiquita cent scarring may represent post radiation changes. ACT 112: Negative or not required by law. Electronically signed by: Chris Velasco M.D. 08/23/2024 9:08 AM
[2024-08-23] MEDS: AZITHROMYCIN 250 MG TAB PO ONE (09:25)
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
[2024-08-23] MEDS: FUROSEMIDE 40 MG/4 ML VIAL IV ONE (11:00)
[2024-08-23] MEDS: ALBUTEROL 0.083% NEBU SOLN 3 ML VIAL NEB STA (11:00)
--- NOTE | 2024-08-23 12:05 | Pulmonary Consultation ---
Date of Consultation August 23, 2024 Assessment & Plan (1) Bronchiectasis: (2) Multilobar lung infiltrate: (3) Acute respiratory failure with hypoxia: Plan CT chest 08/23/2024 personally reviewed: Groundglass opacities appreciated bilaterally with dense consolidative process in the lingula as well as left lower lobe Bronchiectasis of the right upper lobe anteriorly Anterior mediastinal lymph node with some central calcification No other significant mediastinal or hilar lymphadenopathy -- Acute hypoxic respiratory failure Likely secondary to multilobar pneumonia Follow-up sputum culture Respiratory BioFire negative for everything on 08/23/2024 Procalcitonin 2.0 BNP 108 --Focal bronchiectasis of the right upper lobe This is likely postradiation changes -- History of Hodgkin's lymphoma Diagnosed 2009 S/p radiation therapy Plan: Continue with antibiotics with atypical coverage especially mycoplasma. QTc 489. Option includes azithromycin or doxycycline. Given the prolonged QTc I think doxycycline would be preferred Follow-up sputum culture as well as sputum AFB Follow-up nasal MRSA Add 7% nebulized saline along with Mucinex and flutter valve to the regimen Please note the above document was generated using voice recognition software. It may contain grammatical, syntax or spelling errors.Any formal questions or concerns about the content, text or information contained within the body of this dictation should be directly addressed to the provider for clarification. History of Present Illness Attending Physician: Noel Wiggins MD History of Present Illness 69-year-old male present to the hospital with complaints of shortness of breath Past medical history: Hodgkin's lymphoma s/p chemo and radiation, schizoaffective disorder, anxiety, Parkinson's Pulmonary consulted for abnormal CT At the time of examination patient was saturating 91-92% on 5 L nasal cannula He was not in any respiratory distress Patient stated that he has been having issues with breathing and coughing only since last night. Prior to that she was doing reasonably well He does feel that he has phlegm but is not able to get up Denies any hemoptysis. No chest pain, no chest tightness No dysuria, no diarrhea. Patient is actually constipated No unusual headache or blurry vision No nausea or vomiting Social history: Smokes socially for couple of years quit in the 70s. 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 No birds or poultry nearby Allergies Allergy/AdvReac Type Severity Reaction Status Date / Time pollen extracts Allergy Intermediate SNEEZING/CO Verified 05/03/24 14:08 NGESTION ragweed pollen Allergy Mild Sneezing Verified 05/03/24 14:08 oxycodone AdvReac Intermediate COLD Verified 05/03/24 14:08 SWEATS/NAUSEA/VOMITING sertraline AdvReac Intermediate NAUSEA/VOMI Verified 05/03/24 14:08 TING Home Medications Medication Instructions Recorded Confirmed Type fluoxetine 40 mg capsule 40 mg PO DAILY 05/04/23 08/23/24 History vibegron 75 mg tablet 75 mg PO DAILY #90 tabs 05/03/24 08/23/24 Rx quetiapine 50 mg tablet 50 mg PO BID 08/23/24 08/23/24 History Patient History Medical History (Updated 08/23/24 @ 13:01 by Cornelius Green DO) Schizoaffective disorder COVID-19 Osteoarthritis History of kidney stones IBS (irritable bowel syndrome) GERD (gastroesophageal reflux disease) OCD (obsessive compulsive disorder) Anxiety and depression Tardive dyskinesia Hodgkins disease (05/10/10) "Classic Hodgkin's disease, nodular sclerosing type II Status post bronchoscopy and mediastinal endoscopy with biopsy status post completion of 4 cycles of ABVD Status post completion of radiation therapy 07/05/2010 received 3600 cGy " Surgical History History of wisdom tooth extraction History of vascular access device hx port for chemo. has been removed History of cholecystectomy History of hernia repair History of left knee surgery History of colonoscopy Family History Other Cancer Heart disease Stroke Social History Smoking Status: Former smoker Tobacco Type: Cigarettes Second Hand Exposure: No; Do You Dip or Chew Tobacco: No; Hx Alcohol Use: Yes Alcohol type: wine Hx Substance Use: No Preferred Language: Malaysian Communication Ability: Effective Fire Equipment Inspector Helper Required: No Beliefs That Will Affect Care: None marital status: Single Current Living Situation: Family Current Living Situation Comment: Lives with sister and father Feels Safe at Home: Yes Assistive Devices: Walker Review of Systems 2 Review of Systems: All systems reviewed & are unremarkable except as noted in HPI & below Physical Exam 2 Physical Exam: Constitutional: No acute distress HEENT: EOMI, PERRLA Respiratory system: Decreased air entry bilaterally, no wheeze, positive rhonchi bilaterally, positive crackles bilaterally CVS: S1-S2 positive, no murmurs or gallops Abdomen: Soft, nontender, nondistended, positive bowel sounds x4, obese Extremities: +2 pulses bilaterally radialis/ dorsalis pedis, no cyanosis, b ilateral pitting edema L>R Neuro: Awake alert oriented x3 Psych: Normal mood and affect G/U: No Chavez Skin: no rashes, warm and dry Lymphatic: no cervical or axillary lymphadenopathy Results & Data Results & Data Vital Signs (Past 12 Hours) Vital Signs Temp Pulse Resp BP Pulse Ox O2 Del Method O2 Flow Rate 08/23/24 11:28 92 Nasal Cannula 6 08/23/24 11:00 162/84 H 08/23/24 10:57 99 H 26 H 08/23/24 10:36 96 H 38 H 08/23/24 10:31 152/72 H 08/23/24 10:12 95 H 20 08/23/24 10:00 152/84 H 08/23/24 10:00 92 H 29 H 94 Nasal Cannula 6 08/23/24 09:33 93 H 29 H 95 Nasal Cannula 6 08/23/24 09:31 135/77 Nasal Cannula 6 08/23/24 09:24 90 25 H 95 Nasal Cannula 6 08/23/24 09:15 99 H 37 H 95 Nasal Cannula 6 08/23/24 09:00 141/101 H Nasal Cannula 6 08/23/24 08:21 104 H 27 H 94 Nasal Cannula 6 08/23/24 08:18 121/74 08/23/24 08:16 95 Nasal Cannula 6 08/23/24 08:15 106 H 30 H 95 Nasal Cannula 6 08/23/24 08:00 110 H 28 H 96 Nasal Cannula 6 08/23/24 07:52 109 H 08/23/24 07:51 107 H 31 H 92 Nasal Cannula 6 08/23/24 07:43 76 L Room Air 08/23/24 07:34 112 H 35 H 92 Nasal Cannula 6 08/23/24 07:31 Nasal Cannula 6 08/23/24 07:31 37.4 C 123 H 35 H 128/80 76 L Room Air Laboratory Results 08/23/24 07:35 08/23/24 07:35 PG Care Time/CCT Total # of Minutes Spent Total Time Spent with Patient: Total time spent is greater than 50% in coordination of care (as documented) at patient's floor/unit and/or counseling patient: Coding Level of Care Code 98103 INT INP/OBS CARE 3/75MIN Diagnoses Bronchiectasis J47.9 Multilobar lung infiltrate R91.8 Acute respiratory failure with hypoxia J96.01
--- NOTE | 2024-08-23 16:21 | Electrocardiogram Report ---
Test Reason : Blood Pressure : */* mmHG Vent. Rate : 123 BPM Atrial Rate : 123 BPM P-R Int : 142 ms QRS Dur : 88 ms QT Int : 342 ms P-R-T Axes : 58 38 62 degrees QTcB Int : 489 ms Sinus tachycardia Possible Lateral infarct , age undetermined Abnormal ECG When compared with ECG of 09-Jun-2024 13:49, Vent. rate has increased by 63 bpm Confirmed by Gold Elias ([id number]) on 08/23/2024 4:21:09 PM Referred By: Confirmed By: Gold Elias
[2024-08-23] MEDS: SODIUM CHLOR 7% 4 ML NEB NEB SCH (19:55)
[2024-08-23] MEDS: DOXYCYCLINE HYCLATE 100 MG in DEXTROSE 5% MINI-B 100 ML IV SCH (20:00)
[2024-08-23] MEDS: guaiFENesin 600 MG TABCR PO SCH (20:20)
[2024-08-23] MEDS: QUEtiapine FUMARATE 25 MG TABLET PO SCH (20:21)
[2024-08-23] MEDS: ALUMINUM/MAGNESIUM/SIMETH (MAALOX MAX) 30 ML UDC PO STA (20:55)
[2024-08-23] MEDS: FAMOTIDINE 20MG IV PUSH 20 MG/5 ML SYR IV STA (23:18)
[2024-08-24] MEDS: ONDANSETRON INJ 2 MG/ML 2 ML VIAL IV SCH (00:25)
[2024-08-24] MEDS: FAMOTIDINE 20MG IV PUSH 20 MG/5 ML SYR IV STA (00:56)
[2024-08-24] MEDS: ALBUTEROL 0.083% NEBU SOLN 3 ML VIAL NEB PRN (07:05)
[2024-08-24 07:22] LABS: Basophils # (auto) 0.02 K/uL (0.00-0.20); Basophils % (auto) 0.2 %; Eosinophils % (auto) 2.8 %; Hematocrit (blood only) 36.5 % (42.0-52.0); Hemoglobin 11.9 g/dl (14.0-18.0); Immature Granulocytes # (auto) 0.04 K/uL (0.01-0.20); Immature Granulocytes % (auto) 0.4 %; Lymphocytes # (auto) 1.05 K/uL (1.20-3.40); Lymphocytes % (auto) 9.9 %; Mean Corpuscular Hemoglobin 28.8 pg (25.0-34.0); Mean Corpuscular Hgb Conc 32.6 g/dL (32.0-36.0); Mean Corpuscular Volume 88.4 fL (80.0-100.0); Mean Platelet Volume 11.3 fL (9.4-12.4); Monocytes # (auto) 0.63 K/uL (0.11-0.59); Monocytes % (auto) 5.9 %; Neutrophils # (auto) 8.61 K/uL (1.40-6.50); Neutrophils % (auto) 80.8 %; Platelet Count 139 K/uL (130-400); RDW Coefficient of Variation 15.9 % (11.5-14.5); RDW Standard Deviation 51.6 fL (36.4-46.3); Red Blood Count 4.13 M/uL (4.70-6.10); White Blood Count 10.65 K/ul (4.8-10.8)
[2024-08-24 07:33] LABS: BUN Creatinine Ratio 29.1 (10-20); Calcium 8.6 mg/dl (8.6-10.3); Creatinine Clr Calc Pharmacy 106.9 ml/min; Potassium 3.8 mmol/L (3.5-5.1)
[2024-08-24] MEDS: cefTRIAXone SODIUM 2,000 MG/50 ML BAG IV SCH (07:38)
[2024-08-24] MEDS: ENOXAPARIN INJ 40 MG/0.4 ML SYR SQ SCH (07:39)
[2024-08-24] MEDS: VIBEGRON 75 MG TAB PO SCH (07:40)
[2024-08-24] MEDS: FLUoxetine HCL 20 MG CAP PO SCH (07:40)
--- NOTE | 2024-08-24 09:50 | Pulmonology Progress Note ---
Date of Service August 24, 2024 Assessment & Plan (1) Bronchiectasis: (2) Multilobar lung infiltrate: (3) Acute respiratory failure with hypoxia: Plan CT chest 08/23/2024 personally reviewed: Groundglass opacities appreciated bilaterally with dense consolidative process in the lingula as well as left lower lobe Bronchiectasis of the right upper lobe anteriorly Anterior mediastinal lymph node with some central calcification No other significant mediastinal or hilar lymphadenopathy -- Acute hypoxic respiratory failure Likely secondary to multilobar pneumonia Follow-up sputum culture Respiratory BioFire negative for everything on 08/23/2024 Procalcitonin 2.0 BNP 108 --Focal bronchiectasis of the right upper lobe This is likely postradiation changes -- History of Hodgkin's lymphoma Diagnosed 2010 S/p radiation therapy Plan: Continue with antibiotics with atypical coverage especially mycoplasma. Follow-up sputum culture as well as sputum AFB Nausea and vomiting could be from doxycycline as it is found to cause gastritis. Recommend giving it with food If it bothers him a lot then I would recommend changing it to IV Follow-up nasal MRSA Continue with 7% nebulized saline along with Mucinex and flutter valve to the regimen Case was discussed with RN at bedside Please note the above document was generated using voice recognition software. It may contain grammatical, syntax or spelling errors.Any formal questions or concerns about the content, text or information contained within the body of this dictation should be directly addressed to the provider for clarification. Admission and Anticipated Discharge Date Admission Date: August 23, 2024 Subjective Patient seen and examined at bedside. No acute distress, no adverse events overnight He did have nausea and vomiting. Vomiting episode was yesterday night. He did have bowel movement yesterday. Is not passing any gas Complains of mild abdominal pain especially when he is coughing He is bringing up phlegm which is brown in color, no hemoptysis He was saturating 99% on 5 L, I went down to 3 L Review of Systems 2 Review of Systems: All systems reviewed & are unremarkable except as noted in Subjective Physical Exam 2 Physical Exam: Constitutional: No acute distress HEENT: EOMI, PERRLA Respiratory system: Decreased air entry bilaterally, no wheeze, no rhonchi, positive crackles bilaterally CVS: S1-S2 positive, no murmurs or gallops Abdomen: Soft, nontender, nondistended, positive bowel sounds x4, obese Extremities: +2 pulses bilaterally radialis/ dorsalis pedis, no cyanosis, b ilateral pitting edema L>R Neuro: Awake alert oriented x3 Psych: Normal mood and affect G/U: No Chavez Skin: no rashes, warm and dry Lymphatic: no cervical or axillary lymphadenopathy Results & Data Results & Data Vital Signs (Past 12 Hours) Vital Signs Temp Pulse Resp BP Pulse Ox O2 Del Method O2 Flow Rate 08/24/24 07:33 37.0 C 86 22 158/77 H 98 Nasal Cannula 5 08/24/24 07:05 68 20 98 Oxymask 7 08/24/24 03:00 36.7 C 88 18 157/80 H 94 Oxymask 5 08/23/24 22:00 36.8 C 87 17 148/72 H 96 Oxymask 5 Laboratory Results 08/24/24 06:46 08/24/24 06:46 PG Care Time/CCT Total # of Minutes Spent Total Time Spent with Patient: Total time spent is greater than 50% in coordination of care (as documented) at patient's floor/unit and/or counseling patient: Coding Level of Care Code 52129 SUB INP/OBS CARE 3/50MIN Diagnoses Bronchiectasis J47.9 Multilobar lung infiltrate R91.8 Acute respiratory failure with hypoxia J96.01
[2024-08-24] MEDS: ACETAMINOPHEN 325 MG TAB PO PRN (10:36)
[2024-08-24] MEDS: PANTOprazole 40 MG TAB PO SCH (12:09)
--- NOTE | 2024-08-24 13:20 | Hospitalist Progress Note ---
Date of Service August 24, 2024 Assessment & Plan (1) Acute respiratory failure with hypoxia: Plan: This is a 69 y/o male with depression, hx schizoaffective disorder, anxiety, hx Hodgkin's lymphoma, tremor-predominant Parkinson's, and other history as outline d below who presents to the ED today with shortness of breath and chest congestion. Imaging in the ED consistent with multifocal pneumonia, negative for PE. Requiring 6L of oxygen in the ED to maintain sats. Denies history of underlying lung disease. Does have a history of Hodgkin's lymphoma, treated with XRT. - Admit to PCU - Consult pulmonology for additional recommendations - Continue IV antibiotic coverage with ceftriaxone and azithromycin pending pulm evaluation - Scheduled guaifenesin - Incentive spirometry, flutter valve - Continue supplemental O2 - Continue prn nebs clinically much better and has been saturating with 3 L oxygen via oxime mask Has minimal cough but no shortness of breath at rest Will continue current management and likely discharge tomorrow following a 2 steps O2 saturation test (2) Multilobar lung infiltrate: Plan: See plan for #1 Will continue with current antibiotics with IV ceftriaxone and doxycycline Will change to oral cefdinir and doxycycline on discharge (3) Parkinson's disease: Plan: Chronic, stable Not currently on medications - last saw neuro in 2022 (4) Schizoaffective disorder: Plan: Chronic, stable Continue fluoxetine and quetiapine (5) Elevated troponin: Plan: Initial troponin 43.7, repeat 48.6. Likely demand related to infection. Repeat one more troponin this evening EKG prn chest pain.- no EKG changes and no change in troponins, doubt any ACS Plan Pt seen and reviewed with collaborating physician, Dr. Wiggins. Plan of care discussed and as outlined above. Code status: Full code DVT prophylaxis: Lovenox. Raleigh Moyer PA-C Admission and Anticipated Discharge Date Admission Date: August 23, 2024 Subjective 08/24/2024 The patient was seen and examined in telemetry unit He has been feeling much better Minimal distress at rest and does not have any cough Denies any chest pain and/or palpitation Occasional nausea but no vomiting Review of Systems Review of Systems: All systems reviewed and are unremarkable except as noted below Physical Exam Physical Exam: On examination Lying in bed with acute distress due to moderate shortness of breath at rest Hemodynamically stable with tachypnea and tachycardia Chestdecreased breath sounds bilaterally with bibasilar crackles and occasional wheezing anteriorly HeartS1-S2, tachycardia with regular rhythm Abdomendistended, soft bowel sound present and is nontender Extremities1+ edema bilaterally CNSalert, awake and oriented x 3. No focal neurodeficit Results & Data Results & Data Vital Signs (Past 12 Hours) Vital Signs Temp Pulse Pulse Resp BP Pulse Ox O2 Del Method 08/24/24 11:07 36.9 C 89 19 144/73 H 95 Oxymask 08/24/24 10:47 98 Nasal Cannula, Oxymask 08/24/24 10:00 Oxymask 08/24/24 07:33 37.0 C 86 22 158/77 H 98 Nasal Cannula 08/24/24 07:05 68 20 98 Oxymask 08/24/24 05:52 83 08/24/24 03:00 36.7 C 88 18 157/80 H 94 Oxymask O2 Flow Rate 08/24/24 11:07 3 08/24/24 10:47 6 08/24/24 10:00 6 08/24/24 07:33 5 08/24/24 07:05 7 08/24/24 05:52 08/24/24 03:00 5 Laboratory Results Short CBC 08/24/24 Range/Units 06:46 WBC 10.65 (4.8-10.8) K/ul Hgb 11.9 L (14.0-18.0) g/dl Hct 36.5 L (42.0-52.0) % Plt Count 139 (130-400) K/uL BMP 08/24/24 06:46 Sodium 142 Potassium 3.8 Chloride 110 H Carbon Dioxide 25 BUN 23 Creatinine 0.79 D Glucose 103 H Calcium 8.6 Medications Administered Current Inpatient Medications Acetaminophen (Acetaminophen 325 Mg Tab) 650 mg PO Q4H PRN PRN Reason: Pain or Fever Stop: 09/22/24 11:47 Last Admin: 08/24/24 10:36 Dose: 650 mg Albuterol (Albuterol 0.083% Nebu Soln 3 Ml Vial) 2.5 mg NEB Q6H PRN; Protocol PRN Reason: Shortness Of Breath Or Wheezing Stop: 09/22/24 18:43 Last Admin: 08/24/24 07:05 Dose: 2.5 mg Enoxaparin Sodium (Enoxaparin Inj 40 Mg/0.4 Ml Syr) 40 mg SQ QAM [facility]EVON Stop: 09/23/24 08:59 Last Admin: 08/24/24 07:39 Dose: 40 mg Fluoxetine HCl (Fluoxetine Hcl 20 Mg Cap) 40 mg PO DAILY JEVON Stop: 09/23/24 08:59 Last Admin: 08/24/24 07:40 Dose: 40 mg Guaifenesin (Guaifenesin 600 Mg Tabcr) 600 mg PO Q12 [facility]EVON Stop: 09/22/24 20:59 Last Admin: 08/24/24 07:40 Dose: 600 mg Ceftriaxone Sodium (Rocephin) 2,000 mg in 50 mls @ 100 mls/hr IV Q24H [facility]ON Stop: 08/29/24 07:59 Last Infusion: 08/24/24 07:46 Dose: Infused Doxycycline Hyclate 100 mg/ (Dextrose) 100 mls @ 50 mls/hr IV Q12H [facility]ON Stop: 08/28/24 18:59 Last Infusion: 08/24/24 08:47 Dose: Infused Ondansetron HCl (Ondansetron Inj 2 Mg/Ml 2 Ml Vial) 4 mg IV Q6H [facility]EVON Stop: 09/22/24 21:59 Last Admin: 08/24/24 10:33 Dose: 4 mg Pantoprazole Sodium (Pantoprazole 40 Mg Tab) 40 mg PO QAM [facility] Stop: 09/23/24 10:59 Last Admin: 08/24/24 12:09 Dose: 40 mg Quetiapine Fumarate (Quetiapine Fumarate 25 Mg Tablet) 50 mg PO BID [facility]EVON Stop: 09/22/24 20:59 Last Admin: 08/24/24 07:40 Dose: 50 mg Sodium Chloride (Sodium Chlor 7% 4 Ml Neb) 4 ml NEB BIDR [facility] Stop: 09/22/24 18:59 Last Admin: 08/24/24 07:05 Dose: 4 ml Vibegron (Vibegron 75 Mg Tab) 75 mg PO DAILY [facility] Stop: 09/23/24 08:59 Last Admin: 08/24/24 07:40 Dose: 75 mg (3) Parkinson's disease Dyskinesia presence: unspecified whether dyskinesia Fluctuating manifestations: unspecified whether manifestations fluctuate Qualified Code(s): G20.A1 - Parkinson's disease without dyskinesia, without mention of fluctuations (4) Schizoaffective disorder Schizoaffective disorder type: unspecified Qualified Code(s): F25.9 - Schizoaffective disorder, unspecified
[2024-08-24] MEDS ORDERED: SODIUM CHLOR 7% 4 ML NEB NEB PRN (14:59)
[2024-08-25 05:31] LABS: Basophils # (auto) 0.02 K/uL (0.00-0.20); Basophils % (auto) 0.2 %; Eosinophils # (auto) 0.33 K/uL (0.00-0.50); Eosinophils % (auto) 3.4 %; Hematocrit (blood only) 33.7 % (42.0-52.0); Immature Granulocytes # (auto) 0.08 K/uL (0.01-0.20); Immature Granulocytes % (auto) 0.8 %; Lymphocytes # (auto) 0.73 K/uL (1.20-3.40); Lymphocytes % (auto) 7.6 %; Mean Corpuscular Hemoglobin 28.8 pg (25.0-34.0); Mean Corpuscular Hgb Conc 32.6 g/dL (32.0-36.0); Mean Corpuscular Volume 88.2 fL (80.0-100.0); Mean Platelet Volume 11.8 fL (9.4-12.4); Monocytes # (auto) 0.56 K/uL (0.11-0.59); Monocytes % (auto) 5.8 %; Neutrophils # (auto) 7.87 K/uL (1.40-6.50); Neutrophils % (auto) 82.2 %; Platelet Count 141 K/uL (130-400); RDW Coefficient of Variation 15.8 % (11.5-14.5); RDW Standard Deviation 50.6 fL (36.4-46.3); Red Blood Count 3.82 M/uL (4.70-6.10); White Blood Count 9.59 K/ul (4.8-10.8)
[2024-08-25 05:41] LABS: BUN Creatinine Ratio 19.1 (10-20); Calcium 8.3 mg/dl (8.6-10.3); Creatinine Clr Calc Pharmacy 89.8 ml/min; Magnesium 1.8 mg/dl (1.7-2.4); Phosphorus 1.9 mg/dl (2.5-4.9); Potassium 3.8 mmol/L (3.5-5.1)
--- NOTE | 2024-08-25 08:31 | XRay Report ---
EXAM: XR chest 1V portable CLINICAL HISTORY: DYSPNEA, CHEST PAIN JMT TECHNIQUE: An X-ray image of the chest is obtained in 1 frontal projection. COMPARISON: 08/23/2024 CR. FINDINGS: Pulmonary Parenchyma: Interval improving bilateral lung scattered airspace opacities and infiltrates as well as right pleural effusion. Heart and Mediastinum: The cardiac silhouette is stable and borderline enlarged with bilateral hilar congestion. No mediastinal widening was seen. No mediastinal/hilar lymphadenopathy was seen. Bony Thorax: The bony thorax appears intact without fractures or deformities. Soft Tissues: Soft tissues overlying the chest wall are unremarkable. IMPRESSION: Interval improving bilateral lung scattered airspace opacities and infiltrates as well as right pleural effusion. Electronically signed by Cirilo Michelle 08-25-2024 08:30 AM
--- NOTE | 2024-08-25 08:36 | Pulmonology Progress Note ---
Date of Service August 25, 2024 Assessment & Plan (1) Bronchiectasis: (2) Multilobar lung infiltrate: (3) Acute respiratory failure with hypoxia: Plan CT chest 08/23/2024 personally reviewed: Groundglass opacities appreciated bilaterally with dense consolidative process in the lingula as well as left lower lobe Bronchiectasis of the right upper lobe anteriorly Anterior mediastinal lymph node with some central calcification No other significant mediastinal or hilar lymphadenopathy -- Acute hypoxic respiratory failure Likely secondary to multilobar pneumonia Follow-up sputum culture Respiratory BioFire negative for everything on 08/23/2024 Procalcitonin 2.0, nasal MRSA negative BNP 108 --Focal bronchiectasis of the right upper lobe This is likely postradiation changes -- History of Hodgkin's lymphoma Diagnosed 2009 S/p radiation therapy Plan: Chest x-ray from today still shows alveolar opacities bilaterally which have improved especially on the left side compared to the day of presentation Continue with antibiotics with atypical coverage especially mycoplasma. Follow-up sputum culture as well as sputum AFB Continue with 7% nebulized saline along with Mucinex and flutter valve to the regimen Given the rhonchi and wheezing on physical exam today, I will start the patient on formoterol and budesonide nebulized Solu-Medrol 40 mg 1 dose to be given today Case was discussed with RN at bedside Please note the above document was generated using voice recognition software. It may contain grammatical, syntax or spelling errors.Any formal questions or concerns about the content, text or information contained within the body of this dictation should be directly addressed to the provider for clarification. Admission and Anticipated Discharge Date Admission Date: August 23, 2024 Subjective Patient seen and examined at bedside. No acute distress, no adverse events overnight He was saturating 89% on 2 and half liters. He stated he is feeling better since coming to the hospital Shortness of breath is improved No chest pain Abdominal pain is improved No nausea or vomiting since yesterday. Did have bowel movement today Review of Systems 2 Review of Systems: All systems reviewed & are unremarkable except as noted in Subjective Physical Exam 2 Physical Exam: Constitutional: No acute distress HEENT: EOMI, PERRLA Respiratory system: Decreased air entry bilaterally, positive expiratory wheeze bilaterally, positive rhonchi, positive crackles bilateral lower lobes CVS: S1-S2 positive, no murmurs or gallops Abdomen: Soft, nontender, nondistended, positive bowel sounds x4, obese Extremities: +2 pulses bilaterally radialis/ dorsalis pedis, no cyanosis, b ilateral pitting edema L>R Neuro: Awake alert oriented x3 Psych: Normal mood and affect G/U: No Chavez Skin: no rashes, warm and dry Lymphatic: no cervical or axillary lymphadenopathy Results & Data Results & Data Vital Signs (Past 12 Hours) Vital Signs Temp Pulse Pulse Resp BP Pulse Ox O2 Del Method 08/25/24 07:40 37.1 C 83 18 142/80 H 94 Oxymask 08/25/24 00:00 88 08/24/24 22:29 36.6 C 86 20 154/81 H 94 Oxymask 08/24/24 21:04 Oxymask O2 Flow Rate 08/25/24 07:40 3 08/25/24 00:00 08/24/24 22:29 3 08/24/24 21:04 3 Laboratory Results 08/25/24 04:35 08/25/24 04:35 PG Care Time/CCT Total # of Minutes Spent Total Time Spent with Patient: Total time spent is greater than 50% in coordination of care (as documented) at patient's floor/unit and/or counseling patient: Coding Level of Care Code 36907 SUB INP/OBS CARE 3/50MIN Diagnoses Bronchiectasis J47.9 Multilobar lung infiltrate R91.8 Acute respiratory failure with hypoxia J96.01
[2024-08-25] MEDS: hydrOXYzine HCl 10 MG TAB PO STA (08:48)
[2024-08-25] MEDS ORDERED: POTASSIUM PHOS 3 MMOL/1 ML INFUSION IV STA (08:57)
[2024-08-25] MEDS: COUGH DROP (SUGAR FREE) LOZ 24 LOZ/1 BOX BUCCAL ONE (09:32)
[2024-08-25] MEDS: COUGH DROP (SUGAR FREE) LOZ 24 LOZ/1 BOX BUCCAL STA (09:32)
[2024-08-25] MEDS: POTASSIUM PHOSPHATE 21 MMOL in SODIUM CHLORIDE 0.9% 500 ML IV ONE (09:40)
[2024-08-25] MEDS ORDERED: methylPREDNISolone 125 MG/2 ML VIAL IV STA (11:25)
[2024-08-25] MEDS: methylPREDNISolone 40 MG in SYRINGE 0 ML IV ONE (12:13)
--- NOTE | 2024-08-25 17:04 | Hospitalist Progress Note ---
Date of Service August 25, 2024 Assessment & Plan (1) Acute respiratory failure with hypoxia: Plan: This is a 69 y/o male with depression, hx schizoaffective disorder, anxiety, hx Hodgkin's lymphoma, tremor-predominant Parkinson's, and other history as outline d below who presents to the ED today with shortness of breath and chest congestion. Imaging in the ED consistent with multifocal pneumonia, negative for PE. Requiring 6L of oxygen in the ED to maintain sats. Denies history of underlying lung disease. Does have a history of Hodgkin's lymphoma, treated with XRT. - Admit to PCU - Consult pulmonology for additional recommendations - Continue IV antibiotic coverage with ceftriaxone and azithromycin pending pulm evaluation - Scheduled guaifenesin - Incentive spirometry, flutter valve - Continue supplemental O2 - Continue prn nebs clinically much better and has been saturating with 3 L oxygen via oxime mask Has minimal cough but no shortness of breath at rest Will continue current management and likely discharge tomorrow following a 2 steps O2 saturation test still requiring 3 L oxygen to maintain saturation with associated cough and wheezing Receiving new treatment from pulmonary and await for further improvement PT and OT have been ordered and likely discharge tomorrow after 2 steps O2 saturation test (2) Multilobar lung infiltrate: Plan: See plan for #1 Will continue with current antibiotics with IV ceftriaxone and doxycycline Will change to oral cefdinir and doxycycline on discharge (3) Parkinson's disease: Plan: Chronic, stable Not currently on medications - last saw neuro in 2022 (4) Schizoaffective disorder: Plan: Chronic, stable Continue fluoxetine and quetiapine (5) Elevated troponin: Plan: Initial troponin 43.7, repeat 48.6. Likely demand related to infection. Repeat one more troponin this evening EKG prn chest pain.- no EKG changes and no change in troponins, doubt any ACS Plan Pt seen and reviewed with collaborating physician, Dr. Wiggins. Plan of care discussed and as outlined above. Code status: Full code DVT prophylaxis: Lovenox. Raleigh Moyer PA-C Admission and Anticipated Discharge Date Admission Date: August 23, 2024 Subjective 08/24/2024 The patient was seen and examined in telemetry unit He has been feeling much better Minimal distress at rest and does not have any cough Denies any chest pain and/or palpitation Occasional nausea but no vomiting 08/25/2024 The patient was seen and examined in telemetry unit He has been feeling little better but he still remains shortness of breath and has been requiring 3 L to maintain saturation Has cough without any phlegm Occasional wheezing Review of Systems Review of Systems: All systems reviewed and are unremarkable except as noted below Physical Exam Physical Exam: On examination Lying in bed with acute distress due to moderate shortness of breath at rest Hemodynamically stable with tachypnea and tachycardia Chestdecreased breath sounds bilaterally with bibasilar crackles and occasional wheezing anteriorly HeartS1-S2, tachycardia with regular rhythm Abdomendistended, soft bowel sound present and is nontender Extremities1+ edema bilaterally CNSalert, awake and oriented x 3. No focal neurodeficit Results & Data Results & Data Vital Signs (Past 12 Hours) Vital Signs Temp Pulse Resp BP Pulse Ox Pulse Ox O2 Del Method 08/25/24 15:24 37.6 C H 84 18 147/81 H 92 Oxymask 08/25/24 11:21 37.6 C H 84 16 144/84 H 93 Oxymask 08/25/24 11:00 96 08/25/24 09:44 82 20 94 Oxymask 08/25/24 07:40 37.1 C 83 18 142/80 H 94 Oxymask O2 Del Method O2 Flow Rate O2 Flow Rate 08/25/24 15:24 3 08/25/24 11:21 3 08/25/24 11:00 Nasal Cannula, Oxymask 2.5 08/25/24 09:44 3 08/25/24 07:40 3 Laboratory Results Short CBC 08/25/24 Range/Units 04:35 WBC 9.59 (4.8-10.8) K/ul Hgb 11.0 L (14.0-18.0) g/dl Hct 33.7 L (42.0-52.0) % Plt Count 141 (130-400) K/uL BMP 08/25/24 04:35 Sodium 137 Potassium 3.8 Chloride 106 Carbon Dioxide 25 BUN 18 Creatinine 0.94 Glucose 109 H Calcium 8.3 L Medications Administered Current Inpatient Medications Acetaminophen (Acetaminophen 325 Mg Tab) 650 mg PO Q4H PRN PRN Reason: Pain or Fever Stop: 09/22/24 11:47 Last Admin: 08/25/24 09:30 Dose: 650 mg Albuterol (Albuterol 0.083% Nebu Soln 3 Ml Vial) 2.5 mg NEB Q6H PRN; Protocol PRN Reason: Shortness Of Breath Or Wheezing Stop: 09/22/24 18:43 Last Admin: 08/25/24 09:44 Dose: 2.5 mg Arformoterol Tartrate (Arformoterol Tart 15mcg/2ml Vial) 15 mcg INH BIDR [facility] [place] Stop: 09/24/24 18:59 Budesonide (Budesonide 0.5 Mg/2 Ml Vial (Pulmicort)) 0.5 mg NEB BIDR [facility] [place] Stop: 09/24/24 18:59 Enoxaparin Sodium (Enoxaparin Inj 40 Mg/0.4 Ml Syr) 40 mg SQ QAM [facility] [place] Stop: 09/23/24 08:59 Last Admin: 08/25/24 07:59 Dose: Not Given Fluoxetine HCl (Fluoxetine Hcl 20 Mg Cap) 40 mg PO DAILY [facility] [place] Stop: 09/23/24 08:59 Last Admin: 08/25/24 07:58 Dose: 40 mg Guaifenesin (Guaifenesin 600 Mg Tabcr) 600 mg PO Q12 [facility]EVON Stop: 09/22/24 20:59 Last Admin: 08/25/24 07:58 Dose: 600 mg Ceftriaxone Sodium (Rocephin) 2,000 mg in 50 mls @ 100 mls/hr IV Q24H [facility] [place] Stop: 08/29/24 07:59 Last Infusion: 08/25/24 09:56 Dose: Infused Doxycycline Hyclate 100 mg/ (Dextrose) 100 mls @ 50 mls/hr IV Q12H [facility] [place] Stop: 08/28/24 18:59 Last Infusion: 08/25/24 08:49 Dose: Infused Ondansetron HCl (Ondansetron Inj 2 Mg/Ml 2 Ml Vial) 4 mg IV Q6H [facility]ON Stop: 09/22/24 21:59 Last Admin: 08/25/24 09:56 Dose: 4 mg Pantoprazole Sodium (Pantoprazole 40 Mg Tab) 40 mg PO QAM [facility] [place] Stop: 09/23/24 10:59 Last Admin: 08/25/24 07:59 Dose: 40 mg Quetiapine Fumarate (Quetiapine Fumarate 25 Mg Tablet) 50 mg PO BID [facility] [place] Stop: 09/22/24 20:59 Last Admin: 08/25/24 07:59 Dose: 50 mg Sodium Chloride (Sodium Chlor 7% 4 Ml Neb) 4 ml NEB BIDR PRN PRN Reason: Sputum induction Stop: 09/22/24 18:59 Vibegron (Vibegron 75 Mg Tab) 75 mg PO DAILY JEVON Stop: 09/23/24 08:59 Last Admin: 08/25/24 07:58 Dose: 75 mg (3) Parkinson's disease Dyskinesia presence: unspecified whether dyskinesia Fluctuating manifestations: unspecified whether manifestations fluctuate Qualified Code(s): G20.A1 - Parkinson's disease without dyskinesia, without mention of fluctuations (4) Schizoaffective disorder Schizoaffective disorder type: unspecified Qualified Code(s): F25.9 - Schizoaffective disorder, unspecified
[2024-08-25] MEDS: ARFORMOTEROL TART 15MCG/2ML VIAL INH SCH (20:10)
[2024-08-25] MEDS: BUDESONIDE 0.5 MG/2 ML VIAL (PULMICORT) NEB SCH (20:10)
[2024-08-25] MEDS: FORMOTEROL 20 MCG/2 ML VIAL ONE (20:10)
[2024-08-25] MEDS: BENZONATATE 100 MG CAPSULE PO PRN (20:28)
[2024-08-25] MEDS: ZOLPIDEM TARTRATE 5 MG TAB PO PRN (22:00)
[2024-08-26 06:23] LABS: Basophils # (auto) 0.01 K/uL (0.00-0.20); Basophils % (auto) 0.1 %; Eosinophils # (auto) 0.03 K/uL (0.00-0.50); Eosinophils % (auto) 0.3 %; Hematocrit (blood only) 34.6 % (42.0-52.0); Hemoglobin 11.1 g/dl (14.0-18.0); Immature Granulocytes # (auto) 0.07 K/uL (0.01-0.20); Immature Granulocytes % (auto) 0.8 %; Lymphocytes # (auto) 0.62 K/uL (1.20-3.40); Lymphocytes % (auto) 7.1 %; Mean Corpuscular Hemoglobin 28.2 pg (25.0-34.0); Mean Corpuscular Hgb Conc 32.1 g/dL (32.0-36.0); Mean Platelet Volume 11.2 fL (9.4-12.4); Monocytes # (auto) 0.53 K/uL (0.11-0.59); Monocytes % (auto) 6.1 %; Neutrophils # (auto) 7.45 K/uL (1.40-6.50); Neutrophils % (auto) 85.6 %; Platelet Count 168 K/uL (130-400); RDW Coefficient of Variation 15.6 % (11.5-14.5); RDW Standard Deviation 50.6 fL (36.4-46.3); Red Blood Count 3.93 M/uL (4.70-6.10); White Blood Count 8.71 K/ul (4.8-10.8)
[2024-08-26 06:40] LABS: BUN Creatinine Ratio 22.7 (10-20); Calcium 8.8 mg/dl (8.6-10.3); Creatinine Clr Calc Pharmacy 112.6 ml/min; Potassium 4.1 mmol/L (3.5-5.1)
[2024-08-26] MEDS: FORMOTEROL 20 MCG/2 ML VIAL ONE (07:03)
--- NOTE | 2024-08-26 08:50 | Pulmonology Progress Note ---
Date of Service August 26, 2024 Assessment & Plan (1) Bronchiectasis: (2) Multilobar lung infiltrate: (3) Acute respiratory failure with hypoxia: Plan CT chest 08/23/2024 personally reviewed: Groundglass opacities appreciated bilaterally with dense consolidative process in the lingula as well as left lower lobe Bronchiectasis of the right upper lobe anteriorly Anterior mediastinal lymph node with some central calcification No other significant mediastinal or hilar lymphadenopathy -- Acute hypoxic respiratory failure Likely secondary to multilobar pneumonia Follow-up sputum culture Respiratory BioFire negative for everything on 08/23/2024 Procalcitonin 2.0, nasal MRSA negative BNP 108 --Focal bronchiectasis of the right upper lobe This is likely postradiation changes -- History of Hodgkin's lymphoma Diagnosed 2009 S/p radiation therapy Plan: Complete the course of antibiotics with atypical coverage especially mycoplasma. Sputum as well as AFB sputum negative to date Continue with 7% nebulized saline along with Mucinex and flutter valve to the regimen, can continue the same regimen given at home Continue with formoterol and budesonide nebulized in the hospital and on discharge would recommend Symbicort 80-4.5 mcg 2 puffs twice a day Outpatient pulmonary follow-up, repeat CAT scan of the chest in 6-8 weeks Case was discussed with primary team Please note the above document was generated using voice recognition software. It may contain grammatical, syntax or spelling errors.Any formal questions or concerns about the content, text or information contained within the body of this dictation should be directly addressed to the provider for clarification. Admission and Anticipated Discharge Date Admission Date: August 23, 2024 Subjective Patient seen and examined at bedside. No acute distress, no adverse events overnight Patient was saturating 99% on 4 L at rest, I went down to 2 L Overall he stated that he is feeling better compared to before Shortness of breath is improved Bringing up phlegm which is easier to bring in its clear. No hemoptysis Fair appetite Review of Systems 2 Review of Systems: All systems reviewed & are unremarkable except as noted in Subjective Physical Exam 2 Physical Exam: Constitutional: No acute distress HEENT: EOMI, PERRLA Respiratory system: Decreased air entry bilaterally, no rhonchi, minimal expiratory wheeze bilaterally, mild crackles bilateral lower lobes CVS: S1-S2 positive, no murmurs or gallops Abdomen: Soft, nontender, nondistended, positive bowel sounds x4, obese Extremities: +2 pulses bilaterally radialis/ dorsalis pedis, no cyanosis, no edema Neuro: Awake alert oriented x3 Psych: Normal mood and affect G/U: No Chavez Skin: no rashes, warm and dry Lymphatic: no cervical or axillary lymphadenopathy Results & Data Results & Data Vital Signs (Past 12 Hours) Vital Signs Temp Pulse Pulse Resp BP Pulse Ox O2 Del Method 08/26/24 07:59 70 08/26/24 07:51 36.4 C L 75 20 145/76 H 94 Oxymask 08/26/24 07:04 75 17 94 Oxymask 08/26/24 02:59 36.8 C 82 20 133/73 91 Oxymask 08/26/24 01:13 80 08/25/24 22:40 37.4 C 90 20 142/76 H 93 Oxymask O2 Flow Rate 08/26/24 07:59 08/26/24 07:51 2 08/26/24 07:04 2 08/26/24 02:59 08/26/24 01:13 08/25/24 22:40 Laboratory Results 08/26/24 06:06 08/26/24 06:06 PG Care Time/CCT Total # of Minutes Spent Total Time Spent with Patient: Total time spent is greater than 50% in coordination of care (as documented) at patient's floor/unit and/or counseling patient: Coding Level of Care Code 02190 SUB INP/OBS CARE 2/35MIN Diagnoses Bronchiectasis J47.9 Multilobar lung infiltrate R91.8 Acute respiratory failure with hypoxia J96.01
[2024-08-26 09:53] LABS: Phosphorus 3.2 mg/dl (2.5-4.9)
[2024-08-26 12:05] VITALS: TEMP 97.7
--- NOTE | 2024-08-26 13:34 | Hospitalist Progress Note ---
Date of Service August 26, 2024 Assessment & Plan Admission and Anticipated Discharge Date Admission Date: August 23, 2024 Results & Data Results & Data Vital Signs (Past 12 Hours) Vital Signs Temp Pulse Pulse Resp BP Pulse Ox O2 Del Method 08/26/24 12:04 36.5 C 89 20 148/76 H 93 Oxymask 08/26/24 10:50 Oxymask 08/26/24 07:59 70 08/26/24 07:51 36.4 C L 75 20 145/76 H 94 Oxymask 08/26/24 07:04 75 17 94 Oxymask 08/26/24 02:59 36.8 C 82 20 133/73 91 Oxymask O2 Flow Rate 08/26/24 12:04 2 08/26/24 10:50 2 08/26/24 07:59 08/26/24 07:51 2 08/26/24 07:04 2 08/26/24 02:59
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
[2024-08-26 16:22] VITALS: BP 160/84; PULSE 85; RESP 20; O2SAT 93
[2024-08-26] MEDS ORDERED: FORMOTEROL 20 MCG/2 ML VIAL INH SCH (19:00)
[2024-08-26] MEDS ORDERED: DOXYCYCLINE HYCLATE 100 MG CAP PO SCH (21:00)
== END 2024-08-26 17:42 | disposition home health service (06) | DRG 189 ==
LOC: ED 07:26 → SUATTDRO 09:55 → 4W 09:55

== ENCOUNTER 2025-02-09 15:15 | Inpatient (IN) ==
[2025-02-09] MEDS ORDERED: SODIUM CHLORIDE 0.9% 100 ML IV PRN (16:06)
--- NOTE | 2025-02-09 16:06 | Emergency Department Note ---
Impression & Plan GI bleed Admission ED Provider Note HPI: History obtained from patient. The patient is a 69-year-old gentleman with history of COPD, BPH, Parkinson disease, presents the emergency department with a chief complaint of generalized weakness. Patient signed out AGAINST MEDICAL ADVICE several hours ago from the emergency room after he was diagnosed with a lower GI bleed and anemia. Patient states "I made a big mistake". Patient states when he got home he felt so weak that he could not even ambulate. Patient therefore return to the ER to be admitted. On arrival here to the ED the patient is hemodynamically stable, he is saturating at 99% on his baseline 2 L nasal cannula oxygen. ROS: - Per HPI Differential Diagnosis: Symptomatic anemia, lower GI bleed/melena, amongst other potential pathologies. *Outpatient medications and allergy history reviewed. PE: General: Alert, pale appearing HEENT: Normocephalic, trachea midline Eyes: Extraocular eye movement is intact, no scleral erythema Pulmonary: Clear to auscultation bilaterally, no wheezing Cardio: Regular rate and rhythm GI: Abdomen is soft to palpation : No suprapubic tenderness MSK: No evidence of trauma or malformation of the extremities, no edema Skin: No evidence of rash Neuro: Alert, no focal deficits Psychiatric: Cooperative INDEPENDENT INTERPRETATIONS: flux mixer: (As interpreted by myself): - An order was placed for continuous cardiac monitoring - Patient was noted to be in sinus rhythm with a rate of 95 Interventions provided in ED: - Packed red blood cell transfusion ordered, IV Protonix bolus and drip Medical Decision Making: IV was established and lab work from earlier today was reviewed. Patient does have symptomatic anemia with a hemoglobin of 8.2 (baseline appears to be around 12.0). According documentation review the patient did have an occult positive stool earlier today. I suspect that the patient is weak from symptomatic anemia likely from a lower GI bleed/melena. Patient was consented for packed red blood cell transfusion given his symptoms, he was also ordered for IV Protonix bolus and drip. Patient is otherwise hemodynamically stable here in the ED, I discussed his presentation with the on-call hospitalist service for [facility] and the patient was placed for admission to the service of Dr. Louise. Consultants/Discussions held with other healthcare providers: - Hospitalist, Dr. Louise Disposition discussion held by myself with: - Patient Diagnosis: 1. Symptomatic anemia, acute 2. Lower GI bleed, acute Disposition: Admission Kane Lockhart DO Emergency Medicine Past Med/Surg History Problem List (Updated 02/09/25 @ 19:37 by Kane Lockhart DO) Iron deficiency anemia Reactive airway disease (Acute) GI bleed (Acute) Medical History (Updated 02/09/25 @ 19:37 by Kane Lockhart DO) Alcohol use disorder ILD (interstitial lung disease) Reactive airway disease Abnormal chest CT Elevated troponin Leukocytosis Acute respiratory failure with hypoxia Multilobar lung infiltrate Bronchiectasis BPH (benign prostatic hyperplasia) Anxiety Parkinson's disease Schizoaffective disorder COVID-19 Osteoarthritis History of kidney stones IBS (irritable bowel syndrome) GERD (gastroesophageal reflux disease) OCD (obsessive compulsive disorder) Anxiety and depression Tardive dyskinesia Hodgkins disease (05/10/10) "Classic Hodgkin's disease, nodular sclerosing type II Status post bronchoscopy and mediastinal endoscopy with biopsy status post completion of 4 cycles of ABVD Status post completion of radiation therapy 07/05/2010 received 3600 cGy " Surgical History History of wisdom tooth extraction History of vascular access device hx port for chemo. has been removed History of cholecystectomy History of hernia repair History of left knee surgery History of colonoscopy Family History Other Cancer Heart disease Stroke Social History (Updated 02/09/25 @ 17:36 by KAHLIL Apodaca) Smoking Status: Former smoker Tobacco Type: Cigarettes Second Hand Exposure: No; Do You Dip or Chew Tobacco: No; Hx Alcohol Use: Yes Alcohol type: hard liquor Alcohol Intake Frequency: 2-4 x/Month Hx Substance Use: No Preferred Language: Gibraltarian Communication Ability: Effective Cage Tender Required: No Beliefs That Will Affect Care: None marital status: Single Current Living Situation: Family Current Living Situation Comment: Lives with sister and father Feels Safe at Home: Yes Assistive Devices: Walker Allergies Allergies Allergy/AdvReac Type Severity Reaction Status Date / Time pollen extracts Allergy Intermediate SNEEZING/CO Verified 02/09/25 11:45 NGESTION ragweed pollen Allergy Mild Sneezing Verified 02/09/25 11:45 oxycodone AdvReac Intermediate COLD Verified 02/09/25 11:45 SWEATS/NAUSEA/VOMITING sertraline AdvReac Intermediate NAUSEA/VOMI Verified 02/09/25 11:45 TING Home Meds Home Medications Medication Instructions Recorded Confirmed ascorbic acid (vitamin C) 100 mg 100 mg PO DAILY 02/09/25 02/09/25 tablet (Vitamin C) ferrous sulfate 325 mg (65 mg 325 mg PO DAILY 02/09/25 02/09/25 iron) tablet ketoconazole 2 % topical cream 1 applic topical BID 02/09/25 02/09/25 naproxen sodium 220 mg tablet 220 mg PO BID PRN Pain 02/09/25 02/09/25 (Aleve) omega-3 fatty acids-vitamin E 1 cap PO DAILY 02/09/25 02/09/25 1,000 mg capsule tramadol 50 mg tablet 50 mg PO Q6 PRN Pain 02/09/25 02/09/25 Previous Rx's Medication Instructions Recorded budesonide-formoterol HFA 80 2 inh inhalation BID #10.2 grams 11/30/24 mcg-4.5 mcg/actuation aerosol inhaler (Symbicort) Results & Data (ED) Vital Signs Vital Signs - 24 hr 02/09/25 15:29 02/09/25 15:42 02/09/25 15:42 Temperature 36.8 C Temperature Source Oral Pulse Rate 91 H 92 H Pulse Rate [Apical] Pulse Rhythm Pulse Strength Respiratory Rate 24 Respiratory Effort / Characteristics Non-Labored Spontaneous Respiratory Depth Normal Respiratory Pattern Regular Blood Pressure 133/72 Blood Pressure [Left Arm] Blood Pressure Mean 92 Blood Pressure Mean [Left Arm] Blood Pressure Position Pulse Oximetry 89 L 89 L Oxygen Delivery Method Room Air Room Air Oxygen Flow Rate Sepsis Recent Fever Within 48 Hours No Sepsis New/Unexplained Change in Mental Status No Sepsis Action Taken by Nursing No Action Required Oxygen Flow Rate - Titration 2 Pulse Oximetry Post Tiitration 99 02/09/25 15:42 02/09/25 16:02 02/09/25 17:30 Temperature 36.8 C Temperature Source Oral Pulse Rate Pulse Rate [Apical] 92 H 82 Pulse Rhythm Pulse Strength Respiratory Rate 23 22 Respiratory Effort / Characteristics Non-Labored Spontaneous Non-Labored Spontaneous Respiratory Depth Normal Normal Respiratory Pattern Regular Blood Pressure Blood Pressure [Left Arm] 133/72 128/82 Blood Pressure Mean Blood Pressure Mean [Left Arm] 92 97 Blood Pressure Position Pulse Oximetry 99 100 100 Oxygen Delivery Method Nasal Cannula Nasal Cannula Room Air Oxygen Flow Rate 2 2 Sepsis Recent Fever Within 48 Hours Sepsis New/Unexplained Change in Mental Status Sepsis Action Taken by Nursing Oxygen Flow Rate - Titration Pulse Oximetry Post Tiitration 02/09/25 18:03 02/09/25 18:14 02/09/25 18:31 Temperature 37.8 C H 37.6 C H 37.5 C Temperature Source Oral Oral Oral Pulse Rate 101 H 88 Pulse Rate [Apical] Pulse Rhythm Pulse Strength Respiratory Rate 21 22 Respiratory Effort / Characteristics Respiratory Depth Respiratory Pattern Blood Pressure 118/76 135/80 Blood Pressure [Left Arm] Blood Pressure Mean 90 98 Blood Pressure Mean [Left Arm] Blood Pressure Position Pulse Oximetry 96 100 Oxygen Delivery Method Oxygen Flow Rate Sepsis Recent Fever Within 48 Hours Sepsis New/Unexplained Change in Mental Status Sepsis Action Taken by Nursing Oxygen Flow Rate - Titration Pulse Oximetry Post Tiitration 02/09/25 18:46 02/09/25 19:16 Temperature 36.9 C 37.2 C Temperature Source Oral Oral Pulse Rate 89 93 H Pulse Rate [Apical] Pulse Rhythm Regular Pulse Strength Normal Respiratory Rate 20 22 Respiratory Effort / Characteristics Respiratory Depth Respiratory Pattern Blood Pressure 144/72 H 144/86 H Blood Pressure [Left Arm] Blood Pressure Mean 96 105 Blood Pressure Mean [Left Arm] Blood Pressure Position Lying Pulse Oximetry 100 100 Oxygen Delivery Method Oxygen Flow Rate Sepsis Recent Fever Within 48 Hours Sepsis New/Unexplained Change in Mental Status Sepsis Action Taken by Nursing Oxygen Flow Rate - Titration Pulse Oximetry Post Tiitration Laboratory Data Lab Results 02/09/25 02/09/25 Range/Units 16:13 16:53 Blood Type A Positive Blood Type Recheck A Positive Antibody Screen NEGATIVE Crossmatch See Detail Administered Medications Pantoprazole Sodium 40 mg/ (Dextrose) 100 mls @ 20 mls/hr IV Q5H JEVON Stop: 03/11/25 17:14 Last Admin: 02/09/25 17:53 Dose: 8 mg/hr, 20 mls/hr Documented By: LIBBY Discontinued Medications Acetaminophen (Acetaminophen 325 Mg Tab) 650 mg PO NOW STA Stop: 02/09/25 18:10 Last Admin: 02/09/25 18:13 Dose: 650 mg Documented By: NATO Sodium Chloride (Nss) 500 mls @ 999 mls/hr IV .Q31M STA Stop: 02/09/25 16:32 Last Infusion: 02/09/25 16:46 Dose: Infused Documented By: Admin: 02/09/25 16:08 Dose: 999 mls/hr Documented By: LIBBY Pantoprazole Sodium 80 mg/ (Dextrose) 120 mls @ 480 mls/hr IV NOW ONE Stop: 02/09/25 17:11 Last Infusion: 02/09/25 17:55 Dose: Infused Documented By: Admin: 02/09/25 17:31 Dose: 480 mls/hr Documented By: NATO Imaging Data Radiologist's Impression: Abdomen/Pelvis CT 02/09/25 16:20 EXAMINATION: CT of the abdomen and pelvis performed without contrast TECHNIQUE: Helical CT images from the lung bases through the symphysis pubis were obtained without contrast. Coronal and sagittal reformatted images were generated at a workstation for further assessment. Dose reduction techniques were achieved by using automatic exposure control and/or adjustment of mA and/or kV according to patient size and/or use of iterative reconstruction technique. COMPARISON: None HISTORY: Abdominal pain FINDINGS: Lower chest: No consolidation. No pleural effusion or pneumothorax. Mild, patchy interstitial changes at the periphery of the right middle and lower lung. Liver: No suspicious liver lesions. Gallbladder: Cholecystectomy. Spleen: Normal size. Pancreas: No suspicious pancreatic lesions. The pancreatic duct is not dilated. Adrenal glands: No adrenal nodules. Kidneys: No hydronephrosis or obstructing renal stones. Contrast excretion in the renal collecting systems, ureters and bladder. Bladder / Pelvic organs: Unremarkable. Bowel: No bowel obstruction. No abnormal bowel wall thickening. The appendix is unremarkable. Moderate colonic stool. Lymph nodes: No retroperitoneal, mesenteric, or pelvic lymphadenopathy. Peritoneum / Retroperitoneum: No free fluid or air within the abdomen. Vessels: No infrarenal aortic aneurysm. Bones and soft tissues: No suspicious lesion in the bones. Left fat-containing inguinal hernia. IMPRESSION: No acute process identified Electronically signed by Gold Persaud 02-09-2025 4:59 PM Discharge Plan Visit Data Chief Complaint: Weakness Stated Complaint: WEAKNESS ED Provider: Kane Lockhart Discharge Problem: GI bleed Patient Disposition: Admitted As Inpatient Condition: Fair Forms Stand Alone Forms: [employer] Prescriptions Prescriptions: No Action budesonide-formoterol [Symbicort] 80-4.5 mcg/actuation HFA aerosol inhaler 2 inh inhalation BID Qty: 10.2 6RF Rx Instructions: Unable to verify if pt still taking this medication at this date/time. tramadol 50 mg tablet 50 mg PO Q6 PRN (Reason: Pain) ferrous sulfate 325 mg (65 mg iron) Tablet 325 mg PO DAILY naproxen sodium [Aleve] 220 mg Tablet 220 mg PO BID PRN (Reason: Pain) Vitamin C 100 mg Tablet 100 mg PO DAILY ketoconazole 2 % cream 1 applic TOPICAL BID Fish Oil 1,000 mg Capsule 1 cap PO DAILY Referrals Referrals: Nikhil Persaud DO [Primary Care Provider] -
[2025-02-09] MEDS: SODIUM CHLORIDE 0.9% 500 ML IV STA (16:08)
--- NOTE | 2025-02-09 16:59 | CT Scan Report ---
EXAMINATION: CT of the abdomen and pelvis performed without contrast TECHNIQUE: Helical CT images from the lung bases through the symphysis pubis were obtained without contrast. Coronal and sagittal reformatted images were generated at a workstation for further assessment. Dose reduction techniques were achieved by using automatic exposure control and/or adjustment of mA and/or kV according to patient size and/or use of iterative reconstruction technique. COMPARISON: None HISTORY: Abdominal pain FINDINGS: Lower chest: No consolidation. No pleural effusion or pneumothorax. Mild, patchy interstitial changes at the periphery of the right middle and lower lung. Liver: No suspicious liver lesions. Gallbladder: Cholecystectomy. Spleen: Normal size. Pancreas: No suspicious pancreatic lesions. The pancreatic duct is not dilated. Adrenal glands: No adrenal nodules. Kidneys: No hydronephrosis or obstructing renal stones. Contrast excretion in the renal collecting systems, ureters and bladder. Bladder / Pelvic organs: Unremarkable. Bowel: No bowel obstruction. No abnormal bowel wall thickening. The appendix is unremarkable. Moderate colonic stool. Lymph nodes: No retroperitoneal, mesenteric, or pelvic lymphadenopathy. Peritoneum / Retroperitoneum: No free fluid or air within the abdomen. Vessels: No infrarenal aortic aneurysm. Bones and soft tissues: No suspicious lesion in the bones. Left fat-containing inguinal hernia. IMPRESSION: No acute process identified Electronically signed by Gold Persaud 02-09-2025 4:59 PM
[2025-02-09] MEDS: PANTOprazole 80 MG in DEXTROSE 5% 100 ML IV ONE (17:31)
[2025-02-09] MEDS: PANTOprazole 40 MG in DEXTROSE 5% MINI-B 100 ML IV SCH (17:53)
[2025-02-09] MEDS: ACETAMINOPHEN 325 MG TAB PO STA (18:13)
[2025-02-09] MEDS ORDERED: SODIUM CHLORIDE 0.9% 1,000 ML IV SCH (18:45)
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
[2025-02-09 20:24] LABS: Folate (Folic Acid),Ser orPlas > 22.30 ng/ml (>5.38)
[2025-02-09 20:25] LABS: Vitamin B12 239 pg/ml (180-914)
[2025-02-09] MEDS ORDERED: ACETAMINOPHEN 325 MG TAB PO PRN (20:29)
[2025-02-09] MEDS: PANTOPRAZOLE BOLUS/DRIP IV STA (20:36)
[2025-02-09] MEDS: SODIUM CHLORIDE 0.9% 1,000 ML IV SCH (21:23)
[2025-02-09] MEDS: MELATONIN 3 MG TAB PO ONE (22:46)
[2025-02-09 23:40] LABS: Hematocrit (blood only) 24.7 % (42.0-52.0); Hemoglobin 8.5 g/dl (14.0-18.0)
[2025-02-10 07:19] LABS: Hematocrit (blood only) 24.9 % (42.0-52.0); Hemoglobin 8.4 g/dl (14.0-18.0); Mean Corpuscular Hemoglobin 29.7 pg (25.0-34.0); Mean Corpuscular Hgb Conc 33.7 g/dL (32.0-36.0); Mean Platelet Volume 12.1 fL (9.4-12.4); Platelet Count 165 K/uL (130-400); RDW Coefficient of Variation 15.6 % (11.5-14.5); RDW Standard Deviation 49.9 fL (36.4-46.3); Red Blood Count 2.83 M/uL (4.70-6.10); White Blood Count 14.17 K/ul (4.8-10.8)
[2025-02-10 07:50] LABS: BUN Creatinine Ratio 56.1 (10-20); Calcium 8.8 mg/dl (8.6-10.3); Creatinine Clr Calc Pharmacy 98.6 ml/min; Potassium 4.8 mmol/L (3.5-5.1)
[2025-02-10] MEDS: FLUTICASONE/VILANTEROL 100/25MCG 14 PUFFS/INHALER INH SCH (08:03)
[2025-02-10] MEDS: FERROUS SULFATE 325 MG TAB PO SCH (08:04)
--- NOTE | 2025-02-10 09:02 | Gastrointestinal Consultation ---
Date of Consultation February 10, 2025 Assessment & Plan (1) Iron deficiency anemia: 70 year old male with history of schizoaffective disorder, anxiety, tardive dyskinesia, alcohol use disorder, and history of Hodgkin's lymphoma s/p radiation therapy, reactive airway disease, bronchiectasis, and interstitial lung disease admitted through the ED w/ symptomatic anemia - HGB 8.4 s/p 1 unit RBC - NPO for EGD - Stop NSAIDs (was using 4 tablets of Aleve twice daily) - No ASA - No AC - Trend H&H - Monitor and document GI output - Transfuse PRN per primary team - Continue IV PPI for now We appreciate assistance in the management of any serological abnormality and corrections to include: hemoglobin >7, INR <2, platelets >50,000, potassium levels >3.5 but <5.3, and sodium levels within 5 points of the reference range prior to endoscopic evaluation. Thank you for allowing us to participate in the care of this patient. Please call with any acute changes, questions or concerns. Please see addendum below with additional recommendation from my supervising physician. I spent a total of 60 minutes on the date of service in review of patient's record, and previously obtained information in person and appropriate medical visit, discussion and education of plan, with patient and/or caregiver, placing orders for tests/referral/procedures as medically necessary and documentation of pertinent clinical information in patient's medical records for their visit today. Supervising Physician Co-Signing Physician Notes I personally saw and examined the patient. I have reviewed the chart and agree with the documentation provided by the DIRECTOR OF COUNSELING including discussion about the assessment, treatment and plan. Briefly, 70 year old male with history of schizoaffective disorder, anxiety, tardive dyskinesia, alcohol use disorder, and history of Hodgkin's lymphoma s/p radiation therapy, reactive airway disease, bronchiectasis, and interstitial lung disease admitted through the ED w/ symptomatic anemia - HGB 8.4 s/p 1 unit RBC he has been taking 2 Aleve's twice daily and reports melena yesterday night at 3 AM. The Aleve is for his severe ankle pain that he said he suffered an injury. Last few EGDs have shown Mcnulty's or esophagitis without any previous ulcers. High suspicion for an ulceration peptic or duodenal given his Aleve use. Plan for an EGD today n.p.o. PPI twice daily History of Present Illness Reason for Consultation: suspect gi bleed Requesting Physician: Johnny Louise MD Attending Physician: Johnny Louise MD History of Present Illness 70 year old male with history of schizoaffective disorder, anxiety, tardive dyskinesia, alcohol use disorder, and history of Hodgkin's lymphoma s/p radiation therapy, reactive airway disease, bronchiectasis, and interstitial lung disease admitted through the ED w/ symptomatic anemia - GI was asked to evaluate for suspected UGI bleed. Suggests he was advised to start oral iron a few months ago for anemia. He recall when he started this his stool have appeared different, darker brown. He would periodically see dark black stools but again contributed this to iron. No BRBPR. No report of abd pain, nausea/vomiting. Uses 4 tablets of aleve twice daily. No ASA. No AC. HGB 8.4 s/p RBC BUN 46 Colonoscopy 2023: Preparation of the colon was fair. - The examined colon appeared normal. - The examination was otherwise normal on direct and retroflexion views. EGD 2022: Normal upper third of esophagus and middle third of esophagus. - Esophageal mucosal changes classified as Mcnulty's stage C3-M4 per Revloc criteria. Biopsied. - Normal stomach. - Normal examined duodenum. EGD 2022: Normal esophagus. - LA Grade B esophagitis with no bleeding. - Z-line regular. - Normal stomach. - Normal duodenal bulb and second portion of the duodenum. EGD 2022: - LA Grade D reflux esophagitis with bleeding. - A gastric tube was found in the esophagus. - A medium amount of food (residue) in the stomach. - Normal examined duodenum. - No specimens collected. Colonoscopy 2020: - The examined portion of the ileum was normal. - One 6 mm polyp in the ascending colon, removed with a cold snare. Resected and retrieved. - Non-bleeding internal hemorrhoids. Allergies Allergy/AdvReac Type Severity Reaction Status Date / Time pollen extracts Allergy Intermediate SNEEZING/CO Verified 02/09/25 11:45 NGESTION ragweed pollen Allergy Mild Sneezing Verified 02/09/25 11:45 oxycodone AdvReac Intermediate COLD Verified 02/09/25 11:45 SWEATS/NAUSEA/VOMITING sertraline AdvReac Intermediate NAUSEA/VOMI Verified 02/09/25 11:45 TING Home Medications Medication Instructions Recorded Confirmed Type budesonide-formoterol HFA 80 2 inh inhalation BID #10.2 grams 11/30/24 02/09/25 Rx mcg-4.5 mcg/actuation aerosol inhaler (Symbicort) ascorbic acid (vitamin C) 100 mg 100 mg PO DAILY 02/09/25 02/09/25 History tablet (Vitamin C) ferrous sulfate 325 mg (65 mg 325 mg PO DAILY 02/09/25 02/09/25 History iron) tablet ketoconazole 2 % topical cream 1 applic topical BID 02/09/25 02/09/25 History naproxen sodium 220 mg tablet 220 mg PO BID PRN Pain 02/09/25 02/09/25 History (Aleve) omega-3 fatty acids-vitamin E 1 cap PO DAILY 02/09/25 02/09/25 History 1,000 mg capsule tramadol 50 mg tablet 50 mg PO Q6 PRN Pain 02/09/25 02/09/25 History Patient History Medical History (Updated 02/09/25 @ 19:37 by Kane Lockhart DO) Alcohol use disorder ILD (interstitial lung disease) Reactive airway disease Abnormal chest CT Elevated troponin Leukocytosis Acute respiratory failure with hypoxia Multilobar lung infiltrate Bronchiectasis BPH (benign prostatic hyperplasia) Anxiety Parkinson's disease Schizoaffective disorder COVID-19 Osteoarthritis History of kidney stones IBS (irritable bowel syndrome) GERD (gastroesophageal reflux disease) OCD (obsessive compulsive disorder) Anxiety and depression Tardive dyskinesia Hodgkins disease (05/10/10) "Classic Hodgkin's disease, nodular sclerosing type II Status post bronchoscopy and mediastinal endoscopy with biopsy status post completion of 4 cycles of ABVD Status post completion of radiation therapy 07/05/2010 received 3600 cGy " Surgical History History of wisdom tooth extraction History of vascular access device hx port for chemo. has been removed History of cholecystectomy History of hernia repair History of left knee surgery History of colonoscopy Family History Other Cancer Heart disease Stroke Social History (Updated 02/09/25 @ 17:36 by KAHLIL Apodaca) Smoking Status: Former smoker Tobacco Type: Cigarettes Second Hand Exposure: No; Do You Dip or Chew Tobacco: No; Hx Alcohol Use: Yes Alcohol type: wine Alcohol Intake Frequency: 2-4 x/Month Hx Substance Use: No Preferred Language: Korean Communication Ability: Effective Sound Tester Required: No Beliefs That Will Affect Care: None marital status: Single Current Living Situation: Family Current Living Situation Comment: Lives with sister and father Feels Safe at Home: Yes Safety Concerns: Feels Safe At This Time Assistive Devices: None Review of Systems Review of Systems: All other findings negative except as noted in HPI. Physical Exam Constitutional: WD/WN, vitals as above Respiratory: normal respiratory effort, lungs clear to auscultation Cardiovascular: Rate/Rhythm: regular rate and regular rhythm Gastrointestinal (Abdomen): normal bowel sounds, soft, nontender, no hepatosplenomegaly Skin: no rashes, warm and dry Results & Data Vital Signs (Past 12 Hours) Vital Signs Temp Pulse Pulse Resp BP Pulse Ox O2 Del Method 02/10/25 07:06 98.4 F 81 18 132/72 99 Room Air 02/10/25 07:00 88 02/10/25 04:56 98.2 F 87 16 139/73 99 Room Air 02/09/25 22:38 99.1 F 87 18 146/80 H 97 Nasal Cannula 02/09/25 22:05 66 O2 Flow Rate 02/10/25 07:06 02/10/25 07:00 02/10/25 04:56 02/09/25 22:38 2 02/09/25 22:05 Laboratory Results 02/10/25 02/09/25 02/09/25 Range/Units 06:41 23:11 16:53 WBC 14.17 H (4.8-10.8) K/ul RBC 2.83 L (4.70-6.10) M/uL Hgb 8.4 L 8.5 L (14.0-18.0) g/dl Hct 24.9 L 24.7 L (42.0-52.0) % MCV 88.0 (80.0-100.0) fL MCH 29.7 (25.0-34.0) pg MCHC 33.7 (32.0-36.0) g/dL RDW Std Deviation 49.9 H (36.4-46.3) fL RDW Coeff of Elizabeth 15.6 H (11.5-14.5) % Plt Count 165 (130-400) K/uL MPV 12.1 (9.4-12.4) fL Sodium 141 (136-145) mmol/L Potassium 4.8 (3.5-5.1) mmol/L Chloride 111 H (98-107) mmol/L Carbon Dioxide 26 (21-32) mmol/L Anion Gap 4 (3-11) BUN 46 H D (6-23) mg/dl Creatinine 0.82 (0.6-1.4) mg/dl Est Cr Clr Drug Dosing 98.6 ml/min eGFR 94.50 BUN/Creatinine Ratio 56.1 H (10-20) Glucose 135 H (70-99(Fasting)) mg/dl Calcium 8.8 (8.6-10.3) mg/dl Iron (35-175) mcg/dl Vitamin B12 (180-914) pg/ml Folate (>5.38) ng/ml Blood Type Blood Type Recheck A Positive Antibody Screen Crossmatch 02/09/25 02/09/25 Range/Units 16:13 15:30 WBC (4.8-10.8) K/ul RBC (4.70-6.10) M/uL Hgb (14.0-18.0) g/dl Hct (42.0-52.0) % MCV (80.0-100.0) fL MCH (25.0-34.0) pg MCHC (32.0-36.0) g/dL RDW Std Deviation (36.4-46.3) fL RDW Coeff of Elizabeth (11.5-14.5) % Plt Count (130-400) K/uL MPV (9.4-12.4) fL Sodium (136-145) mmol/L Potassium (3.5-5.1) mmol/L Chloride (98-107) mmol/L Carbon Dioxide (21-32) mmol/L Anion Gap (3-11) BUN (6-23) mg/dl Creatinine (0.6-1.4) mg/dl Est Cr Clr Drug Dosing ml/min eGFR BUN/Creatinine Ratio (10-20) Glucose (70-99(Fasting)) mg/dl Calcium (8.6-10.3) mg/dl Iron 163 (35-175) mcg/dl Vitamin B12 239 (180-914) pg/ml Folate > 22.30 (>5.38) ng/ml Blood Type A Positive Blood Type Recheck Antibody Screen NEGATIVE Crossmatch See Detail PG Care Time/CCT Total # of Minutes Spent Total Time Spent with Patient: Total time spent is greater than 50% in coordination of care (as documented) at patient's floor/unit and/or counseling patient: Coding Level of Care Code 59829 INT INP/OBS CARE 2/55MIN Diagnoses Iron deficiency anemia D50.9
--- NOTE | 2025-02-10 11:18 | Anesthesiology Consultation ---
Date of Service February 10, 2025 Assessment & Plan Chart Review Chart Review: Acceptable Risk for Surgery Consults Requested none ASA ASA3 Proposed Anesthesia Anesthesia Type: MAC Risk / Benefits Reviewed With: PT / POA / Parent / Guardian, Accepts Plan and Informed Consent Obtained History Surgery Operation Date: 02/10/25 16:30 Proposed Procedures p Esophagogastroduodenoscopy [place] - Mike Manzanares MD Height/Weight Height: 5 ft 9 in Weight: 101.8 kg Allergies Allergy/AdvReac Type Severity Reaction Status Date / Time pollen extracts Allergy Intermediate SNEEZING/CO Verified 02/09/25 11:45 NGESTION ragweed pollen Allergy Mild Sneezing Verified 02/09/25 11:45 oxycodone AdvReac Intermediate COLD Verified 02/09/25 11:45 SWEATS/NAUSEA/VOMITING sertraline AdvReac Intermediate NAUSEA/VOMI Verified 02/09/25 11:45 TING Medications Home Medications Medication Instructions Recorded Confirmed Last Taken budesonide-formoterol HFA 80 2 inh inhalation BID #10.2 grams 11/30/24 02/09/25 Unknown mcg-4.5 mcg/actuation aerosol inhaler (Symbicort) ascorbic acid (vitamin C) 100 mg 100 mg PO DAILY 02/09/25 02/09/25 Unknown tablet (Vitamin C) ferrous sulfate 325 mg (65 mg 325 mg PO DAILY 02/09/25 02/09/25 Unknown iron) tablet ketoconazole 2 % topical cream 1 applic topical BID 02/09/25 02/09/25 Unknown naproxen sodium 220 mg tablet 220 mg PO BID PRN Pain 02/09/25 02/09/25 Unknown (Aleve) omega-3 fatty acids-vitamin E 1 cap PO DAILY 02/09/25 02/09/25 Unknown 1,000 mg capsule tramadol 50 mg tablet 50 mg PO Q6 PRN Pain 02/09/25 02/09/25 Unknown Active Medications Generic Name Dose Route Start Last Admin Trade Name Freq PRN Reason Stop Dose Admin Ferrous Sulfate 325 mg 02/10/25 09:00 02/10/25 08:04 Ferrous Sulfate 325 Mg Tab PO 03/12/25 08:59 325 mg DAILY JEVON Administration Fluticasone/Vilanterol 1 puffs 02/10/25 09:00 02/10/25 08:03 Fluticasone/Vilanterol 100/25mcg 14 Puffs/Inhaler INH 03/12/25 08:59 1 puffs DAILY JEVON Administration Protocol Pantoprazole Sodium 40 mg/ 100 mls @ 20 mls/hr 02/09/25 17:15 02/10/25 08:01 Dextrose IV 03/11/25 17:14 8 mg/hr Q5H JEVON 20 mls/hr Administration 8 MG/HR Sodium Chloride 1,000 mls @ 80 mls/hr 02/09/25 20:29 02/10/25 08:02 Nss IV 02/10/25 21:28 80 mls/hr .[id number] JEVON Administration Past Medical History Medical History (Updated 02/09/25 @ 19:37 by Kane Lockhart DO) Alcohol use disorder ILD (interstitial lung disease) Reactive airway disease Abnormal chest CT Elevated troponin Leukocytosis Acute respiratory failure with hypoxia Multilobar lung infiltrate Bronchiectasis BPH (benign prostatic hyperplasia) Anxiety Parkinson's disease Schizoaffective disorder COVID-19 Osteoarthritis History of kidney stones IBS (irritable bowel syndrome) GERD (gastroesophageal reflux disease) OCD (obsessive compulsive disorder) Anxiety and depression Tardive dyskinesia Hodgkins disease (05/10/10) "Classic Hodgkin's disease, nodular sclerosing type II Status post bronchoscopy and mediastinal endoscopy with biopsy status post completion of 4 cycles of ABVD Status post completion of radiation therapy 07/05/2010 received 3600 cGy " Exercise / Class Metabolic Activity II 4-5 Yardwork/Stairs/Walk up hill Past Family History Family History Other Cancer Heart disease Stroke Past Surgical History Surgical History History of wisdom tooth extraction History of vascular access device hx port for chemo. has been removed History of cholecystectomy History of hernia repair History of left knee surgery History of colonoscopy Past Anesthesia History No Hx of Anesthesia Complications and No Family Hx of Anesthesia Complications History of PONV No Hx of PONV Social History Smoking Status: Former smoker Do You Dip or Chew Tobacco: No Hx Alcohol Use: Yes Alcohol type: wine alcohol intake frequency: a few times a week Hx Substance Use: No substance use type: does not use Review of Systems ROS Unobtainable: All systems reviewed & are unremarkable except as noted in HPI & below Constitutional: as per Subjective / HPI Eyes: as per Subjective / HPI Ear, Nose, Mouth, Throat: as per Subjective / HPI Respiratory: as per Subjective / HPI Cardiovascular: as per Subjective / HPI Gastrointestinal: as per Subjective / HPI Genitourinary (Male): + as per Subjective / HPI Musculoskeletal: as per Subjective / HPI Integumentary: as per Subjective / HPI Neurologic: as per Subjective / HPI Psychiatric: as per Subjective / HPI Endocrine: as per Subjective / HPI Hematologic / Lymphatic: as per Subjective / HPI Allergy / Immunological: as per Subjective / HPI Physical Exam Vital Signs Last Vital Signs Temp 36.6 C 02/10/25 10:31 Pulse 87 02/10/25 10:31 Resp 17 02/10/25 10:31 BP 122/61 02/10/25 10:31 Pulse Ox 100 02/10/25 10:31 O2 Del Method Room Air 02/10/25 10:31 O2 Flow Rate 2 02/09/25 22:38 Constitutional + obese ENMT Mouth: + edentulous Thyromental Distance: > or= 3.5 Finger Breadths Mallampati Class: II Neck trachea midline and + facial hair Respiratory normal respiratory effort, lungs clear to auscultation normal respiratory effort; no respiratory distress Cardiovascular RRR, no murmur, no edema Rate/Rhythm: regular rate and regular rhythm Chest (Breasts) Chest: no pacemaker and no vascular access device or port Musculoskeletal Extremities: extremities normal to inspection Neurologic moves all extremities Psychiatric Orientation: alert and oriented x 3 Testing Laboratory Results 02/10/25 06:41 02/10/25 06:41 Blood Type A Positive 02/09/25 16:13 Antibody Screen NEGATIVE 02/09/25 16:13
[2025-02-10] MEDS ORDERED: ePHEDrine sulfate 50 MG/ML AMP IV PRN (11:20)
[2025-02-10] MEDS ORDERED: ATROPINE SULFATE 0.1 MG/ML 10ML SYR IV PRN (11:20)
[2025-02-10] MEDS: SODIUM CHLORIDE 0.9% 500 ML IV SCH (11:25)
--- NOTE | 2025-02-10 12:21 | Anesthesiology Progress Note ---
Date of Service February 10, 2025 Anesthesia Post Procedure Vital Signs Vital Signs: Temp Pulse Pulse Pulse Resp BP BP 02/10/25 12:07 84 16 106/47 L 02/10/25 11:12 36.6 C 80 16 142/66 H 02/10/25 10:31 36.6 C 87 17 122/61 02/10/25 07:06 36.9 C 81 18 132/72 02/10/25 07:00 88 02/10/25 04:56 36.8 C 87 16 139/73 02/09/25 22:38 37.3 C 87 18 146/80 H 02/09/25 22:05 66 02/09/25 20:42 88 18 130/63 02/09/25 20:30 02/09/25 20:29 36.9 C 88 18 130/63 02/09/25 20:28 86 02/09/25 19:29 91 H 02/09/25 19:16 37.2 C 93 H 22 144/86 H 02/09/25 18:46 36.9 C 89 20 144/72 H 02/09/25 18:31 37.5 C 88 22 135/80 02/09/25 18:14 37.6 C H 101 H 21 118/76 02/09/25 18:03 37.8 C H 02/09/25 17:30 82 22 128/82 02/09/25 16:02 02/09/25 15:42 36.8 C 92 H 23 133/72 02/09/25 15:42 02/09/25 15:42 36.8 C 92 H 24 133/72 02/09/25 15:29 91 H Pulse Ox O2 Del Method O2 Flow Rate 02/10/25 12:07 98 Room Air 02/10/25 11:12 100 Room Air 02/10/25 10:31 100 Room Air 02/10/25 07:06 99 Room Air 02/10/25 07:00 02/10/25 04:56 99 Room Air 02/09/25 22:38 97 Nasal Cannula 2 02/09/25 22:05 02/09/25 20:42 99 Room Air 02/09/25 20:30 Nasal Cannula 2 02/09/25 20:29 99 Nasal Cannula 2 02/09/25 20:28 02/09/25 19:29 02/09/25 19:16 100 02/09/25 18:46 100 02/09/25 18:31 100 02/09/25 18:14 96 02/09/25 18:03 02/09/25 17:30 100 Room Air 02/09/25 16:02 100 Nasal Cannula 2 02/09/25 15:42 99 Nasal Cannula 2 02/09/25 15:42 89 L Room Air 02/09/25 15:42 89 L Room Air 02/09/25 15:29 Transfer of Care Handoff Completed per policy Notes Mental Status: alert / awake / arousable Patient Amnestic to Procedure: Yes Nausea / Vomiting: adequately controlled Pain: adequately controlled Airway Patency, RR, SpO2: stable & adequate BP & HR: stable & adequate Hydration State: stable & adequate Anesthetic Complications: no major complications apparent
--- NOTE | 2025-02-10 12:31 | GI REPORT ---
[facility] Patient: GLYNN JOY : 1955 Sex at : Male Age: 70 Years Procedure: Upper GI endoscopy Date: 02/10/2025 Attending Physician: Mike Manzanares MD Referring MD: Referred Self; Johnny Louise Indications: - Melena - Suspected upper gastrointestinal bleeding Medications: - Monitored Anesthesia Care Complications: - No immediate complications. Estimated Blood Loss: - Estimated blood loss: None. Procedure: - Prior to the procedure, a History and Physical was performed, and patient medications and allergies were reviewed. The patient's tolerance of previous anesthesia was also reviewed. The risks and benefits of the procedure and the sedation options and risks were discussed with the patient. All questions were answered, and informed consent was obtained. Prior Anticoagulants: The patient has taken no anticoagulant or antiplatelet agents. ASA Grade Assessment: III - A patient with severe systemic disease. After reviewing the risks and benefits, the patient was deemed in satisfactory condition to undergo the procedure. - The egd scope was introduced through the mouth and advanced to the third part of the duodenum. - The upper GI endoscopy was accomplished without difficulty. - The patient tolerated the procedure well. Findings: - A small hiatal hernia was present. - The esophagus and gastroesophageal junction were examined with white light and narrow band imaging (NBI) from a forward view and retroflexed position. 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 These changes involved the mucosa at the upper extent of the gastric folds (37 cm from the incisors) extending to the proximal extent of intestinal metaplasia (33 cm from the incisors). Tongues of salmon-colored mucosa were present. The maximum longitudinal extent of these esophageal mucosal changes was 5 cm in length. Mucosa was biopsied with a cold forceps for histology. One specimen bottle was sent to pathology. - Two superficial esophageal ulcers with no stigmata of recent bleeding were found in the lower third of the esophagus. The largest lesion was 5 mm in largest dimension. - Diffuse moderate inflammation characterized by erythema was found in the gastric body. Biopsies were taken with a cold forceps for histology. - Seven non-bleeding cratered gastric ulcers with no stigmata of bleeding were found in the gastric antrum. The largest lesion was 6 mm in largest dimension. - The examined duodenum was normal. Impression: - Small hiatal hernia. 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 Biopsied. - Esophageal ulcers with no stigmata of recent bleeding. - Acute gastritis, characterized by erythema. Biopsied. - Non-bleeding gastric ulcers with no stigmata of bleeding. - Normal examined duodenum. Recommendation: - Discharge patient to home (ambulatory). - Resume previous diet. - Continue present medications. - Await pathology results. - Return to primary care physician as previously scheduled. - Patient has a contact number available for emergencies. The signs and symptoms of potential delayed complications were discussed with the patient. Return to normal activities tomorrow. Written discharge instructions were provided to the patient. Procedure Code(s): - 99382, Esophagogastroduodenoscopy, flexible, transoral; with biopsy, single or multiple Diagnosis Code(s): - K92.1, Melena (includes Hematochezia) - K44.9, Diaphragmatic hernia without obstruction or gangrene - K22.10, Ulcer of esophagus without bleeding - K29.00, Acute gastritis without bleeding - K25.9, Gastric ulcer, unspecified as acute or chronic, without hemorrhage or perforation - K22.89, Other specified disease of esophagus CPT(R) - 2023 copyright [employer]. All Rights Reserved. The CPT codes, CCI edits and ICD codes generated are intended as suggestions and were generated based on input data. These codes are preliminary and upon refinery superintendent review may be revised to meet current compliance and payer requirements. The provider is responsible for the final determination of appropriate codes, and modifiers. Mike Manzanares MD This document has been electronically signed. Note Initiated:02/10/2025 Note Completed:02/10/2025 12:30 PM \\[email or web address]\Provation\Results\[email or web address]\[id number]
[2025-02-10] MEDS: LIDOCAINE 2% 2 ML VIAL/AMP(20MG/ML) INFIL ONE ×2 (13:06)
[2025-02-10] MEDS: PROPOFOL IV EMULSION 10 MG/ML 20 ML VIAL IV ONE ×2 (13:06)
--- NOTE | 2025-02-10 13:31 | History & Physical Bridge Note ---
Date of Service February 10, 2025 History & Physical Bridge Note I have examined the patient, reviewed the History & Physical and in the interval since the performance of the History & Physical I have noted the following changes of clinical significance: no changes noted Supervising Physician Co-Signing Physician Notes EGD done today. The patient has a small hiatal hernia with long segment Mcnulty's present he does have 2 ulcerations in the distal GEJ but they are both clean-based. In the stomach antrum he had multiple punched-out ulcerations consistent with recent Aleve 4 tabs twice daily use. Duodenum appeared normal. Biopsies were done of the Mcnulty's and the stomach to rule out H. pylori. At this point I would put the patient on a clear liquid diet and advanced by tomorrow. Keep him on PPI twice daily. He should be on twice daily Protonix for a week orally and then he can transition to once daily for 3 months. He can follow-up with us outpatient. GI will sign off please call with any questions.
[2025-02-10] MEDS: PANTOprazole 40 MG TAB PO SCH (20:13)
[2025-02-10] MEDS: HYDROCORTISONE 1% CRM 30 GM TUBE EXT PRN (20:13)
[2025-02-10] MEDS: MELATONIN 3 MG TAB PO PRN (22:41)
[2025-02-11 06:45] LABS: Hematocrit (blood only) 23.8 % (42.0-52.0); Hemoglobin 7.8 g/dl (14.0-18.0); Mean Corpuscular Hemoglobin 29.3 pg (25.0-34.0); Mean Corpuscular Hgb Conc 32.8 g/dL (32.0-36.0); Mean Corpuscular Volume 89.5 fL (80.0-100.0); Mean Platelet Volume 11.8 fL (9.4-12.4); Platelet Count 143 K/uL (130-400); RDW Coefficient of Variation 15.6 % (11.5-14.5); RDW Standard Deviation 50.5 fL (36.4-46.3); Red Blood Count 2.66 M/uL (4.70-6.10); White Blood Count 5.89 K/ul (4.8-10.8)
[2025-02-11 07:14] LABS: BUN Creatinine Ratio 29.3 (10-20); Calcium 8.4 mg/dl (8.6-10.3); Creatinine Clr Calc Pharmacy 98.4 ml/min; Potassium 4.3 mmol/L (3.5-5.1)
[2025-02-11 07:28] VITALS: BP 117/64; RESP 20; TEMP 97.9; O2SAT 68
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
[2025-02-11 10:31] VITALS: PULSE 87
== END 2025-02-11 12:07 | disposition home or self-care (01) | DRG 378 ==
LOC: ED 15:15 → 2S 17:23 → SUATTDRO 17:23 → 2S 20:05

== ENCOUNTER 2025-04-30 08:35 | Observation (INO) ==
[2025-04-30 09:01] LABS: Base Excess VBG -0.4 mEq/L; HCO3 VBG 22 mmol/L; Oxygen Saturation VBG 65.9 %; PCO2 VBG 30 mmHg (38-50); PO2 VBG 38 mmHg; pH VBG 7.48 (7.36-7.41)
[2025-04-30 09:12] LABS: Hematocrit (blood only) 36.9 % (42.0-52.0); Hemoglobin 11.0 g/dl (14.0-18.0); Immature Granulocytes # (auto) 0.01 K/uL (0.01-0.20); Immature Granulocytes % (auto) 0.3 %; Mean Corpuscular Hemoglobin 22.6 pg (25.0-34.0); Mean Corpuscular Volume 75.9 fL (80.0-100.0); Platelet Count 216 K/uL (130-400); RDW Standard Deviation 51.1 fL (36.4-46.3); Red Blood Count 4.86 M/uL (4.70-6.10); White Blood Count 3.53 K/ul (4.8-10.8)
--- NOTE | 2025-04-30 09:12 | XRay Report ---
EXAM: AP portable chest EXAM REASON: Shortness of breath COMPARISON: 02/09/2025 TECHNIQUE: A single AP view of the chest was obtained FINDINGS: The lungs are well-expanded. There is mild relative volume loss noted on the right when compared to the left. There is persistent increased prominence of the pulmonary interstitial markings. The cardiac and mediastinal silhouettes are within normal limits. IMPRESSION: 1. Persistent increased interstitial prominence. Differential considerations include chronic fibrosing lung changes, pulmonary edema and atypical pneumonia. Favor chronic fibrosing lung changes. Electronically signed by Kristofer Romeo 04-30-2025 09:12 AM
[2025-04-30 09:21] LABS: Anion Gap 8.0 (3-11); Blood Urea Nitrogen 20.0 mg/dl (6-23); Calcium 9.5 mg/dl (8.6-10.3); Carbon Dioxide 22.0 mmol/L (21-32); Chloride 109.0 mmol/L (98-107); Creatinine Clr Calc Pharmacy 88.3 ml/min; Glucose 106.0 mg/dl (70-99(Fasting)); Magnesium 2.0 mg/dl (1.7-2.4); Potassium 3.8 mmol/L (3.5-5.1); Sodium 139.0 mmol/L (136-145)
[2025-04-30 09:36] LABS: INR 1.0 (0.9-1.1); Partial Thromboplastin Time 27 Seconds (21-31); Prothrombin Time 10.7 Seconds (9.0-12.0)
--- NOTE | 2025-04-30 09:36 | Emergency Department Note ---
History of Present Illness General Chief Complaint: Shortness of Breath/Dyspnea Stated Complaint: SOB Time Seen by Provider: 04/30/25 08:37 History of Present Illness Provider Complaint: shortness of breath Onset (ago): day(s) (1) Severity: moderate Consistency/Duration: + progressively worsening Relieved By: + rest Exacerbated By: + exertion Known history of: recurrent pneumonia Associated symptoms: + cough and + chest congestion; no chest pain, no fever, no wheezing, no sputum production, no lower extremity pain, no paresthesias or no hemoptysis Home Medications Medication Instructions Recorded Confirmed Type ferrous sulfate 325 mg (65 mg 325 mg PO DAILY 02/09/25 04/30/25 History iron) tablet ketoconazole 2 % topical cream 1 applic topical BID 02/09/25 04/30/25 History omega-3 fatty acids-vitamin E 1 cap PO DAILY 02/09/25 04/30/25 History 1,000 mg capsule acetaminophen 500 mg tablet (Pain 1,000 mg (2 x 500 mg) PO TID #300 02/11/25 04/30/25 Rx Relief Extra Strength tabs (acetaminophen)) budesonide-formoterol HFA 80 0 inh inhalation BID 04/30/25 04/30/25 History mcg-4.5 mcg/actuation aerosol inhaler (Symbicort) oxycodone 5 mg tablet 0 mg PO Q6H PRN pain 04/30/25 04/30/25 History pantoprazole 40 mg tablet,delayed 0 mg PO BID 04/30/25 04/30/25 History release tadalafil 5 mg tablet 0 mg PO DAILY 04/30/25 04/30/25 History tamsulosin 0.4 mg capsule 0 mg PO DAILY 04/30/25 04/30/25 History Allergies Allergy/AdvReac Type Severity Reaction Status Date / Time pollen extracts Allergy Intermediate SNEEZING/CO Verified 02/09/25 11:45 NGESTION ragweed pollen Allergy Mild Sneezing Verified 02/09/25 11:45 oxycodone AdvReac Intermediate COLD Verified 02/09/25 11:45 SWEATS/NAUSEA/VOMITING sertraline AdvReac Intermediate NAUSEA/VOMI Verified 02/09/25 11:45 TING Past Med/Surg History Problem List (Updated 04/30/25 @ 11:16 by Prabhjot Hoff MD) Elevated troponin (Acute) Dyspnea (Acute) Erectile dysfunction Esophageal ulcer without bleeding Gastric ulcer due to nonsteroidal antiinflammatory drug (NSAID) therapy Acute blood loss anemia Osteoarthritis of ankle Iron deficiency anemia Reactive airway disease (Acute) GI bleed (Acute) Medical History Alcohol use disorder ILD (interstitial lung disease) Reactive airway disease Abnormal chest CT Elevated troponin Leukocytosis Acute respiratory failure with hypoxia Multilobar lung infiltrate Bronchiectasis BPH (benign prostatic hyperplasia) Anxiety Parkinson's disease Schizoaffective disorder COVID-19 Osteoarthritis History of kidney stones IBS (irritable bowel syndrome) GERD (gastroesophageal reflux disease) OCD (obsessive compulsive disorder) Anxiety and depression Tardive dyskinesia Hodgkins disease (05/10/10) "Classic Hodgkin's disease, nodular sclerosing type II Status post bronchoscopy and mediastinal endoscopy with biopsy status post completion of 4 cycles of ABVD Status post completion of radiation therapy 07/05/2010 received 3600 cGy " Surgical History History of wisdom tooth extraction History of vascular access device hx port for chemo. has been removed History of cholecystectomy History of hernia repair History of left knee surgery History of colonoscopy Family History Other Cancer Heart disease Stroke Social History Smoking Status: Never smoker Tobacco Type: Cigarettes Second Hand Exposure: No; Do You Dip or Chew Tobacco: No; Hx Alcohol Use: Yes Alcohol type: wine Alcohol Intake Frequency: 2-4 x/Month Hx Substance Use: No Preferred Language: [place] Communication Ability: Effective Pet Handler Required: No Beliefs That Will Affect Care: None marital status: Single Current Living Situation: Family Current Living Situation Comment: Lives with sister and father Feels Safe at Home: Yes Assistive Devices: None Physical Exam 2 Vital Signs: Vital Signs - 24 hr 04/30/25 08:40 04/30/25 08:40 04/30/25 08:42 Temperature 36.5 C Temperature Source Oral Pulse Rate 75 85 Pulse Rate [Apical ] Pulse Rate from Sp O2 Sensor Pulse Rhythm Pulse Rhythm [Apic al] Pulse Strength Normal Respiratory Rate 22 Respiratory Effort / Characteristics Non-Labored Sponta neous Non-Labored Respiratory Depth Normal Normal Respiratory Patter n Regular Regular Blood Pressure 119/76 Blood Pressure [Ri ght Arm] Blood Pressure Elli n 90 Blood Pressure Elli n [Right Arm] Blood Pressure Pos ition Semi-fowlers Blood Pressure Pos ition [Right Arm] Pulse Oximetry 99 Oxygen Delivery Me thod Room Air Room Air Oxygen Flow Rate Sepsis Recent Feve r Within 48 Hours No Sepsis New/Unexpla ined Change in Men tano Status No Sepsis Action Take n by Nursing No Action Required 04/30/25 08:47 04/30/25 08:59 04/30/25 09:00 Temperature Temperature Source Pulse Rate 92 H Pulse Rate [Apical ] 83 Pulse Rate from Sp O2 Sensor Pulse Rhythm Regular Pulse Rhythm [Apic al] Regular Pulse Strength Respiratory Rate 22 16 Respiratory Effort / Characteristics Non-Labored Sponta neous Respiratory Depth Normal Respiratory Patter n Regular Blood Pressure Blood Pressure [Ri ght Arm] 121/73 Blood Pressure Elli n Blood Pressure Elli n [Right Arm] 89 Blood Pressure Pos ition Blood Pressure Pos ition [Right Arm] Semi-fowlers Pulse Oximetry 99 97 96 Oxygen Delivery Me thod Room Air Room Air Room Air Oxygen Flow Rate 0 Sepsis Recent Feve r Within 48 Hours Sepsis New/Unexpla ined Change in Men tano Status Sepsis Action Take n by Nursing 04/30/25 09:00 04/30/25 09:30 04/30/25 10:03 Temperature Temperature Source Pulse Rate 89 88 80 Pulse Rate [Apical ] Pulse Rate from Sp O2 Sensor 89 87 80 Pulse Rhythm Pulse Rhythm [Apic al] Pulse Strength Respiratory Rate 20 18 13 Respiratory Effort / Characteristics Respiratory Depth Respiratory Patter n Blood Pressure 121/73 127/75 131/80 Blood Pressure [Ri ght Arm] Blood Pressure Elli n 89 92 97 Blood Pressure Elli n [Right Arm] Blood Pressure Pos ition Blood Pressure Pos ition [Right Arm] Pulse Oximetry 98 97 99 Oxygen Delivery Me thod Oxygen Flow Rate Sepsis Recent Feve r Within 48 Hours Sepsis New/Unexpla ined Change in Men tano Status Sepsis Action Take n by Nursing 04/30/25 11:08 Temperature Temperature Source Pulse Rate Pulse Rate [Apical ] 72 Pulse Rate from Sp O2 Sensor Pulse Rhythm Pulse Rhythm [Apic al] Pulse Strength Respiratory Rate 20 Respiratory Effort / Characteristics Non-Labored Respiratory Depth Normal Respiratory Patter n Blood Pressure Blood Pressure [Ri ght Arm] 120/71 Blood Pressure Elli n Blood Pressure Elli n [Right Arm] 87 Blood Pressure Pos ition Blood Pressure Pos ition [Right Arm] Pulse Oximetry 100 Oxygen Delivery Me thod Room Air Oxygen Flow Rate Sepsis Recent Feve r Within 48 Hours Sepsis New/Unexpla ined Change in Men tano Status Sepsis Action Take n by Nursing Physical Exam: Physical Exam GENERAL: oriented to person, place, and time. appears well-developed and well- nourished. HENT: Exam performed. - Head: Normocephalic and atraumatic. EYES: Conjunctivae and EOM are normal. Right eye exhibits no discharge. Left eye exhibits no discharge. No scleral icterus. NECK: Normal range of motion. Neck supple. No JVD present. CV: Normal rate, regular rhythm, normal heart sounds and intact distal pulses. There is no peripheral edema. Palpable radial pulses bue. PULM/CHEST: Rhonchi bilaterally. ABD: The abdomen is soft. There is no tenderness. NEURO: Motor and sensation grossly intact. SKIN: Skin is warm and dry. He is not diaphoretic. PSYCH: normal mood and affect. Behavior is normal. Judgment and thought content normal. Course Course 0837: The patient was evaluated in room B7. A complete history and physical exam was performed Cardiac monitoring: An order was placed for continuous cardiac monitoring. The monitor shows a rate of 70 with sinus rhythm interpreted by me 1113: Vital signs stable. Labs are significant for an elevated D-dimer and elevated high-sensitivity troponin of 31.5. Patient's last high-sensitivity troponin in January 2025 was within normal limits. In July 2024 it was elevated however prior to that in May 2024 was within normal limits. CTA of the chest shows no PE but does make mention of a soft tissue mass in the anterior mediastinum. Patient states he is a survivor of Hodgkin's lymphoma and his doctors and oncology team has already done multiple PET scans and biopsies and they state this is not a mass to be concerned about as they state it is " tissue" according to him and they are just monitoring it. Patient will be brought into the hospital for his dyspnea and elevated troponin rule out ACS. 1202: Discussed case with [facility] hospitalist Dr. Bianca Ayers and she will evaluate the patient for admission. Administered Medications Discontinued Medications Aspirin (Aspirin 81 Mg Chew) 324 mg PO NOW STA Stop: 04/30/25 11:15 Last Admin: 04/30/25 11:18 Dose: 324 mg Documented By: BEE Ioversol (Optiray 320 125ml) 118 ml IV ONCE ONE Stop: 04/30/25 10:18 Last Admin: 04/30/25 10:18 Dose: 118 ml Documented By: LAINEY Medical Decision Making Laboratory Data Attestation: I reviewed the patient's lab results. 04/30/25 08:44 04/30/25 08:44 Lab Results 04/30/25 04/30/25 Range/Units 08:40 08:44 WBC 3.53 L (4.8-10.8) K/ul RBC 4.86 (4.70-6.10) M/uL Hgb 11.0 L (14.0-18.0) g/dl Hct 36.9 L (42.0-52.0) % MCV 75.9 L (80.0-100.0) fL MCH 22.6 L (25.0-34.0) pg MCHC 29.8 L (32.0-36.0) g/dL RDW Std Deviation 51.1 H (36.4-46.3) fL RDW Coeff of Elizabeth 19.3 H (11.5-14.5) % Plt Count 216 (130-400) K/uL MPV 11.4 (9.4-12.4) fL Immature Gran % (Auto) 0.3 % Neut % (Auto) 55.3 % Lymph % (Auto) 26.1 % [place] % (Auto) 11.0 % Eos % (Auto) 6.5 % Baso % (Auto) 0.8 % Neut # (Auto) 1.95 (1.40-6.50) K/uL Lymph # (Auto) 0.92 L (1.20-3.40) K/uL [place] # (Auto) 0.39 (0.11-0.59) K/uL Eos # (Auto) 0.23 (0.00-0.50) K/uL Baso # (Auto) 0.03 (0.00-0.20) K/uL Immature Gran # (Auto) 0.01 (0.01-0.20) K/uL PT 10.7 (9.0-12.0) Seconds INR 1.0 (0.9-1.1) APTT 27 (21-31) Seconds PTT Ratio 1.0 D-Dimer 930 H* (0-500) ug/L FEU VBG pH 7.48 H (7.36-7.41) VBG pCO2 30 L (38-50) mmHg VBG pO2 38 mmHg VBG HCO3 22 mmol/L VBG O2 Saturation 65.9 % VBG Base Excess -0.4 mEq/L Sodium 139 (136-145) mmol/L Potassium 3.8 (3.5-5.1) mmol/L Chloride 109 H (98-107) mmol/L Carbon Dioxide 22 (21-32) mmol/L Anion Gap 8 (3-11) BUN 20 (6-23) mg/dl Creatinine 0.93 (0.6-1.4) mg/dl Est Cr Clr Drug Dosing 88.3 ml/min eGFR 88.33 BUN/Creatinine Ratio 21.5 H (10-20) Glucose 106 H (70-99(Fasting)) mg/dl Calcium 9.5 (8.6-10.3) mg/dl Magnesium 2.0 (1.7-2.4) mg/dl Troponin I High Sens 31.5 H (0-20) pg/ml B-Natriuretic Peptide 46 (0-100) pg/ml SARS-CoV-2 (PCR) NEGATIVE (Negative) Influenza Type A (PCR) Negative (Neg) Influenza Type B (PCR) Negative (Neg) RSV (RT-PCR) Negative (Neg) Imaging Data Radiologist's Impression: Chest X-Ray 04/30/25 08:37 EXAM: AP portable chest EXAM REASON: Shortness of breath COMPARISON: 02/09/2025 TECHNIQUE: A single AP view of the chest was obtained FINDINGS: The lungs are well-expanded. There is mild relative volume loss noted on the right when compared to the left. There is persistent increased prominence of the pulmonary interstitial markings. The cardiac and mediastinal silhouettes are within normal limits. IMPRESSION: 1. Persistent increased interstitial prominence. Differential considerations include chronic fibrosing lung changes, pulmonary edema and atypical pneumonia. Favor chronic fibrosing lung changes. Electronically signed by Kristofer Romeo 04-30-2025 09:12 AM Chest CTA 04/30/25 09:55 EXAM: CT angiogram of the chest EXAM REASON: Rule out PE COMPARISON: 02/09/2025 TECHNIQUE: Multiple transaxial images of the chest were obtained following the intravenous administration of contrast. The images were acquired and the arterial phase of contrast distribution. The images were also reconstructed in coronal and sagittal planes. FINDINGS: There is no evidence of acute pulmonary embolus to the level of the proximal segmental branches of the pulmonary arteries. There is bilateral interstitial consolidation. This is greater on the right where there is right-sided volume loss. There is a 3.9 x 2.9 cm soft tissue mass containing calcifications noted in the right anterior mediastinum. The heart and great vessels are within normal limits. The visualized portion of the upper abdomen is within normal limits. IMPRESSION: 1. No evidence of acute pulmonary embolus to the level of the proximal segmental branches of the pulmonary arteries. 2. 3.9 cm soft tissue mass noted in the anterior mediastinum. Recommend consideration of PET scan or biopsy for further evaluation. 3. Bilateral interstitial consolidation most likely related to chronic fibrosing lung changes. Electronically signed by Kristofer Romeo 04-30-2025 10:41 AM ECG Data Attestation: I personally reviewed and interpreted this ECG as follows: Interpretation: Sinus arrhythmia with rate of 71. AR QRS and QTc intervals within normal limits. No ST elevation or ST depression. MDM Narrative 0837: The patient was evaluated in room B7. A complete history and physical exam was performed Cardiac monitoring: An order was placed for continuous cardiac monitoring. The monitor shows a rate of 70 with sinus rhythm interpreted by me 1113: Vital signs stable. Labs are significant for an elevated D-dimer and elevated high-sensitivity troponin of 31.5. Patient's last high-sensitivity troponin in January 2025 was within normal limits. In July 2024 it was elevated however prior to that in May 2024 was within normal limits. CTA of the chest shows no PE but does make mention of a soft tissue mass in the anterior mediastinum. Patient states he is a survivor of Hodgkin's lymphoma and his doctors and oncology team has already done multiple PET scans and biopsies and they state this is not a mass to be concerned about as they state it is " tissue" according to him and they are just monitoring it. Patient will be brought into the hospital for his dyspnea and elevated troponin rule out ACS. 1202: Discussed case with [facility] hospitalist Dr. Bianca Ayers and she will evaluate the patient for admission. Impression & Plan Dyspnea, Elevated troponin Discharge Plan Visit Data Chief Complaint: Shortness of Breath/Dyspnea Stated Complaint: SOB ED Provider: Prabhjot Hoff Discharge Problem: Dyspnea, Elevated troponin Patient Disposition: Being Evaluated by Hospitalist Condition: Fair Forms Stand Alone Forms: My [facility] [employer] Prescriptions Prescriptions: No Action ferrous sulfate 325 mg (65 mg iron) Tablet 325 mg PO DAILY Patient Comments: 04/30- otc/no fill history unable to verify ketoconazole 2 % cream 1 applic TOPICAL BID omega-3 fatty acids-vitamin E 1,000 mg Capsule 1 cap PO DAILY Patient Comments: 04/30- otc unable to verify acetaminophen [Pain Relief ES (acetaminophen)] 500 mg tablet 1,000 mg PO TID Qty: 300 0RF Patient Comments: 04/30- otc unable to verify pantoprazole 40 mg tablet,delayed release (DR/EC) 0 mg PO BID Patient Comments: 04/30- no fill history unable to verify oxycodone 5 mg tablet 0 mg PO Q6H PRN (Reason: pain) Patient Comments: 04/30-Last filled 02/11/25, listed on adverse reaction list. tadalafil 5 mg tablet 0 mg PO DAILY Patient Comments: 04/30- no fill history unable to verify budesonide-formoterol [Symbicort] 80-4.5 mcg/actuation HFA aerosol inhaler 0 inh inhalation BID Patient Comments: 04/30- no fill history unable to verify. Original: 2 inh inhalation BID tamsulosin 0.4 mg capsule 0 mg PO DAILY Patient Comments: 04/30- no fill history unable to verify Referrals Referrals: Nikhil Persuad, [Primary Care Provider] -
[2025-04-30 09:39] LABS: Influenza A virus by PCR Negative (Neg); Influenza B virus by PCR Negative (Neg); SARS CoV2 RNA(COVID-19) Ceph NEGATIVE (Negative)
[2025-04-30] MEDS: OPTIRAY 320 125ml IV ONE (10:18)
--- NOTE | 2025-04-30 10:42 | CT Scan Report ---
EXAM: CT angiogram of the chest EXAM REASON: Rule out PE COMPARISON: 02/09/2025 TECHNIQUE: Multiple transaxial images of the chest were obtained following the intravenous administration of contrast. The images were acquired and the arterial phase of contrast distribution. The images were also reconstructed in coronal and sagittal planes. FINDINGS: There is no evidence of acute pulmonary embolus to the level of the proximal segmental branches of the pulmonary arteries. There is bilateral interstitial consolidation. This is greater on the right where there is right-sided volume loss. There is a 3.9 x 2.9 cm soft tissue mass containing calcifications noted in the right anterior mediastinum. The heart and great vessels are within normal limits. The visualized portion of the upper abdomen is within normal limits. IMPRESSION: 1. No evidence of acute pulmonary embolus to the level of the proximal segmental branches of the pulmonary arteries. 2. 3.9 cm soft tissue mass noted in the anterior mediastinum. Recommend consideration of PET scan or biopsy for further evaluation. 3. Bilateral interstitial consolidation most likely related to chronic fibrosing lung changes. Electronically signed by Kristofer Romeo 04-30-2025 10:41 AM
[2025-04-30] MEDS: ASPIRIN 81 MG CHEW PO STA (11:18)
--- NOTE | 2025-04-30 12:07 | Electrocardiogram Report ---
Test Reason : Blood Pressure : */* mmHG Vent. Rate : 71 BPM Atrial Rate : 71 BPM P-R Int : 172 ms QRS Dur : 80 ms QT Int : 386 ms P-R-T Axes : 80 33 67 degrees QTcB Int : 419 ms Sinus rhythm with Premature atrial complexes Otherwise normal ECG When compared with ECG of 09-Feb-2025 10:46, Premature atrial complexes are now Present Confirmed by Gold Elias ([id number]) on 04/30/2025 12:06:53 PM Referred By: REFERRED SELF Confirmed By: Gold Elias
--- NOTE | 2025-04-30 14:00 | History & Physical Report ---
Date of Service April 30, 2025 Assessment & Plan (1) Elevated troponin: (2) Dyspnea: (3) Gastric ulcer due to nonsteroidal antiinflammatory drug (NSAID) therapy: (4) Acute blood loss anemia: Plan #Exertional dyspnea - rising trop (31 > 89), trend at this time - s/p asp 324mg in the ED, cont 81mg po daily - hold off on heparin gtt unless trop continuing to rise - rosuvastatin 20mg po nightly - trend trop at this time - check lipid panel, HA1c - hold off on heparin gtt unless trop continuing to rise significantly - SL nitro prn - ECHO ordered #Elevated D-dimer - neg CTA chest - LE duplex pending #BPH - cont tamsulosin, but will hold off on tadalafil while inpt #DVT ppx- ambulation and SCDs #Code status: DNR / DNI, BiPAP permitted #Dispo: admit for observation History of Present Illness Chief Complaint: Shortness of breath Primary Care Provider: Nikhil Persaud, DO 70 yo M with PMHx of Hodgkin's disease, NSAID induced PUD, BPH, iron deficiency brought to the ER via EMS due to exertional dyspnea. Pt stated that this morning, he was doing fine until he started looking for his glasses. He said he turned his house upside down trying to find his glasses. During the process, he started getting short of breath. Despite resting, his shortness of breath was not improving. He was concerned he might have a pneumonia, so he called 911. He had similar symptoms when he had pneumonia in 07/2024 and earlier this year. He reports that he was informed by EMS that he was sweating a lot. He noticed improvement in his dyspnea few hours after being in the emergency room. He also reported that he is in the process of moving and over the past few days, he has been moving heavy duty garbage bag full of books into his car. During this time, he does feel short of breath, but recuperates quickly. He denied chest pain, palpitations, dizziness, change in vision, nausea / vomiting, weakness. In the ED, he was found to have D-dimer of 930, initial trop of 31 and repeat trop of 89. He has remained hemodynamically stable. He received aspirin 324mg x1. EKG without any acute abnormalities. He had CTA chest done, which was negative for PE. Hospitalist consulted for admission. Allergies Allergy/AdvReac Type Severity Reaction Status Date / Time pollen extracts Allergy Intermediate SNEEZING/CO Verified 02/09/25 11:45 NGESTION ragweed pollen Allergy Mild Sneezing Verified 02/09/25 11:45 oxycodone AdvReac Intermediate COLD Verified 02/09/25 11:45 SWEATS/NAUSEA/VOMITING sertraline AdvReac Intermediate NAUSEA/VOMI Verified 02/09/25 11:45 TING Home Medications Medication Instructions Recorded Confirmed Type ferrous sulfate 325 mg (65 mg 325 mg PO DAILY 02/09/25 04/30/25 History iron) tablet ketoconazole 2 % topical cream 1 applic topical BID 02/09/25 04/30/25 History omega-3 fatty acids-vitamin E 1 cap PO DAILY 02/09/25 04/30/25 History 1,000 mg capsule acetaminophen 500 mg tablet (Pain 1,000 mg (2 x 500 mg) PO TID #300 02/11/25 04/30/25 Rx Relief Extra Strength tabs (acetaminophen)) budesonide-formoterol HFA 80 0 inh inhalation BID 04/30/25 04/30/25 History mcg-4.5 mcg/actuation aerosol inhaler (Symbicort) oxycodone 5 mg tablet 0 mg PO Q6H PRN pain 04/30/25 04/30/25 History pantoprazole 40 mg tablet,delayed 0 mg PO BID 04/30/25 04/30/25 History release tadalafil 5 mg tablet 0 mg PO DAILY 04/30/25 04/30/25 History tamsulosin 0.4 mg capsule 0 mg PO DAILY 04/30/25 04/30/25 History Past Med/Surg History Problem List (Updated 04/30/25 @ 11:16 by Prabhjot Hoff MD) Elevated troponin (Acute) Dyspnea (Acute) Erectile dysfunction Esophageal ulcer without bleeding Gastric ulcer due to nonsteroidal antiinflammatory drug (NSAID) therapy Acute blood loss anemia Osteoarthritis of ankle Iron deficiency anemia Reactive airway disease (Acute) GI bleed (Acute) Medical History Alcohol use disorder ILD (interstitial lung disease) Reactive airway disease Abnormal chest CT Elevated troponin Leukocytosis Acute respiratory failure with hypoxia Multilobar lung infiltrate Bronchiectasis BPH (benign prostatic hyperplasia) Anxiety Parkinson's disease Schizoaffective disorder COVID-19 Osteoarthritis History of kidney stones IBS (irritable bowel syndrome) GERD (gastroesophageal reflux disease) OCD (obsessive compulsive disorder) Anxiety and depression Tardive dyskinesia Hodgkins disease (05/10/10) "Classic Hodgkin's disease, nodular sclerosing type II Status post bronchoscopy and mediastinal endoscopy with biopsy status post completion of 4 cycles of ABVD Status post completion of radiation therapy 07/05/2010 received 3600 cGy " Surgical History History of wisdom tooth extraction History of vascular access device hx port for chemo. has been removed History of cholecystectomy History of hernia repair History of left knee surgery History of colonoscopy Family History Other Cancer Heart disease Stroke Social History Smoking Status: Never smoker Tobacco Type: Cigarettes Second Hand Exposure: No; Do You Dip or Chew Tobacco: No; Hx Alcohol Use: Yes Alcohol type: wine Alcohol Intake Frequency: 2-4 x/Month Hx Substance Use: No Preferred Language: [place]ian Communication Ability: Effective Mini Shifter Required: No Beliefs That Will Affect Care: None marital status: Single Current Living Situation: Family Current Living Situation Comment: Lives with sister and father Feels Safe at Home: Yes Assistive Devices: None Review of Systems Review of Systems: Comprehensive ROS completed and is otherwise negative. Physical Exam Physical Exam: Gen: no acute distress, lying in bed comfortable HEENT: NC/AT, MMM Lungs: nonlabored breathing, CTAB CVS: s1s2nl, RRR Abd: nl bowel sounds, soft, NT / ND : no estrada Ext: left LE edema without calf tenderness, right leg trace edema Neuro: AAOx3 Psych: calm cooperative Results & Data Results & Data Vital Signs (Past 12 Hours) Vital Signs Temp Pulse Pulse Resp BP BP Pulse Ox 04/30/25 12:40 61 04/30/25 12:31 69 17 138/81 100 04/30/25 12:00 73 15 126/79 98 04/30/25 11:30 67 15 132/79 100 04/30/25 11:08 72 20 120/71 100 04/30/25 11:03 75 17 120/71 99 04/30/25 10:31 77 13 103/63 99 04/30/25 10:03 80 13 131/80 99 04/30/25 09:30 88 18 127/75 97 04/30/25 09:00 89 20 121/73 98 04/30/25 09:00 83 16 121/73 96 04/30/25 08:59 97 04/30/25 08:47 92 H 22 99 04/30/25 08:42 85 04/30/25 08:40 04/30/25 08:40 36.5 C 75 22 119/76 99 O2 Del Method O2 Flow Rate 04/30/25 12:40 04/30/25 12:31 04/30/25 12:00 04/30/25 11:30 04/30/25 11:08 Room Air 04/30/25 11:03 04/30/25 10:31 04/30/25 10:03 04/30/25 09:30 04/30/25 09:00 04/30/25 09:00 Room Air 04/30/25 08:59 Room Air 0 04/30/25 08:47 Room Air 04/30/25 08:42 04/30/25 08:40 Room Air 04/30/25 08:40 Room Air PG Care Time/CCT Total # of Minutes Spent Total Time Spent with Patient: Total time spent is greater than 50% in coordination of care (as documented) at patient's floor/unit and/or counseling patient: Coding Level of Care Code 27925 INT INP/OBS CARE 3/75MIN Diagnoses Elevated troponin R79.89 Dyspnea R06.00 Gastric ulcer due to nonsteroidal antiinflammatory drug (NSAID) therapy K25.9; T39.395A Acute blood loss anemia D62
--- NOTE | 2025-04-30 15:36 | XCELERA ---
[id number] [id number]
[2025-04-30] MEDS ORDERED: NITROGLYCERIN SL 0.4 MG/TAB TAB SL PRN (15:58)
[2025-04-30] MEDS ORDERED: ACETAMINOPHEN 325 MG TAB PO PRN (15:58)
[2025-04-30] MEDS ORDERED: POLYETHYLENE (MIRALAX) 17 GM PACK PO PRN (15:58)
[2025-04-30] MEDS ORDERED: ONDANSETRON INJ 2 MG/ML 2 ML VIAL IV PRN (15:58)
--- NOTE | 2025-04-30 16:09 | Ultrasound Report ---
EXAM: Bilateral lower extremity Doppler venous ultrasounds EXAM REASON: Elevated D-dimer COMPARISON: No prior examinations available for comparison. TECHNIQUE: Using a high-frequency transducer, real-time imaging of the veins of the bilateral lower extremities was performed FINDINGS: There is normal compressibility, augment ability and respiratory variability as well as normal color Doppler flow within each of the sampled venous segments. IMPRESSION: No evidence of DVT. Electronically signed by Kristofer Romeo 04-30-2025 4:08 PM
[2025-04-30] MEDS: ACETAMINOPHEN 500 MG TAB PO SCH (17:22)
[2025-04-30] MEDS ORDERED: ACETAMINOPHEN 500 MG TAB PO PRN (17:28)
[2025-04-30] MEDS: ROSUVASTATIN CALCIUM 20 MG TAB PO SCH (19:52)
[2025-05-01] MEDS: BACLOFEN 20 MG TAB PO STA (05:15)
[2025-05-01] MEDS: TAMSULOSIN HCL 0.4 MG CAP PO SCH (07:24)
[2025-05-01] MEDS: ASPIRIN 81 MG ECTAB PO SCH (07:24)
[2025-05-01] MEDS: FLUTICASONE/VILANTEROL 100/25MCG 14 PUFFS/INHALER INH SCH (07:25)
[2025-05-01 07:34] LABS: Hematocrit (blood only) 34.1 % (42.0-52.0); Hemoglobin 10.2 g/dl (14.0-18.0); Immature Granulocytes # (auto) 0.02 K/uL (0.01-0.20); Immature Granulocytes % (auto) 0.6 %; Mean Corpuscular Hemoglobin 22.7 pg (25.0-34.0); Mean Corpuscular Volume 75.9 fL (80.0-100.0); Platelet Count 197 K/uL (130-400); RDW Standard Deviation 52.9 fL (36.4-46.3); Red Blood Count 4.49 M/uL (4.70-6.10); White Blood Count 3.37 K/ul (4.8-10.8)
[2025-05-01 07:48] LABS: Anion Gap 5.0 (3-11); Blood Urea Nitrogen 14.0 mg/dl (6-23); Calcium 9.0 mg/dl (8.6-10.3); Carbon Dioxide 23.0 mmol/L (21-32); Chloride 111.0 mmol/L (98-107); Cholesterol 102.0 mg/dl (0-200); Creatinine Clr Calc Pharmacy 99.3 ml/min; Glucose 146.0 mg/dl (70-99(Fasting)); HDL Cholesterol 44.0 mg/dl; Magnesium 1.9 mg/dl (1.7-2.4); Potassium 3.8 mmol/L (3.5-5.1); Sodium 139.0 mmol/L (136-145); Triglycerides 48.0 mg/dl (0-150)
[2025-05-01 09:21] LABS: Hemoglobin A1C 5.1 % (4.5-5.6)
[2025-05-01] MEDS: BACLOFEN 10 MG TAB PO SCH (13:18)
[2025-05-01 15:38] VITALS: BP 151/75; PULSE 74; RESP 18; TEMP 98.1; O2SAT 99
--- NOTE | 2025-05-01 16:09 | Discharge Summary ---
Discharge Summary Date of Service May 01, 2025 Principal Dx & Hospital Course #1 = Principal Diagnosis (1) Elevated troponin: (2) Dyspnea: (3) Gastric ulcer due to nonsteroidal antiinflammatory drug (NSAID) therapy: (4) Acute blood loss anemia: Plan #Exertional dyspnea - rising trop (31 > 89), trended down - s/p asp 324mg in the ED, cont 81mg po daily - rosuvastatin 20mg po nightly - lipid panel reviewed, A1c wnl - ECHO unremarkable - pt will need outpatient stress test, cardiology referral given, entertainment reporter consult placed for further assistance - pt instructed to not exert too much at this time #Elevated D-dimer - neg CTA chest - LE duplex neg for DVT #BPH - cont tamsulosin and tadalafil #Dispo: d/c home Admission HPI Per Admitting Provider 70 yo M with PMHx of Hodgkin's disease, NSAID induced PUD, BPH, iron deficiency brought to the ER via EMS due to exertional dyspnea. Pt stated that this morning, he was doing fine until he started looking for his glasses. He said he turned his house upside down trying to find his glasses. During the process, he started getting short of breath. Despite resting, his shortness of breath was not improving. He was concerned he might have a pneumonia, so he called 911. He had similar symptoms when he had pneumonia in 07/2024 and earlier this year. He reports that he was informed by EMS that he was sweating a lot. He noticed improvement in his dyspnea few hours after being in the emergency room. He also reported that he is in the process of moving and over the past few days, he has been moving heavy duty garbage bag full of books into his car. During this time, he does feel short of breath, but recuperates quickly. He denied chest pain, palpitations, dizziness, change in vision, nausea / vomiting, weakness. In the ED, he was found to have D-dimer of 930, initial trop of 31 and repeat trop of 89. He has remained hemodynamically stable. He received aspirin 324mg x1. EKG without any acute abnormalities. He had CTA chest done, which was negative for PE. Hospitalist consulted for admission. Discharge Exam Gen: no acute distress, lying in bed comfortable HEENT: NC/AT, MMM Lungs: nonlabored breathing, CTAB CVS: s1s2nl, RRR Abd: nl bowel sounds, soft, NT / ND : no estrada Ext: left LE edema without calf tenderness, right leg trace edema Neuro: AAOx3 Psych: calm cooperative Discharge Plan Discharge Items Patient Disposition: Home - Self-Care Reason For Visit: EXERTIONAL DYSPNEA Discharge Diagnosis: Exertional dyspnea Condition on Discharge: Fair Activity: As commented below Activity Comment: Reduce high intensity activity until cleared by professional development instructor Non-emergency contact: Primary Care Provider Call non-emergency contact if: you have any medication questions and your symptoms worsen Follow-up/Referrals: [facility] [place] Cardiology [Provider Group] (for outpatient stress test) Nikhil Persaud DO [Primary Care Provider] - Diet: Heart Healthy Addtl Attending Provider Instructions: You were admitted to the hospital for the evaluation of severe shortness of breath. Your work up overall was unremarkable except for mild elevation heart protein. This is concerning as your heart is straining when you are doing high intensity work (lifting heavy things, etc). It is recommended that you take it easy until you are evaluated by cardiology as outpatient. You will need a stress test as outpatient. In the meantime, if your symptoms come back or you have chest pain, please go to the nearest emergency room for further evaluation. You are being sent home on baby aspirin and statin. If you have any questions, please call primary care doctor. Please also follow up with your primary care doctor in about 7 to 10 days. Pending Studies at Discharge: No Stand-Alone Forms: [facility] [employer]IS[employer], Smoking Cessation Medications and DC Order Prescriptions: New rosuvastatin 20 mg Tablet 20 mg PO HS Qty: 30 0RF aspirin 81 mg Tablet,Delayed Release (Dr/Ec) 81 mg PO QAM Qty: 30 0RF Continued ferrous sulfate 325 mg (65 mg iron) Tablet 325 mg PO DAILY Patient Comments: 04/30- otc/no fill history unable to verify ketoconazole 2 % cream 1 applic TOPICAL BID omega-3 fatty acids-vitamin E 1,000 mg Capsule 1 cap PO DAILY Patient Comments: 04/30- otc unable to verify acetaminophen [Pain Relief ES (acetaminophen)] 500 mg tablet 1,000 mg PO TID Qty: 300 0RF Patient Comments: 04/30- otc unable to verify pantoprazole 40 mg tablet,delayed release (DR/EC) 0 mg PO BID Patient Comments: 04/30- no fill history unable to verify oxycodone 5 mg tablet 0 mg PO Q6H PRN (Reason: pain) Patient Comments: 04/30-Last filled 02/11/25, listed on adverse reaction list. tadalafil 5 mg tablet 0 mg PO DAILY Patient Comments: 04/30- no fill history unable to verify budesonide-formoterol [Symbicort] 80-4.5 mcg/actuation HFA aerosol inhaler 0 inh inhalation BID Patient Comments: 04/30- no fill history unable to verify. Original: 2 inh inhalation BID tamsulosin 0.4 mg capsule 0 mg PO DAILY Patient Comments: 04/30- no fill history unable to verify Discharge Orders: Discharge Order (Routine); Ordered 05/01/25 Ordered By: Bianca Ayers Admission Data Admit Date/Time: 04/30/25 13:56 Attending Provider: Bianca Ayers Admit Provider: Bianca Ayers Primary Care Provider: Nikhil Persaud Other Providers: Bianca yAers Other Interventions: Discharge Summary Assessment (RN) Last Done: 05/01/25 14:01 Hospital Stay Data Consultations 04/30/25 11:15 ED Decision to Admit Stat Diagnostic Imagining Performed 04/30/25 09:55 CT angio chest PE protocol Stat 04/30/25 12:03 US venous doppler LE BI Stat Pending Results Patient Have Any Pending Studies at Discharge: No Discharge Instructions Given to Patient (Per Discharging Provider) You were admitted to the hospital for the evaluation of severe shortness of breath. Your work up overall was unremarkable except for mild elevation heart protein. This is concerning as your heart is straining when you are doing high intensity work (lifting heavy things, etc). It is recommended that you take it easy until you are evaluated by cardiology as outpatient. You will need a stress test as outpatient. In the meantime, if your symptoms come back or you have chest pain, please go to the nearest emergency room for further evaluation. You are being sent home on baby aspirin and statin. If you have any questions, please call primary care doctor. Please also follow up with your primary care doctor in about 7 to 10 days. Total Time Total Time Spent Total Time Spent (In Minutes): 45 Coding Level of Care Code 04983 INP/OBS DISCH >30 MIN Diagnoses Elevated troponin R79.89 Dyspnea R06.00 Gastric ulcer due to nonsteroidal antiinflammatory drug (NSAID) therapy K25.9; T39.395A Acute blood loss anemia D62
== END 2025-05-01 16:36 | disposition home or self-care (01) ==
LOC: 2S 08:35 → ED 08:35 → 2S 14:55